=== PATIENT | male | born 1975 | race Caucasian/White ===

== ENCOUNTER 2024-06-03 08:29 | Emergency (ER) | payer OTHER, SELFPAY ==
--- NOTE | ~2024-06-03 | XR_ITS ---
XR chest 2V Ordering provider: Park Peng APRN History: 48 years Male with . cough, tachy, smoker . Comparison: None. FINDINGS: MEDIASTINUM: The cardiac silhouette is slightly enlarged. Slightly prominent gato. LUNGS: Small opacity seen in the right midzone which may be a nodule or granuloma measuring 1.2 cm. C T evaluation is advised. No infiltrates, effusions or pneumothorax. Slightly prominent bronchovascula r markings in the lower lobes more on the right side OTHER: No free air under the diaphragm. Degenerative changes of the spine. IMPRESSION: Slight cardiomegaly with congestive gato. Small nodule in the right midzone. CT evaluation advised. Reviewed, dictated and finalized at location A.
--- NOTE | 2024-06-03 08:45 | ECG_ITS ---
Test Date: 2024-06-03 09:02:25 Measurements Intervals [place] Rate: 131 P: 0 ND: 0 QRS: -8 QRSD: 100 T: 97 QT: 299 QTc: 442 Interpretive Statements ATRIAL FLUTTER/TACHYCARDIA WITH RAPID VENTRICULAR RESPONSE CONSIDER INFERIOR INFARCT, AGE INDETERMINATE BORDERLINE ST-T WAVE ABNORMALITY- LAT/HIGH LAT LEADS BASELINE ARTIFACT- I, II, III, AVR, AVL, AVF, V1-V3 ABNORMAL ECG No previous ECG available for comparison Electronically Signed On 06-03-2024 09:11:01 CDT by Surendra Beckman D.O.
--- NOTE | 2024-06-03 08:45 | ED.URI ---
HPI - URI/Sore Throat General Chief Complaint: Upper Respiratory Infection Stated Complaint: COUGH Source: patient Mode of arrival: ambulatory Limitations: no limitations History of Present Illness HPI Narrative: 48-year-old male with hx HTN presented for complaint of cough for 10 days, and symptoms are worsening over the past few days. Endorses shortness of breath, fatigue and heart racing. Reports pain to the sternum with coughing. Patient smokes 1 ppd. Related Data Home Medications ?Medication ?Instructions ?Recorded ?Confirmed ?Last Taken ?Type diltiazem HCl 180 mg 180 mg PO DAILY 05/24/24 06/03/24 Unknown History capsule,extended release 24 hr, controlled (DILT-XR) omeprazole 20 mg capsule,delayed 20 mg PO DAILY 05/24/24 05/24/24 Unknown History release rosuvastatin 20 mg tablet 20 mg PO DAILY 05/24/24 06/03/24 Unknown History Allergies Allergy/AdvReac Type Severity Reaction Status Date / Time No Known Allergies Allergy Verified 06/03/24 10:19 Review of Systems Review of Systems: per HPI All systems reviewed & are unremarkable except as noted in HPI and below PMFSH Past Medical History Medical History (Updated 06/03/24 @ 09:26 by Park Peng, MONICA) Hypertension Social History Social History Smoking packs per day: 1 Smoking cigarettes per day: 20.0 Years smoked: 25 Smoking pack-years: 25.00 Smoking status: Current every day smoker Tobacco type: cigarettes Alcohol intake: current Drinks per week: 10 Substance use: current Substance use type: marijuana Other substance usage details: marijuana weekly Living arrangements: with family Spiritual care concerns: No Comments At time of signature, I have reviewed and agree with nursing past medical, surgical, social and family history unless otherwise noted. Please see nursing chart for further information. There is no relevant family history pertinent to the presenting complaint Exam Narrative: GENERAL: ill-appearing, in no acute distress. ENT: Mucous membranes pink and moist. CHEST: No respiratory distress, speaks short sentences. Tachypnea. Wheezing and diminished to all [place]. HEART: Regular and tachycardic. No murmur appreciated. ABDOMEN: Soft, large, nontender, normal active bowel sounds. EXTREMITIES: Normal range of motion. No edema. SKIN: Warm, dry, no rash. Capillary refill normal. NEURO: Alert and oriented x3. Gait steady. PSYCH: Flat affect. Course Course Emergency Course: Patient is aware of diagnosis, understands and agrees to treatment plan. Anticipatory guidance given. Patient agrees to follow-up as directed and is aware of reasons to seek care at the emergency department. Portions of this record may have been created with voice recognition software Level of Care: Express Care Visit Vital Signs Vital signs: Vital Signs Temperature 98.2 F 06/03/24 08:46 Pulse Rate 131 H 06/03/24 08:46 Respiratory Rate 24 H 06/03/24 08:46 Blood Pressure 145/104 H 06/03/24 08:46 Pulse Oximetry 98 06/03/24 08:46 Temperature 98.2 F 06/03/24 08:46 Pulse Rate 131 H 06/03/24 08:46 Respiratory Rate 24 H 06/03/24 08:46 Blood Pressure 145/104 H 06/03/24 08:46 Pulse Oximetry 98 06/03/24 08:46 MDM - URI/Sore Throat MDM Narrative Medical decision making narrative: patient presents for shortness of breath, heart racing, fatigue, and cough. EKG shows atrial flutter rate 131. CXR shows possible nodule rght midzone and bronchovascular markings in lower lobes; reviewed with pt. Advised ER transfer via EMS. Pt refuses ambulance, requests transfer via private vehicle. Pt is aware of the risk of worsening condition, disability and . Differential Diagnosis Differential diagnosis: Likely other (Angioedema, perforation, asthma, pneumonia, PE, tension pneumothorax, cardiac tamponade CA, pericarditis, pleural effusion, CHF, bronchitis, cardiac arrhythmia) Imaging Data Radiologist's impression: Patient: Barrett Guzman : 1975 MR#: [id number] Age: 48 Acct:[id number] Loc: [facility] ADM Date: 06/03/24Attending Dr: Ordering Physician: Park Peng APRN Date of Service: 06/03/24 Procedure(s): XR chest 2V Accession Number(s): [id number] cc: Kizzy, Eagle Nelson; Park Peng APRN~ XR chest 2V Ordering provider: Park Peng APRN History: 48 years Male with . cough, tachy, smoker . Comparison: None. FINDINGS: MEDIASTINUM: The cardiac silhouette is slightly enlarged. Slightly prominent gato. LUNGS: Small opacity seen in the right midzone which may be a nodule or granuloma measuring 1.[address] evaluation is advised. No infiltrates, effusions or pneumothorax. Slightly prominent bronchovascular markings in the lower lobes more on the right side OTHER: No free air under the diaphragm. Degenerative changes of the spine. IMPRESSION: Slight cardiomegaly with congestive gato. Small nodule in the right midzone. CT evaluation advised ECG Data EKG #1: Attestation: I personally reviewed and interpreted this ECG as follows: (Atrial flutter with rapid ventricular response, rate 131, QRS 100, QT/ QTC 299/376 CONSIDER INFERIOR INFARCT, AGE INDETERMINATE BORDERLINE ST-T WAVE ABNORMALITY- LAT/HIGH LAT LEADS BASELINE ARTIFACT- I, II, III, AVR, AVL, AVF, V1-V3 ABNORMAL ECG) ECG completion date: 06/03/24 ECG completion time: 09:02 Prior ECG tracings: not available for review EKG Interpretation: tachycardia and atrial flutter Discharge Plan Discharge Clinical Impression: Atrial flutter Patient Disposition: Acute Care Hospital Condition: Stable Patient Language: Indonesian Prescriptions: No Action diltiazem HCl [DILT-XR] 180 mg capsule,ext.rel 24h degradable 180 mg PO DAILY rosuvastatin 20 mg tablet 20 mg PO DAILY omeprazole 20 mg capsule,delayed release(DR/EC) 20 mg PO DAILY Follow-up/Referrals: Kizzy,Eagle Nelson MD [Primary Care Provider] -
[2024-06-03 08:46] VITALS: BP 145/104; PULSE 131; RESP 24; TEMP 36.8; O2SAT 98
--- NOTE | 2024-06-03 10:36 | PC.NURSE ---
0920 Patient to be transferred to [facility] ED for further evaluation and treatment-patient in agreement but refuses ambulance transport. He will call his .
== END 2024-06-03 09:53 | disposition short-term general hospital (02) ==
PROVIDERS: Emergency Provider Nurse Practitioner Family; PCP Internal Medicine
DX: I48.92 Unspecified atrial flutter (principal); F17.210 Nicotine dependence, cigarettes, uncomplicated; F12.90 Cannabis use, unspecified, uncomplicated; I10 Essential (primary) hypertension
CPT/HCPCS: 71046; 93005; 93010; 99213; G0463

== ENCOUNTER 2024-06-03 10:06 | Inpatient (IN) | payer OTHER, SELFPAY ==
[2024-06-03] VITALS (13 sets, daily range): BP systolic 119–157; BP diastolic 78–113; PULSE 123–132; RESP 18–35; TEMP 36.8–36.9; O2SAT 94–99; BMI 42.1
--- NOTE | ~2024-06-03 | XR_ITS ---
EXAMINATION: XR chest 1V portable DATE: 06/06/2024 08:10 INDICATION: Pneumonia TECHNIQUE: frontal view of the chest was obtained. COMPARISON: Chest radiograph and CT dated 06/03/2024 FINDINGS: Unchanged elevation the left hemidiaphragm. Again seen is a subtle nodule projecting over the right m idlung zone which demonstrates calcification on prior CT consistent with old granulomatous disease. N o new airspace opacities, pulmonary edema, pleural effusion or pneumothorax. Cardiomegaly. IMPRESSION: 1. Unchanged elevation of the left hemidiaphragm. No acute cardiopulmonary disease. 2. Cardiomegaly. Reviewed, dictated and finalized at location A. IMPRESSION: 1. Unchanged elevation of the left hemidiaphragm. No acute cardiopulmonary dise ase. 2. Cardiomegaly.
--- NOTE | ~2024-06-03 | US_ITS ---
Limited ABDOMINAL ULTRASOUND (Doppler ultrasound interrogation techniques used as needed for this exa m.) Ordering provider: Tyrell Cooper MD History: . Elevated liver enzymes . Comparison: None. FINDINGS: PANCREAS: Visualized portion is of normal echotexture and size. PORTAL VEIN: Hepatopedal flow demonstrated. LIVER: Normal size and increased echotexture. No focal hepatic lesions or perihepatic fluid collectio ns are identified. BILIARY DUCTS: No intra or extrahepatic biliary dilation. Common bile duct measures 2.4 mm in diamete r which is normal for patient's age. GALLBLADDER: Thickened wall measuring 4.6 mm. No stones, sludge or pericholecystic fluid. Negative s onographic Harper's sign. IVC: Patent. FREE FLUID: visualized within the upper abdomen. IMPRESSION: Fat infiltration of the liver. Thickened wall of the gallbladder which may indicate cholecystitis. Cl inical correlation advised. Minimal free fluid in the upper abdomen. Otherwise, normal limited abdomi nal ultrasound. Reviewed, dictated and finalized at location A. IMPRESSION: Fat infiltration of the liver. Thickened wall of the gallbladder which may abimbola aida cholecystitis. Clinical correlation advised. Minimal free fluid in the upp er abdomen. Otherwise, normal limited abdominal ultrasound.
--- NOTE | ~2024-06-03 | CT_ITS ---
CTA chest PE abdomen pel Ordering provider: Carolann Ferrara APRN History: . elevated liver enzymes, shortness of breath, cough . Comparison: None. Technique: CT angiogram chest was performed following timed intravenous injection of contrast. Thin s lice axial images and reformatted coronal images were obtained. Three dimensional reformatted images of the chest were also obtained using a [employer] workstation. Also, CT of the abdomen and pelvis was pe rformed with IV contrast. . Automated exposure control and iterative reconstruction technique were e mployed. The dose-length product was 2538.79 mGy-cm. 100 mL Omnipaque 350 was given IV. FINDINGS: CHEST: --PULMONARY ARTERIES: No pulmonary embolus. --VISUALIZED THORACIC INLET: Normal. --MEDIASTINUM: Aorta/coronary arteries: Mild atheromatous disease. Heart/other: The heart is not enlarged. Heart/other: The heart is moderately enlarged. Lymph nodes: No mediastinal or hilar adenopathy. Prevascular lymph nodes seen with the largest measur es 1.4 cm. Right paratracheal lymph nodes are also seen with the largest measures 1.7 cm. --LUNGS: No pulmonary masses. Multiple patchy opacities seen in the right upper and lower lobes suggestive of pneumonia. Groundglass appearance is seen in the lower lobes. Nodule with calcification seen in the r ight lower lobe suggestive of granuloma. Bilateral interstitial thickening which may indicate pneumon itis. Pulmonary edema is not excluded. No infiltrates. No pneumothorax. Right pleural effusion. --MUSCULOSKELETAL: Bones: Age appropriate degenerative changes of the spine. Superficial soft tissues: The superficial soft tissues are normal. ABDOMEN/PELVIS: --MUSCULOSKELETAL: Superficial soft tissues: Bilateral fat containing inguinal hernias. Fat-containing umbilical hernia. Otherwise, The superficial soft tissues are normal. Bones: Age appropriate degenerative changes of the spine. --UPPER ABDOMINAL ORGANS: Liver: Fat infiltration. Hepatomegaly. Gallbladder: Fat stranding seen around the neck of the gallbladder may indicate cholecystitis versus pneumonitis. Clinical correlation advised. Spleen: Normal. Stomach/duodenum: Normal. Pancreas: Normal. Adrenals: Normal. Kidneys: Tiny 2 mm stone in the left kidney lower ureter with no significant left hydronephrotic dill ges. Tiny cyst in the right kidney lower pole --PELVIC ORGANS: The bladder is underfilled with slightly thickened wall. No bladder stones. --BOWEL AND MESENTERY: Colon: No evidence of diverticulitis.. No evidence of appendicitis. Small Bowel: Normal. No obstruction. Peritoneum/mesentery: No free air or free fluid. No mesenteric lymphadenopathy. --RETROPERITONEUM: Mild atheromatous disease of the abdominal aorta. No retroperitoneal lymphadenop athy. Small para-aortic lymph nodes. IMPRESSION: CHEST: 1. No pulmonary embolism or dissection. 2. Multiple patchy opacities and groundglass appearance suggestive of pneumonia. Underlying pulmonar y edema is not excluded although this is less likely. Clinical correlation advised. 3. Mediastinal lymphadenopathy. 4. Right pleural effusion. ABDOMEN/PELVIS: 1. No evidence of appendicitis, diverticulitis or intestinal obstruction. 2. Fat stranding around the neck of the gallbladder. Differential include cholecystitis versus ascen ding cholangitis versus duodenitis: although no thickening in the wall of the gallbladder or the duod enum is seen. Clinical correlation advised. 3. Fat infiltration of the liver. Hepatomegaly. 4. Fat-containing bilateral inguinal and umbilical hernias. Reviewed, dictated and finalized at location A. IMPRESSION: CHEST: 1. No pulmonary embolism or dissection. 2. Multiple patchy opacities and groundglass appearance suggestive of pneumoni a. Underlying pulmonary edema is not excluded although this is less likely. Cli nical correlation advised. 3. Mediastinal lymphadenopathy. 4. Right pleural effusion. ABDOMEN/PELVIS: 1. No evidence of appendicitis, diverticulitis or intestinal obstruction. 2. Fat stranding around the neck of the gallbladder. Differential include chol ecystitis versus ascending cholangitis versus duodenitis: although no thickenin g in the wall of the gallbladder or the duodenum is seen. Clinical correlation advised. 3. Fat infiltration of the liver. Hepatomegaly. 4. Fat-containing bilateral inguinal and umbilical hernias.
--- NOTE | ~2024-06-03 | US_ITS ---
EXAM: ABDOMEN ULTRASOUND HISTORY: elevated LFTs COMPARISON: Reference is made to a CTA of the chest abdomen and pelvis performed less than 24 hours e stacy demonstrating infiltration of the fat surrounding the base of the gallbladder/1st-2nd portion of the duodenum for which clinical correlation was needed to exclude acute cholecystitis. FINDINGS: LIVER: The liver is increased in echogenicity and size measuring 25 cm in longitudinal dimension. The portal vein is patent, demonstrating hepatopedal flow. The contour of the liver surface is smooth. GALLBLADDER: The gallbladder wall is thickened, likely secondary to underdistention. No stones are identified. BILE DUCTS: Common bile duct measures 4.7mm. PANCREAS: Limited evaluation of the pancreas secondary to overlying bowel gas IMPRESSION: Fatty infiltration of an enlarged liver. Gallbladder wall thickening, likely secondary to underdistention. Reviewed, dictated and finalized at location A.
--- NOTE | ~2024-06-03 | US_ITS ---
EXAMINATION: US retroperitoneal duplex ltd DATE: 06/06/2024 14:31 INDICATION: Elevated liver enzymes TECHNIQUE: Multiple grayscale, color Doppler, and axial Doppler images of the hepatic artery, hepatic veins and portal veins were obtained. COMPARISON: None. FINDINGS: There is increased hepatic parenchymal echogenicity and coarsened echotexture consistent with diffuse hepatic steatosis. No liver lesion identified. The visualized liver. No intrahepatic biliary duct d ilation suspected. Portal venous flow was seen in the hepatopetal, normal direction but with mild inc reased pulsatility in the main and left and right portal veins. Normal arterial waveform with brisk systolic upstroke and peak systolic velocity of 51 cm/s at the hepatic artery. There is increased pul satility of the otherwise normal bidirectional flow in the left, middle and right hepatic veins with increased amplitude of the S wave and more prominently of the retrograde A-wave which is consistent w ith congestive heart failure without evident tricuspid regurgitation. There is a small amount of chantal hepatic ascites. IMPRESSION: 1. Normal directional flow but with increased pulsatility to the hepatic venous waveforms and to les ser degree the portal venous waveforms consistent with congestive heart failure. 2. Diffuse hepatic steatosis with small amount of perihepatic ascites. Reviewed, dictated and finalized at location B. IMPRESSION: 1. Normal directional flow but with increased pulsatility to the hepatic venou s waveforms and to lesser degree the portal venous waveforms consistent with co ngestive heart failure. 2. Diffuse hepatic steatosis with small amount of perihepatic ascites.
--- NOTE | ~2024-06-03 | US_ITS ---
US renal BI Ordering provider: Sai Gonzalez MD History: . elevated creatinine . Comparison: None. Technique: Ultrasound bilateral kidneys. Findings: RIGHT KIDNEY: Measures 12.5x 6x 5.6 cm in length which is normal in size. No renal cysts. No renal ma ss or visualized echogenic stones. Otherwise, normal echotexture and contour. No hydronephrosis. Norm al renal cortical thickness. LEFT KIDNEY: Measures 13.6x 7.8x 7.2 cm in length which is normal in size. No renal cysts. No renal m ass or visualized echogenic stones. Otherwise, normal echotexture and contour. No hydronephrosis. Nor mal renal cortical thickness. BLADDER: Partially visualized. IMPRESSION: No definite abnormality. Reviewed, dictated and finalized at location A. IMPRESSION: No definite abnormality.
--- NOTE | 2024-06-03 10:11 | ECG_ITS ---
Test Date: 2024-06-03 10:16:42 Measurements Intervals [place] Rate: 131 P: 0 MD: 0 QRS: -1 QRSD: 98 T: 99 QT: 298 QTc: 441 Interpretive Statements ATRIAL FLUTTER/TACHYCARDIA WITH RAPID VENTRICULAR RESPONSE POSSIBLE RIGHT VENTRICULAR CONDUCTION DELAY CONSIDER INFERIOR INFARCT, AGE INDETERMINATE NONSPECIFIC ST & T-WAVE ABNORMALITY- HIGH LATERAL LEADS ABNORMAL ECG Compared to ECG 06/03/2024 09:02:25 NO SIGNIFICANT CHANGE Electronically Signed On 06-03-2024 10:21:54 CDT by Surendra Beckman D.O.
[2024-06-03 10:24] LABS: Basophils Absolute Auto 0.1 K/mm3 (0.0-0.1); Basophils Percent Auto 0.7 % (0.2-1.2); Eosinophils Absolute Auto 0.1 K/mm3 (0-0.3); Eosinophils Percent Auto 0.7 % (0-4.4); Hematocrit 44.4 % (42.0-52.0); Hemoglobin 14.1 g/dL (14.0-18.0); Immature Granulocyte Absolute 0.05 K/mm3 (0.00-0.031); Immature Granulocyte Percent A 0.5 % (0-0.5); Lymphocytes Absolute Auto 1.99 K/mm3 (0.9-3.2); Lymphocytes Percent Auto 19.8 % (18.3-44.2); Mean Corpuscular HGB Conc 31.8 g/dl (32-36); Mean Corpuscular Hemoglobin 31.1 pg (26-34); Monocytes Absolute Auto 0.9 K/mm3 (0.1-0.6); Monocytes Percent Auto 9.3 % (2.6-8.5); Platelet Count Result 284 k/mm3 (150-375); Red Blood Count 4.53 M/mm3 (4.6-6.20); Red Cell Distribution Width 12.6 % (11.5-14.5); White Blood Count 10.1 K/mm3 (4.5-10.0)
--- NOTE | 2024-06-03 10:33 | ED.SOB ---
HPI - SOB/Dyspnea General Chief Complaint: Shortness of Breath/Dyspnea <Carolann Ferrara APRN - Last Filed: 06/03/24 13:37> Stated Complaint: sent by <Carolann Ferrara APRN - Last Filed: 06/03/24 13:37> Time Seen by Provider: 06/03/24 10:12 <Carolann Ferrara APRN - Last Filed: 06/03/24 13:37> History of Present Illness HPI Narrative: Patient is a 48-year-old male who presents to the ER with a 1 1/2 week history of cough, wheezing, shortness of breath, mild sore throat, intermittent headache, and fatigue. Earlier today he presented to urgent care, who noted he was tachycardic, so they advised him to come to the ER. Patient reports he has been using [id number] cough suppressants at home without any relief. He endorses a history of high blood pressure, hyperlipidemia, GERD. Patient also reports he is a daily marijuana and cigarette smoker. He denies any chest pain, back pain, nausea/vomiting, or recent fevers. <Carolann Ferrara APRN - Last Filed: 06/03/24 13:37> Related Data Home Medications: Home Medications ?Medication ?Instructions ?Recorded ?Confirmed ?Last Taken ?Type diltiazem HCl 180 mg 180 mg PO DAILY 05/24/24 06/03/24 06/03/24 History capsule,extended release 24 hr, controlled (DILT-XR) omeprazole 20 mg capsule,delayed 20 mg PO DAILY 05/24/24 06/03/24 06/03/24 History release rosuvastatin 20 mg tablet 20 mg PO DAILY 05/24/24 06/03/24 06/03/24 History <Carolann Ferrara APRN - Last Filed: 06/03/24 13:37> Allergies/Adverse Reactions: Allergies Allergy/AdvReac Type Severity Reaction Status Date / Time No Known Allergies Allergy Verified 06/03/24 10:19 <Carolann Ferrara APRN - Last Filed: 06/03/24 13:37> Review of Systems Review of Systems: All systems reviewed & are unremarkable except as noted in HPI and below <Carolann Ferrara APRN - Last Filed: 06/03/24 13:37> PMFSH Past Medical History Medical History: Medical History (Updated 06/03/24 @ 16:34 by Maria E Leal PA-C) Gastroesophageal reflux disease Tobacco dependence Hyperlipidemia Hypertension <Carolann Ferrara, CHIEF LIBRARIAN CIRCULATION DEPARTMENT - Last Filed: 06/03/24 13:37> Surgical History Surgical History: Surgical History (Updated 06/03/24 @ 16:31 by Maria E Leal PA-C) History of tonsillectomy <Carolann Ferrara, CHIEF LIBRARIAN [employer]ATION DEPARTMENT - Last Filed: 06/03/24 13:37> Family History Family History: Family History Father Acute myocardial infarction Mother Diabetes mellitus <Carolann Ferrara, CHIEF LIBRARIAN [employer]ATION DEPARTMENT - Last Filed: 06/03/24 13:37> Social History Social History: Social History (Updated 06/03/24 @ 16:31 by Maria E Leal PA-C) Social History: Surrogate medical decision maker: Kimberlyn Natan, spouse. Code status: Full code. Smoking packs per day: 1 Smoking cigarettes per day: 20.0 Years smoked: 25 Smoking pack-years: 25.00 Smoking status: Current every day smoker Tobacco type: cigarettes Alcohol intake: current Drinks per week: 10 Substance use: current Substance use type: marijuana Other substance usage details: marijuana weekly Do You Feel Safe in your Home?: Yes Lack of Transportation: No Lack of Food: Never True Current Housing: I Do Not Have Housing Concerned About Future Housing: No Difficulty Paying Gas/Electric Bills: No Difficulty Paying for Meds: No Currently Unemployed: No Education: High School Diploma/GED Difficulty w/ Childcare or Family Care: No Living arrangements: with family Spiritual care concerns: No <Carolann Ferrara, CHIEF LIBRARIAN [employer]ATION DEPARTMENT - Last Filed: 06/03/24 13:37> Exam Narrative: GENERAL: Well appearing, well-nourished, non-toxic, in no acute distress. HEAD: Normocephalic, atraumatic. NECK: Supple. No adenopathy, no masses. RESPIRATORY: Airway patent, respirations nonlabored. Wheezing and rales to auscultation bilaterally (left greater than right). CARDIOVASCULAR: Tachycardia without murmurs, rubs, or gallops. Peripheral pulses 2+ and equal bilaterally. No pedal edema ABDOMINAL: Soft, nontender, nondistended, no hepatosplenomegaly. Normoactive BS. MUSCULOSKELETAL: Moves all extremities. Strength/ROM intact without gross deformities. SKIN: Warm, dry, normal color. No rashes. NEURO: A&O X3. Speech clear. Cranial nerves II-XII intact. No ataxic movements. PSYCHIATRIC: Flat affect. Normal interaction. <Carolann Ferrara APRN - Last Filed: 06/03/24 13:37> Course ENGINE DISPATCHER/PA Physician Supervision I agree with midlevel documentation; I performed the medical decision making component of this evaluation. I had independent [id number] time with the patient and performed my own independent evaluation and assessment. Patient remained persistently tachycardic with a heart rate of 131-132 without any variation an initial EKG that lip appears to be potential WPW versus atrial flutter with 2-1 conduction. Patient responded nicely to 5 mg IV push metoprolol with improved heart rate down into the 100s. Patient does have multifocal pneumonia as started on appropriate antibiotics. No significant leukocytosis or anemia. Initial troponin was negative but rodger slightly likely secondary to demand from the elevated heart rate persistently. Also improved down on 6 hour troponin after heart rate was better controlled. Hospitalist was spoken to as well as Cardiology. Patient was accepted to an IMU bed at this time. Patient remained stable and comfortable with admission plan. <Brandon Rubi MD - Last Filed: 06/03/24 20:55> Vital Signs Vital signs: Vital Signs Temperature 36.9 C 06/03/24 10:09 Pulse Rate 132 H 06/03/24 10:09 Respiratory Rate 24 H 06/03/24 10:09 Blood Pressure 157/113 H 06/03/24 10:09 Pulse Oximetry 99 06/03/24 10:09 Oxygen Delivery Room Air 06/03/24 10:09 Temperature 36.8 C 06/03/24 20:00 Pulse Rate 126 H 06/03/24 20:00 Respiratory Rate 32 H 06/03/24 20:00 Blood Pressure 145/94 H 06/03/24 20:00 Pulse Oximetry 94 06/03/24 20:00 Oxygen Delivery Room Air 06/03/24 10:12 <Carolann Ferrara, CHIEF LIBRARIAN CIRCULATION DEPARTMENT - Last Filed: 06/03/24 13:37> Vital Signs Temperature 36.9 C 06/03/24 10:09 Pulse Rate 132 H 06/03/24 10:09 Respiratory Rate 24 H 06/03/24 10:09 Blood Pressure 157/113 H 06/03/24 10:09 Pulse Oximetry 99 06/03/24 10:09 Oxygen Delivery Room Air 06/03/24 10:09 Temperature 36.8 C 06/03/24 20:00 Pulse Rate 126 H 06/03/24 20:00 Respiratory Rate 32 H 06/03/24 20:00 Blood Pressure 145/94 H 06/03/24 20:00 Pulse Oximetry 94 06/03/24 20:00 Oxygen Delivery Room Air 06/03/24 10:12 <Brandon Rubi MD - Last Filed: 06/03/24 20:55> MDM - SOB/Dyspnea MDM Narrative Medical decision making narrative: Patient is a 48-year-old male who presents to the ER with a 1 1/2 week history of cough, wheezing, shortness of breath, mild sore throat, intermittent headache, and fatigue. Earlier today he presented to urgent care, who noted he was tachycardic, so they advised him to come to the ER. Patient reports he has been using [id number] cough suppressants at home without any relief. He endorses a history of high blood pressure, hyperlipidemia, GERD. Patient also reports he is a daily marijuana and cigarette smoker. He denies any chest pain, back pain, nausea/vomiting, or recent fevers. Labs Ordered: CBC, CMP, troponin, magnesium, proBNP, UDS, UA, PTT, INR, lipase Imaging Ordered: Chest x-ray, CT PE scan, ECHO Medications Ordered: DuoNeb, Solu-Medrol 125mg IV, 1 L normal saline IV bolus, 1L LR IV bolus, Lasix, ceftriaxone IV, Ativan 1mg IV Results: Patient's CMP indicates a total bilirubin of 1.8, AST of 116, an ALT of 139. His troponin was within normal limits at 0.032. Diagnosis: atrial flutter, CHF, pneumonia Risks: HEART score: moderate risk HEART Score for Major Cardiac Events from [email or web address] on 06/03/2024 All calculations should be rechecked by clinician prior to use RESULT SUMMARY: 4 points Moderate Score (4-6 points) Risk of MACE of 12-16.6%. INPUTS: History ?> 1 = Moderately suspicious EKG ?> 1 = Non-specific repolarization disturbance Age ?> 1 = 45-64 Risk factors ?> 1 = 1-2 risk factors Initial troponin ?> 0 = <=Normal limit Consults: 1300- spoke with cardiology, Shreya Gibbs, who suggests pt be given Metoprolol to see if this helps decrease his heart rate. She will follow-up with pt once he is admitted to the hospital. 1300-Spoke with hospitalist, Maria E, who is in agreement to accept pt for admission. She advised pt be admitted to IMU. Patient Education/Shared MDM: Results of blood work and imaging shared with patient. He endorses improvement following duo neb administration. Patient's heart rate decreased mildly after metoprolol administration. He and his verbalized understanding of plan for admission. They are in agreement with plan. <Carolann Ferrara, CHIEF LIBRARIAN CIRCULATION DEPARTMENT - Last Filed: 06/03/24 13:37> Differential Diagnosis Differential diagnosis: Likely congestive heart failure, community acquired pneumonia, asthma with exacerbation and pulmonary embolism <Carolann Ferrara APRN - Last Filed: 06/03/24 13:37> Lab Data Attestation: I reviewed the patient's lab results. <Carolann Ferrara APRN - Last Filed: 06/03/24 13:37> Result diagrams: 06/03/24 10:18 06/03/24 10:18 <Carolann Ferrara, CHIEF LIBRARIAN CIRCULATION DEPARTMENT - Last Filed: 06/03/24 13:37> Labs: Lab Results 06/03/24 06/03/24 06/03/24 Range/Units 10:18 11:04 11:59 WBC 10.1 H (4.5-10.0) K/mm3 RBC 4.53 L (4.6-6.20) M/mm3 Hgb 14.1 (14.0-18.0) g/dL Hct 44.4 (42.0-52.0) % MCV 98.0 (80-100) fl MCH 31.1 (26-34) pg MCHC 31.8 L (32-36) g/dl RDW 12.6 (11.5-14.5) % Plt Count 284 (150-375) k/mm3 MPV 10.0 (7.4-10.4) fl Immature Gran % (Auto) 0.5 (0-0.5) % Neut % (Auto) 69.0 (45.5-73.1) % Lymph % (Auto) 19.8 (18.3-44.2) % Elk % (Auto) 9.3 H (2.6-8.5) % Eos % (Auto) 0.7 (0-4.4) % Baso % (Auto) 0.7 (0.2-1.2) % Lymph # (Auto) 1.99 (0.9-3.2) K/mm3 Elk # (Auto) 0.9 H (0.1-0.6) K/mm3 Eos # (Auto) 0.1 (0-0.3) K/mm3 Baso # (Auto) 0.1 (0.0-0.1) K/mm3 Abs Immat Gran (auto) 0.05 H (0.00-0.031) K/mm3 Absolute Neuts (auto) 7.0 H (1.3-6.7) K/mm3 Absolute Nucleated RBC 0.000 (0.0-0.012) K/mm3 Nucleated RBC % 0.0 (0.0-0.2) % PT 15.5 H (11.1-14.7) Seconds INR 1.2 APTT 30.9 (22.3-36.8) Seconds Sodium 140 (137-145) mmol/L Potassium 4.2 (3.4-5.0) mmol/L Chloride 107 (98-107) mmol/L Carbon Dioxide 23 (22-30) mmol/L Anion Gap 10 (4-12) mmol/L BUN 18 (9-20) mg/dL Creatinine 0.74 (0.7-1.3) mg/dL Estim Creat Clear Calc 157 ml/min Estimated GFR > 60 (59 - ) Glucose 122 H (65-110) mg/dL Lactic Acid 1.1 (0.7-2.0) mmol/L Calcium 9.1 (8.4-10.2) mg/dL Magnesium 2.3 (1.6-2.3) mg/dL Total Bilirubin 1.8 H (0.2-1.3) mg/dL AST 116 H (17-59) U/L ALT 139 H (6-50) U/L Alkaline Phosphatase 67 (38-126) U/L Troponin I 0.032 (0.000-0.034) ng/mL NT-Pro-B Natriuret Pep 2210 H (19.9-100) pg/mL Total Protein 7.0 (6.3-8.2) g/dL Albumin 4.2 (3.5-5.1) g/dL Lipase 81 (23-300) U/L Urine Color Dark yellow (Yellow) Urine Appearance Clear (Clear) Urine pH 5.5 (5.0-9.0) Ur Specific [place] > 1.045 H (1.001-1.035) Urine Protein 2+ H (Negative) mg/dL Urine Glucose (UA) Negative (Negative) mg/dL Urine Ketones Trace H (Negative) mg/dL Ur Blood (Man) Negative (Negative) Urine Nitrate Negative (Negative) Urine Bilirubin 2+ H (Negative) Urine Urobilinogen 1.0 (<2.0) mg/dL Leukocyte Esterase Rfl Negative (Negative) LUX/UL Urine RBC 0-2 (0-2) /hpf Urine WBC 0-5 (0-3) /hpf Ur Squamous Epith Cells None seen (Few) /hpf Urine Bacteria None seen /hpf Urine Casts 0-2 Hyaline Casts Present (None) /lpf Urine Mucus Present /lpf Urine Opiates Screen Negative (Negative) Urine Methadone Screen Negative (Negative) Ur Barbiturates Screen Negative (Negative) Ur Phencyclidine Scrn Negative (Negative) Ur Amphetamine Screen Negative (Negative) U Benzodiazepines Scrn Negative (Negative) Urine Cocaine Screen Negative (Negative) U Cannabinoids Screen Positive A (Negative) 06/03/24 Range/Units 13:05 WBC (4.5-10.0) K/mm3 RBC (4.6-6.20) M/mm3 Hgb (14.0-18.0) g/dL Hct (42.0-52.0) % MCV (80-100) fl MCH (26-34) pg MCHC (32-36) g/dl RDW (11.5-14.5) % Plt Count (150-375) k/mm3 MPV (7.4-10.4) fl Immature Gran % (Auto) (0-0.5) % Neut % (Auto) (45.5-73.1) % Lymph % (Auto) (18.3-44.2) % Elk % (Auto) (2.6-8.5) % Eos % (Auto) (0-4.4) % Baso % (Auto) (0.2-1.2) % Lymph # (Auto) (0.9-3.2) K/mm3 Elk # (Auto) (0.1-0.6) K/mm3 Eos # (Auto) (0-0.3) K/mm3 Baso # (Auto) (0.0-0.1) K/mm3 Abs Immat Gran (auto) (0.00-0.031) K/mm3 Absolute Neuts (auto) (1.3-6.7) K/mm3 Absolute Nucleated RBC (0.0-0.012) K/mm3 Nucleated RBC % (0.0-0.2) % PT (11.1-14.7) Seconds INR APTT (22.3-36.8) Seconds Sodium (137-145) mmol/L Potassium (3.4-5.0) mmol/L Chloride (98-107) mmol/L Carbon Dioxide (22-30) mmol/L Anion Gap (4-12) mmol/L BUN (9-20) mg/dL Creatinine (0.7-1.3) mg/dL Estim Creat Clear Calc ml/min Estimated GFR (59 - ) Glucose (65-110) mg/dL Lactic Acid (0.7-2.0) mmol/L Calcium (8.4-10.2) mg/dL Magnesium (1.6-2.3) mg/dL Total Bilirubin (0.2-1.3) mg/dL AST (17-59) U/L ALT (6-50) U/L Alkaline Phosphatase (38-126) U/L Troponin I 0.035 H* (0.000-0.034) ng/mL NT-Pro-B Natriuret Pep (19.9-100) pg/mL Total Protein (6.3-8.2) g/dL Albumin (3.5-5.1) g/dL Lipase (23-300) U/L Urine Color (Yellow) Urine Appearance (Clear) Urine pH (5.0-9.0) Ur Specific [place] (1.001-1.035) Urine Protein (Negative) mg/dL Urine Glucose (UA) (Negative) mg/dL Urine Ketones (Negative) mg/dL Ur Blood (Man) (Negative) Urine Nitrate (Negative) Urine Bilirubin (Negative) Urine Urobilinogen (<2.0) mg/dL Leukocyte Esterase Rfl (Negative) LUX/UL Urine RBC (0-2) /hpf Urine WBC (0-3) /hpf Ur Squamous Epith Cells (Few) /hpf Urine Bacteria /hpf Urine Casts Hyaline Casts (None) /lpf Urine Mucus /lpf Urine Opiates Screen (Negative) Urine Methadone Screen (Negative) Ur Barbiturates Screen (Negative) Ur Phencyclidine Scrn (Negative) Ur Amphetamine Screen (Negative) U Benzodiazepines Scrn (Negative) Urine Cocaine Screen (Negative) U Cannabinoids Screen (Negative) <Carolann Ferrara, CHIEF LIBRARIAN CIRCULATION DEPARTMENT - Last Filed: 06/03/24 13:37> Lab Results 06/03/24 06/03/24 06/03/24 Range/Units 10:18 11:04 11:59 WBC 10.1 H (4.5-10.0) K/mm3 RBC 4.53 L (4.6-6.20) M/mm3 Hgb 14.1 (14.0-18.0) g/dL Hct 44.4 (42.0-52.0) % MCV 98.0 (80-100) fl MCH 31.1 (26-34) pg MCHC 31.8 L (32-36) g/dl RDW 12.6 (11.5-14.5) % Plt Count 284 (150-375) k/mm3 MPV 10.0 (7.4-10.4) fl Immature Gran % (Auto) 0.5 (0-0.5) % Neut % (Auto) 69.0 (45.5-73.1) % Lymph % (Auto) 19.8 (18.3-44.2) % Elk % (Auto) 9.3 H (2.6-8.5) % Eos % (Auto) 0.7 (0-4.4) % Baso % (Auto) 0.7 (0.2-1.2) % Lymph # (Auto) 1.99 (0.9-3.2) K/mm3 Elk # (Auto) 0.9 H (0.1-0.6) K/mm3 Eos # (Auto) 0.1 (0-0.3) K/mm3 Baso # (Auto) 0.1 (0.0-0.1) K/mm3 Abs Immat Gran (auto) 0.05 H (0.00-0.031) K/mm3 Absolute Neuts (auto) 7.0 H (1.3-6.7) K/mm3 Absolute Nucleated RBC 0.000 (0.0-0.012) K/mm3 Nucleated RBC % 0.0 (0.0-0.2) % PT 15.5 H (11.1-14.7) Seconds INR 1.2 APTT 30.9 (22.3-36.8) Seconds Sodium 140 (137-145) mmol/L Potassium 4.2 (3.4-5.0) mmol/L Chloride 107 (98-107) mmol/L Carbon Dioxide 23 (22-30) mmol/L Anion Gap 10 (4-12) mmol/L BUN 18 (9-20) mg/dL Creatinine 0.74 (0.7-1.3) mg/dL Estim Creat Clear Calc 157 ml/min Estimated GFR > 60 (59 - ) Glucose 122 H (65-110) mg/dL Lactic Acid 1.1 (0.7-2.0) mmol/L Calcium 9.1 (8.4-10.2) mg/dL Magnesium 2.3 (1.6-2.3) mg/dL Total Bilirubin 1.8 H (0.2-1.3) mg/dL AST 116 H (17-59) U/L ALT 139 H (6-50) U/L Alkaline Phosphatase 67 (38-126) U/L Troponin I 0.032 (0.000-0.034) ng/mL NT-Pro-B Natriuret Pep 2210 H (19.9-100) pg/mL Total Protein 7.0 (6.3-8.2) g/dL Albumin 4.2 (3.5-5.1) g/dL Lipase 81 (23-300) U/L Urine Color Dark yellow (Yellow) Urine Appearance Clear (Clear) Urine pH 5.5 (5.0-9.0) Ur Specific [place] > 1.045 H (1.001-1.035) Urine Protein 2+ H (Negative) mg/dL Urine Glucose (UA) Negative (Negative) mg/dL Urine Ketones Trace H (Negative) mg/dL Ur Blood (Man) Negative (Negative) Urine Nitrate Negative (Negative) Urine Bilirubin 2+ H (Negative) Urine Urobilinogen 1.0 (<2.0) mg/dL Leukocyte Esterase Rfl Negative (Negative) LUX/UL Urine RBC 0-2 (0-2) /hpf Urine WBC 0-5 (0-3) /hpf Ur Squamous Epith Cells None seen (Few) /hpf Urine Bacteria None seen /hpf Urine Casts 0-2 Hyaline Casts Present (None) /lpf Urine Mucus Present /lpf Urine Opiates Screen Negative (Negative) Urine Methadone Screen Negative (Negative) Ur Barbiturates Screen Negative (Negative) Ur Phencyclidine Scrn Negative (Negative) Ur Amphetamine Screen Negative (Negative) U Benzodiazepines Scrn Negative (Negative) Urine Cocaine Screen Negative (Negative) U Cannabinoids Screen Positive A (Negative) 06/03/24 Range/Units 13:05 WBC (4.5-10.0) K/mm3 RBC (4.6-6.20) M/mm3 Hgb (14.0-18.0) g/dL Hct (42.0-52.0) % MCV (80-100) fl MCH (26-34) pg MCHC (32-36) g/dl RDW (11.5-14.5) % Plt Count (150-375) k/mm3 MPV (7.4-10.4) fl Immature Gran % (Auto) (0-0.5) % Neut % (Auto) (45.5-73.1) % Lymph % (Auto) (18.3-44.2) % Elk % (Auto) (2.6-8.5) % Eos % (Auto) (0-4.4) % Baso % (Auto) (0.2-1.2) % Lymph # (Auto) (0.9-3.2) K/mm3 [place]k # (Auto) (0.1-0.6) K/mm3 Eos # (Auto) (0-0.3) K/mm3 Baso # (Auto) (0.0-0.1) K/mm3 Abs Immat Gran (auto) (0.00-0.031) K/mm3 Absolute Neuts (auto) (1.3-6.7) K/mm3 Absolute Nucleated RBC (0.0-0.012) K/mm3 Nucleated RBC % (0.0-0.2) % PT (11.1-14.7) Seconds INR APTT (22.3-36.8) Seconds Sodium (137-145) mmol/L Potassium (3.4-5.0) mmol/L Chloride (98-107) mmol/L Carbon Dioxide (22-30) mmol/L Anion Gap (4-12) mmol/L BUN (9-20) mg/dL Creatinine (0.7-1.3) mg/dL Estim Creat Clear Calc ml/min Estimated GFR (59 - ) Glucose (65-110) mg/dL Lactic Acid (0.7-2.0) mmol/L Calcium (8.4-10.2) mg/dL Magnesium (1.6-2.3) mg/dL Total Bilirubin (0.2-1.3) mg/dL AST (17-59) U/L ALT (6-50) U/L Alkaline Phosphatase (38-126) U/L Troponin I 0.035 H* (0.000-0.034) ng/mL NT-Pro-B Natriuret Pep (19.9-100) pg/mL Total Protein (6.3-8.2) g/dL Albumin (3.5-5.1) g/dL Lipase (23-300) U/L Urine Color (Yellow) Urine Appearance (Clear) Urine pH (5.0-9.0) Ur Specific [place] (1.001-1.035) Urine Protein (Negative) mg/dL Urine Glucose (UA) (Negative) mg/dL Urine Ketones (Negative) mg/dL Ur Blood (Man) (Negative) Urine Nitrate (Negative) Urine Bilirubin (Negative) Urine Urobilinogen (<2.0) mg/dL Leukocyte Esterase Rfl (Negative) LUX/UL Urine RBC (0-2) /hpf Urine WBC (0-3) /hpf Ur Squamous Epith Cells (Few) /hpf Urine Bacteria /hpf Urine Casts Hyaline Casts (None) /lpf Urine Mucus /lpf Urine Opiates Screen (Negative) Urine Methadone Screen (Negative) Ur Barbiturates Screen (Negative) Ur Phencyclidine Scrn (Negative) Ur Amphetamine Screen (Negative) U Benzodiazepines Scrn (Negative) Urine Cocaine Screen (Negative) U Cannabinoids Screen (Negative) <Brandon Rubi MD - Last Filed: 06/03/24 20:55> Imaging Data Attestation: I personally reviewed and interpreted this imaging study as follows: <Carolann Ferrara APRN - Last Filed: 06/03/24 13:37> Radiologist's impression: Impressions Chest/Abdomen/Pelvis CTA 06/03/24 10:56 IMPRESSION: CHEST: 1. No pulmonary embolism or dissection. 2. Multiple patchy opacities and groundglass appearance suggestive of pneumonia. Underlying pulmonary edema is not excluded although this is less likely. Clinical correlation advised. 3. Mediastinal lymphadenopathy. 4. Right pleural effusion. ABDOMEN/PELVIS: 1. No evidence of appendicitis, diverticulitis or intestinal obstruction. 2. Fat stranding around the neck of the gallbladder. Differential include cholecystitis versus ascending cholangitis versus duodenitis: although no thickening in the wall of the gallbladder or the duodenum is seen. Clinical correlation advised. 3. Fat infiltration of the liver. Hepatomegaly. 4. Fat-containing bilateral inguinal and umbilical hernias. <Carolann Ferrara APRN - Last Filed: 06/03/24 13:37> Critical Care Time Critical Care Time Critical Care Time: Yes <Brandon Rubi MD - Last Filed: 06/03/24 20:55> Total Critical Care Time: 75 <Brandon Rubi MD - Last Filed: 06/03/24 20:55> Discharge Plan Discharge Clinical Impression: Congestive heart failure, Community acquired pneumonia, Atrial flutter <Carolann Ferrara APRN - Last Filed: 06/03/24 13:37> Patient Disposition: Still a Patient <Carolann Ferrara APRN - Last Filed: 06/03/24 13:37> Condition: Serious <Carolann Ferrara APRN - Last Filed: 06/03/24 13:37>
[2024-06-03 10:40] LABS: Alanine Aminotransferase 139 U/L (6-50); Albumin Level 4.2 g/dL (3.5-5.1); Alkaline Phosphatase 67 U/L (38-126); Anion Gap 10 mmol/L (4-12); Aspartate Amino Transferase 116 U/L (17-59); Bilirubin,Total 1.8 mg/dL (0.2-1.3); Blood Urea Nitrogen 18 mg/dL (9-20); Calcium 9.1 mg/dL (8.4-10.2); Carbon Dioxide 23 mmol/L (22-30); Chloride 107 mmol/L (98-107); Estimated CRCL calculation 157 ml/min; Estimated Glomerular Filt Rate > 60; Glucose 122 mg/dL (65-110); INR 1.2; Lipase 81 U/L (23-300); Potassium 4.2 mmol/L (3.4-5.0); Prothrombin Time 15.5 Seconds (11.1-14.7); Sodium 140 mmol/L (137-145)
[2024-06-03 10:41] LABS: Partial Thromboplastin Time 30.9 Seconds (22.3-36.8)
[2024-06-03 10:51] LABS: Troponin I 0.032 ng/mL (0.000-0.034)
[2024-06-03] MEDS: IPRATROPIUM 0.5 MG/ALBUTEROL SULFATE 2.5 MG AMPUL.NEB 3 ML INHALATION ×3 (10:55→11:01)
[2024-06-03] MEDS: SODIUM CHLORIDE 0.9% IV 1,000 ML 999 ML IV CONT (11:05)
[2024-06-03] MEDS: methylPREDNISolone SOD SUCC 125 MG VIAL IV PUSH (11:05)
--- OUTSIDE RECORDS SUMMARY | 2024-06-03 11:14 | XMS_ITS | Data Portability ---
Author Organization [place] [facility] [place], Main Office Address [address] [place] [address] Care Team Providers Care End Matcher Name Role Phone RIZWANA ROSA Primary Care Provider [phone] RIZWANA ROSA Referring Provider [phone] Assessment Encounter Date Assessment Date Assessment LastModified by Organization Details LastModified Time 05/14/2022 05/14/2022 Patient presents multiple problems. His main problems are left knee pain is tender over the left knee over the anterior aspect. Has pain over the positive patellar compression test negative Thomas's. Clearly has patellofemoral irritability I recommended injection proceeded with 20 mg Kenalog 4 cc 1% lidocaine for prescription drug management will try prednisone taper for pain and inflammation. We will also do a course of therapy. Secondary complaint is that of ankle pain right he broke it 20 years ago and has fractures of his well-healed he does have some early degenerative change because the fracture but most of his pain is in the Achilles tendon has bulbous swelling over the Achilles tendon this reproduces his pain. Recommended the course of therapy and stretching he will take the prednisone pills he states it has been 2 years and not better I told him is not much I also have to offer him at this point discussed. harmony Not available 05/14/2022 16:09:44 06/13/2022 06/13/2022 Patient returns had a nice response to conservative treatment. He is to the point he thinks he can live with and I think that is great. I gave him a shot in the knee and that seemed to help a lot he has also taken some prednisone pills. If it flares up a little bit he takes some Advil or Aleve and I told him that is fine. He gets worse or changes I probably start out again with another injection. He has some degenerative change but not enough to consider knee replacement surgery now or for the procedure about future. This would be difficult because the иван would have to be taken out. I will see him back on an as-needed basis discussed. We talked about his weight he has a BMI of 37 losing of 30-40 lbs be very beneficial to his joints. harmony Not available 06/13/2022 14:01:03 Plan of Treatment Reminders Order Date Submit Date Provider Last Modified By Organization Details Last Modified Time Details Appointments None recorded. Lab None recorded. Referral None recorded. Procedures injection/a spiration joint/bursa (PROC) - in office procedure, administere d by provider 2022 023 [email or web address] In-Office Order, Internal Use Only DO Not Attach Compendium DO Not Attach Compendium, Do Not Delete/merge, [id number] 15:26:08 Surgeries None recorded. Imaging XR, ankle 2022 023 [email or web address] 158 [facility] [place], [address], [place], [address], 16:10:48 XR, knee, 3 view 2022 023 [email or web address] 158 [facility] [place], [address], [place], [address], 16:10:21 Medication Orders Kenalog 10 mg/mL suspension for injection 2022 023 sagar Carrera [facility], [address] [place] [address], [address], 15:50:42 ropivacaine (PF) 5 mg/mL (0.5 %) injection solution 2022 023 sagar Carrera [facility], [address] [place] [address], [address], 3 15:50:42 prednisone 10 mg tablets in a dose pack 2022 023 sagar Carrera [facility], [address] [place] [address], [address], 3 15:50:42 Patient TargetsNo targets recorded. Patient InstructionsNo instructions recorded. Reason for Referral None Reported. Results Created Date Observation Date Name Description Value Unit Range Abnormal Flag Note LastModifiedBy Organization Detail LastModifiedTime 05/15/19 23 XR, knee, 3 view No observ ation record ed. harmony [facility] [place] [address], [place], [address], 05/14/2022 16:10:20 05/15/19 23 XR, ankle No observ ation record ed. [email or web address] [facility] [place] [address], [place], [address], 05/14/2022 16:10:47 Result Notes None recorded. Problems Name Problem SNOMED Code Status Onset Date Resolution Date Notes Provider Name and Address Organization Details Recorded Time Pain of left knee joint 3752449995306 07 Active 2022 MILADY Tsai, [place] [employer] [facility] [employer] [facility] 3 14:59:31 Pain of right ankle joint 1100319569524 9106 Active 2022 NESSA Renteria, [employer] [facility] [employer] [facility] 3 15:24:36 Right Achilles tendinitis 2469066381400 02 Active 2022 Parker Keating MD [address], [place], [address], [employer] [facility] 3 16:05:56 Chondromala trent of left patella 4462416846354 06 Active 2022 Parker Keating MD [address], [place], [address], [employer] [facility] 3 16:06:14 Problem Notes None recorded. Procedures Surgical History Date Name Laterality Status Provider Name and Address Organization Details Recorded Time 3 Ortho - Cortisone Injection completed Parker Keating MD [address], [place], [address], [employer] [facility] 05/14/2022 16:05:24 Shoulder completed Francesca Marsh MILADY [place] [facility] 05/14/2022 14:58:44 Ankle completed Francesca Marsh SUS[facility]ena [place] [facility] 05/14/2022 14:58:54 Imaging Results Imaging Date Name Status LastModified by Organiz ation Details LastModified Time 05/14/2022 XR, knee, 3 view completed [email or web address] [facility] [place] [address] [facility] [address], [place], [address], 05/14/2022 16:10:20 05/14/2022 XR, ankle completed [email or web address] [facility] [place] [address], [place], [address], 05/14/2022 16:10:47 Procedure Notes None recorded. Medical Equipment None Reported. Allergies No known drug allergies Medications Name Sig Start Date Stop Date Status Note LastModified by Organization Details LastModified Time prednisone 10 mg tablet active Not Available Not Available Not Available sildenafil 100 mg tablet TAKE 1 TABLET BY MOUTH ONCE DAILY NEEDED FOR ERECTILE DYSFUNCTION active Not Available Not Available Not Available prednisone 10 mg tablets in a dose pack Take 1 tab by mouth, 3 times a day for 3 daysTake 1 tab by mouth 2 times a day for 2 daysTake 1 tab by mouth once a day for 1 day 2022 active Not Available Not Available Not [employer] campbell Kenalog 10 mg/mL suspension for injection Take 20 mg by injection route. 2022 active [place]: 0003- 0494- 20 Not Available Not Available Not Available DILT-XR 180 mg capsule, extended release TAKE 1 CAPSULE BY MOUTH EVERY DAY active Not Available Not Available No t Available ropivacaine (PF) 5 mg/mL (0.5 %) injection solution Take 20 mg by injection route. 2022 active Not Available Not Available Not Obi campbell Vitals Date Recorded Body height Body mass index (BMI) Body weight Provider Name and Address Organization Details Last Updated DateTime 05/14/2022 182.88 cm 37.3 kg/m2 743145.9 MILADY Gold [facility] [employer] [facility] 05/14/2022 14:56:53 Date Recorded Body height Body mass index (BMI) Body weight Provider Name and Address Organization Details Last Updated DateTime 06/13/2022 182.88 cm 36.6 kg/m2 827028.94 MILADY Gannon [facility] [employer] [facility] 06/13/2022 13:53:25 Social History Question Answer Notes LastModified by Organizat ion Details LastModified Time Tobacco Smoking Status Current Every Day Smoker MILADY Tsai [facility] [employer] [facility] 05/14/2022 14:58:23 What Is Your Level Of Alcohol Consumption? Moderate [email or web address] Information not available 05/14/2022 Sex: Unknown Functional Status None recorded. Mental Status None recorded. Family History Relationship Description Onset Age of this Age Resolved Age Notes LastModified by Organization Details LastModified Time Father Heart disease [email or web address] Not available 2022 14:57:33 Father Hypertensive disorder [email or web address] Not available 2022 14:57:46 Medical History Condition Response HYPERTENSION Y Past Encounters Encounter ID Performer Location Encounter Start Date Encounter Closed Date Diagnosis/Indication Diagnosis SNOMED-CT Code Diagnosis ICD10 Code Diagnosis Note [id number] Parker Keating MD [facility] [place] [address] [place] [address] 05/14/2022 14:42:13 05/14/2022 15:39:29 Pain of left knee joint 4596316412 74535 M25.562 Pain of ri ght ankle joint 8357401844 9166108 M25.571 Right Achi lles tendinitis 7817519874 92109 M76.61 Chondromal acia of left patella 4967378865 18184 M22.42 [id number] Parker Keating MD [facility] [place] [address] [place] [address] 06/13/2022 13:50:59 06/13/2022 14:25:57 Pain of left knee joint 8209668703 44264 M25.562 Pain of ri ght ankle joint 9255877780 9346563 M25.571 Right Achi lles tendinitis 9659675807 78429 M76.61 Chondromal acia of left patella 1840163347 13807 M22.42 Health Concerns Section Related Observation LastModified by Organization Detai ls LastModified Time None Recorded Concern Status LastModified by Organization Details LastModified Time None Recorded Advance Directives Directive None Recorded Payers Encounter Date Sequence Insurance Name Policy Number Policy Da Silva Covered Member ID Da Silva Member ID Guarantor Name 05/14/2022 1 [facility] [id number] Kimberlyn Gama [id number] Barrett Bevel 06/13/2022 1 [facility] [id number] Kimberlyn Gama [id number] Barrett Bevel Notes Date Note Type Note Provider Name and Address Organization Details Recorded Time 05/14/2022 text/html Patient presents with multiple complaints. His main complaint today is left knee pain. He had the knee right leg tibial иван of 20 years ago denies got knee pain after injuring his ankle. Of note is that he had his ankle fixed about 20 years ago on the right side and that is what is hurting a fair bit in his right foot ankle particularly about the Achilles. Parker Keating MD [address], [place] [address], [place], [address], [employer] 05/14/2022 16:11:18 06/13/2022 text/html Patient returns for left knee and right ankle pain. He has had a nice response to conservative treatment he thinks the shot really helped as well as the prednisone pills. He is to the point where he thinks he can live with it for the present time. Parker Keating MD [address], [place] [address], [place], [address], [employer] 06/13/2022 14:01:17
--- OUTSIDE RECORDS SUMMARY | 2024-06-03 11:14 | XMS_ITS | Clinical Summary ---
Author Organization [facility] [address] Address [address] [place] [address] Phone Care Team Providers Care Hat Block Maker Name Role Phone Eagle Durand MD Primary Care Provider [phone] Allergies No known active allergies Medications dilTIAZem XR (DILT-XR) 180 mg 24 hr capsuleIndications :Hypertension, essential TAKE 1 CAPSULE BY MOUTH DAILY 90 capsule 1 01/19/20 24 Active rosuvastatin (CRESTOR) 20 mg tabletIndications: Mixed hyperlipidemia TAKE 1 TABLET BY MOUTH DAILY 90 tablet 1 03/22/19 25 Active sildenafiL (VIAGRA) 100 mg tablet TAKE 1 TABLET BY MOUTH ONCE DAILY NEEDED FOR ERECTILE DYSFUNCTION 12 tablet 04/24/19 25 Active Active Problems Problem Noted Date Diagnosed Date Morbid obesity with BMI of 40.0-44.9, adult 11/10 Assessment & Plan (11/27/2023 4:59 PM CDT): Patient not interested in GLP 1 type products weight reduction. He advised me he knew how to reduce weight he just needs to become serious about it and follow through on losing weight. Knows exactly what he takes and how to do it. Need for hepatitis C screening test 11/27/2023 Mixed hyperlipidemia 05/09/2023 Assessment & Plan (11/27/2023 4:58 PM CDT): Lipid results in therapeutic range with medications Crestor 20 mg daily Component Latest Ref Rng 05/06/2023 07/23/2023 Cholesterol 100 - 199 mg/dL 221 (H) 146 HDL Cholesterol >39 mg/dL 39 (L) 41 Triglycerides 0 - 149 mg/dL 106 124 VLDL Cholesterol Manolo 5 - 40 mg/dL 19 22 LDL Cholesterol Calc 0 - 99 mg/dL 163 (H) 83 Legend: (H) High (L) Low Assessment & Plan (05/09/2023 5:58 PM CDT): Patient's started on Crestor 20 mg daily will repeat lab in 2 months. Component Latest Ref Rng 04/16/2022 05/06/2023 Cholesterol 100 - 199 mg/dL 205 (H) 221 (H) HDL Cholesterol >39 mg/dL 41 39 (L) Triglycerides 0 - 149 mg/dL 219 (H) 106 VLDL Cholesterol Manolo 5 - 40 mg/dL 39 19 LDL Cholesterol Calc 0 - 99 mg/dL 125 (H) 163 (H) Legend: (H) High (L) Low Pain in left ankle and joints of left foot 04/20 Assessment & Plan (04/20/2022 3:06 PM SENIOR CLIMATE ADVISOR): Patient injured left ankle and foot pain while running several months ago continues have some pain and discomfort he is limited on how far he can run and sometimes has to limp. Advised patient definitely needs to follow-up with podiatry. Encounter for preventive health examination 03/14 Assessment & Plan (11/27/2023 4:54 PM CDT): History and physical completed patient's health risk assessment health maintenance reviewed and addressed. Patient has morbid obesity his laboratory studies for diabetes and lipid profile renal functions have been excellent.. Patient will follow and get a colonoscopy screening colon cancer. Advised me that colonoscopy as we done at [facility].. Staff was advised well.. Chronic health problems morbid obesity and hypertension. Assessment & Plan (10/28/2022 4:56 PM CDT): Patient 47 he is advised his options for colon cancer screening/a Cologuard versus colonoscopy. Will give some consideration depending on insurance coverage Assessment & Plan (04/20/2022 3:05 PM SENIOR CLIMATE ADVISOR): History and physical completed patient's health risk assessment health maintenance reviewed in addressed. Patient gained considerable weight during the COVID epidemic. Has some foot pain is interfering with his running which is part of keeping his weight down. Assessment & Plan (05/29/2020 5:07 PM CDT): History and physical completed health risk assessment health maintenance reviewed in addressed. Patient has had 1/2 of his COVID vaccines 2nd half will be done in the next 2 weeks.. Patient's laboratory studies reviewed from a year ago and not repeated on today's visit. Assessment & Plan (04/05/2019 12:51 PM SENIOR CLIMATE ADVISOR): History and physical complete health risk assessment addressed. 30 lb weight loss on purpose patient resume running. He had a added running in years past he discontinued this because of knee pain. This past year resume running is no knee pain he has lost 30 lb laboratory studies will include a CMP CBC FLP Assessment & Plan (04/03/2018 6:21 PM SENIOR CLIMATE ADVISOR): 42-year-old gentleman is new patient to me. He made me aware the fact he has lost weight. His blood pressures been slightly elevated he is on medications at this time. Patient laboratory studies will include basic metabolic profile on lipid profile. He advised me that his insurance company will not pay for testosterone levels. Patient has a history of erectile dysfunction. Hypertension, essential 04/03/2018 Assessment & Plan (11/27/2023 4:56 PM CDT): Pressure significantly elevated today he advised me checks his blood pressure at home frequently blood pressure in the 140 sometimes diastolic 90. Feels well he is on diltiazem 120 mg daily. Patient is given a blood pressure log she had advised I would like for him to do 20 blood pressure readings randomly with the next 30 days male results back to me. Assessment & Plan (05/09/2023 5:55 PM CDT): Patient reports his blood pressure is much better out of the office he consistently runs between 120-130 systolic 86-90 diastolic. Changes in blood pressure medicines at this time he is given information on dash diet least a website to go to regarding this. Patient's advised his a S CVD 10 year risk score he is 11.5 which is a moderate score also advised he can go on the Internet look up a cardiovascular risk calculation score plug in his cholesterol numbers in results were himself Assessment & Plan (10/28/2022 4:51 PM CDT): Blood pressure is well controlled patient is so advised no change in therapy at this time. Patient is tolerating medications no change in therapy Assessment & Plan (04/20/2022 3:05 PM SENIOR CLIMATE ADVISOR): Hypertension will continue present medication check BMP fasting lipid profile Assessment & Plan (10/12/2021 4:50 PM CDT): Blood pressure is 140/80 no change in therapy at this time. Encourage ifestyle change weight loss continue present therapy. Assessment & Plan (03/31/2021 1:35 PM SENIOR CLIMATE ADVISOR): Hypertension remains well controlled patient is tolerating medications. Is no symptoms referable to his hypertension.. Assessment & Plan (12/08/2020 5:12 PM CDT): Patient is on diltiazem 180 mg per day he is tolerating medications. Symptoms referable to his hypertension continue present therapy. Assessment & Plan (07/21/2020 4:54 PM CDT): Blood pressure is well controlled with hydrochlorothiazide/HCTZ 20/12.51 tablet daily. 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 His a warning from the material he is red regarding her lisinopril this medicines she should be discussed with this doctor under these conditions.. Was unable to find anything related to pigmentary dispersion lisinopril and I problems.. Advised patient because his a warning and I was 1 to changes medicine to diltiazem stop lisinopril.. Up when over the diltiazem side effects given pronounced side effects including eyes. Start with 180 mg per day see him back in 3 months. Assessment & Plan (04/03/2018 6:24 PM SENIOR CLIMATE ADVISOR): . History of hypertension dating back to 2015 at that time his weight was 275 lb. Patient made lifestyle changes by losing 35 lb. That time he ingested a lot of sugar in his diet he has discontinued that he has become active with exercising 150 min per week of exercise. exercise 30 did minutes per day 5 days a week.. Blood pressure in his office is 140/98.. She was diagnosed with hypertension he is weighing 275 lb in a blood pressure 155/105.. Patient advised me his blood pressure at home was 130/90 monitors it frequently with results in the 130 systolic.. Plans at this time patient do a blood pressure log she minimum 20 readings in the next 30 days in mail this back in to me I will see him in 3 months. I will review his blood pressure log sheet when he returns Erectile dysfunction due to arterial insufficien cy 04/03/2018 Assessment & Plan (12/08/2020 5:12 PM CDT): Viagra is effective. It is also affordable using good Rx referring to generic Viagra Assessment & Plan (05/29/2020 5:07 PM CDT): Medication refilled. Assessment & Plan (04/03/2018 6:25 PM SENIOR CLIMATE ADVISOR): Patient's erectile dysfunction he advised me that testosterone levels are not covered by his insurance. This time I discussed with him the medications Viagra, Cialis. Advised mother generic medication of Viagra which is more affordable Revatio /sildenafil and dosage in how to take it. Prescription called in [facility] pharmacy. Resolved Problems Problem Noted Date Diagnosed Date Resolved Date Body mass index 40.0-44.9, adult ([facility]) 05/09/2023 11/27/2023 Assessment & Plan (05/09/2023 6:00 PM CDT): Weight is up 22 lb in 2 years patient is given information regarding dash diet is has hyperlipidemia borderline blood pressures also given information from a website from the [employer] call my plate. Did not discuss GLP 1 therapy for his weight. Discussed lifestyle changes in the past. Class 2 severe obesity due t o excess calories with serious comorbidity in adult 12/08/20202023 Assessment & Plan (05/09/2023 5:54 PM CDT): Weight is up 22 lb in 2 years patient is given information regarding dash diet is has hyperlipidemia borderline blood pressures also given information from a website from the [employer] call my plate. Did not discuss GLP 1 therapy for his weight. Discussed lifestyle changes in the past. Assessment & Plan (10/28/2022 4:52 PM CDT): No significant change in weight. Does some work out for exercise purposes 60 to 90 minutes a week sounds like a usual amount of time he spends. Patient advised me make a target a minimum 150 minutes a week of exercise for purposes of improving cardiovascular outcome Assessment & Plan (10/12/2021 4:47 PM CDT): Patient's that his highest weight ever 271 lb BMI of 36.75 10 years ago he was 219 appy was also a [address] years ago as well. Patient's begin the walks several days a week for purpose of losing weight. Patient's ASCVD score 10 year risk 7.2 past this information on to him discussed with him the influence of cholesterol hypertension and other factors he can look up how to calculate this information in the future foreign self. Assessment & Plan (03/31/2021 1:35 PM SENIOR CLIMATE ADVISOR): Patient weight continues to go up we discussed his previous visit. Is aware of this. Strongly encourage patient make dietary change he can for follow-up with weight watchers another organization for weight reduction.. Review with him long-term effects of obesity Assessment & Plan (12/08/2020 5:14 PM CDT): Patient has had about a 30 lb weight gain. Stop exercise and secondary to leg injury days recovering from now. It is his intention resume exercising. His body mass index is 35.13 height 6 ft tall 259 lb Immunizations Immunization Administration Dates Next Due Influenza, Unspecified 11/27/2023(Deferr ed: Patient Refused),11/10/2022(Deferred: Patient Refused) Social History Tobacco Use Types Packs/Day Years Used Date Smoking Tobacco: Every Day Smokeless Tobacco: Never Tobacco Cessation:Ready to Q uit: Not Asked; Counseling Given: Not Answered PHQ-2 Answer Date Recorded PHQ-2 Total Score (If total score is 3 or more points, staff should administer the PHQ-9) 0 11/27/2023 Personal Safety Answer Date Recorded Getting School Help Needed Not on file 03/16 Sex and Gender Information Value Date Recorded Sex Assigned at Not on file Legal Sex Male 9:46 AM SENIOR CLIMATE ADVISOR Gender Identity Not on file Sexual Orientation Not on file Obstetrics History Last Filed Vital Signs Vital Sign Reading Time Taken Comments Blood Pressure 160/98 11/27/2023 3:23 PM CDT Pulse 87 11/27/2023 3:23 PM CDT Temperature 37 C (98.6 F) 11/27/2023 3:23 PM CDT Respiratory Rate 16 11/27/2023 3:23 PM CDT Oxygen Saturation 98% 11/27/2023 3:23 PM CDT Inhaled Oxygen Concentration - - Weight 135.8 kg (299 lb 6.4 oz) 11/27/2023 3:23 PM CDT Height 182.9 cm (6' 0.01 ) 11/27/2023 3:23 PM CD T Body Mass Index 40.6 11/27/2023 3:23 PM CDT Plan of Treatment Health Maintenance Due Date Last Done Comments Colon Cancer Screening-Colonoscopy 1977 Hepatitis C Screening 1977 DTaP/Tdap/Td Vaccine (1 - Tdap) 1988 Hepatitis B Screening 10/09/1995 Pneumococcal vaccine <65 (1 of 2 - PCV) 1996 Covid-19 Vaccine ( season) 2023 03/02/2021, 06/01/2020, 05/11/2020 Influenza Vaccine (Season Ended) 2024 Depression Screening 11/26/2024 11/27/2023, 04/12/2022, 10/12/2021, Additional history exists Regular Well Visit/Exam 18-64 11/26/2024 11/27/2023, 04/12/2022, 05/29/2020, Additional history exists HPV Vaccines Aged Out No longer eligi ble based on patient's age to complete this topic Insurance [facility] Care Teams Hat Block Maker Relationship Specialty Start Date End Date Eagle Durand MD PCP - General Internal Medicine 03/18/18
--- OUTSIDE RECORDS SUMMARY | 2024-06-03 11:14 | XMS_ITS | Referral Summary ---
Author Organization [facility] [address] Address [address] [place] [address] Phone Care Team Providers Care Project Associate Name Role Phone Eagle Durand MD Primary Care Provider [phone] Allergies No known active allergies Medications dilTIAZem [...] 04/20 Assessment & Plan (04/20/2022 3:06 PM SUBSTATION SUPERINTENDENT): Patient injured left ankle and foot pain [...] me that colonoscopy as we done at [facility].. Staff was advised well.. Chronic health problems morbid obesity and hypertension. Assessment & Plan (10/28/2022 4:56 PM CDT): Patient 47 he is advised his options for colon cancer screening/a Cologuard versus colonoscopy. Will give some consideration depending on insurance coverage Assessment & Plan (04/20/2022 3:05 PM SUBSTATION SUPERINTENDENT): History and physical completed patient's health risk [...] visit. Assessment & Plan (04/05/2019 12:51 PM SUBSTATION SUPERINTENDENT): History and physical complete health risk assessment addressed. 30 lb weight loss on purpose patient resume running. He had a added running in years past he discontinued this because of knee pain. This past year resume running is no knee pain he has lost 30 lb laboratory studies will include a CMP CBC FLP Assessment & Plan (04/03/2018 6:21 PM SUBSTATION SUPERINTENDENT): 42-year-old gentleman is new patient to me. [...] therapy Assessment & Plan (04/20/2022 3:05 PM SUBSTATION SUPERINTENDENT): Hypertension will continue present medication check BMP fasting lipid profile Assessment & Plan (10/12/2021 4:50 PM CDT): Blood pressure is 140/80 no change in therapy at this time. Encourage ifestyle change weight loss continue present therapy. Assessment & Plan (03/31/2021 1:35 PM SUBSTATION SUPERINTENDENT): Hypertension remains well controlled patient is tolerating [...] months. Assessment & Plan (04/03/2018 6:24 PM SUBSTATION SUPERINTENDENT): . History of hypertension dating back to [...] refilled. Assessment & Plan (04/03/2018 6:25 PM SUBSTATION SUPERINTENDENT): Patient's erectile dysfunction he advised me that testosterone levels are not covered by his insurance. This time I discussed with him the medications Viagra, Cialis. Advised mother generic medication of Viagra which is more affordable Revatio /sildenafil and dosage in how to take it. Prescription called in [facility] pharmacy. Resolved Problems Problem Noted Date Diagnosed Date Resolved Date Body mass index 40.0-44.9, adult ([facility]) 05/09/2023 11/27/2023 Assessment & Plan (05/09/2023 6:00 PM CDT): Weight is up 22 lb in 2 years patient is given information regarding dash diet is has hyperlipidemia borderline blood pressures also given information from a website from the [employer] call my plate. Did not discuss GLP [...] given information from a website from the [employer] call [employer]. Did not discuss GLP [...] he was 89 appy was also a 10264 years ago as well. Patient's begin the walks several days a week for purpose of losing weight. Patient's ASCVD score 10 year risk 7.2 past this information on to him discussed with him the influence of cholesterol hypertension and other factors he can look up how to calculate this information in the future foreign self. Assessment & Plan (03/31/2021 1:35 PM SUBSTATION SUPERINTENDENT): Patient weight continues to go up we [...] on file Legal Sex Male 9:46 AM SUBSTATION SUPERINTENDENT Gender Identity Not on file Sexual Orientation Not on file Last Filed Vital Signs Vital Sign Reading [...] 11/27/2023 3:23 PM CDT Plan of Treatment Not on file Insurance [facility] Address: [address] [phone] [facility] Address: [address] [address] Care Teams Project Associate Relationship Specialty Start Date End Date Eagle Durand MD PCP - General Internal Medicine 03/18/18
--- OUTSIDE RECORDS SUMMARY | 2024-06-03 11:14 | XMS_ITS | Clinical Summary ---
Author Organization [facility] Address [address] [place] [address] Care Team Providers Care Merchandise Coordinator Name Role Phone Unavailable Primary Care Provider Unavailabl e Source Comments [facility],non-owned Affiliates and Associated Physician Practices is amultiple site organization consisting of ambulatory clinics and hospital sitesin [place], [place], [place] and [place]. This disclosure is being madepursuant to the Care Everywhere program and may not contain all information available regarding this patient. 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 Gender Identity Not on file Sexual Orientation Not on file Plan of Treatment Health Maintenance Due Date Last Done Comments COLOGUARD (AGES 45-75) - COL ON CA SCREENING 1977 COLON MONITORING 1977 COLONOSCOPY - COLON CA SCREENING 1977 CT COLONOGRAPHY - COLON CA SCREENING 1977 Colorectal Cancer Screening 1977 FIT - COLON CA SCREENING 1977 FLEX SIG - COLON CA SCREENING 1977 LIPID TESTING 1977 HIV SCREENING 1992 HEPATITIS C SCREENING 10/04/1995 DTAP/TDAP/TD VACCINES (1 - Tdap) 1996 HEPATITIS B VACCINE (1 of 3 - 19+ 3-dose series) 1996 COVID-19 VACCINE ( - 2023-2 5 season) 2023 DEPRESSION SCREENING 02/11/2024 INFLUENZA VACCINE (Season Ended) 2024 ZOSTER VACCINE (1 of 2) 10/09/2027 HIB VACCINE Aged Out No longer eligi ble based on patient's age to complete this topic HPV VACCINE Aged Out No longer eligi ble based on patient's age to complete this topic MENINGOCOCCAL (Group B) VACC INE SHARED DECISION-MAKING Aged Out No longer eligibl e based on patient's age to complete this topic MENINGOCOCCAL GROUPS A/C/Y/W VACCINE Aged Out No longer eligible b ased on patient's age to complete this topic PNEUMOCOCCAL VACCINE Aged Out No long er eligible based on patient's age to complete this topic
[2024-06-03 11:20] LABS: Lactic Acid Reflex 1.1 mmol/L (0.7-2.0); Magnesium 2.3 mg/dL (1.6-2.3)
[2024-06-03 11:30] LABS: NT Pro B Type Natriuretic Pept 2210 pg/mL (19.9-100)
[2024-06-03] MEDS: FUROSEMIDE INJ 40 MG/4 ML VIAL IV PUSH (12:01)
--- NOTE | 2024-06-03 12:17 | PC.NURSE ---
Will start antibiotic after blood cultures obtained
[2024-06-03 12:34] LABS: Amphetamine Screen Urine Negative (Negative); Barbiturate Screen Urine Negative (Negative); Benzodiazepines Screen Urine Negative (Negative); Cannabinoid Screen Urine Positive (Negative); Cocaine Screen Urine Negative (Negative); Methadone Screen Urine Negative (Negative); Opiate Screen Urine Negative (Negative); Phencyclidine Screen Urine Negative (Negative)
[2024-06-03 12:36] LABS: Add Urine Microscopic? YES; Appearance Urine Clear (Clear); Bacteria Urine None Seen /hpf; Bilirubin Urine 2+ (Negative); Blood Urine Negative (Negative); Color Urine Dark Yellow (Yellow); Glucose Urine UA Negative (Negative); Hyaline Casts Urine Present /lpf; Ketones Urine Trace mg/dL (Negative); Leukocyte Esterase Ur Negative LEU/UL (Negative); Mucus Urine Present /lpf; Nitrate Urine Negative (Negative); Non Pathogenic Casts 0-2; Protein Urine 2+ mg/dL (Negative); RBC Urine 0-2 /hpf (0-2); Specific Grav Ur > 1.045 (1.001-1.035); Squamous Epithelial Cell Urine None Seen /hpf (Few); WBC Urine 0-5 /hpf (0-3); pH Urine 5.5 (5.0-9.0)
[2024-06-03] MEDS: LORazepam INJ (*CRX) 2 MG/ML VIAL 1 MG IV PUSH (13:13)
[2024-06-03] MEDS: LACTATED RINGERS 1,000 ML 999 ML IV CONT (13:13)
[2024-06-03] MEDS: METOPROLOL TARTRATE INJ 5 MG/5 ML VIAL IV PUSH (13:23)
--- NOTE | 2024-06-03 13:33 | ECG_ITS ---
Test Date: 2024-06-03 13:39:09 Measurements Intervals [place] Rate: 85 P: 0 AK: 0 QRS: -3 QRSD: 105 T: 0 QT: 391 QTc: 465 Interpretive Statements ATRIAL FLUTTER/TACHYCARDIA INCOMPLETE RIGHT BUNDLE BRANCH BLOCK CONSIDER ANTERIOR INFARCT, AGE INDETERMINATE CONSIDER INFERIOR INFARCT, AGE INDETERMINATE BORDERLINE ST-T WAVE ABNORMALITY- LAT/HIGH LAT LEADS BASELINE ARTIFACT- I, II, III, AVF, V4-V6 ABNORMAL ECG Compared to ECG 06/03/2024 10:16:42 HEART RATE HAS DECREASED Electronically Signed On 06-03-2024 13:43:38 CDT by Surendra Beckman D.O.
--- NOTE | 2024-06-03 13:35 | PC.NURSE ---
Antibiotic administration delayed due to difficulty obtaining blood cultures, pt was unsuccessfully poked at least six times for cultures by both deputy commonwealth's attorney and RNs. Meds administered per APR, repeat troponin sent, repeat EKG being completed at this time. Administered metoprolol with minimal heart rate improvement, provider aware. Pt updated on status/plan. Provided ice chips upon request. Call light in reach.
[2024-06-03] MEDS: AZITHROMYCIN 500 MG/NS 250 ML 500 MG/250 ML BAG 250 MG IVPB (13:45)
[2024-06-03 14:11] LABS: Troponin I 0.035 ng/mL (0.000-0.034)
--- NOTE | 2024-06-03 15:30 | P.HP_ITS ---
H&P: HPI History of Present Illness Date/Time: 06/03/24 17:00 Chief Complaint: Shortness of breath, rapid heart rate. Narrative: This is a 48-year-old male smoker with hypertension, hyperlipidemia, gastroesophageal reflux disease, and daily alcohol use who presented to the emergency department from urgent care for evaluation of rapid heart rate and shortness of breath. He gives a 10 day history of intermittent headache, mild sore throat, fatigue, wheezing, dry cough, and mild shortness of breath. At times he has discomfort in his chest with coughing or when taking a deep breath which he has difficulties describing. He has noticed some mild swelling in his feet but nothing significant. His appetite has not been great. Rchg-opy-ayxqcaq cough medications have helped a bit, at least allow him to get some sleep. He denies fever, syncope, near syncope, exertional chest pain, palpitations, orthopnea, vomiting, diarrhea, epigastric pain, and abdominal pain. He also denies tremors, anxiety, sweats, and states he has never had symptoms of alcohol withdrawal. Due to ongoing symptoms, he went to urgent care where he was found to be in atrial tachycardia and he was sent to the ED. In the ED: Vital signs on arrival include a temperature of 98.4?, blood pressure 157/113, pulse 132, respiratory rate 24, SpO2 99% on room air. Labs were significant for WBC count of 10.1, lactic acid 4.1, total bilirubin 1.8, AST 116, ALT 139, proBNP 2210, troponin 0.032. Urinalysis was positive for 2+ protein, trace ketones, 2+ bilirubin with a specific gravity of greater than 1.045. CTA of the chest, abdomen, and pelvis was negative for pulmonary embolism but did show findings suggestive of pneumonia and less likely pulmonary edema, mediastinal lymphadenopathy, and right pleural effusion as well as fatty infiltration of the liver with hepatomegaly and fat stranding around the neck of the gallbladder. He received a continuous nebulizer treatment, methylprednisolone 125 mg, furosemide 40 mg, normal saline 1 L bolus, lactated Ringer's 1 L bolus, lorazepam 1 mg, and metoprolol tartrate 5 mg IV. Review of Systems Review of Systems: 12 systems were reviewed and are negativ e except for as per HPI. [facility] Past Medical History Medical History (Updated 06/03/24 @ 21:45 by Maria E Leal PA-C) Daily consumption of alcohol Gastroesophageal reflux disease Tobacco dependence Hyperlipidemia Hypertension Surgical History Surgical History (Updated 06/03/24 @ 21:38 by Maria E Leal PA-C) History of open reduction and internal fixation (ORIF) procedure repair of right ankle fracture and left tibia-fibula fractures History of adenoidectomy Family History Family History Father Acute myocardial infarction Mother Diabetes mellitus Social History Social History (Updated 06/03/24 @ 21:41 by Maria E Leal PA-C) Social History: Surrogate medical decision maker: Kimberlyn Gama, spouse. Code status: Full code. Smoking packs per day: 1 Smoking cigarettes per day: 20.0 Years smoked: 25 Smoking pack-years: 25.00 Smoking status: Current every day smoker Tobacco type: cigarettes Alcohol intake: current Drinks per week: 35 Alcohol use details: 5 to 6 rum containing alcoholic beverages a day Substance use: current Substance use type: marijuana Other substance usage details: marijuana weekly Do You Feel Safe in your Home?: Yes Lack of Transportation: No Lack of Food: Never True Current Housing: I Do Not Have Housing Concerned About Future Housing: No Difficulty Paying Gas/Electric Bills: No Difficulty Paying for Meds: No Currently Unemployed: No Education: High School Diploma/GED Difficulty w/ Childcare or Family Care: No Spiritual care concerns: No Meds Home Medications and Allergies Home Medications ?Medication ?Instructions ?Recorded ?Confirmed ?Type diltiazem HCl 180 mg 180 mg PO DAILY 05/24/24 06/03/24 History capsule,extended release 24 hr, controlled (DILT-XR) omeprazole 20 mg capsule,delayed 20 mg PO DAILY 05/24/24 06/03/24 History release rosuvastatin 20 mg tablet 20 mg PO DAILY 05/24/24 06/03/24 History Allergies Allergy/AdvReac Type Severity Reaction Status Date / Time No Known Allergies Allergy Verified 06/03/24 10:19 Vital Signs Vital Signs - 24 hr 06/03/24 10:09 06/03/24 10:12 06/03/24 11:01 Temperature 98.4 F Pulse Rate 132 H 125 H Respiratory Rate 24 H 18 Blood Pressure 157/113 H Pulse Oximetry 99 96 Oxygen Delivery Room Air Room Air 06/03/24 12:09 06/03/24 13:23 06/03/24 14:58 Temperature 98.2 F Pulse Rate 132 H 131 H 126 H Respiratory Rate 35 H 24 H Blood Pressure 119/96 H 132/92 H Pulse Oximetry 98 96 Oxygen Delivery Exam Narrative: General: Mildly ill-appearing gentleman sitting up in bed in no acute distress. Weight: 140.9 kg. BMI: 42.1. HEENT: PERRL, EOMI. Sclera anicteric. Tacky mucous membranes. Neck: Supple. No JVD. Respiratory: Respirations are nonlabored and he is speaking in full sentences. Lung sounds are a bit coarse but are otherwise clear to auscultation. Cardiovascular: Tachycardic with normal S1-S2. Gastrointestinal: Abdomen is soft, nontender, and nondistended with positive bowel sounds. No guarding rebound tenderness. No obvious organomegaly. Skin: Warm and dry. No rash or lesions on limited exam. Extremities: No cyanosis or clubbing. Trace pedal edema. Negative Fatuma sign bilaterally. Neurological: Alert and oriented. Cranial nerves 2-12 are grossly intact. No tremors. No gross focal deficits to casual conversation. Psychiatric: Pleasant and cooperative with appropriate mood and affect. H&P: Results Labs Labs: Short CBC 06/03/24 Range/Units 10:18 WBC 10.1 H (4.5-10.0) K/mm3 Hgb 14.1 (14.0-18.0) g/dL Hct 44.4 (42.0-52.0) % Plt Count 284 (150-375) k/mm3 BMP 06/03/24 10:18 Sodium 140 Potassium 4.2 Chloride 107 Carbon Dioxide 23 BUN 18 Creatinine 0.74 Glucose 122 H Calcium 9.1 Cardiac Enzymes 06/03/24 06/03/24 Range/Units 10:18 13:05 Troponin I 0.032 0.035 H* (0.000-0.034) ng/mL Liver Function 06/03/24 Range/Units 10:18 Total Bilirubin 1.8 H (0.2-1.3) mg/dL AST 116 H (17-59) U/L ALT 139 H (6-50) U/L Alkaline Phosphatase 67 (38-126) U/L Albumin 4.2 (3.5-5.1) g/dL Urine 06/03/24 Range/Units 11:59 Urine Color Dark yellow (Yellow) Urine Appearance Clear (Clear) Urine pH 5.5 (5.0-9.0) Ur Specific [place] > 1.045 H (1.001-1.035) Urine Protein 2+ H (Negative) mg/dL Urine Glucose (UA) Negative (Negative) mg/dL Impressions Chest/Abdomen/Pelvis CTA 06/03/24 10:56 IMPRESSION: CHEST: 1. No pulmonary embolism or dissection. 2. Multiple patchy opacities and groundglass appearance suggestive of pneumonia. Underlying pulmonary edema is not excluded although this is less likely. Clinical correlation advised. 3. Mediastinal lymphadenopathy. 4. Right pleural effusion. ABDOMEN/PELVIS: 1. No evidence of appendicitis, diverticulitis or intestinal obstruction. 2. Fat stranding around the neck of the gallbladder. Differential include cholecystitis versus ascending cholangitis versus duodenitis: although no thickening in the wall of the gallbladder or the duodenum is seen. Clinical correlation advised. 3. Fat infiltration of the liver. Hepatomegaly. 4. Fat-containing bilateral inguinal and umbilical hernias. Assessment and Plan Assessment and plan (1) Community acquired pneumonia: Code(s): J18.9 - Pneumonia, unspecified organism Status: Acute (2) Atrial tachycardia: Code(s): I47.19 - Other supraventricular tachycardia Status: Acute (3) Transaminitis: Code(s): R74.01 - Elevation of levels of liver transaminase levels Status: Acute (4) Hypertension: Code(s): I10 - Essential (primary) hypertension Status: Acute (5) Tobacco dependence: Code(s): F17.200 - Nicotine dependence, unspecified, uncomplicated Status: Acute (6) Daily consumption of alcohol: Code(s): Z78.9 - Other specified health status Status: Acute (7) Suspected sleep apnea: Code(s): R29.818 - Other symptoms and signs involving the nervous system Status: Acute Plan The patient presented to to urgent care for evaluation of URI symptoms for the last 10 days and he was directed to the ED after he was found to be in atrial tachycardia as detailed in HPI. Labs, imaging, EKG, and all reports were personally reviewed. Imaging shows findings of pneumonia and he has been started on ceftriaxone and doxycycline. Nebulizers did not seem to help much and he does not have wheezing on exam thus there is no indication for steroids. He received a dose of furosemide as his proBNP was elevated at 2210 however he actually looks dry on examination and by history, also with ketones in the urine. It looks like he received 2 L of crystalloids at the same time as he was given furosemide thus will hold on introducing any more IV fluids or diuretics at this time and continue to monitor his volume status. Heart rate has been pretty consistently in the low 100s to 130s, at times it appears to be atrial flutter and at times atrial tachycardia. There was not any real improvement with metoprolol tartrate 5 mg IV. He is on diltiazem 180 mg daily at home and did take that this morning. He does not appear septic, TSH is within normal limits, and CTA of the chest was negative for pulmonary embolism. I suppose alcohol withdrawal would be a consideration however he lacks other symptoms. Echocardiogram has been ordered for a.m. and cardiology was consulted by the ED provider and their input is appreciated. Blood pressures have been reasonable an d will be monitored. I suspect the patient may have underlying sleep apnea as reports that he snores frequently and she has witnessed some apneic episodes. ApneaLink has been ordered for tonight. Smoking cessation is encouraged and was discussed. He declines the need for nicotine patch. We also discussed cutting back on alcohol use and that this may very well be the cause of his elevated liver enzymes. Radiologist remarked that there was some fat stranding around the neck of the gallbladder with a differential diagnosis to include cholecystitis versus ascending cholangitis versus duodenitis though no thickening of the wall of the gallbladder or duodenum was seen. His abdominal exam is completely benign though will check a right upper quadrant ultrasound and continue to monitor closely. His home medications will be reviewed and resumed as appropriate. Findings and treatment plan were discussed with the patient. Questions were solicited and answered to satisfaction. The patient's me dical management will be taken over by the hospitalist team in a.m. Quality VTE Prophylaxis VTE prophylaxis: pharmacologic ordered The patient has been admitted under observation status. Hospitalist MIPS Advance Care Plan I have confirmed that the patient's Advanced Care Plan is present, code status is documented, or surrogate decision maker is listed in patient medical record.: Yes Medication Reconciliation I have utilized all available resources to obtain, update and review the patients current medications (includes all prescriptions, OTC, herbals, cannabis, and nutritional supplements).: Yes
[2024-06-03 15:43] LABS: Troponin I 0.033 ng/mL (0.000-0.034)
[2024-06-03 19:43] LABS: Strep Group A RT-PCR NOT DETECTED (Negative)
[2024-06-03 19:56] LABS: Influenza A QL RT-PCR Negative (Negative); Influenza B QL RT-PCR Negative (Negative); SARS-CoV-2 RNA PCR Negative (Negative)
[2024-06-03 19:59] LABS: Hepatitis B Surface Antigen Negative (Negative)
[2024-06-03 20:05] LABS: HAV RESULT Negative (Negative); Hepatitis B Core IgM Result Negative (Negative)
[2024-06-03] MEDS: DOXYCYCLINE HYCLATE 100 MG TABLET PO (20:14)
[2024-06-03] MEDS: guaiFENesin 12 HR 600 MG TABCR 1200 MG PO (20:15)
[2024-06-03 20:17] LABS: Hepatitis C Virus Antibody Negative (Negative)
[2024-06-03 20:27] LABS: MRSA (PCR) NOT DETECTED (NOT DETECTE)
[2024-06-03] MEDS: CALCIUM CARBONATE (TUMS) 500 MG (200 MG ELEMENTAL) PO (21:38)
[2024-06-04] VITALS (25 sets, daily range): BP systolic 116–146; BP diastolic 79–115; PULSE 106–248; RESP 15–32; TEMP 36.5–36.9; O2SAT 92–100
--- NOTE | 2024-06-04 | ECHO_ITS ---
Patient Info Name: Barrett Guzman Age: 48 years : 1975 Gender: Male Ht: 72 in Wt: 309 lbs BSA: 2.73 m2 HR: 120 bpm BP: 126 / 87 mmHg Heart Rhythm: Atrial Fibrillation Technical Quality: Fair Exam Date: 06/04/2024 1:27 PM Exam Location: Echo Lab Patient Status: Inpatient Admit Date: 06/03/2024 Staff Ordering Physician: Carolann Ferrara APRN Receiving Associate: Ariella Perry RDCS Attending Provider: Kaiden Elam MD Exam Type: CA echo dop color flow w con Study Info Indications - New onset CHF Complete two-dimensional, color flow and Doppler transthoracic echocardiogram is performed with contrast to opacify the left ventricle and to improve the deliniation of the left ventricle endocardial borders. Contrast/Agitated Saline Contrast/Ag. Saline: Definity Amount: 6.00 ml Summary 1. Left ventricular chamber dimension is moderately enlarged. 2. Left ventricular systolic function is severely reduced, estimated at 20-25%. 3. There is mildly increased left ventricular wall thickness. 4. The left ventricular diastolic function is indeterminate. 5. Left atrial chamber dimension is moderately enlarged. 6. Right atrial chamber dimension is mildly enlarged. 7. There is moderate mitral valve regurgitation. 8. There is mild tricuspid valve regurgitation. 9. Mild pulmonary hypertension, estimated pulmonary arterial systolic pressure is 39 mmHg. 10. The aortic root size at the sinus of Valsalva is mildly dilated. 11. Dilated inferior vena cava with <50% collapse upon inspiration consistent with elevated right atrial pressure, 15 mmHg. Left Ventricle Left ventricular chamber dimension is moderately enlarged. Left ventricular systolic function is severely reduced, estimated at 20-25%. There is mildly increased left ventricular wall thickness. The left ventricular diastolic function is indeterminate. Right Ventricle Right ventricular chamber dimension is normal. Right ventricular systolic function is normal. Left Atria Left atrial chamber dimension is moderately enlarged. Right Atria Right atrial chamber dimension is mildly enlarged. Atrial Septum Intact interatrial septum visualized by color flow imaging. Aortic Valve The aortic valve is trileaflet. There is mild aortic valve sclerosis. There is no aortic valve stenosis. There is trace aortic valve regurgitation. Pulmonic Valve The pulmonic valve is normal. There is no pulmonic valve stenosis. There is trace pulmonic regurgitation. Mitral Valve The mitral valve has thickened leaflets. There is no mitral valve stenosis. There is moderate mitral valve regurgitation. Tricuspid Valve The tricuspid valve leaflets are normal. There is no significant tricuspid valve stenosis. There is mild tricuspid valve regurgitation. Mild pulmonary hypertension, estimated pulmonary arterial systolic pressure is 39 mmHg. Pericardium/Pleural The pericardium appears normal. There is no pericardial effusion. Inferior Vena Cava Dilated inferior vena cava with <50% collapse upon inspiration consistent with elevated right atrial pressure, 15 mmHg. Aorta The aortic root size at the sinus of Valsalva is mildly dilated. Left Ventricular Outflow Tract Name Value Normal LVOT Doppler LVOT Peak Gradient 2 mmHg LVOT Mean Gradient 1 mmHg LVOT VTI 7.24 cm LVOT VTI/AV VTI Ratio 0.72 Pulmonic Valve Name Value Normal RVOT Doppler RVOT Peak Gradient 0 mmHg PV Doppler PV Peak Gradient 1 mmHg Mitral Valve Name Value Normal MV Doppler MV Decel [place] 961.41 cm/s2 MV PHT 0 s MV Area (PHT) 8.16 cm2 4.00-5.00 MV Diastolic Function MV E Peak Velocity 89.43 cm/s MV A Peak Velocity 1.62 cm/s MV E/A 55.33 MV Decel Time 0 s MV Annular TDI MV E/e' (Septal) 15.65 <=8.00 MV E/e' (Lateral) 8.77 <=8.00 MV E/e' (Average) 12.21 Tricuspid Valve Name Value Normal TV Regurgitation Doppler TR Peak Velocity 242.47 cm/s TR Peak Gradient 21 mmHg Estimated PAP/RSVP RA Pressure 15 mmHg <=5 PA Systolic Pressure 39 mmHg <36 RV Systolic Pressure 39 mmHg <36 Aortic Valve Name Value Normal AV Doppler AV Peak Velocity 69.92 cm/s AV Peak Gradient 2 mmHg AV Mean Gradient 1 mmHg AV VTI 10.10 cm Ventricles Name Value Normal LV Dimensions 2D/MM IVS Diastolic Thickness (2D) 0.97 cm 0.60-1.00 LVID Diastole (2D) 5.74 cm 4.20-5.80 LVIW Diastolic Thickness (2D) 0.89 cm 0.60-1.00 LVID Systole (2D) 4.59 cm 2.50-4.00 LV Mass (2D Cubed) 207.86 g 88.00-224.00 LV Mass Index (2D Cubed) 0.01 g/cm2 0.00-0.01 Relative Wall Thickness (2D) 0.31 LV Fractional Shortening/Ejection Fraction 2D/MM LV Fractional Shortening (2D) 20 % 25-43 LV EF (2D Teicholz) 40 % 52-72 LV Diastolic Volume (4C MOD) 250.01 ml LV EF (4C MOD) 27 % LV Diastolic Volume (2C MOD) 282.55 ml LV EF (2C MOD) 38 % LV Diastolic Volume (BP MOD) 274.17 ml 62.00-150.00 LV Diastolic Volume Index (BP MOD) 0.10 l/m2 0.03-0.07 LV Systolic Volume (BP MOD) 179.71 ml 21.00-61.00 LV Systolic Volume Index (BP MOD) 0.07 l/m2 0.01-0.03 LV EF (BP MOD) 34 % 52-72 LV Diastolic Length (4C) 9.58 cm LV Systolic Length (4C) 9.63 cm LV Stroke Volume (4C MOD) 67.27 ml Atria Name Value Normal LA Dimensions LA Volume (4C A-L) 156.36 ml LA Volume (BP A-L) 157.32 ml RA Dimensions RA Area (4C) 26.02 cm2 <=18.00 Report Signatures
[2024-06-04 05:14] LABS: Hematocrit 40.9 % (42.0-52.0); Hemoglobin 13.1 g/dL (14.0-18.0); Mean Corpuscular Hemoglobin 31.3 pg (26-34); Mean Corpuscular Volume 97.6 fl (80-100); Mean Platelet Volume 10.4 fl (7.4-10.4); Platelet Count Result 300 k/mm3 (150-375); Red Blood Count 4.19 M/mm3 (4.6-6.20); Red Cell Distribution Width 12.7 % (11.5-14.5); White Blood Count 12.4 K/mm3 (4.5-10.0)
[2024-06-04 05:26] LABS: Alanine Aminotransferase 105 U/L (6-50); Albumin Level 3.8 g/dL (3.5-5.1); Alkaline Phosphatase 57 U/L (38-126); Anion Gap 10 mmol/L (4-12); Aspartate Amino Transferase 45 U/L (17-59); Bilirubin,Total 1.1 mg/dL (0.2-1.3); Blood Urea Nitrogen 20 mg/dL (9-20); Calcium 8.8 mg/dL (8.4-10.2); Carbon Dioxide 20 mmol/L (22-30); Chloride 107 mmol/L (98-107); Estimated CRCL calculation 168 ml/min; Estimated Glomerular Filt Rate > 60; Glucose 138 mg/dL (65-110); Magnesium 2.5 mg/dL (1.6-2.3); Potassium 4.6 mmol/L (3.4-5.0); Sodium 137 mmol/L (137-145)
[2024-06-04] MEDS: dilTIAZem HCL CD 180 MG CAP.24HR PO (08:51)
[2024-06-04] MEDS: PANTOPRAZOLE 40 MG TABLET PO (08:51)
[2024-06-04] MEDS: ENOXAPARIN 40 MG/0.4 ML SYRINGE SUB-Q (08:51)
[2024-06-04] MEDS: DOXYCYCLINE HYCLATE 100 MG TABLET PO ×2 (08:51→21:14)
[2024-06-04] MEDS: guaiFENesin 12 HR 600 MG TABCR 1200 MG PO ×2 (08:51→21:15)
--- NOTE | 2024-06-04 09:58 | ECG_ITS ---
Test Date: 2024-06-04 10:52:58 Measurements Intervals [place] Rate: 124 P: 0 [place]: 0 QRS: -10 QRSD: 105 T: 82 QT: 326 QTc: 469 Interpretive Statements ATRIAL FLUTTER/TACHYCARDIA WITH RAPID VENTRICULAR RESPONSE INCOMPLETE RIGHT BUNDLE BRANCH BLOCK CONSIDER INFERIOR INFARCT, AGE INDETERMINATE BORDERLINE T WAVE ABNORMALITY- HIGH LATERAL LEADS BASELINE ARTIFACT- V4 ABNORMAL ECG Compared to ECG 06/03/2024 13:39:09 HEART RATE HAS INCREASED Electronically Signed On 06-04-2024 12:02:55 CDT by Surendra Beckman D.O.
--- NOTE | 2024-06-04 10:00 | P.CONCA_ITS ---
Assessment and Plan Assessment and plan (1) Atrial flutter with rapid ventricular response: Code(s): I48.92 - Unspecified atrial flutter Status: Acute Plan 1. Atrial flutter with RVR. This is a new diagnosis of atrial flutter for the patient. 2. Pneumonia 3. Hypertension 4. Hyperlipidemia 5. GERD 6. Tobacco dependence 7. Alcohol use (has 10 drinks a week) 8. Morbid obesity with BMI of 41 PLAN: -Discussed diagnosis of atrial flutter with the patient and management options. Given persistent RVR, recommend HERI-guided DCCV. Discussed procedure with the patient, who is agreeable. As patient ate breakfast this morning, will plan on HERI-guided DCCV this afternoon. Patient to remain NPO for the procedure. -Transthoracic echocardiogram pending to evaluate for LVEF, valvular disease. If his LVEF is reduced, then will need to stop his Diltiazem. -Currently, his [id number] is 1 for hypertension. Given plans for DCCV, will start Eliquis 5mg BID. He will need to remain on uninterrupted anticoagulation for 1 month after cardioversion. If his [id number] score increases to 2, then he would need to be on long-term anticoagulation. -Recommend outpatient sleep study to evaluate for SIOBHAN. -Recommend abstinence from alcohol given association of alcohol and AFIB/AFL. -Treatment of pneumonia as per Hospitalist. -Continue home Rosuvastatin for hyperlipidemia. History of Present Illness History of Present Illness Consult date/time: 06/04/24 10:00 Requesting physician: Carolann Ferrara APRN Reason For Visit: New Onset Congestive Heart Failure/Pneumonia/Atria Narrative: We are consulted for atrial flutter. Barrett is a 48 year old male with hypertension, hyperlipidemia, GERD, tobacco dependence, alcohol use (has 10 drinks a week) who reports having a cough over the past two weeks. Had some shortness of breath with it. Had some chest pain with the coughing, but otherwise no chest pain when not coughing. He went to Urgent Care, where EKG showed atrial flutter with RVR, therefore, he was sent to [place]. Repeat EKGs here show atrial flutter with RVR. Workup here shows: Negative troponins NT pro BNP elevated at 2210 Normal TSH level Viral respiratory panel is negative CXR with slight cardiomegaly with congestive gtao CTA C/A/P shows possible pneumonia, mediastinal lymphadenopathy, right pleural effusion. Abdominal US shows fatty infiltration of an enlarged liver, gallbladder wall thickening. Review of Systems 2 Review of Systems: All systems reviewed & are unremarkable except as noted in HPI and below (HPI) [facility] Past Medical History Medical History Daily consumption of alcohol Gastroesophageal reflux disease Tobacco dependence Hyperlipidemia Hypertension Surgical History Surgical History History of open reduction and internal fixation (ORIF) procedure repair of right ankle fracture and left tibia-fibula fractures History of adenoidectomy Family History Family History Father Acute myocardial infarction Mother Diabetes mellitus Social History Social History Social History: Surrogate medical decision maker: Kimberlyn Gama, spouse. Code status: Full code. Smoking packs per day: 1 Smoking cigarettes per day: 20.0 Years smoked: 25 Smoking pack-years: 25.00 Smoking status: Current every day smoker Tobacco type: cigarettes Alcohol intake: current Drinks per week: 35 Alcohol use details: 5 to 6 rum containing alcoholic beverages a day Substance use: current Substance use type: marijuana Other substance usage details: marijuana weekly Do You Feel Safe in your Home?: Yes Lack of Transportation: No Lack of Food: Never True Current Housing: I Do Not Have Housing Concerned About Future Housing: No Difficulty Paying Gas/Electric Bills: No Difficulty Paying for Meds: No Currently Unemployed: No Education: High School Diploma/GED Difficulty w/ Childcare or Family Care: No Spiritual care concerns: No Meds Home Medications and Allergies Home Medications ?Medication ?Instructions ?Recorded ?Confirmed ?Type diltiazem HCl 180 mg 180 mg PO DAILY 05/24/24 06/03/24 History capsule,extended release 24 hr, controlled (DILT-XR) omeprazole 20 mg capsule,delayed 20 mg PO DAILY 05/24/24 06/03/24 History release rosuvastatin 20 mg tablet 20 mg PO DAILY 05/24/24 06/03/24 History Allergies Allergy/AdvReac Type Severity Reaction Status Date / Time No Known Allergies Allergy Verified 06/03/24 10:19 Vital Signs Vital Signs - 24 hr 06/03/24 10:09 06/03/24 10:12 06/03/24 11:01 Temperature 36.9 C Pulse Rate 132 H 125 H Respiratory Rate 24 H 18 Blood Pressure 157/113 H Pulse Oximetry 99 96 Oxygen Delivery Room Air Room Air 06/03/24 12:09 06/03/24 13:23 06/03/24 14:58 Temperature 36.8 C Pulse Rate 132 H 131 H 126 H Respiratory Rate 35 H 24 H Blood Pressure 119/96 H 132/92 H Pulse Oximetry 98 96 Oxygen Delivery 06/03/24 15:56 06/03/24 16:00 06/03/24 16:35 Temperature 36.8 C Pulse Rate 127 H 124 H Respiratory Rate 32 H Blood Pressure 124/95 H 121/78 Pulse Oximetry 97 Oxygen Delivery 06/03/24 18:00 06/03/24 18:30 06/03/24 18:30 Temperature Pulse Rate 125 H Respiratory Rate Blood Pressure 140/92 H 127/87 Pulse Oximetry Oxygen Delivery 06/03/24 20:00 06/03/24 20:00 06/03/24 20:00 Temperature 36.8 C Pulse Rate 126 H 126 H Respiratory Rate 32 H Blood Pressure 145/94 H Pulse Oximetry 94 Oxygen Delivery Room Air 06/03/24 22:00 06/04/24 00:00 06/04/24 00:00 Temperature 36.6 C Pulse Rate 123 H 120 H Respiratory Rate 32 H Blood Pressure Pulse Oximetry 95 Oxygen Delivery Room Air 06/04/24 00:00 06/04/24 02:00 06/04/24 03:55 Temperature Pulse Rate 124 H 122 H Respiratory Rate Blood Pressure Pulse Oximetry Oxygen Delivery Room Air 06/04/24 04:00 06/04/24 04:00 06/04/24 05:00 Temperature 36.6 C 36.9 C Pulse Rate 106 H 122 H 124 H Respiratory Rate 32 H 22 H Blood Pressure 126/87 139/109 H Pulse Oximetry 96 98 Oxygen Delivery 06/04/24 06:00 06/04/24 08:00 Temperature Pulse Rate 121 H Respiratory Rate Blood Pressure Pulse Oximetry Oxygen Delivery Room Air Exam 2 Const: General: comfortable and no acute distress HENMT: Mouth: Yes moist mucous membranes Eyes: General: appearance normal, both eyes and all related structures S clera: sclerae normal Resp: Effort & Inspection: normal respiratory effort Cardio: Rate: tachycardic Rhythm: regular rhythm Heart sounds: no murmurs Other: Tele with atrial flutter with RVR Skin: General skin exam: normal color Neuro: Speech: normal speech Psych: Mental Status: mental status grossly normal Affect: normal affect Results Labs and Meds 06/04/24 05:03 06/04/24 05:03 Lab results: Cardiac Enzymes 06/03/24 06/03/24 06/03/24 Range/Units 10:18 13:05 15:13 AST 116 H (17-59) U/L Troponin I 0.032 0.035 H* 0.033 (0.000-0.034) ng/mL 06/04/24 Range/Units 05:03 AST 45 (17-59) U/L Troponin I (0.000-0.034) ng/mL Coagulation 06/03/24 Range/Units 10:18 PT 15.5 H (11.1-14.7) Seconds APTT 30.9 (22.3-36.8) Seconds CBC 06/03/24 06/04/24 Range/Units 10:18 05:03 WBC 10.1 H 12.4 H (4.5-10.0) K/mm3 RBC 4.53 L 4.19 L (4.6-6.20) M/mm3 Hgb 14.1 13.1 L (14.0-18.0) g/dL Hct 44.4 40.9 L (42.0-52.0) % Plt Count 284 300 (150-375) k/mm3 Lymph # (Auto) 1.99 (0.9-3.2) K/mm3 [place] # (Auto) 0.9 H (0.1-0.6) K/mm3 Eos # (Auto) 0.1 (0-0.3) K/mm3 Baso # (Auto) 0.1 (0.0-0.1) K/mm3 Comprehensive Metabolic Panel 06/03/24 06/04/24 Range/Units 10:18 05:03 Sodium 140 137 (137-145) mmol/L Potassium 4.2 4.6 (3.4-5.0) mmol/L Chloride 107 107 (98-107) mmol/L Carbon Dioxide 23 20 L (22-30) mmol/L BUN 18 20 (9-20) mg/dL Creatinine 0.74 0.69 L (0.7-1.3) mg/dL Glucose 122 H 138 H (65-110) mg/dL Calcium 9.1 8.8 (8.4-10.2) mg/dL AST 116 H 45 (17-59) U/L ALT 139 H 105 H (6-50) U/L Alkaline Phosphatase 67 57 (38-126) U/L Total Protein 7.0 7.0 (6.3-8.2) g/dL Albumin 4.2 3.8 (3.5-5.1) g/dL Intake and Output 06/03/24 06/04/24 06/04/24 23:59 07:59 15:59 Intake Total 240 250 240 Output Total 600 Balance 240 -350 240 Intake: Oral 240 250 240 Output: Urine 600 Other: # Unmeasured Voids 1 Patient Weight 06/04/24 23:59 Weight 139.4 kg
--- NOTE | 2024-06-04 11:16 | PC.NURSE ---
On 06/04/24, the student, [Sangeeta Greene], provided care and completed [facility] documentation on this patient. I have reviewed the student's documentation and agree with the findings.
[2024-06-04] MEDS: APIXABAN 5 MG TABLET PO ×2 (12:05→21:15)
[2024-06-04] MEDS: CALCIUM CARBONATE (TUMS) 500 MG (200 MG ELEMENTAL) PO (12:49)
--- NOTE | 2024-06-04 13:39 | P.PNIM_ITS ---
Progress Note: A&P Assessment and Plan (1) Community acquired pneumonia: Code(s): J18.9 - Pneumonia, unspecified organism Status: Acute Assessment and Plan: Continue with antibiotics, culture pending (2) Atrial tachycardia: Code(s): I47.19 - Other supraventricular tachycardia Status: Deleted Assessment and Plan: Heart rate is slightly better now. Continue to monitor closely. (3) Transaminitis: Code(s): R74.01 - Elevation of levels of liver transaminase levels Status: Acute Assessment and Plan: Stable (4) Hypertension: Code(s): I10 - Essential (primary) hypertension Status: Acute Assessment and Plan: Stable on current medications, will continue current treatment. (5) Tobacco dependence: Code(s): F17.200 - Nicotine dependence, unspecified, uncomplicated Status: Acute Assessment and Plan: Counseling given. (6) Daily consumption of alcohol: Code(s): Z78.9 - Other specified health status Status: Acute Assessment and Plan: Counseling given. (7) Suspected sleep apnea: Code(s): R29.818 - Other symptoms and signs involving the nervous system Status: Acute Assessment and Plan: Workup with an outpatient Plan The patient presented to to urgent care for evaluation of URI symptoms for the last 10 days and he was directed to the ED after he was found to be in atrial tachycardia as detailed in HPI. Labs, imaging, EKG, and all reports were personally reviewed. Imaging shows findings of pneumonia and he has been started on ceftriaxone and doxycycline. Nebulizers did not seem to help much and he does not have wheezing on exam thus there is no indication for steroids. He received a dose of furosemide as his proBNP was elevated at 2210 however he actually looks dry on examination and by history, also with ketones in the urine. It looks like he received 2 L of crystalloids at the same time as he was given furosemide thus will hold on introducing any more IV fluids or diuretics at this time and continue to monitor his volume status. Heart rate has been pretty consistently in the low 100s to 130s, at times it appears to be atrial flutter and at times atrial tachycardia. There was not any real improvement with metoprolol tartrate 5 mg IV. He is on diltiazem 180 mg daily at home and did take that this morning. He does not appear septic, TSH is within normal limits, and CTA of the chest was negative for pulmonary embolism. I suppose alcohol withdrawal would be a consideration however he lacks other symptoms. Echocardiogram has been ordered for a.m. and cardiology was consulted by the ED provider and their input is appreciated. Blood pressures have been reasonable and will be monitored. I suspect the patient may have underlying sleep apnea as reports that he snores frequently and she has witnessed some apneic episodes. ApneaLink has been ordered for tonight. Smoking cessation is encouraged and was discussed. He declines the need for nicotine patch. We also discussed cutting back on alcohol use and that this may very well be the cause of his elevated liver enzymes. Radiologist remarked that there was some fat stranding around the neck of the gallbladder with a differential diagnosis to include cholecystitis versus ascending cholangitis versus duodenitis though no thickening of the wall of the gallbladder or duodenum was seen. His abdominal exam is completely benign though will check a right upper quadrant ultrasound and continue to monitor closely. His home medications will be reviewed and resumed as appropriate. Findings and treatment plan were discussed with the patient. Questions were solicited and answered to satisfaction. Subjective Date/time seen: 06/04/24 13:39 Interval history: Patient was seen during the morning rounds today Mild sob, no chest pain No abdominal pain, no nausea or vomiting. Review of Systems Review of Systems: 12 systems were reviewed and are negativ e except for as per HPI. Exam Narrative: General: Mildly ill-appearing gentleman sitting up in bed in no acute distress. Weight: 140.9 kg. BMI: 42.1. HEENT: PERRL, EOMI. Sclera anicteric. Tacky mucous membranes. Neck: Supple. No JVD. Respiratory: Respirations are nonlabored and he is speaking in full sentences. Lung sounds are a bit coarse but are otherwise clear to auscultation. Cardiovascular: Tachycardic with normal S1-S2. Gastrointestinal: Abdomen is soft, nontender, and nondistended with positive bowel sounds. No guarding rebound tenderness. No obvious organomegaly. Skin: Warm and dry. No rash or lesions on limited exam. Extremities: No cyanosis or clubbing. Trace pedal edema. Negative Fatuma sign bilaterally. Neurological: Alert and oriented. Cranial nerves 2-12 are grossly intact. No tremors. No gross focal deficits to casual conversation. Psychiatric: Pleasant and cooperative with appropriate mood and affect. Objective Data Vital Signs Vital Signs: Vital Signs - 24 hr 06/03/24 14:58 06/03/24 15:56 06/03/24 16:00 Temperature 36.8 C 36.8 C Pulse Rate 126 H 127 H 124 H Respiratory Rate 24 H 32 H Blood Pressure 132/92 H 124/95 H Pulse Oximetry 96 97 Oxygen Delivery 06/03/24 16:35 06/03/24 18:00 06/03/24 18:30 Temperature Pulse Rate 125 H Respiratory Rate Blood Pressure 121/78 140/92 H Pulse Oximetry Oxygen Delivery 06/03/24 18:30 06/03/24 20:00 06/03/24 20:00 Temperature 36.8 C Pulse Rate 126 H Respiratory Rate 32 H Blood Pressure 127/87 145/94 H Pulse Oximetry 94 Oxygen Delivery Room Air 06/03/24 20:00 06/03/24 22:00 06/04/24 00:00 Temperature 36.6 C Pulse Rate 126 H 123 H 120 H Respiratory Rate 32 H Blood Pressure Pulse Oximetry 95 Oxygen Delivery 06/04/24 00:00 06/04/24 00:00 06/04/24 02:00 Temperature Pulse Rate 124 H 122 H Respiratory Rate Blood Pressure Pulse Oximetry Oxygen Delivery Room Air 06/04/24 03:55 06/04/24 04:00 06/04/24 04:00 Temperature 36.6 C Pulse Rate 106 H 122 H Respiratory Rate 32 H Blood Pressure 126/87 Pulse Oximetry 96 Oxygen Delivery Room Air 06/04/24 05:00 06/04/24 06:00 06/04/24 08:00 Temperature 36.9 C Pulse Rate 124 H 121 H Respiratory Rate 22 H Blood Pressure 139/109 H Pulse Oximetry 98 Oxygen Delivery Room Air 06/04/24 08:00 06/04/24 08:30 06/04/24 10:00 Temperature Pulse Rate 125 H 125 H Respiratory Rate Blood Pressure Pulse Oximetry Oxygen Delivery Room Air 06/04/24 12:00 06/04/24 12:00 Temperature 36.6 C Pulse Rate 122 H Respiratory Rate 28 H Blood Pressure 146/99 H Pulse Oximetry 96 Oxygen Delivery Room Air Intake/Output Intake/Output: Intake & Output 06/01/24 06/02/24 06/03/24 06/04/24 23:59 23:59 23:59 23:59 Intake Total 1290 490 Output Total 600 Balance 1290 -110 Meds/Results Medications: Active Medications Generic Name Dose Route Start Last Admin Trade Name Freq PRN Reason Stop Dose Admin Acetaminophen 650 mg 06/03/24 16:35 Acetaminophen 325 Mg Tablet PO Q6H PRN Mild Pain (1-3) or Fever Apixaban 5 mg 06/04/24 10:00 06/04/24 12:05 Apixaban 5 Mg Tablet PO 5 mg Q12HR [facility] Administration Calcium Carbonate 200 mg 06/03/24 21:22 06/04/24 12:49 Calcium Carbonate (Tums) 500 Mg (200 Mg Elemental) PO 200 mg Q6H PRN Administration Indigestion Diltiazem HCl 180 mg 06/04/24 09:00 06/04/24 08:51 Diltiazem Hcl Cd 180 Mg Cap.24hr PO 180 mg DAILY [facility] Administration Doxycycline Hyclate 100 mg 06/03/24 21:00 06/04/24 08:51 Doxycycline Hyclate 100 Mg Tablet PO 100 mg Q12HR [facility] Administration Guaifenesin 1,200 mg 06/03/24 21:00 06/04/24 08:51 Guaifenesin 12 Hr 600 Mg Tabcr PO 1,200 mg Q12HR [facility] Administration Ceftriaxone Sodium 1 gm in 50 mls @ 100 mls/hr 06/04/24 12:00 06/04/24 12:05 Rocephin 1 Gm/Ns 50 Ml IVPB 100 mls/hr Q24H [facility] Administration Pantoprazole Sodium 40 mg 06/04/24 09:00 06/04/24 08:51 Pantoprazole 40 Mg Tablet PO 40 mg QAM [facility] Administration Perflutren Lipid Microsphere 0 ml 06/03/24 12:39 Perflutren Lipid Microspheres 1.5 Ml Vial Diluted To 10 Ml Total Volume IV PUSH 06/06/24 12:39 ONCE PRN adequate visualization Protocol Radiology Results: ITS Impressions Chest/Abdomen/Pelvis CTA 06/03/24 10:56 IMPRESSION: CHEST: 1. No pulmonary embolism or dissection. 2. Multiple patchy opacities and groundglass appearance suggestive of pneumonia. Underlying pulmonary edema is not excluded although this is less likely. Clinical correlation advised. 3. Mediastinal lymphadenopathy. 4. Right pleural effusion. ABDOMEN/PELVIS: 1. No evidence of appendicitis, diverticulitis or intestinal obstruction. 2. Fat stranding around the neck of the gallbladder. Differential include cholecystitis versus ascending cholangitis versus duodenitis: although no thickening in the wall of the gallbladder or the duodenum is seen. Clinical correlation advised. 3. Fat infiltration of the liver. Hepatomegaly. 4. Fat-containing bilateral inguinal and umbilical hernias. Abdomen Ultrasound 06/04/24 08:55 IMPRESSION: Fatty infiltration of an enlarged liver. Gallbladder wall thickening, likely secondary to underdistention. Labs Labs: Laboratory Results - last 24 hr 06/03/24 06/03/24 06/03/24 13:05 15:13 18:58 WBC RBC Hgb Hct MCV MCH MCHC RDW Plt Count MPV Sodium Potassium Chloride Carbon Dioxide Anion Gap BUN Creatinine Estim Creat Clear Calc Estimated GFR Glucose Calcium Magnesium Total Bilirubin AST ALT Alkaline Phosphatase Troponin I 0.035 H* 0.033 Total Protein Albumin TSH (Reflex) 2.300 Nasal MRSA (PCR) Not detected Hepatitis A IgM Ab Negative Hep Bs Antigen Negative Hep B Core IgM Ab Negative Hepatitis C Ab Screen Negative Influenza A (RT-PCR) Negative Influenza B (RT-PCR) Negative SARS-CoV-2 RNA (RT-PCR) Negative Group A Strep (PCR) Not detected 06/04/24 05:03 WBC 12.4 H RBC 4.19 L Hgb 13.1 L Hct 40.9 L MCV 97.6 MCH 31.3 MCHC 32.0 RDW 12.7 Plt Count 300 MPV 10.4 Sodium 137 Potassium 4.6 Chloride 107 Carbon Dioxide 20 L Anion Gap 10 BUN 20 Creatinine 0.69 L Estim Creat Clear Calc 168 Estimated GFR > 60 Glucose 138 H Calcium 8.8 Magnesium 2.5 H Total Bilirubin 1.1 AST 45 ALT 105 H Alkaline Phosphatase 57 Troponin I Total Protein 7.0 Albumin 3.8 TSH (Reflex) Nasal MRSA (PCR) Hepatitis A IgM Ab Hep Bs Antigen Hep B Core IgM Ab Hepatitis C Ab Screen Influenza A (RT-PCR) Influenza B (RT-PCR) SARS-CoV-2 RNA (RT-PCR) Group A Strep (PCR) Quality VTE Prophylaxis VTE prophylaxis: pharmacologic ordered
--- NOTE | 2024-06-04 14:00 | WPDMODSED ---
Moderate Sedation Note-Pt Data Patient Data Diagnosis: Atrial flutter with RVR Present Complaint: Atrial flutter with RVR Procedure to be performed/Plan: Transesophageal echocardiogram; synchronized electrical cardioversion Allergies Allergy/AdvReac Type Severity Reaction Status Date / Time No Known Allergies Allergy Verified 06/03/24 10:19 Home Medications ?Medication ?Instructions ?Recorded ?Confirmed ?Type diltiazem HCl 180 mg 180 mg PO DAILY 05/24/24 06/03/24 History capsule,extended release 24 hr, controlled (DILT-XR) omeprazole 20 mg capsule,delayed 20 mg PO DAILY 05/24/24 06/03/24 History release rosuvastatin 20 mg tablet 20 mg PO DAILY 05/24/24 06/03/24 History Current Medications: Active Medications Acetaminophen (Acetaminophen 325 Mg Tablet) 650 mg PO Q6H PRN PRN Reason: Mild Pain (1-3) or Fever Apixaban (Apixaban 5 Mg Tablet) 5 mg PO Q12HR [facility] Last Admin: 06/04/24 12:05 Dose: 5 mg Calcium Carbonate (Calcium Carbonate (Tums) 500 Mg (200 Mg Elemental)) 200 mg PO Q6H PRN PRN Reason: Indigestion Last Admin: 06/04/24 12:49 Dose: 200 mg Diltiazem HCl (Diltiazem Hcl Cd 180 Mg Cap.24hr) 180 mg PO DAILY [facility] Last Admin: 06/04/24 08:51 Dose: 180 mg Doxycycline Hyclate (Doxycycline Hyclate 100 Mg Tablet) 100 mg PO Q12HR [facility] Last Admin: 06/04/24 08:51 Dose: 100 mg Guaifenesin (Guaifenesin 12 Hr 600 Mg Tabcr) 1,200 mg PO Q12HR [facility] Last Admin: 06/04/24 08:51 Dose: 1,200 mg Ceftriaxone Sodium (Rocephin 1 Gm/Ns 50 Ml) 1 gm in 50 mls @ 100 mls/hr IVPB Q24H [facility] Last Admin: 06/04/24 12:05 Dose: 100 mls/hr Metoprolol Tartrate (Metoprolol Tartrate 50 Mg Tab) 50 mg PO Q6HR [facility] Pantoprazole Sodium (Pantoprazole 40 Mg Tablet) 40 mg PO QAM [facility] Last Admin: 06/04/24 08:51 Dose: 40 mg Perflutren Lipid Microsphere (Perflutren Lipid Microspheres 1.5 Ml Vial Diluted To 10 Ml Total Volume) 0 ml IV PUSH ONCE PRN; Protocol PRN Reason: adequate visualization Stop: 06/06/24 12:39 Rosuvastatin Calcium (Rosuvastatin 20 Mg Tablet) 20 mg PO DAILY [facility] Sedation/Anesthesia: No previous sedation/anesthesia problems (including family history). [facility] Past Medical History Medical History Daily consumption of alcohol Gastroesophageal reflux disease Tobacco dependence Hyperlipidemia Hypertension Surgical History Surgical History History of open reduction and internal fixation (ORIF) procedure repair of right ankle fracture and left tibia-fibula fractures History of adenoidectomy Family History Family History Father Acute myocardial infarction Mother Diabetes mellitus Social History Social History Social History: Surrogate medical decision maker: Kimberlyn Gama, spouse. Code status: Full code. Smoking packs per day: 1 Smoking cigarettes per day: 20.0 Years smoked: 25 Smoking pack-years: 25.00 Smoking status: Current every day smoker Tobacco type: cigarettes Alcohol intake: current Drinks per week: 35 Alcohol use details: 5 to 6 rum containing alcoholic beverages a day Substance use: current Substance use type: marijuana Other substance usage details: marijuana weekly Do You Feel Safe in your Home?: Yes Lack of Transportation: No Lack of Food: Never True Current Housing: I Do Not Have Housing Concerned About Future Housing: No Difficulty Paying Gas/Electric Bills: No Difficulty Paying for Meds: No Currently Unemployed: No Education: High School Diploma/GED Difficulty w/ Childcare or Family Care: No Spiritual care concerns: No Mod Sed Physical Exam Physical Exam Pre Procedural Exam: Normal: Lungs, Neuro Exam, Extremities and Skin and Variation: Appearance (Morbidly obese), Heart Rate (Atrial flutter with RVR) and Heart Rhythm (Atrial flutter with RVR) Hours since solid foods: 6 Hours since liquid intake: 6 Mallampati Classification: class III Internal Medicine - PN: Obj Da Vital Signs Vital Signs: Vital Signs - 24 hr 06/03/24 14:58 06/03/24 15:56 06/03/24 16:00 Temperature 36.8 C 36.8 C Pulse Rate 126 H 127 H 124 H Respiratory Rate 24 H 32 H Blood Pressure 132/92 H 124/95 H Pulse Oximetry 96 97 Oxygen Delivery Oxygen Flow Rate 06/03/24 16:35 06/03/24 18:00 06/03/24 18:30 Temperature Pulse Rate 125 H Respiratory Rate Blood Pressure 121/78 140/92 H Pulse Oximetry Oxygen Delivery Oxygen Flow Rate 06/03/24 18:30 06/03/24 20:00 06/03/24 20:00 Temperature 36.8 C Pulse Rate 126 H Respiratory Rate 32 H Blood Pressure 127/87 145/94 H Pulse Oximetry 94 Oxygen Delivery Room Air Oxygen Flow Rate 06/03/24 20:00 06/03/24 22:00 06/04/24 00:00 Temperature 36.6 C Pulse Rate 126 H 123 H 120 H Respiratory Rate 32 H Blood Pressure Pulse Oximetry 95 Oxygen Delivery Oxygen Flow Rate 06/04/24 00:00 06/04/24 00:00 06/04/24 02:00 Temperature Pulse Rate 124 H 122 H Respiratory Rate Blood Pressure Pulse Oximetry Oxygen Delivery Room Air Oxygen Flow Rate 06/04/24 03:55 06/04/24 04:00 06/04/24 04:00 Temperature 36.6 C Pulse Rate 106 H 122 H Respiratory Rate 32 H Blood Pressure 126/87 Pulse Oximetry 96 Oxygen Delivery Room Air Oxygen Flow Rate 06/04/24 05:00 06/04/24 06:00 06/04/24 08:00 Temperature 36.9 C Pulse Rate 124 H 121 H Respiratory Rate 22 H Blood Pressure 139/109 H Pulse Oximetry 98 Oxygen Delivery Room Air Oxygen Flow Rate 06/04/24 08:00 06/04/24 08:30 06/04/24 10:00 Temperature Pulse Rate 125 H 125 H Respiratory Rate Blood Pressure Pulse Oximetry Oxygen Delivery Room Air Oxygen Flow Rate 06/04/24 12:00 06/04/24 12:00 06/04/24 12:00 Temperature 36.6 C Pulse Rate 122 H 122 H Respiratory Rate 28 H Blood Pressure 146/99 H Pulse Oximetry 96 Oxygen Delivery Room Air Oxygen Flow Rate 06/04/24 14:00 06/04/24 14:10 06/04/24 14:15 Temperature Pulse Rate 126 H 126 H 169 H Respiratory Rate 30 H 29 H 29 H Blood Pressure 140/109 H 141/102 H 128/115 H Pulse Oximetry 98 99 100 Oxygen Delivery Room Air Nasal Cannula Nasal Cannula Oxygen Flow Rate 2 2 06/04/24 14:20 Temperature Pulse Rate 248 H Respiratory Rate 30 H Blood Pressure Pulse Oximetry Oxygen Delivery Oxygen Flow Rate Intake/Output Intake/Output: Intake & Output 06/01/24 06/02/24 06/03/24 06/04/24 23:59 23:59 23:59 23:59 Intake Total 1290 490 Output Total 600 Balance 1290 -110 Meds/Results Medications: Active Medications Generic Name Dose Route Start Last Admin Trade Name Freq PRN Reason Stop Dose Admin Acetaminophen 650 mg 06/03/24 16:35 Acetaminophen 325 Mg Tablet PO Q6H PRN Mild Pain (1-3) or Fever Apixaban 5 mg 06/04/24 10:00 06/04/24 12:05 Apixaban 5 Mg Tablet PO 5 mg Q12HR [facility] Administration Calcium Carbonate 200 mg 06/03/24 21:22 06/04/24 12:49 Calcium Carbonate (Tums) 500 Mg (200 Mg Elemental) PO 200 mg Q6H PRN Administration Indigestion Diltiazem HCl 180 mg 06/04/24 09:00 06/04/24 08:51 Diltiazem Hcl Cd 180 Mg Cap.24hr PO 180 mg DAILY [facility] Administration Doxycycline Hyclate 100 mg 06/03/24 21:00 06/04/24 08:51 Doxycycline Hyclate 100 Mg Tablet PO 100 mg Q12HR [facility] Administration Guaifenesin 1,200 mg 06/03/24 21:00 06/04/24 08:51 Guaifenesin 12 Hr 600 Mg Tabcr PO 1,200 mg Q12HR [facility] Administration Ceftriaxone Sodium 1 gm in 50 mls @ 100 mls/hr 06/04/24 12:00 06/04/24 12:05 Rocephin 1 Gm/Ns 50 Ml IVPB 100 mls/hr Q24H [facility] Administration Metoprolol Tartrate 50 mg 06/04/24 14:30 Metoprolol Tartrate 50 Mg Tab PO Q6HR [facility] Pantoprazole Sodium 40 mg 06/04/24 09:00 06/04/24 08:51 Pantoprazole 40 Mg Tablet PO 40 mg QAM [facility] Administration Perflutren Lipid Microsphere 0 ml 06/03/24 12:39 Perflutren Lipid Microspheres 1.5 Ml Vial Diluted To 10 Ml Total Volume IV PUSH 06/06/24 12:39 ONCE PRN adequate visualization Protocol Rosuvastatin Calcium 20 mg 06/04/24 13:40 Rosuvastatin 20 Mg Tablet PO DAILY [facility] Radiology Results: ITS Impressions Chest/Abdomen/Pelvis CTA 06/03/24 10:56 IMPRESSION: CHEST: 1. No pulmonary embolism or dissection. 2. Multiple patchy opacities and groundglass appearance suggestive of pneumonia. Underlying pulmonary edema is not excluded although this is less likely. Clinical correlation advised. 3. Mediastinal lymphadenopathy. 4. Right pleural effusion. ABDOMEN/PELVIS: 1. No evidence of appendicitis, diverticulitis or intestinal obstruction. 2. Fat stranding around the neck of the gallbladder. Differential include cholecystitis versus ascending cholangitis versus duodenitis: although no thickening in the wall of the gallbladder or the duodenum is seen. Clinical correlation advised. 3. Fat infiltration of the liver. Hepatomegaly. 4. Fat-containing bilateral inguinal and umbilical hernias. Abdomen Ultrasound 06/04/24 08:55 IMPRESSION: Fatty infiltration of an enlarged liver. Gallbladder wall thickening, likely secondary to underdistention. Labs 06/04/24 05:03 06/04/24 05:03 Labs: Laboratory Results - last 24 hr 06/03/24 06/03/24 06/04/24 15:13 18:58 05:03 WBC 12.4 H RBC 4.19 L Hgb 13.1 L Hct 40.9 L MCV 97.6 MCH 31.3 MCHC 32.0 RDW 12.7 Plt Count 300 MPV 10.4 Sodium 137 Potassium 4.6 Chloride 107 Carbon Dioxide 20 L Anion Gap 10 BUN 20 Creatinine 0.69 L Estim Creat Clear Calc 168 Estimated GFR > 60 Glucose 138 H Calcium 8.8 Magnesium 2.5 H Total Bilirubin 1.1 AST 45 ALT 105 H Alkaline Phosphatase 57 Troponin I 0.033 Total Protein 7.0 Albumin 3.8 TSH (Reflex) 2.300 Nasal MRSA (PCR) Not detected Hepatitis A IgM Ab Negative Hep Bs Antigen Negative Hep B Core IgM Ab Negative Hepatitis C Ab Screen Negative Influenza A (RT-PCR) Negative Influenza B (RT-PCR) Negative SARS-CoV-2 RNA (RT-PCR) Negative Group A Strep (PCR) Not detected ASA Classification/Sedation ASA Classification/Sedation ASA Class: III Emergent: No Risks: Risks, benefits and alternatives explained and patient/family accepted plan for sedation. Patient re-evaluated immediately prior to sedation.
--- NOTE | 2024-06-04 14:28 | P.PCNTEE_ITS ---
HERI TransEsophageal Echocardiogram Date of procedure: 06/04/24 Procedure Type: Date Of Procedure: 06/04/2024 Brief History Of Present Illness: Patient is a 48 year old male who is referred for HERI-guided DCCV for atrial flutter with RVR. Indication: Atrial flutter with RVR Procedure In Detail: After verbal and written informed consent was obtained, the patient risks, benefits, and alternatives explained in detail. The patient agreed to proceed with the plan of care as outlined above.?See pre-sedation note for further details. The patient was then placed in the appropriate 30 to 45 degree angle supine position..?Patient was monitored throughout the study with telemetry, oxygen saturation, end-tidal CO2 monitoring, blood pressure, heart rate, and respirations.?The posterior hypopharynx was then locally anesthetized using repeated administration of Hurricaine spray as well as gargled viscous lidocaine. After local anesthetic of the posterior hypopharynx was achieved and the oral bite block placed, moderate sedation was administered.?After confirmation of adequate moderate sedation, the transesophageal echocardiogram probe was advanced through the oral bite block into the posterior hypopharynx and into the esophagus easily and without complication.?Multiple, multiplanar echocardiographic images were obtained in multiple standard re-projections.?At the conclusion of the study, the transesophageal echocardiogram probe was removed easily and without complication. The patient tolerated the procedure well without difficulty.? Moderate Sedation / Anesthesia Administration: Procedure / sedation start time: 14:05 Procedure / sedation end time: 14:24 Total procedure time: 19 minutes Total of IV Versed 6mg and Fentanyl 100mg was administered by RN. FINDINGS: LEFT ATRIAL APPENDAGE: Thrombus noted in the left atrial appendage. CONCLUSION: Thrombus noted in the left atrial appendage, therefore, cardiove rsion note done. Complications: None
[2024-06-04] MEDS: MIDAZOLAM HCL (*CRX) 2 MG/2 ML VIAL IV PUSH (14:46)
[2024-06-04] MEDS: MIDAZOLAM HCL (*CRX) 2 MG/2 ML VIAL 1 MG IV PUSH ×4 (14:46→14:47)
[2024-06-04] MEDS: fentaNYL CITRATE INJ (*CRX) 100 MCG/2 ML VIAL 50 MCG IV PUSH ×2 (14:47→14:48)
[2024-06-04] MEDS: METOPROLOL TARTRATE INJ 5 MG/5 ML VIAL IV PUSH (14:48)
[2024-06-04] MEDS: LIDOCAINE 2% VISC SOLN 15 ML UDC (14:49)
[2024-06-04] MEDS: SODIUM CHLORIDE 0.9% IV 500 ML 30 ML (14:49)
--- NOTE | 2024-06-04 15:19 | PC.NURSE ---
this rn taking over recovery. pt remains sleepy and arousable [facility]. pt sats remain inconsistent ranging from low 70s-100% on ra. o2 does not seem to help with making sats more stable. pulse ox waveform inconsistent appears to be a reading issue. all equipment adjustments tried including switching out pulse ox, unplugging, and trying multiple different positions and fingers. no intervention noted to help keep sats up and waveform consistent. pt not showing any signs of decreased o2. skin color normal. resp elevated but unchanged from prior to procedure. pt denies any sob or difficulty breathing. pt appears stale despite inconsisent pulse ox. pt continues to be monitored in laboratory equipment installer unit until pt more stable to go back to floor. will monitor
[2024-06-04] MEDS: PERFLUTREN LIPID MICROSPHERES 1.5 ML VIAL DILUTED TO 10 ML TOTAL VOLUME IV PUSH (15:35)
--- NOTE | 2024-06-04 15:46 | IVDEFINITY ---
Prior to administration of IV Definity the patient was educated on the risks and benefits of the imaging enhancing agent including potential adverse side effects. The patient verbalized understanding. Allergies were verified. No exclusion criteria were identified and at least one of the following inclusion criteria were met: 1) physician request, 2) patient technically difficult to image (per the [place] [employer] guidelines of two or more segments not discernable within the apical view), or 3) questionable left ventricular function. ?
--- NOTE | 2024-06-04 15:50 | SUR.PHASEII ---
pt sats continue to remain inconsistent. pt more alert and less sedated at this time. all other vitals stable. pt on ra and sating 70-100. pt not sustaining in below 94%. dr weaver in to see pt. comfortable with pts stats and status. [facility]. carlos ni informed of inconsistent sats. pt placed on continuous pulse ox. continued to drop but not sustain on monitor downstairs. carlos ni aware and reported would continue to monitor pt. this rn offered anymore help. carlos denied any needs. pt stable.
[2024-06-04] MEDS: METOPROLOL TARTRATE 50 MG TAB PO ×2 (16:16→23:21)
[2024-06-04] MEDS: ROSUVASTATIN 20 MG TABLET PO (16:16)
[2024-06-04] MEDS: ONDANSETRON INJ 4 MG/2 ML VIAL IV PUSH (18:55)
--- NOTE | 2024-06-04 22:35 | ECG_ITS ---
Test Date: 2024-06-04 22:51:05 Measurements Intervals [place] Rate: 114 P: 0 [place]: 0 QRS: 195 QRSD: 112 T: 105 QT: 344 QTc: 475 Interpretive Statements ATRIAL FLUTTER/TACHYCARDIA WITH RAPID VENTRICULAR RESPONSE LIMB LEAD REVERSAL INTRAVENTRICULAR CONDUCTION DELAY POOR R WAVE PROGRESSION BASELINE ARTIFACT- I, III ABNORMAL ECG Compared to ECG 06/04/2024 10:52:58 NO SIGNIFICANT CHANGE Electronically Signed On 06-05-2024 07:11:15 CDT by Surendra Beckman D.O.
--- NOTE | 2024-06-04 22:52 | ECG_ITS ---
Test Date: 2024-06-04 22:52:52 Measurements Intervals [place] Rate: 114 P: 0 [place]: 0 QRS: 193 QRSD: 109 T: 110 QT: 352 QTc: 485 Interpretive Statements ATRIAL FLUTTER/TACHYCARDIA WITH RAPID VENTRICULAR RESPONSE LIMB LEAD REVERSAL POOR R WAVE PROGRESSION CONSIDER INFERIOR INFARCT, AGE INDETERMINATE BORDERLINE T WAVE ABNORMALITY- ANTERIOR LEADS ABNORMAL ECG Compared to ECG 06/04/2024 22:51:05 NO SIGNIFICANT CHANGE Electronically Signed On 06-06-2024 07:50:05 CDT by Surendra Beckman D.O.
[2024-06-05] VITALS (17 sets, daily range): BP systolic 104–147; BP diastolic 55–83; PULSE 95–115; RESP 16–32; TEMP 36.4–36.6; O2SAT 93–100
[2024-06-05] MEDS: METOPROLOL TARTRATE 50 MG TAB PO ×4 (06:48→23:39)
--- NOTE | 2024-06-05 08:43 | P.PNIM_ITS ---
Progress Note: A&P Assessment and Plan (1) Community acquired pneumonia: Code(s): J18.9 - Pneumonia, unspecified organism Status: Acute Assessment and Plan: Continue with antibiotics, culture pending Repeat x ray chest in am Clinically looks much better (2) Atrial tachycardia: Code(s): I47.19 - Other supraventricular tachycardia Status: Deleted Assessment and Plan: Heart rate is slightly better now. Continue to monitor closely. (3) Transaminitis: Code(s): R74.01 - Elevation of levels of liver transaminase levels Status: Acute Assessment and Plan: Stable (4) Hypertension: Code(s): I10 - Essential (primary) hypertension Status: Acute Assessment and Plan: Stable on current medications, will continue current treatment. (5) Tobacco dependence: Code(s): F17.200 - Nicotine dependence, unspecified, uncomplicated Status: Acute Assessment and Plan: Counseling given. (6) Daily consumption of alcohol: Code(s): Z78.9 - Other specified health status Status: Acute Assessment and Plan: Counseling given. (7) Suspected sleep apnea: Code(s): R29.818 - Other symptoms and signs involving the nervous system Status: Acute Assessment and Plan: Workup with an outpatient Plan The patient presented to to urgent care for evaluation of URI symptoms for the last 10 days and he was directed to the ED after he was found to be in atrial tachycardia as detailed in HPI. Labs, imaging, EKG, and all reports were personally reviewed. Imaging shows findings of pneumonia and he has been started on ceftriaxone and doxycycline. Nebulizers did not seem to help much and he does not have wheezing on exam thus there is no indication for steroids. He received a dose of furosemide as his proBNP was elevated at 2210 however he actually looks dry on examination and by history, also with ketones in the urine. It looks like he received 2 L of crystalloids at the same time as he was given furosemide thus will hold on introducing any more IV fluids or diuretics at this time and continue to monitor his volume status. Heart rate has been pretty consistently in the low 100s to 130s, at times it appears to be atrial flutter and at times atrial tachycardia. There was not any real improvement with metoprolol tartrate 5 mg IV. He is on diltiazem 180 mg daily at home and did take that this morning. He does not appear septic, TSH is within normal limits, and CTA of the chest was negative for pulmonary embolism. I suppose alcohol withdrawal would be a consideration however he lacks other symptoms. Echocardiogram has been ordered for a.m. and cardiology was consulted by the ED provider and their input is appreciated. Blood pressures have been reasonable and will be monitored. I suspect the patient may have underlying sleep apnea as reports that he snores frequently and she has witnessed some apneic episodes. ApneaLink has been ordered for tonight. Smoking cessation is encouraged and was discussed. He declines the need for nicotine patch. We also discussed cutting back on alcohol use and that this may very well be the cause of his elevated liver enzymes. Radiologist remarked that there was some fat stranding around the neck of the gallbladder with a differential diagnosis to include cholecystitis versus ascending cholangitis versus duodenitis though no thickening of the wall of the gallbladder or duodenum was seen. His abdominal exam is completely benign though will check a right upper quadrant ultrasound and continue to monitor closely. His home medications will be reviewed and resumed as appropriate. Findings and treatment plan were discussed with the patient. Questions were solicited and answered to satisfaction. Subjective Date/time seen: 06/05/24 08:43 Interval history: Patient was seen during the morning rounds today No new overnight complaints Shortness of breath is slightly better No chest pain No abdominal pain, no nausea or vomiting. Review of Systems Review of Systems: 12 systems were reviewed and are negativ e except for as per HPI. Exam Narrative: General: Mildly ill-appearing gentleman sitting up in bed in no acute distress. Weight: 140.9 kg. BMI: 42.1. HEENT: PERRL, EOMI. Sclera anicteric. Tacky mucous membranes. Neck: Supple. No JVD. Respiratory: Air entry is better, few rales at bases Cardiovascular: Tachycardic with normal S1-S2. Gastrointestinal: Abdomen is soft, nontender, and nondistended with positive bowel sounds. No guarding rebound tenderness. No obvious organomegaly. Skin: Warm and dry. No rash or lesions on limited exam. Extremities: No cyanosis or clubbing. Trace pedal edema. Negative Fatuma sign bilaterally. Neurological: Alert and oriented. Cranial nerves 2-12 are grossly intact. No tremors. No gross focal deficits to casual conversation. Psychiatric: Pleasant and cooperative with appropriate mood and affect. Objective Data Vital Signs Vital Signs: Vital Signs - 24 hr 06/04/24 10:00 06/04/24 12:00 06/04/24 12:00 Temperature 36.6 C Pulse Rate 125 H 122 H Respiratory Rate 28 H Blood Pressure 146/99 H Pulse Oximetry 96 Oxygen Delivery Room Air Oxygen Flow Rate 06/04/24 12:00 06/04/24 14:00 06/04/24 14:00 Temperature Pulse Rate 122 H 126 H 111 H Respiratory Rate 30 H Blood Pressure 140/109 H Pulse Oximetry 98 Oxygen Delivery Room Air Oxygen Flow Rate 06/04/24 14:10 06/04/24 14:15 06/04/24 14:20 Temperature Pulse Rate 126 H 169 H 248 H Respiratory Rate 29 H 29 H 30 H Blood Pressure 141/102 H 128/115 H Pulse Oximetry 99 100 Oxygen Delivery Nasal Cannula Nasal Cannula Oxygen Flow Rate 2 2 06/04/24 14:30 06/04/24 14:45 06/04/24 14:48 Temperature Pulse Rate 119 H 117 H 238 H Respiratory Rate 25 H 26 H Blood Pressure 117/93 H 123/99 H Pulse Oximetry 92 100 Oxygen Delivery Nasal Cannula Nasal Cannula Oxygen Flow Rate 3 3 06/04/24 15:00 06/04/24 15:15 06/04/24 15:30 Temperature Pulse Rate 117 H 116 H 117 H Respiratory Rate 15 30 H 28 H Blood Pressure 129/93 H 123/94 H 123/89 Pulse Oximetry 97 93 94 Oxygen Delivery Room Air Room Air Room Air Oxygen Flow Rate 06/04/24 15:45 06/04/24 16:00 06/04/24 16:00 Temperature Pulse Rate 117 H 116 H Respiratory Rate 28 H Blood Pressure 117/93 H Pulse Oximetry 95 95 Oxygen Delivery Room Air Nasal Cannula Oxygen Flow Rate 2 06/04/24 16:00 06/04/24 18:00 06/04/24 20:00 Temperature 36.6 C Pulse Rate 113 H 114 H 113 H Respiratory Rate 16 16 Blood Pressure 116/95 H 123/79 Pulse Oximetry 97 95 Oxygen Delivery Oxygen Flow Rate 06/04/24 20:00 06/04/24 21:10 06/04/24 22:00 Temperature Pulse Rate 112 H 114 H Respiratory Rate Blood Pressure Pulse Oximetry Oxygen Delivery Room Air Oxygen Flow Rate 06/04/24 23:21 06/04/24 23:45 06/04/24 23:55 Temperature 36.5 C Pulse Rate 164 H 115 H Respiratory Rate 16 Blood Pressure 118/82 Pulse Oximetry 95 Oxygen Delivery Room Air Oxygen Flow Rate 06/05/24 00:00 06/05/24 02:00 06/05/24 04:00 Temperature 36.6 C Pulse Rate 115 H 109 H 104 H Respiratory Rate 16 Blood Pressure 125/55 L Pulse Oximetry 100 Oxygen Delivery Oxygen Flow Rate 06/05/24 04:00 06/05/24 04:00 06/05/24 06:00 Temperature Pulse Rate 105 H 109 H Respiratory Rate Blood Pressure Pulse Oximetry Oxygen Delivery Room Air Oxygen Flow Rate 06/05/24 06:48 06/05/24 08:13 Temperature 36.5 C Pulse Rate 109 H 109 H Respiratory Rate 24 H Blood Pressure 147/82 H Pulse Oximetry 100 Oxygen Delivery Oxygen Flow Rate Intake/Output Intake/Output: Intake & Output 06/02/24 06/03/24 06/04/24 06/05/24 23:59 23:59 23:59 23:59 Intake Total 1290 980 900 Output Total 1150 200 Balance 1290 -170 700 Meds/Results Medications: Active Medications Generic Name Dose Route Start Last Admin Trade Name Freq PRN Reason Stop Dose Admin Acetaminophen 650 mg 06/03/24 16:35 Acetaminophen 325 Mg Tablet PO Q6H PRN Mild Pain (1-3) or Fever Apixaban 5 mg 06/04/24 10:00 06/04/24 21:15 Apixaban 5 Mg Tablet PO 5 mg Q12HR BARTOLO Administration Calcium Carbonate 200 mg 06/03/24 21:22 06/04/24 12:49 Calcium Carbonate (Tums) 500 Mg (200 Mg Elemental) PO 200 mg Q6H PRN Administration Indigestion Diltiazem HCl 180 mg 06/04/24 09:00 06/04/24 08:51 Diltiazem Hcl Cd 180 Mg Cap.24hr PO 180 mg DAILY BARTOLO Administration Doxycycline Hyclate 100 mg 06/03/24 21:00 06/04/24 21:14 Doxycycline Hyclate 100 Mg Tablet PO 100 mg Q12HR BARTOLO Administration Guaifenesin 1,200 mg 06/03/24 21:00 06/04/24 21:15 Guaifenesin 12 Hr 600 Mg Tabcr PO 1,200 mg Q12HR BARTOLO Administration Ceftriaxone Sodium 1 gm in 50 mls @ 100 mls/hr 06/04/24 12:00 06/04/24 12:05 Rocephin 1 Gm/Ns 50 Ml IVPB 100 mls/hr Q24H BARTOLO Administration Metoprolol Tartrate 50 mg 06/04/24 14:30 06/05/24 06:48 Metoprolol Tartrate 50 Mg Tab PO 50 mg Q6HR BARTOLO Administration Metoprolol Tartrate 5 mg 06/05/24 00:51 Metoprolol Tartrate Inj 5 Mg/5 Ml Vial IV PUSH ONCE PRN Heart Rate- High Ondansetron HCl 4 mg 06/04/24 18:40 06/04/24 18:55 Ondansetron Inj 4 Mg/2 Ml Vial IV PUSH 4 mg Q6H PRN Administration Nausea And Vomiting Pantoprazole Sodium 40 mg 06/04/24 09:00 06/04/24 08:51 Pantoprazole 40 Mg Tablet PO 40 mg QAM BARTOLO Administration Rosuvastatin Calcium 20 mg 06/04/24 13:40 06/04/24 16:16 Rosuvastatin 20 Mg Tablet PO 20 mg DAILY BARTOLO Administration Radiology Results: ITS Impressions Chest/Abdomen/Pelvis CTA 06/03/24 10:56 IMPRESSION: CHEST: 1. No pulmonary embolism or dissection. 2. Multiple patchy opacities and groundglass appearance suggestive of pneumonia. Underlying pulmonary edema is not excluded although this is less likely. Clinical correlation advised. 3. Mediastinal lymphadenopathy. 4. Right pleural effusion. ABDOMEN/PELVIS: 1. No evidence of appendicitis, diverticulitis or intestinal obstruction. 2. Fat stranding around the neck of the gallbladder. Differential include cholecystitis versus ascending cholangitis versus duodenitis: although no thickening in the wall of the gallbladder or the duodenum is seen. Clinical correlation advised. 3. Fat infiltration of the liver. Hepatomegaly. 4. Fat-containing bilateral inguinal and umbilical hernias. Abdomen Ultrasound 06/04/24 08:55 IMPRESSION: Fatty infiltration of an enlarged liver. Gallbladder wall thickening, likely secondary to underdistention. Quality VTE Prophylaxis VTE prophylaxis: pharmacologic ordered
[2024-06-05] MEDS: APIXABAN 5 MG TABLET PO ×2 (09:11→20:54)
[2024-06-05] MEDS: dilTIAZem HCL CD 180 MG CAP.24HR PO (09:11)
[2024-06-05] MEDS: guaiFENesin 12 HR 600 MG TABCR 1200 MG PO ×2 (09:11→20:54)
[2024-06-05] MEDS: PANTOPRAZOLE 40 MG TABLET PO (09:11)
[2024-06-05] MEDS: DOXYCYCLINE HYCLATE 100 MG TABLET PO ×2 (09:11→20:54)
[2024-06-05] MEDS: ROSUVASTATIN 20 MG TABLET PO (09:11)
--- NOTE | 2024-06-05 09:11 | PM.PNCARD ---
Progress Note: A&P Assessment and Plan (1) Atrial flutter with rapid ventricular response: Code(s): I48.92 - Unspecified atrial flutter Status: Acute Assessment and Plan: Continue Eliquis for anticoagulation. He does have left atrial appendage thrombus and will need at minimum 4 weeks of anticoagulation before consideration of cardioversion. Heart rate reasonably controlled with diltiazem and metoprolol. (2) Hypertension: Code(s): I10 - Essential (primary) hypertension Status: Acute Assessment and Plan: Continue diltiazem and metoprolol. May add an Arb or Entresto depending on results of echo (3) Congestive heart failure: Code(s): I50.9 - Heart failure, unspecified Status: Acute Assessment and Plan: Echo pending. Will adjust regimen depending on results of echo (4) Hyperlipidemia: Code(s): E78.5 - Hyperlipidemia, unspecified Status: Acute Assessment and Plan: On rosuvastatin (5) Daily consumption of alcohol: Code(s): Z78.9 - Other specified health status Status: Acute Assessment and Plan: Alcohol cessation recommend (6) Suspected sleep apnea: Code(s): R29.818 - Other symptoms and signs involving the nervous system Status: Acute Assessment and Plan: Check an ApneaLink for tonight Subjective Date/time seen: 06/05/24 09:11 Interval history: 48-year-old with atrial flutter Date of service 06/05/2024: Generally heart rate around 110. Periodically will go faster. Seems a little short of breath today with no chest pain. Review of Systems Review of Systems: All systems reviewed & are unremarkable except as noted in HPI and below Constitutional: Constitutional: Denies body ache(s) Eyes: Eyes: Denies blurry vision ENT: Denies Normal hearing present Cardiovascular: Cardiovascular: Denies diaphoresis Respiratory: Respiratory: Denies chest congestion Gastrointestinal: Gastrointestinal: Denies abdominal pain Genitourinary: Genitourinary: Denies hematuria Musculoskeletal: Musculoskeletal: Denies back pain Integumentary/Breasts: Skin/Breast: Denies dry skin Neurologic: Denies Abnormal speech present Psychiatric: Psychiatric: Denies confusion Endocrine: Endocrine: Denies excessive sweating Hematologic/Lymphatic: Hematologic/Lymphatic: Denies easy bruising Allergic/Immunologic: Allergic/Immunologic: Denies GI upset with certain foods Exam Const: General: comfortable and no acute distress HENMT: Mouth: Yes moist mucous membranes Eyes: General: appearance normal, both eyes and all related structures Sclera: sclerae normal Resp: Effort & Inspection: normal respiratory effort Cardio: Rate: tachycardic Rhythm: regular rhythm Heart sounds: no murmurs Other: Tele with atrial flutter with RVR Skin: General skin exam: normal color Neuro: Speech: normal speech Psych: Mental Status: mental status grossly normal Affect: normal affect Objective Data Vital Signs Vital Signs: Vital Signs - 24 hr 06/04/24 10:00 06/04/24 12:00 06/04/24 12:00 Temperature 36.6 C Pulse Rate 125 H 122 H Respiratory Rate 28 H Blood Pressure 146/99 H Pulse Oximetry 96 Oxygen Delivery Room Air Oxygen Flow Rate 06/04/24 12:00 06/04/24 14:00 06/04/24 14:00 Temperature Pulse Rate 122 H 126 H 111 H Respiratory Rate 30 H Blood Pressure 140/109 H Pulse Oximetry 98 Oxygen Delivery Room Air Oxygen Flow Rate 06/04/24 14:10 06/04/24 14:15 06/04/24 14:20 Temperature Pulse Rate 126 H 169 H 248 H Respiratory Rate 29 H 29 H 30 H Blood Pressure 141/102 H 128/115 H Pulse Oximetry 99 100 Oxygen Delivery Nasal Cannula Nasal Cannula Oxygen Flow Rate 2 2 06/04/24 14:30 06/04/24 14:45 06/04/24 14:48 Temperature Pulse Rate 119 H 117 H 238 H Respiratory Rate 25 H 26 H Blood Pressure 117/93 H 123/99 H Pulse Oximetry 92 100 Oxygen Delivery Nasal Cannula Nasal Cannula Oxygen Flow Rate 3 3 06/04/24 15:00 06/04/24 15:15 06/04/24 15:30 Temperature Pulse Rate 117 H 116 H 117 H Respiratory Rate 15 30 H 28 H Blood Pressure 129/93 H 123/94 H 123/89 Pulse Oximetry 97 93 94 Oxygen Delivery Room Air Room Air Room Air Oxygen Flow Rate 06/04/24 15:45 06/04/24 16:00 06/04/24 16:00 Temperature Pulse Rate 117 H 116 H Respiratory Rate 28 H Blood Pressure 117/93 H Pulse Oximetry 95 95 Oxygen Delivery Room Air Nasal Cannula Oxygen Flow Rate 2 06/04/24 16:00 06/04/24 18:00 06/04/24 20:00 Temperature 36.6 C Pulse Rate 113 H 114 H 113 H Respiratory Rate 16 16 Blood Pressure 116/95 H 123/79 Pulse Oximetry 97 95 Oxygen Delivery Oxygen Flow Rate 06/04/24 20:00 06/04/24 21:10 06/04/24 22:00 Temperature Pulse Rate 112 H 114 H Respiratory Rate Blood Pressure Pulse Oximetry Oxygen Delivery Room Air Oxygen Flow Rate 06/04/24 23:21 06/04/24 23:45 06/04/24 23:55 Temperature 36.5 C Pulse Rate 164 H 115 H Respiratory Rate 16 Blood Pressure 118/82 Pulse Oximetry 95 Oxygen Delivery Room Air Oxygen Flow Rate 06/05/24 00:00 06/05/24 02:00 06/05/24 04:00 Temperature 36.6 C Pulse Rate 115 H 109 H 104 H Respiratory Rate 16 Blood Pressure 125/55 L Pulse Oximetry 100 Oxygen Delivery Oxygen Flow Rate 06/05/24 04:00 06/05/24 04:00 06/05/24 06:00 Temperature Pulse Rate 105 H 109 H Respiratory Rate Blood Pressure Pulse Oximetry Oxygen Delivery Room Air Oxygen Flow Rate 06/05/24 06:48 06/05/24 08:13 Temperature 36.5 C Pulse Rate 109 H 109 H Respiratory Rate 24 H Blood Pressure 147/82 H Pulse Oximetry 100 Oxygen Delivery Oxygen Flow Rate Intake/Output Intake/Output: Intake & Output 06/02/24 06/03/24 06/04/24 06/05/24 23:59 23:59 23:59 23:59 Intake Total 1290 980 900 Output Total 1150 200 Balance 1290 -170 700 Meds/Results Medications: Active Medications Generic Name Dose Route Start Last Admin Trade Name Freq PRN Reason Stop Dose Admin Acetaminophen 650 mg 06/03/24 16:35 Acetaminophen 325 Mg Tablet PO Q6H PRN Mild Pain (1-3) or Fever Apixaban 5 mg 06/04/24 10:00 06/04/24 21:15 Apixaban 5 Mg Tablet PO 5 mg Q12HR BARTOLO Administration Calcium Carbonate 200 mg 06/03/24 21:22 06/04/24 12:49 Calcium Carbonate (Tums) 500 Mg (200 Mg Elemental) PO 200 mg Q6H PRN Administration Indigestion Diltiazem HCl 180 mg 06/04/24 09:00 06/04/24 08:51 Diltiazem Hcl Cd 180 Mg Cap.24hr PO 180 mg DAILY BARTOLO Administration Doxycycline Hyclate 100 mg 06/03/24 21:00 06/04/24 21:14 Doxycycline Hyclate 100 Mg Tablet PO 100 mg Q12HR BARTOLO Administration Guaifenesin 1,200 mg 06/03/24 21:00 06/04/24 21:15 Guaifenesin 12 Hr 600 Mg Tabcr PO 1,200 mg Q12HR BARTOLO Administration Ceftriaxone Sodium 1 gm in 50 mls @ 100 mls/hr 06/04/24 12:00 06/04/24 12:05 Rocephin 1 Gm/Ns 50 Ml IVPB 100 mls/hr Q24H BARTOLO Administration Metoprolol Tartrate 50 mg 06/04/24 14:30 06/05/24 06:48 Metoprolol Tartrate 50 Mg Tab PO 50 mg Q6HR BARTOLO Administration Metoprolol Tartrate 5 mg 06/05/24 00:51 Metoprolol Tartrate Inj 5 Mg/5 Ml Vial IV PUSH ONCE PRN Heart Rate- High Ondansetron HCl 4 mg 06/04/24 18:40 06/04/24 18:55 Ondansetron Inj 4 Mg/2 Ml Vial IV PUSH 4 mg Q6H PRN Administration Nausea And Vomiting Pantoprazole Sodium 40 mg 06/04/24 09:00 06/04/24 08:51 Pantoprazole 40 Mg Tablet PO 40 mg QAM BARTOLO Administration Rosuvastatin Calcium 20 mg 06/04/24 13:40 06/04/24 16:16 Rosuvastatin 20 Mg Tablet PO 20 mg DAILY BARTOLO Administration Radiology Results: ITS Impressions Chest/Abdomen/Pelvis CTA 06/03/24 10:56 IMPRESSION: CHEST: 1. No pulmonary embolism or dissection. 2. Multiple patchy opacities and groundglass appearance suggestive of pneumonia. Underlying pulmonary edema is not excluded although this is less likely. Clinical correlation advised. 3. Mediastinal lymphadenopathy. 4. Right pleural effusion. ABDOMEN/PELVIS: 1. No evidence of appendicitis, diverticulitis or intestinal obstruction. 2. Fat stranding around the neck of the gallbladder. Differential include cholecystitis versus ascending cholangitis versus duodenitis: although no thickening in the wall of the gallbladder or the duodenum is seen. Clinical correlation advised. 3. Fat infiltration of the liver. Hepatomegaly. 4. Fat-containing bilateral inguinal and umbilical hernias. Abdomen Ultrasound 06/04/24 08:55 IMPRESSION: Fatty infiltration of an enlarged liver. Gallbladder wall thickening, likely secondary to underdistention. HERI showed thrombus in left atrial appendage
[2024-06-05] MEDS: ONDANSETRON INJ 4 MG/2 ML VIAL IV PUSH (12:15)
[2024-06-05] MEDS: CALCIUM CARBONATE (TUMS) 500 MG (200 MG ELEMENTAL) PO (12:22)
[2024-06-05] MEDS: POTASSIUM CHLORIDE 20 MEQ ER TABLET PO (18:21)
[2024-06-05] MEDS: FUROSEMIDE INJ 40 MG/4 ML VIAL IV PUSH (18:21)
[2024-06-05] MEDS: SACUBITRIL/VALSARTAN 24-26 MG TABLET 1 TAB PO (20:54)
--- NOTE | 2024-06-05 23:44 | PCRCNOTE ---
Patient refused apnea link testing. RN present and aware.
--- NOTE | 2024-06-05 23:47 | PC.NURSE ---
Patient declined completing Apnea Link that was ordered for [facility]. Patient stated it is obvious I have sleep apnea. He did have an Apnea Link completed on 06/03/24.
[2024-06-06] VITALS (20 sets, daily range): BP systolic 101–153; BP diastolic 64–95; PULSE 84–115; RESP 14–30; TEMP 36.5–37.1; O2SAT 92–98
[2024-06-06 04:23] LABS: Basophils Absolute Auto 0.1 K/mm3 (0.0-0.1); Basophils Percent Auto 0.5 % (0.2-1.2); Eosinophils Percent Auto 0.1 % (0-4.4); Hematocrit 43.2 % (42.0-52.0); Hemoglobin 13.9 g/dL (14.0-18.0); Immature Granulocyte Absolute 0.19 K/mm3 (0.00-0.031); Immature Granulocyte Percent A 1.4 % (0-0.5); Lymphocytes Absolute Auto 3.28 K/mm3 (0.9-3.2); Lymphocytes Percent Auto 24.3 % (18.3-44.2); Mean Corpuscular HGB Conc 32.2 g/dl (32-36); Mean Corpuscular Hemoglobin 31.2 pg (26-34); Mean Corpuscular Volume 97.1 fl (80-100); Mean Platelet Volume 10.6 fl (7.4-10.4); Monocytes Absolute Auto 0.9 K/mm3 (0.1-0.6); Monocytes Percent Auto 6.5 % (2.6-8.5); Neutrophils Absolute Auto 9.1 K/mm3 (1.3-6.7); Neutrophils Percent Auto 67.2 % (45.5-73.1); Nucleated Red Blood Cells Perc 0.1 % (0.0-0.2); Platelet Count Result 257 k/mm3 (150-375); Red Blood Count 4.45 M/mm3 (4.6-6.20); Red Cell Distribution Width 12.3 % (11.5-14.5); White Blood Count 13.5 K/mm3 (4.5-10.0)
[2024-06-06 04:42] LABS: Albumin Level 3.1 g/dL (3.5-5.1); Alkaline Phosphatase 71 U/L (38-126); Anion Gap 7 mmol/L (4-12); Bilirubin,Total 1.7 mg/dL (0.2-1.3); Blood Urea Nitrogen 55 mg/dL (9-20); Calcium 8.8 mg/dL (8.4-10.2); Carbon Dioxide 22 mmol/L (22-30); Chloride 101 mmol/L (98-107); Estimated CRCL calculation 84 ml/min; Estimated Glomerular Filt Rate 53; Glucose 103 mg/dL (65-110); Potassium 4.4 mmol/L (3.4-5.0); Sodium 130 mmol/L (137-145)
[2024-06-06 05:22] LABS: Alanine Aminotransferase 3377 U/L (6-50); Aspartate Amino Transferase 4971 U/L (17-59)
[2024-06-06] MEDS: METOPROLOL TARTRATE 50 MG TAB PO ×2 (06:46→12:00)
[2024-06-06] MEDS: DOXYCYCLINE HYCLATE 100 MG TABLET PO ×2 (08:14→20:00)
[2024-06-06] MEDS: SACUBITRIL/VALSARTAN 24-26 MG TABLET 1 TAB PO (08:14)
[2024-06-06] MEDS: APIXABAN 5 MG TABLET PO ×2 (08:14→20:00)
[2024-06-06] MEDS: guaiFENesin 12 HR 600 MG TABCR 1200 MG PO ×2 (08:14→20:00)
[2024-06-06] MEDS: PANTOPRAZOLE 40 MG TABLET PO (08:14)
--- NOTE | 2024-06-06 09:34 | PM.IMPN ---
Progress Note: A&P Assessment and Plan (1) Community acquired pneumonia: Code(s): J18.9 - Pneumonia, unspecified organism Status: Acute Assessment and Plan: Continue with antibiotics, culture pending Repeat x ray chest showed much improvement. Clinically looks much better (2) Atrial tachycardia: Code(s): I47.19 - Other supraventricular tachycardia Status: Deleted Assessment and Plan: Heart rate is slightly better now. Continue to monitor closely. (3) Transaminitis: Code(s): R74.01 - Elevation of levels of liver transaminase levels Status: Acute Assessment and Plan: Patient liver function are quite abnormal Will do ultrasound liver, consult GI (4) Hypertension: Code(s): I10 - Essential (primary) hypertension Status: Acute Assessment and Plan: Stable on current medications, will continue current treatment. (5) Tobacco dependence: Code(s): F17.200 - Nicotine dependence, unspecified, uncomplicated Status: Acute Assessment and Plan: Counseling given. (6) Daily consumption of alcohol: Code(s): Z78.9 - Other specified health status Status: Acute Assessment and Plan: Counseling given. (7) Suspected sleep apnea: Code(s): R29.818 - Other symptoms and signs involving the nervous system Status: Acute Assessment and Plan: Workup with an outpatient Plan The patient presented to to urgent care for evaluation of URI symptoms for the last 10 days and he was directed to the ED after he was found to be in atrial tachycardia as detailed in HPI. Labs, imaging, EKG, and all reports were personally reviewed. Imaging shows findings of pneumonia and he has been started on ceftriaxone and doxycycline. Nebulizers did not seem to help much and he does not have wheezing on exam thus there is no indication for steroids. He received a dose of furosemide as his proBNP was elevated at 2210 however he actually looks dry on examination and by history, also with ketones in the urine. It looks like he received 2 L of crystalloids at the same time as he was given furosemide thus will hold on introducing any more IV fluids or diuretics at this time and continue to monitor his volume status. Heart rate has been pretty consistently in the low 100s to 130s, at times it appears to be atrial flutter and at times atrial tachycardia. There was not any real improvement with metoprolol tartrate 5 mg IV. He is on diltiazem 180 mg daily at home and did take that this morning. He does not appear septic, TSH is within normal limits, and CTA of the chest was negative for pulmonary embolism. I suppose alcohol withdrawal would be a consideration however he lacks other symptoms. Echocardiogram has been ordered for a.m. and cardiology was consulted by the ED provider and their input is appreciated. Blood pressures have been reasonable and will be monitored. I suspect the patient may have underlying sleep apnea as reports that he snores frequently and she has witnessed some apneic episodes. ApneaLink has been ordered for tonight. Smoking cessation is encouraged and was discussed. He declines the need for nicotine patch. We also discussed cutting back on alcohol use and that this may very well be the cause of his elevated liver enzymes. Radiologist remarked that there was some fat stranding around the neck of the gallbladder with a differential diagnosis to include cholecystitis versus ascending cholangitis versus duodenitis though no thickening of the wall of the gallbladder or duodenum was seen. His abdominal exam is completely benign though will check a right upper quadrant ultrasound and continue to monitor closely. His home medications will be reviewed and resumed as appropriate. Findings and treatment plan were discussed with the patient. Questions were solicited and answered to satisfaction. Subjective Date/time seen: 06/06/24 09:34 Interval history: Patient was seen during morning rounds today. Mild shortness of breath. No chest pain. No abdominal pain, nausea, no vomiting. Mood stable. Review of Systems Review of Systems: 12 systems were reviewed and are negative except for as per HPI. Exam Narrative: General: Mildly ill-appearing gentleman sitting up in bed in no acute distress. Weight: 140.9 kg. BMI: 42.1. HEENT: PERRL, EOMI. Sclera anicteric. Tacky mucous membranes. Neck: Supple. No JVD. Respiratory: Air entry is better, few rales at bases Cardiovascular: Tachycardic with normal S1-S2. Gastrointestinal: Abdomen is soft, nontender, and nondistended with positive bowel sounds. No guarding rebound tenderness. No obvious organomegaly. Skin: Warm and dry. No rash or lesions on limited exam. Extremities: No cyanosis or clubbing. Trace pedal edema. Negative Fatuma sign bilaterally. Neurological: Alert and oriented. Cranial nerves 2-12 are grossly intact. No tremors. No gross focal deficits to casual conversation. Psychiatric: Pleasant and cooperative with appropriate mood and affect. Objective Data Vital Signs Vital Signs: Vital Signs - 24 hr 06/05/24 10:00 06/05/24 12:00 06/05/24 12:00 Temperature 36.4 C L Pulse Rate 96 98 Respiratory Rate 24 H Blood Pressure 104/77 Pulse Oximetry 93 Oxygen Delivery Room Air 06/05/24 12:00 06/05/24 14:00 06/05/24 16:00 Temperature Pulse Rate 107 H 97 95 Respiratory Rate Blood Pressure Pulse Oximetry Oxygen Delivery 06/05/24 16:00 06/05/24 16:00 06/05/24 18:00 Temperature 36.5 C Pulse Rate 103 H 102 H Respiratory Rate 32 H Blood Pressure 116/83 Pulse Oximetry 100 Oxygen Delivery Room Air 06/05/24 20:00 06/05/24 20:00 06/05/24 20:50 Temperature 36.5 C Pulse Rate 105 H 105 H Respiratory Rate 20 Blood Pressure 113/69 Pulse Oximetry 98 Oxygen Delivery Room Air 06/05/24 22:00 06/05/24 23:39 06/05/24 23:40 Temperature 36.6 C Pulse Rate 106 H 106 H 107 H Respiratory Rate 22 H Blood Pressure 108/82 Pulse Oximetry 97 Oxygen Delivery 06/05/24 23:45 06/06/24 00:00 06/06/24 02:00 Temperature Pulse Rate 98 99 Respiratory Rate Blood Pressure Pulse Oximetry Oxygen Delivery Room Air 06/06/24 04:00 06/06/24 04:00 06/06/24 04:20 Temperature 36.5 C Pulse Rate 93 88 Respiratory Rate 18 Blood Pressure 105/76 Pulse Oximetry 92 Oxygen Delivery Room Air 06/06/24 06:00 06/06/24 06:46 06/06/24 07:56 Temperature 36.9 C Pulse Rate 92 109 H 90 Respiratory Rate 14 Blood Pressure 105/76 Pulse Oximetry 96 Oxygen Delivery Intake/Output Intake/Output: Intake & Output 06/03/24 06/04/24 06/05/24 06/06/24 23:59 23:59 23:59 23:59 Intake Total 1290 1030 1630 500 Output Total 1150 202 Balance 1290 -120 1428 500 Meds/Results Medications: Active Medications Generic Name Dose Route Start Last Admin Trade Name Freq PRN Reason Stop Dose Admin Apixaban 5 mg 06/04/24 10:00 06/06/24 08:14 Apixaban 5 Mg Tablet PO 5 mg Q12HR BARTOLO Administration Calcium Carbonate 200 mg 06/03/24 21:22 06/05/24 12:22 Calcium Carbonate (Tums) 500 Mg (200 Mg Elemental) PO 200 mg Q6H PRN Administration Indigestion Doxycycline Hyclate 100 mg 06/03/24 21:00 06/06/24 08:14 Doxycycline Hyclate 100 Mg Tablet PO 100 mg Q12HR BARTOLO Administration Guaifenesin 1,200 mg 06/03/24 21:00 06/06/24 08:14 Guaifenesin 12 Hr 600 Mg Tabcr PO 1,200 mg Q12HR BARTOLO Administration Ceftriaxone Sodium 1 gm in 50 mls @ 100 mls/hr 06/04/24 12:00 06/05/24 12:15 Rocephin 1 Gm/Ns 50 Ml IVPB 100 mls/hr Q24H BARTOLO Administration Metoprolol Tartrate 50 mg 06/04/24 14:30 06/06/24 06:46 Metoprolol Tartrate 50 Mg Tab PO 50 mg Q6HR BARTOLO Administration Metoprolol Tartrate 5 mg 06/05/24 00:51 Metoprolol Tartrate Inj 5 Mg/5 Ml Vial IV PUSH ONCE PRN Heart Rate- High Ondansetron HCl 4 mg 06/04/24 18:40 06/05/24 12:15 Ondansetron Inj 4 Mg/2 Ml Vial IV PUSH 4 mg Q6H PRN Administration Nausea And Vomiting Pantoprazole Sodium 40 mg 06/04/24 09:00 06/06/24 08:14 Pantoprazole 40 Mg Tablet PO 40 mg QAM BARTOLO Administration Rosuvastatin Calcium 20 mg 06/04/24 13:40 06/05/24 09:11 Rosuvastatin 20 Mg Tablet PO 20 mg DAILY BARTOLO Administration Sacubitril/Valsartan 1 tab 06/05/24 21:00 06/06/24 08:14 Sacubitril/Valsartan 24-26 Mg Tablet PO 1 tab Q12HR BARTOLO Administration Radiology Results: ITS Impressions Chest/Abdomen/Pelvis CTA 06/03/24 10:56 IMPRESSION: CHEST: 1. No pulmonary embolism or dissection. 2. Multiple patchy opacities and groundglass appearance suggestive of pneumonia. Underlying pulmonary edema is not excluded although this is less likely. Clinical correlation advised. 3. Mediastinal lymphadenopathy. 4. Right pleural effusion. ABDOMEN/PELVIS: 1. No evidence of appendicitis, diverticulitis or intestinal obstruction. 2. Fat stranding around the neck of the gallbladder. Differential include cholecystitis versus ascending cholangitis versus duodenitis: although no thickening in the wall of the gallbladder or the duodenum is seen. Clinical correlation advised. 3. Fat infiltration of the liver. Hepatomegaly. 4. Fat-containing bilateral inguinal and umbilical hernias. Abdomen Ultrasound 06/04/24 08:55 IMPRESSION: Fatty infiltration of an enlarged liver. Gallbladder wall thickening, likely secondary to underdistention. Chest X-Ray 06/06/24 08:11 IMPRESSION: 1. Unchanged elevation of the left hemidiaphragm. No acute cardiopulmonary disease. 2. Cardiomegaly. Labs Labs: Laboratory Results - last 24 hr 06/06/24 04:17 WBC 13.5 H RBC 4.45 L Hgb 13.9 L Hct 43.2 MCV 97.1 MCH 31.2 MCHC 32.2 RDW 12.3 Plt Count 257 MPV 10.6 H Immature Gran % (Auto) 1.4 H Neut % (Auto) 67.2 Lymph % (Auto) 24.3 [place] % (Auto) 6.5 Eos % (Auto) 0.1 Baso % (Auto) 0.5 Lymph # (Auto) 3.28 H [place] # (Auto) 0.9 H Eos # (Auto) 0.0 Baso # (Auto) 0.1 Abs Immat Gran (auto) 0.19 H Absolute Neuts (auto) 9.1 H Absolute Nucleated RBC 0.020 H Nucleated RBC % 0.1 Sodium 130 L Potassium 4.4 Chloride 101 Carbon Dioxide 22 Anion Gap 7 BUN 55 H D Creatinine 1.44 H Estim Creat Clear Calc 84 Estimated GFR 53 L Glucose 103 Calcium 8.8 Total Bilirubin 1.7 H AST 4971 H ALT 3377 H Alkaline Phosphatase 71 Total Protein 6.0 L Albumin 3.1 L Quality VTE Prophylaxis VTE prophylaxis: pharmacologic ordered
--- NOTE | 2024-06-06 09:59 | P.PNCA_ITS ---
Progress Note: A&P Assessment and Plan (1) Atrial flutter with rapid ventricular response: Code(s): I48.92 - Unspecified atrial flutter Status: Acute Assessment and Plan: Continue Eliquis for anticoagulation. He does have left atrial appendage thrombus and will need at minimum 4 weeks of anticoagulation before consideration of cardioversion. Heart rate reasonably controlled with diltiazem and metoprolol. (2) Hypertension: Code(s): I10 - Essential (primary) hypertension Status: Acute Assessment and Plan: Continue diltiazem and metoprolol. May add an Arb or Entresto depending on results of echo (3) Congestive heart failure: Code(s): I50.9 - Heart failure, unspecified Status: Acute Assessment and Plan: Echo pending. Will adjust regimen depending on results of echo (4) Hyperlipidemia: Code(s): E78.5 - Hyperlipidemia, unspecified Status: Acute Assessment and Plan: On rosuvastatin (5) Daily consumption of alcohol: Code(s): Z78.9 - Other specified health status Status: Acute Assessment and Plan: Alcohol cessation recommend (6) Suspected sleep apnea: Code(s): R29.818 - Other symptoms and signs involving the nervous system Status: Acute Assessment and Plan: Check an ApneaLink for tonight Plan 1. Acute on chronic systolic HF NYHA IV, Stage C 2. Suspect Cardiogenic Shock 3. Atrial Flutter 4. HTN 5. Shock Liver/SAMREEN -suspect he is currently in a low output state, may have been precipitated with increased dose of beta-blockers to control his atrial flutter and with underlying atrial flutter as well leading to cardiogenic shock. His liver enzymes and kidney function is suggestive of low output state -stat lactate -discontinue beta-noah, Entresto, calcium channel noah -will start him on low-dose dobutamine to decrease afterload -continue anticoagulation -expect him to diureses well after decreasing afterload, may give 1 dose of Lasix if needed -discussed with Tyrell Cooper, attending hospitalist and appraised him of the situation -discussed with Dr. Starr the ICU attending who graciously agreed to transfer him to the ICU Subjective Date/time seen: 06/06/24 09:59 Interval history: 48-year-old with atrial flutter Date of service 06/05/2024: Generally heart rate around 110. Periodically will go faster. Seems a little short of breath today with no chest pain. Date of service 06/05/2024: No chest pain, BP soft, slightly tachycardic Liver enzymes markedly elevated Creatinine 0.69, 1.44 --> 1.28 Review of Systems Review of Systems: All systems reviewed & are unremarkable except as noted in HPI and below Constitutional: Constitutional: Denies body ache(s) and Denies excessive sweating Eyes: Eyes: Denies blurry vision ENT: Denies Normal hearing present Cardiovascular: Cardiovascular: Denies diaphoresis Respiratory: Respiratory: Denies chest congestion Gastrointestinal: Gastrointestinal: Denies abdominal pain Genitourinary: Genitourinary: Denies hematuria Musculoskeletal: Musculoskeletal: Denies back pain Integumentary/Breasts: Skin/Breast: Denies dry skin Neurologic: Denies Normal hearing present, Denies Abnormal speech present and Denies confusion Psychiatric: Psychiatric: Denies confusion Endocrine: Endocrine: Denies excessive sweating Hematologic/Lymphatic: Hematologic/Lymphatic: Denies easy bruising Allergic/Immunologic: Allergic/Immunologic: Denies GI upset with certain foods Exam Const: General: comfortable and no acute distress; No confusion Orientation/consciousness: No confusion HENMT: Mouth: Yes moist mucous membranes Eyes: General: appearance normal, both eyes and all related structures Sclera: sclerae normal Resp: Effort & Inspection: normal respiratory effort Cardio: Rate: tachycardic Rhythm: regular rhythm Heart sounds: no murmurs Other: Tele with atrial flutter with RVR Skin: General skin exam: normal color Neuro: General: No confusion Cranial nerves: No Normal hearing present Speech: normal speech and No Abnormal speech present Psych: Mental Status: mental status grossly normal Affect: normal affect Objective Data Vital Signs Vital Signs: Vital Signs - 24 hr 06/05/24 10:00 06/05/24 12:00 06/05/24 12:00 Temperature 36.4 C L Pulse Rate 96 98 Respiratory Rate 24 H Blood Pressure 104/77 Pulse Oximetry 93 Oxygen Delivery Room Air 06/05/24 12:00 06/05/24 14:00 06/05/24 16:00 Temperature Pulse Rate 107 H 97 95 Respiratory Rate Blood Pressure Pulse Oximetry Oxygen Delivery 06/05/24 16:00 06/05/24 16:00 06/05/24 18:00 Temperature 36.5 C Pulse Rate 103 H 102 H Respiratory Rate 32 H Blood Pressure 116/83 Pulse Oximetry 100 Oxygen Delivery Room Air 06/05/24 20:00 06/05/24 20:00 06/05/24 20:50 Temperature 36.5 C Pulse Rate 105 H 105 H Respiratory Rate 20 Blood Pressure 113/69 Pulse Oximetry 98 Oxygen Delivery Room Air 06/05/24 22:00 06/05/24 23:39 06/05/24 23:40 Temperature 36.6 C Pulse Rate 106 H 106 H 107 H Respiratory Rate 22 H Blood Pressure 108/82 Pulse Oximetry 97 Oxygen Delivery 06/05/24 23:45 06/06/24 00:00 06/06/24 02:00 Temperature Pulse Rate 98 99 Respiratory Rate Blood Pressure Pulse Oximetry Oxygen Delivery Room Air 06/06/24 04:00 06/06/24 04:00 06/06/24 04:20 Temperature 36.5 C Pulse Rate 93 88 Respiratory Rate 18 Blood Pressure 105/76 Pulse Oximetry 92 Oxygen Delivery Room Air 06/06/24 06:00 06/06/24 06:46 06/06/24 07:56 Temperature 36.9 C Pulse Rate 92 109 H 90 Respiratory Rate 14 Blood Pressure 105/76 Pulse Oximetry 96 Oxygen Delivery Intake/Output Intake/Output: Intake & Output 06/03/24 06/04/24 06/05/24 06/06/24 23:59 23:59 23:59 23:59 Intake Total 1290 1030 1630 860 Output Total 1150 202 Balance 1290 -120 1428 860 Meds/Results Medications: Active Medications Generic Name Dose Route Start Last Admin Trade Name Freq PRN Reason Stop Dose Admin Apixaban 5 mg 06/04/24 10:00 06/06/24 08:14 Apixaban 5 Mg Tablet PO 5 mg Q12HR BARTOLO Administration Calcium Carbonate 200 mg 06/03/24 21:22 06/05/24 12:22 Calcium Carbonate (Tums) 500 Mg (200 Mg Elemental) PO 200 mg Q6H PRN Administration Indigestion Doxycycline Hyclate 100 mg 06/03/24 21:00 06/06/24 08:14 Doxycycline Hyclate 100 Mg Tablet PO 100 mg Q12HR BARTOLO Administration Guaifenesin 1,200 mg 06/03/24 21:00 06/06/24 08:14 Guaifenesin 12 Hr 600 Mg Tabcr PO 1,200 mg Q12HR BARTOLO Administration Ceftriaxone Sodium 1 gm in 50 mls @ 100 mls/hr 06/04/24 12:00 06/05/24 12:15 Rocephin 1 Gm/Ns 50 Ml IVPB 100 mls/hr Q24H BARTOLO Administration Metoprolol Succinate 50 mg 06/06/24 17:00 Metoprolol Succinate Ext Rel 50 Mg Tabcr PO BID BARTOLO Metoprolol Tartrate 50 mg 06/04/24 14:30 06/06/24 06:46 Metoprolol Tartrate 50 Mg Tab PO 50 mg Q6HR BARTOLO Administration Ondansetron HCl 4 mg 06/04/24 18:40 06/05/24 12:15 Ondansetron Inj 4 Mg/2 Ml Vial IV PUSH 4 mg Q6H PRN Administration Nausea And Vomiting Pantoprazole Sodium 40 mg 06/04/24 09:00 06/06/24 08:14 Pantoprazole 40 Mg Tablet PO 40 mg QAM BARTOLO Administration Rosuvastatin Calcium 20 mg 06/04/24 13:40 06/05/24 09:11 Rosuvastatin 20 Mg Tablet PO 20 mg DAILY BARTOLO Administration Sacubitril/Valsartan 1 tab 06/05/24 21:00 06/06/24 08:14 Sacubitril/Valsartan 24-26 Mg Tablet PO 1 tab Q12HR BARTOLO Administration Radiology Results: ITS Impressions Chest/Abdomen/Pelvis CTA 06/03/24 10:56 IMPRESSION: CHEST: 1. No pulmonary embolism or dissection. 2. Multiple patchy opacities and groundglass appearance suggestive of pneumonia. Underlying pulmonary edema is not excluded although this is less likely. Clinical correlation advised. 3. Mediastinal lymphadenopathy. 4. Right pleural effusion. ABDOMEN/PELVIS: 1. No evidence of appendicitis, diverticulitis or intestinal obstruction. 2. Fat stranding around the neck of the gallbladder. Differential include cholecystitis versus ascending cholangitis versus duodenitis: although no thickening in the wall of the gallbladder or the duodenum is seen. Clinical correlation advised. 3. Fat infiltration of the liver. Hepatomegaly. 4. Fat-containing bilateral inguinal and umbilical hernias. Abdomen Ultrasound 06/04/24 08:55 IMPRESSION: Fatty infiltration of an enlarged liver. Gallbladder wall thickening, likely secondary to underdistention. Chest X-Ray 06/06/24 08:11 IMPRESSION: 1. Unchanged elevation of the left hemidiaphragm. No acute cardiopulmonary disease. 2. Cardiomegaly. Labs Labs: Laboratory Results - last 24 hr 06/06/24 04:17 WBC 13.5 H RBC 4.45 L Hgb 13.9 L Hct 43.2 MCV 97.1 MCH 31.2 MCHC 32.2 RDW 12.3 Plt Count 257 MPV 10.6 H Immature Gran % (Auto) 1.4 H Neut % (Auto) 67.2 Lymph % (Auto) 24.3 [place] % (Auto) 6.5 Eos % (Auto) 0.1 Baso % (Auto) 0.5 Lymph # (Auto) 3.28 H [place] # (Auto) 0.9 H Eos # (Auto) 0.0 Baso # (Auto) 0.1 Abs Immat Gran (auto) 0.19 H Absolute Neuts (auto) 9.1 H Absolute Nucleated RBC 0.020 H Nucleated RBC % 0.1 Sodium 130 L Potassium 4.4 Chloride 101 Carbon Dioxide 22 Anion Gap 7 BUN 55 H D Creatinine 1.44 H Estim Creat Clear Calc 84 Estimated GFR 53 L Glucose 103 Calcium 8.8 Total Bilirubin 1.7 H AST 4971 H ALT 3377 H Alkaline Phosphatase 71 Total Protein 6.0 L Albumin 3.1 L
--- NOTE | 2024-06-06 10:38 | PM.CNNEP ---
Assessment and Plan Assessment and plan (1) Acute kidney injury: Code(s): N17.9 - Acute kidney failure, unspecified Status: Acute Assessment and Plan: the patient has acute kidney injury. Because the labs from today are so different from the labs 2 days ago I wonder if there is some lab issue. So I will repeat the CMP to be sure of the accuracy. Assuming creatinine is really high, there are several things which might contribute to the rise in creatinine. The patient received a CT angio in the emergency room, a very necessary test, which sometimes, even in those with normal renal function can lead to an elevated creatinine for a temporary amount of time. Usually this gets better on its own. The patient also has a poor LV function and so decreased cardiac function can lead to a higher creatinine as well. Patient has abnormal liver enzymes. I am assuming this is coming from the liver because he already has a fatty liver, however could also be coming from the muscle from such issues as rhabdomyolysis which can also affect the kidney so we will check a CK because he has multifocal infiltrate, assuming it is not from fluid, he could have pneumonia but also could have some sort of inflammatory disease affecting the kidneys, the liver, and the lungs. Will check serology. The patient has 2+ proteinuria. This may be because he had very concentrated urine on admission. Will repeat this and also get a urine protein to creatinine ratio. We will also get a renal ultrasound to make sure he does not have an obstruction. In the meantime will continue treating his heart improved EF and in turn improve renal blood flow and kidney function. Will follow the creatinine along in case this is all from contrast and watch for resolution. His chest x-ray looks okay and he does not have any swelling so I do not think he needs any more Lasix. He is not getting any now. (2) Transaminitis: Code(s): R74.01 - Elevation of levels of liver transaminase levels Status: Acute Assessment and Plan: Etiology unclear. Hepatitis studies are negative. Repeat liver enzymes are ordered. CK is or (3) Congestive heart failure: Code(s): I50.9 - Heart failure, unspecified Status: Acute Assessment and Plan: a newly found diagnosis. Etiology is on the case. (4) Community acquired pneumonia: Code(s): J18.9 - Pneumonia, unspecified organism Status: Acute Assessment and Plan: The patient is on antibiotics. Blood cultures are pending (5) Hypertension: Code(s): I10 - Essential (primary) hypertension Status: Acute Assessment and Plan: blood pressure is under good control (6) Hyperlipidemia: Code(s): E78.5 - Hyperlipidemia, unspecified Status: Acute Assessment and Plan: the patient is on rosuvastatin (7) Tobacco dependence: Code(s): F17.200 - Nicotine dependence, unspecified, uncomplicated Status: Acute Assessment and Plan: the patient says he is going to quit (8) Daily consumption of alcohol: Code(s): Z78.9 - Other specified health status Status: Acute Assessment and Plan: the patient says he is going to quit History of Present Illness Reason for Consult Consult date: 06/06/24 Chief Complaint Chief complaint: New Onset Congestive Heart Failure/Pneumonia/Atria History of Present Illness Narrative: Barrett is a very pleasant 48-year-old gentleman who has multiple medical problems including GERD, tobacco use disorder smoking a pack of cigarettes per day but says he is going to quit today, hyperlipidemia, hypertension, high body mass index. Patient says about 2 weeks ago he started becoming short of breath with a cough. it was bad for a couple of days then got better than got a little worse again and during the last week it is been persistent and then the day of admission it got worse so he came to the ER. He did nose a little bit of swelling but says that he has had swelling in the past especially in his left ankle which had some trauma in the past. He did not seek medical attention before this so did not get any antibiotics or any exam. He was evaluated in the emergency room. Rhythm showed WPW verses a flutter and was given some metoprolol. Chest X showed sewed possible multifocal pneumonia. Troponin was elevated but improved on the next test. most of his electrolytes were okay. Bilirubin was 1.8 and AST and ALT were mildly elevated. BNP was 22 10. TSH was normal. Urine was very concentrated with protein in bilirubin. Toxicology was positive for marijuana only hepatitis was negative influence for a and B were negative COVID was negative group a strep was negative. CT scan with contrast showed no pulmonary embolus moderate enlargement of the heart pneumonia fatty liver, mediastinal lymphadenopathy, right pleural effusion, fat stranding around the neck of the gallbladder, bilateral inguinal hernias and umbilical hernia. Subsequent evaluation showed an echocardiogram with an EF of only 20-25%, mild pulmonary hypertension, and mild tricuspid valve regurgitation. His creatinine was normal On admission and yesterday, but today suddenly the creatinine rodger to 1.44. In addition his liver enzymes suddenly rodger. His AST was only 45 2 days ago and is now 4971. Currently the patient is on Eliquis Entresto rosuvastatin metoprolol and had 1 dose of furosemide. Also he is on calcium, guaifenesin, ondansetron, pantoprazole, as well as ceftriaxone and doxycycline. On admission he was on diltiazem omeprazole and rosuvastatin. Social history: He smokes a pack of cigarettes per day but says he is done with that. He told me he drinks socially but apparently according to the history and physical he drinks 5 hard liquor drinks per day. Review of Systems Constitutional: Constitutional: Reports no additional constitutional complaints Eyes: Eyes: Reports no additional eye complaints ENT: Reports system reviewed and no additional complaints, except as documented Cardiovascular: Cardiovascular: Reports no additional cardiovascular complaints Respiratory: Respiratory: Reports no additional respiratory complaints Gastrointestinal: Gastrointestinal: Reports no additional gastrointestinal complaints Genitourinary: Genitourinary: Reports no additional male genitourinary complaints Musculoskeletal: Musculoskeletal: Reports no additional musculoskeletal complaints Integumentary/Breasts: Skin/Breast: Reports system reviewed and no additional complaints, except as docu Neurologic: Reports system reviewed and no additional complaints, except as documented Psychiatric: Psychiatric: Reports no additional psychiatric complaints Endocrine: Endocrine: Reports no additional endocrine complaints [facility] Past Medical History Medical History Daily consumption of alcohol Gastroesophageal reflux disease Tobacco dependence Hyperlipidemia Hypertension Surgical History Surgical History History of open reduction and internal fixation (ORIF) procedure repair of right ankle fracture and left tibia-fibula fractures History of adenoidectomy Family History Family History Father Acute myocardial infarction Mother Diabetes mellitus Social History Social History Social History: Surrogate medical decision maker: Kimberlyn Natan, spouse. Code status: Full code. Smoking packs per day: 1 Smoking cigarettes per day: 20.0 Years smoked: 25 Smoking pack-years: 25.00 Smoking status: Current every day smoker Tobacco type: cigarettes Alcohol intake: current Drinks per week: 35 Alcohol use details: 5 to 6 rum containing alcoholic beverages a day Substance use: current Substance use type: marijuana Other substance usage details: marijuana weekly Do You Feel Safe in your Home?: Yes Lack of Transportation: No Lack of Food: Never True Current Housing: I Do Not Have Housing Concerned About Future Housing: No Difficulty Paying Gas/Electric Bills: No Difficulty Paying for Meds: No Currently Unemployed: No Education: High School Diploma/GED Difficulty w/ Childcare or Family Care: No Spiritual care concerns: No Meds Home Medications and Allergies Home Medications ?Medication ?Instructions ?Recorded ?Confirmed ?Type diltiazem HCl 180 mg 180 mg PO DAILY 05/24/24 06/03/24 History capsule,extended release 24 hr, controlled (DILT-XR) omeprazole 20 mg capsule,delayed 20 mg PO DAILY 05/24/24 06/03/24 History release rosuvastatin 20 mg tablet 20 mg PO DAILY 05/24/24 06/03/24 History Allergies Allergy/AdvReac Type Severity Reaction Status Date / Time No Known Allergies Allergy Verified 06/03/24 10:19 Vital Signs Vital Signs - 24 hr 06/05/24 12:00 06/05/24 12:00 06/05/24 12:00 Temperature 97.5 F L Pulse Rate 98 107 H Respiratory Rate 24 H Blood Pressure 104/77 Pulse Oximetry 93 Oxygen Delivery Room Air 06/05/24 14:00 06/05/24 16:00 06/05/24 16:00 Temperature Pulse Rate 97 95 Respiratory Rate Blood Pressure Pulse Oximetry Oxygen Delivery Room Air 06/05/24 16:00 06/05/24 18:00 06/05/24 20:00 Temperature 97.7 F 97.7 F Pulse Rate 103 H 102 H 105 H Respiratory Rate 32 H 20 Blood Pressure 116/83 113/69 Pulse Oximetry 100 98 Oxygen Delivery 06/05/24 20:00 06/05/24 20:50 06/05/24 22:00 Temperature Pulse Rate 105 H 106 H Respiratory Rate Blood Pressure Pulse Oximetry Oxygen Delivery Room Air 06/05/24 23:39 06/05/24 23:40 06/05/24 23:45 Temperature 97.8 F Pulse Rate 106 H 107 H Respiratory Rate 22 H Blood Pressure 108/82 Pulse Oximetry 97 Oxygen Delivery Room Air 06/06/24 00:00 06/06/24 02:00 06/06/24 04:00 Temperature Pulse Rate 98 99 93 Respiratory Rate Blood Pressure Pulse Oximetry Oxygen Delivery 06/06/24 04:00 06/06/24 04:20 06/06/24 06:00 Temperature 97.7 F Pulse Rate 88 92 Respiratory Rate 18 Blood Pressure 105/76 Pulse Oximetry 92 Oxygen Delivery Room Air 06/06/24 06:46 06/06/24 07:56 06/06/24 08:00 Temperature 98.5 F Pulse Rate 109 H 90 Respiratory Rate 14 Blood Pressure 105/76 Pulse Oximetry 96 Oxygen Delivery Room Air 06/06/24 08:00 06/06/24 10:00 Temperature Pulse Rate 108 H 93 Respiratory Rate Blood Pressure Pulse Oximetry Oxygen Delivery Exam Narrative: Exam Narrative: Well developed well-nourished male in no acute distress Skin is warm and dry without rash Head normocephalic atraumatic Eyes normal sclerae and conjunctivae Mouth normal lips teeth and gums Neck no nodes no thyromegaly no carotid bruits Axillae no nodes Back no CVA tenderness Lungs symmetric and clear to auscultation with mildly reduced bs at bases and normal to percussion Heart regular rate and rhythm without rub or gallop Abdomen bowel sounds positive soft nontender, no HSM, masses, or bruits. Extremities no cyanosis, clubbing, or edema Pulses 2+ equal in radial arteries Psychological not anxious or depressed Neuro alert and oriented x3 motor 5/5 cranial nerves 2-12 intact reflexes 2+ and equal in the biceps and patellar tendons cerebellar normal rapid alternating movements Results Lab Results 06/06/24 04:17 06/06/24 04:17 Lab results: Most recent lab results Calcium 8.8 mg/dL (8.4-10.2) 06/06/24 04:17 Magnesium 2.5 mg/dL (1.6-2.3) H 06/04/24 05:03
[2024-06-06 11:27] LABS: Albumin Level 3.2 g/dL (3.5-5.1); Alkaline Phosphatase 74 U/L (38-126); Anion Gap 3 mmol/L (4-12); Bilirubin,Total 1.5 mg/dL (0.2-1.3); Blood Urea Nitrogen 47 mg/dL (9-20); Calcium 8.7 mg/dL (8.4-10.2); Carbon Dioxide 27 mmol/L (22-30); Chloride 100 mmol/L (98-107); Creatine Kinase 276 U/L (55-170); Estimated CRCL calculation 94 ml/min; Estimated Glomerular Filt Rate > 60; Glucose 131 mg/dL (65-110); Potassium 4.3 mmol/L (3.4-5.0); Sodium 130 mmol/L (137-145)
[2024-06-06 11:34] LABS: Complement C3 66 mg/dL (88-165)
[2024-06-06 11:41] LABS: Erythrocyte Sedimentation Rate 12 mm/hr (0-20)
--- NOTE | 2024-06-06 11:47 | P.CONGI_ITS ---
Assessment and Plan Assessment and plan (1) Daily consumption of alcohol: Code(s): Z78.9 - Other specified health status Status: Acute (2) Elevated liver transaminase level: Code(s): R74.01 - Elevation of levels of liver transaminase levels Status: Acute Assessment and Plan: The patient's significant and rapid increase in liver transaminases is indicative of ischemic hepatopathy, resulting from inadequate liver perfusion. This can occur in the absence of overt shock or hypotensive episodes, and in this case, is likely related to chronic and worsening impairment of liver perfusion secondary to his current, poorly controlled cardiac arrhythmia. It is also important to consider the patient's history of morbid obesity and heavy alcohol consumption, which predisposes him to MetALD (Metabolic dysfunction- associated steatotic liver disease combined with Alcohol-associated liver disease). Prior to the initiation of Eliquis, besides the acute elevation in transaminases, his low albumin and elevated INR suggest pre-existing liver dysfunction, potentially indicating a more significant degree of underlying liver damage (? cirrhosis) that will require further evaluation once the acute insult resolves. Non-invasive assessment, such as a FibroScan, could be performed on an outpatient basis after his liver enzymes normalize. The primary management for ischemic hepatopathy is supportive, focusing on correcting the underlying cause of hypoperfusion. We agree with the discontinuation of rosuvastatin, and consideration should be given to switching doxycycline to a less hepatotoxic antibiotic, if clinically appropriate for his pneumonia. GI Consult Note Consult date/time: 06/06/24 11:47 Reason for consult: Elevated transaminases HPI: Mr. Barrett Guzman, a 48-year-old male, was admitted on June 03, 2024, with a primary complaint of dyspnea, cough, and wheezing. His significant past medical history includes hypertension, active tobacco and marijuana use, and a history of heavy alcohol consumption (reported as approximately 3 drinks daily during the week, with increased and more frequent consumption of hard liquor, particularly rum, on weekends. He was diagnosed with community-acquired pneumonia and treated with Rocephin and doxycycline. A cardiology consultation, including transesophageal echocardiography, revealed a left atrial thrombus + rapid atrial flutter, contraindicating immediate cardioversion. He was subsequently started on Eliquis. This consultation is requested due to a marked elevation in his liver transaminases: AST increased from 45 on June 04 to 4971 on June 06, ALT increased from 105 to 3377 , and total bilirubin 1.1 to 1.7 . Additional liver function tests show an albumin of 3.1 , an INR of 1.2, and a prothrombin time of 15.5 . A right upper quadrant ultrasound showed hepatomegaly with steatosis of the liver , no evidence of focal hepatic lesions or intra/extrahepatic biliary obstruction, and a gallbladder with wall thickening. Review of Systems 2 Review of Systems: All systems reviewed & are unremarkable except as noted in HPI and below PMFSH Past Medical History Medical History Daily consumption of alcohol Gastroesophageal reflux disease Tobacco dependence Hyperlipidemia Hypertension Surgical History Surgical History History of open reduction and internal fixation (ORIF) procedure repair of right ankle fracture and left tibia-fibula fractures History of adenoidectomy Family History Family History Father Acute myocardial infarction Mother Diabetes mellitus Social History Social History Social History: Surrogate medical decision maker: Kimberlyn Gama, spouse. Code status: Full code. Smoking packs per day: 1 Smoking cigarettes per day: 20.0 Years smoked: 25 Smoking pack-years: 25.00 Smoking status: Current every day smoker Tobacco type: cigarettes Alcohol intake: current Drinks per week: 35 Alcohol use details: 5 to 6 rum containing alcoholic beverages a day Substance use: current Substance use type: marijuana Other substance usage details: marijuana weekly Do You Feel Safe in your Home?: Yes Lack of Transportation: No Lack of Food: Never True Current Housing: I Do Not Have Housing Concerned About Future Housing: No Difficulty Paying Gas/Electric Bills: No Difficulty Paying for Meds: No Currently Unemployed: No Education: High School Diploma/GED Difficulty w/ Childcare or Family Care: No Spiritual care concerns: No Meds Home Medications and Allergies Home Medications ?Medication ?Instructions ?Recorded ?Confirmed ?Type diltiazem HCl 180 mg 180 mg PO DAILY 05/24/24 06/03/24 History capsule,extended release 24 hr, controlled (DILT-XR) omeprazole 20 mg capsule,delayed 20 mg PO DAILY 05/24/24 06/03/24 History release rosuvastatin 20 mg tablet 20 mg PO DAILY 05/24/24 06/03/24 History Allergies Allergy/AdvReac Type Severity Reaction Status Date / Time No Known Allergies Allergy Verified 06/03/24 10:19 Vital Signs Vital Signs - 24 hr 06/05/24 12:00 06/05/24 12:00 06/05/24 12:00 Temperature 97.5 F L Pulse Rate 98 107 H Respiratory Rate 24 H Blood Pressure 104/77 Pulse Oximetry 93 Oxygen Delivery Room Air 06/05/24 14:00 06/05/24 16:00 06/05/24 16:00 Temperature Pulse Rate 97 95 Respiratory Rate Blood Pressure Pulse Oximetry Oxygen Delivery Room Air 06/05/24 16:00 06/05/24 18:00 06/05/24 20:00 Temperature 97.7 F 97.7 F Pulse Rate 103 H 102 H 105 H Respiratory Rate 32 H 20 Blood Pressure 116/83 113/69 Pulse Oximetry 100 98 Oxygen Delivery 06/05/24 20:00 06/05/24 20:50 06/05/24 22:00 Temperature Pulse Rate 105 H 106 H Respiratory Rate Blood Pressure Pulse Oximetry Oxygen Delivery Room Air 06/05/24 23:39 06/05/24 23:40 06/05/24 23:45 Temperature 97.8 F Pulse Rate 106 H 107 H Respiratory Rate 22 H Blood Pressure 108/82 Pulse Oximetry 97 Oxygen Delivery Room Air 06/06/24 00:00 06/06/24 02:00 06/06/24 04:00 Temperature Pulse Rate 98 99 93 Respiratory Rate Blood Pressure Pulse Oximetry Oxygen Delivery 06/06/24 04:00 06/06/24 04:20 06/06/24 06:00 Temperature 97.7 F Pulse Rate 88 92 Respiratory Rate 18 Blood Pressure 105/76 Pulse Oximetry 92 Oxygen Delivery Room Air 06/06/24 06:46 06/06/24 07:56 06/06/24 08:00 Temperature 98.5 F Pulse Rate 109 H 90 Respiratory Rate 14 Blood Pressure 105/76 Pulse Oximetry 96 Oxygen Delivery Room Air 06/06/24 08:00 06/06/24 10:00 Temperature Pulse Rate 108 H 93 Respiratory Rate Blood Pressure Pulse Oximetry Oxygen Delivery Exam 2 Narrative: Exam Narrative: Well developed well-nourished male in no acute distress Skin is warm and dry without rash Head normocephalic atraumatic Eyes normal sclerae and conjunctivae Mouth normal lips teeth and gums Neck no nodes no thyromegaly no carotid bruits Axillae no nodes Back no CVA tenderness Lungs symmetric and clear to auscultation with mildly reduced bs at bases and normal to percussion Heart regular rate and rhythm without rub or gallop Abdomen bowel sounds positive soft nontender, no HSM, masses, or bruits. Extremities no cyanosis, clubbing, or edema Pulses 2+ equal in radial arteries Psychological not anxious or depressed Neuro alert and oriented x3 motor 5/5 cranial nerves 2-12 intact reflexes 2+ and equal in the biceps and patellar tendons cerebellar normal rapid alternating movements Results Labs 06/06/24 04:17 06/06/24 11:05 Labs: Short CBC 06/06/24 Range/Units 04:17 WBC 13.5 H (4.5-10.0) K/mm3 Hgb 13.9 L (14.0-18.0) g/dL Hct 43.2 (42.0-52.0) % Plt Count 257 (150-375) k/mm3 BMP 06/06/24 06/06/24 04:17 11:05 Sodium 130 L 130 L Potassium 4.4 4.3 Chloride 101 100 Carbon Dioxide 22 27 BUN 55 H D 47 H Creatinine 1.44 H 1.28 Glucose 103 131 H Calcium 8.8 8.7 Cardiac Enzymes 06/06/24 Range/Units 11:05 Total Creatine Kinase 276 H (55-170) U/L Liver Function 06/06/24 06/06/24 Range/Units 04:17 11:05 Total Bilirubin 1.7 H 1.5 H (0.2-1.3) mg/dL AST 4971 H (17-59) U/L ALT 3377 H (6-50) U/L Alkaline Phosphatase 71 74 (38-126) U/L Albumin 3.1 L 3.2 L (3.5-5.1) g/dL
[2024-06-06 11:50] LABS: Alanine Aminotransferase 2970 U/L (6-50); Aspartate Amino Transferase 3190 U/L (17-59)
[2024-06-06 15:27] LABS: Lactic Acid Reflex 1.2 mmol/L (0.7-2.0)
--- NOTE | 2024-06-06 15:38 | PC.NURSE ---
Patient arrived to ICU room 7 at 1538. All belongings brought with patient to receiving unit. Patient oriented to room, hospital policies and procedure. call light within reach. RN to resume patient care at this time.
[2024-06-06] MEDS: DOBUTamine 250 MG/D5W 250 ML 250 MG/250 ML BAG 21.29 MG IV CONT (15:50)
[2024-06-06 17:38] LABS: Pneumococcal Antigen Urine NOT DETECTED
[2024-06-06 18:21] LABS: Add Urine Microscopic? NO; Appearance Urine Clear (Clear); Bilirubin Urine Negative (Negative); Blood Urine Negative (Negative); Color Urine Yellow (Yellow); Glucose Urine UA Negative (Negative); Ketones Urine Negative (Negative); Leukocyte Esterase Ur Negative LEU/UL (Negative); Nitrate Urine Negative (Negative); Protein Urine Negative (Negative); Specific Grav Ur 1.014 (1.001-1.035); pH Urine 5.5 (5.0-9.0)
[2024-06-06 18:27] LABS: Urea Random Urine 961 MG/DL
[2024-06-06 18:34] LABS: Sodium Urine Random 10 meq/L
[2024-06-06 19:07] LABS: Creatinine Urine 53.9 mg/dL; Total Protein Urine Random 9 mg/dL; Ur Ttl Prot Creatinine Ratio 0.17 mg/mg (0-0.20)
[2024-06-07] VITALS (20 sets, daily range): BP systolic 118–143; BP diastolic 83–108; PULSE 71–120; RESP 16–27; TEMP 36.5–37.1; O2SAT 91–99
[2024-06-07 02:07] LABS: Eosinophil Urine None Seen % (None Seen); Urine Eos QC 2nd Tech Confirmed
[2024-06-07] MEDS: DOBUTamine 250 MG/D5W 250 ML 250 MG/250 ML BAG 21.29 MG IV CONT (03:41)
[2024-06-07 04:17] LABS: Basophils Absolute Auto 0.1 K/mm3 (0.0-0.1); Basophils Percent Auto 0.6 % (0.2-1.2); Eosinophils Absolute Auto 0.1 K/mm3 (0-0.3); Eosinophils Percent Auto 0.7 % (0-4.4); Hematocrit 42.5 % (42.0-52.0); Hemoglobin 13.9 g/dL (14.0-18.0); Immature Granulocyte Absolute 0.17 K/mm3 (0.00-0.031); Lymphocytes Absolute Auto 1.86 K/mm3 (0.9-3.2); Lymphocytes Percent Auto 22.2 % (18.3-44.2); Mean Corpuscular HGB Conc 32.7 g/dl (32-36); Mean Corpuscular Hemoglobin 31.2 pg (26-34); Mean Corpuscular Volume 95.3 fl (80-100); Mean Platelet Volume 10.4 fl (7.4-10.4); Monocytes Absolute Auto 0.5 K/mm3 (0.1-0.6); Monocytes Percent Auto 6.1 % (2.6-8.5); Neutrophils Absolute Auto 5.7 K/mm3 (1.3-6.7); Neutrophils Percent Auto 68.4 % (45.5-73.1); Platelet Count Result 234 k/mm3 (150-375); Red Blood Count 4.46 M/mm3 (4.6-6.20); Red Cell Distribution Width 12.3 % (11.5-14.5); White Blood Count 8.4 K/mm3 (4.5-10.0)
[2024-06-07 04:41] LABS: INR 2.1; Prothrombin Time 24.4 Seconds (11.1-14.7)
[2024-06-07 04:50] LABS: Albumin Level 3.1 g/dL (3.5-5.1); Alkaline Phosphatase 83 U/L (38-126); Anion Gap 6 mmol/L (4-12); Bilirubin,Total 1.4 mg/dL (0.2-1.3); Blood Urea Nitrogen 27 mg/dL (9-20); Calcium 8.5 mg/dL (8.4-10.2); Carbon Dioxide 26 mmol/L (22-30); Chloride 104 mmol/L (98-107); Estimated CRCL calculation 154 ml/min; Estimated Glomerular Filt Rate > 60; Glucose 88 mg/dL (65-110); Magnesium 2.3 mg/dL (1.6-2.3); Phosphorus 2.6 mg/dL (2.5-4.5); Potassium 3.9 mmol/L (3.4-5.0); Sodium 136 mmol/L (137-145)
[2024-06-07 05:17] LABS: Alanine Aminotransferase 2167 U/L (6-50); Aspartate Amino Transferase 1454 U/L (17-59)
--- NOTE | 2024-06-07 07:09 | P.PNGI_ITS ---
Progress Note: A&P Assessment and Plan (1) Elevated liver transaminase level: Code(s): R74.01 - Elevation of levels of liver transaminase levels Status: Acute Assessment and Plan: Markedly elevated transaminases on presentation are indicative of ischemic hepatopathy, a condition that, as noted yesterday, does not need hypotension or shock to be diagnosed. In this patient, a persistent uncontrolled arrhythmia is the likely cause of impaired hepatic perfusion. His history of morbid obesity and significant alcohol use suggests the possibility of underlying chronic liver disease rendering him even more susceptible . Last night's laboratory monitoring reveals improving transaminase levels, which are expected to continue to trend downward with cardiology's optimization of cardiac function and, therefore hepatic perfusion. As previously commented, once his cardiac condition is stable, outpatient follow-up with our service is planned to further evaluate for pre-existing chronic liver disease. Subjective Date/time seen: 06/07/24 07:09 Interval history: the patient was transferred to the ICU yesterday evening, however he did not have any evident hypotensive episodes. He continues to have tachycardia, currently above 112 per minute. He is currently receiving a dobutamine drip. Exam Narrative: Unchanged from yesterday. Objective Data Vital Signs Vital Signs: Vital Signs - 24 hr 06/06/24 07:56 06/06/24 08:00 06/06/24 08:00 Temperature 98.5 F Pulse Rate 90 108 H Pulse Rate [Bilateral Radial Palpation] Respiratory Rate 14 Blood Pressure 105/76 Pulse Oximetry 96 Oxygen Delivery Room Air Oxygen Flow Rate 06/06/24 10:00 06/06/24 11:56 06/06/24 12:00 Temperature 97.9 F Pulse Rate 93 84 84 Pulse Rate [Bilateral Radial Palpation] Respiratory Rate 16 Blood Pressure 101/72 Pulse Oximetry 98 Oxygen Delivery Oxygen Flow Rate 06/06/24 12:00 06/06/24 15:37 06/06/24 15:40 Temperature 98 F Pulse Rate 97 96 Pulse Rate [Bilateral Radial Palpation] Respiratory Rate 30 H Blood Pressure 124/95 H Pulse Oximetry 97 Oxygen Delivery Room Air Oxygen Flow Rate 06/06/24 15:50 06/06/24 16:00 06/06/24 16:00 Temperature Pulse Rate 98 94 Pulse Rate [Bilateral Radial Palpation] Respiratory Rate 30 H Blood Pressure 124/95 H 118/95 H Pulse Oximetry 96 95 Oxygen Delivery Room Air Oxygen Flow Rate 06/06/24 16:00 06/06/24 16:00 06/06/24 16:50 Temperature Pulse Rate 98 100 Pulse Rate [Bilateral Radial Palpation] 102 H Respiratory Rate Blood Pressure 153/87 H Pulse Oximetry Oxygen Delivery Oxygen Flow Rate 06/06/24 18:00 06/06/24 18:00 06/06/24 18:00 Temperature Pulse Rate 90 99 99 Pulse Rate [Bilateral Radial Palpation] Respiratory Rate 21 H Blood Pressure 132/88 132/88 Pulse Oximetry 96 Oxygen Delivery Oxygen Flow Rate 06/06/24 19:56 06/06/24 20:00 06/06/24 20:00 Temperature 98.8 F Pulse Rate 108 H Pulse Rate [Bilateral Radial Palpation] 108 H Respiratory Rate 27 H Blood Pressure 111/79 Pulse Oximetry 95 94 Oxygen Delivery Room Air Oxygen Flow Rate 06/06/24 20:00 06/06/24 20:00 06/06/24 20:00 Temperature 98 F Pulse Rate 108 H 106 H 115 H Pulse Rate [Bilateral Radial Palpation] Respiratory Rate 28 H Blood Pressure 111/79 111/79 Pulse Oximetry 93 Oxygen Delivery Oxygen Flow Rate 06/06/24 22:00 06/06/24 22:00 06/06/24 22:00 Temperature 98.3 F Pulse Rate 96 93 93 Pulse Rate [Bilateral Radial Palpation] Respiratory Rate 18 Blood Pressure 102/64 134/66 Pulse Oximetry 96 Oxygen Delivery Oxygen Flow Rate 06/06/24 23:36 06/06/24 23:36 06/07/24 00:00 Temperature 98.4 F Pulse Rate 111 H Pulse Rate [Bilateral Radial Palpation] 97 Respiratory Rate 27 H Blood Pressure 118/97 H Pulse Oximetry 96 93 Oxygen Delivery Nasal Cannula Oxygen Flow Rate 2 06/07/24 00:00 06/07/24 00:00 06/07/24 02:00 Temperature Pulse Rate 102 H 116 H 98 Pulse Rate [Bilateral Radial Palpation] Respiratory Rate 16 Blood Pressure 118/97 H 134/88 Pulse Oximetry 96 Oxygen Delivery Oxygen Flow Rate 06/07/24 02:00 06/07/24 02:00 06/07/24 03:41 Temperature Pulse Rate 94 94 118 H Pulse Rate [Bilateral Radial Palpation] Respiratory Rate Blood Pressure 134/88 126/100 H Pulse Oximetry Oxygen Delivery Oxygen Flow Rate 06/07/24 03:41 06/07/24 04:00 06/07/24 04:00 Temperature Pulse Rate 118 H 108 H Pulse Rate [Bilateral Radial Palpation] 108 H Respiratory Rate Blood Pressure 126/100 H Pulse Oximetry Oxygen Delivery Oxygen Flow Rate 06/07/24 04:00 06/07/24 04:00 06/07/24 04:00 Temperature 98.6 F Pulse Rate 115 H 115 H Pulse Rate [Bilateral Radial Palpation] Respiratory Rate 23 H Blood Pressure 143/102 H 143/102 H Pulse Oximetry 96 96 Oxygen Delivery Nasal Cannula Oxygen Flow Rate 2 06/07/24 06:00 06/07/24 06:00 06/07/24 06:00 Temperature Pulse Rate 114 H 117 H 117 H Pulse Rate [Bilateral Radial Palpation] Respiratory Rate 21 H Blood Pressure 138/94 H 138/94 H Pulse Oximetry 93 Oxygen Delivery Oxygen Flow Rate Intake/Output Intake/Output: Intake & Output 06/04/24 06/05/24 06/06/24 06/07/24 23:59 23:59 23:59 23:59 Intake Total 1030 1680 1231.3 568.0 Output Total 0432 696 1613 1650 Balance -120 1478 -768.7 -1082.0 Meds/Results Medications: Active Medications Generic Name Dose Route Start Last Admin Trade Name Freq PRN Reason Stop Dose Admin Apixaban 5 mg 06/04/24 10:00 06/06/24 20:00 Apixaban 5 Mg Tablet PO 5 mg Q12HR BARTOLO Administration Calcium Carbonate 200 mg 06/03/24 21:22 06/05/24 12:22 Calcium Carbonate (Tums) 500 Mg (200 Mg Elemental) PO 200 mg Q6H PRN Administration Indigestion Doxycycline Hyclate 100 mg 06/03/24 21:00 06/06/24 20:00 Doxycycline Hyclate 100 Mg Tablet PO 100 mg Q12HR BARTOLO Administration Guaifenesin 1,200 mg 06/03/24 21:00 06/06/24 20:00 Guaifenesin 12 Hr 600 Mg Tabcr PO 1,200 mg Q12HR BARTOLO Administration Ceftriaxone Sodium 1 gm in 50 mls @ 100 mls/hr 06/04/24 12:00 06/06/24 12:00 Rocephin 1 Gm/Ns 50 Ml IVPB 100 mls/hr Q24H B[facility]OLO Administration Dobutamine HCl/Dextrose 250 mg in 250 mls @ 21.285 mls/hr 06/06/24 14:55 06/07/24 06:00 Dobutamine 250 Mg/D5w 250 Ml IV CONT 2.5 mcg/kg/min .[id number] BARTOLO 21.29 mls/hr Infusion 2.5 MCG/KG/MIN Ondansetron HCl 4 mg 06/04/24 18:40 06/05/24 12:15 Ondansetron Inj 4 Mg/2 Ml Vial IV PUSH 4 mg Q6H PRN Administration Nausea And Vomiting Pantoprazole Sodium 40 mg 06/04/24 09:00 06/06/24 08:14 Pantoprazole 40 Mg Tablet PO 40 mg QAM BARTOLO Administration Rosuvastatin Calcium 20 mg 06/04/24 13:40 06/05/24 09:11 Rosuvastatin 20 Mg Tablet PO 20 mg DAILY BARTOLO Administration Radiology Results: ITS Impressions Chest/Abdomen/Pelvis CTA 06/03/24 10:56 IMPRESSION: CHEST: 1. No pulmonary embolism or dissection. 2. Multiple patchy opacities and groundglass appearance suggestive of pneumonia. Underlying pulmonary edema is not excluded although this is less likely. Clinical correlation advised. 3. Mediastinal lymphadenopathy. 4. Right pleural effusion. ABDOMEN/PELVIS: 1. No evidence of appendicitis, diverticulitis or intestinal obstruction. 2. Fat stranding around the neck of the gallbladder. Differential include cholecystitis versus ascending cholangitis versus duodenitis: although no thickening in the wall of the gallbladder or the duodenum is seen. Clinical correlation advised. 3. Fat infiltration of the liver. Hepatomegaly. 4. Fat-containing bilateral inguinal and umbilical hernias. Chest X-Ray 06/06/24 08:11 IMPRESSION: 1. Unchanged elevation of the left hemidiaphragm. No acute cardiopulmonary disease. 2. Cardiomegaly. Renal Ultrasound 06/06/24 14:19 IMPRESSION: No definite abnormality. Abdomen Ultrasound 06/06/24 14:22 IMPRESSION: Fat infiltration of the liver. Thickened wall of the gallbladder which may indicate cholecystitis. Clinical correlation advised. Minimal free fluid in the upper abdomen. Otherwise, normal limited abdominal ultrasound. Labs Labs: Laboratory Results - last 24 hr 06/04/24 06/06/24 06/06/24 06:19 11:05 11:09 WBC RBC Hgb Hct MCV MCH MCHC RDW Plt Count MPV Immature Gran % (Auto) Neut % (Auto) Lymph % (Auto) [place] % (Auto) Eos % (Auto) Baso % (Auto) Lymph # (Auto) [place] # (Auto) Eos # (Auto) Baso # (Auto) Abs Immat Gran (auto) Absolute Neuts (auto) Absolute Nucleated RBC Nucleated RBC % ESR 12 PT INR Sodium 130 L Potassium 4.3 Chloride 100 Carbon Dioxide 27 Anion Gap 3 L BUN 47 H Creatinine 1.28 Estim Creat Clear Calc 94 Estimated GFR > 60 Glucose 131 H Lactic Acid Calcium 8.7 Phosphorus Magnesium Total Bilirubin 1.5 H AST 3190 H ALT 2970 H Alkaline Phosphatase 74 Total Creatine Kinase 276 H Total Protein 6.0 L Albumin 3.2 L Urine Color Urine Appearance Urine pH Ur Specific [place] Urine Protein Urine Glucose (UA) Urine Ketones Ur Blood (Man) Urine Nitrate Urine Bilirubin Urine Urobilinogen Ur Leukocyte Esterase Urine Eosinophils U Random Total Protein Ur Random Sodium Ur Random Urea Urine Creatinine Protein/Creat Ratio 2 Complement C3 Complement C4 Urine Pneumococcal Ag Not detected 06/06/24 06/06/24 06/06/24 11:10 15:04 18:04 WBC RBC Hgb Hct MCV MCH MCHC RDW Plt Count MPV Immature Gran % (Auto) Neut % (Auto) Lymph % (Auto) [place] % (Auto) Eos % (Auto) Baso % (Auto) Lymph # (Auto) [place] # (Auto) Eos # (Auto) Baso # (Auto) Abs Immat Gran (auto) Absolute Neuts (auto) Absolute Nucleated RBC Nucleated RBC % ESR PT INR Sodium Potassium Chloride Carbon Dioxide Anion Gap BUN Creatinine Estim Creat Clear Calc Estimated GFR Glucose Lactic Acid 1.2 Calcium Phosphorus Magnesium Total Bilirubin AST ALT Alkaline Phosphatase Total Creatine Kinase Total Protein Albumin Urine Color Yellow Urine Appearance Clear Urine pH 5.5 Ur Specific [place] 1.014 Urine Protein Negative Urine Glucose (UA) Negative Urine Ketones Negative Ur Blood (Man) Negative Urine Nitrate Negative Urine Bilirubin Negative Urine Urobilinogen 1.0 Ur Leukocyte Esterase Negative Urine Eosinophils U Random Total Protein 9 Ur Random Sodium 10 Ur Random Urea 961 Urine Creatinine 53.9 Protein/Creat Ratio 2 0.17 Complement C3 66 L Complement C4 15.5 Urine Pneumococcal Ag 06/07/24 06/07/24 00:15 03:51 WBC 8.4 RBC 4.46 L Hgb 13.9 L Hct 42.5 MCV 95.3 MCH 31.2 MCHC 32.7 RDW 12.3 Plt Count 234 MPV 10.4 Immature Gran % (Auto) 2.0 H Neut % (Auto) 68.4 Lymph % (Auto) 22.2 [place] % (Auto) 6.1 Eos % (Auto) 0.7 Baso % (Auto) 0.6 Lymph # (Auto) 1.86 [place] # (Auto) 0.5 Eos # (Auto) 0.1 Baso # (Auto) 0.1 Abs Immat Gran (auto) 0.17 H Absolute Neuts (auto) 5.7 Absolute Nucleated RBC 0.000 Nucleated RBC % 0.0 ESR PT 24.4 H D INR 2.1 Sodium 136 L Potassium 3.9 Chloride 104 Carbon Dioxide 26 Anion Gap 6 BUN 27 H D Creatinine 0.76 Estim Creat Clear Calc 154 Estimated GFR > 60 Glucose 88 Lactic Acid Calcium 8.5 Phosphorus 2.6 Magnesium 2.3 Total Bilirubin 1.4 H AST 1454 H ALT 2167 H Alkaline Phosphatase 83 Total Creatine Kinase Total Protein 6.0 L Albumin 3.1 L Urine Color Urine Appearance Urine pH Ur Specific [place] Urine Protein Urine Glucose (UA) Urine Ketones Ur Blood (Man) Urine Nitrate Urine Bilirubin Urine Urobilinogen Ur Leukocyte Esterase Urine Eosinophils None seen U Random Total Protein Ur Random Sodium Ur Random Urea Urine Creatinine Protein/Creat Ratio 2 Complement C3 Complement C4 Urine Pneumococcal Ag
--- NOTE | 2024-06-07 07:29 | PM.PNCARD ---
Progress Note: A&P Assessment and Plan (1) Atrial flutter with rapid ventricular response: Code(s): I48.92 - Unspecified atrial flutter Status: Acute Assessment and Plan: Continue Eliquis for anticoagulation. He does have left atrial appendage thrombus and will need at minimum 4 weeks of anticoagulation before consideration of cardioversion. Heart rate reasonably controlled with diltiazem and metoprolol. (2) Hypertension: Code(s): I10 - Essential (primary) hypertension Status: Acute Assessment and Plan: Continue diltiazem and metoprolol. May add an Arb or Entresto depending on results of echo (3) Congestive heart failure: Code(s): I50.9 - Heart failure, unspecified Status: Acute Assessment and Plan: Echo pending. Will adjust regimen depending on results of echo (4) Hyperlipidemia: Code(s): E78.5 - Hyperlipidemia, unspecified Status: Acute Assessment and Plan: On rosuvastatin (5) Daily consumption of alcohol: Code(s): Z78.9 - Other specified health status Status: Acute Assessment and Plan: Alcohol cessation recommend (6) Suspected sleep apnea: Code(s): R29.818 - Other symptoms and signs involving the nervous system Status: Acute Assessment and Plan: Check an ApneaLink for tonight Plan 1. Acute on chronic systolic HF NYHA IV, Stage C 2. Cardiogenic Shock; improving 3. Atrial Flutter 4. HTN 5. Shock Liver/SAMREEN; improving -improving hemodynamics, renal function and liver function -wean off and discontinue dobutamine -will start on losartan for afterload reduction. Will switch to Entresto later on -will start on low-dose metoprolol tartrate for now. -give 1 dose of IV digoxin, 0.5 mg -continue anticoagulation -can be transferred out of the ICU - Discussed with Dr. Starr the ICU attending. Subjective Date/time seen: 06/07/24 07:29 Interval history: 48-year-old with atrial flutter Date of service 06/05/2024: Generally heart rate around 110. Periodically will go faster. Seems a little short of breath today with no chest pain. Date of service 06/06/2024: No chest pain, BP soft, slightly tachycardic Liver enzymes markedly elevated Creatinine 0.69, 1.44 --> 1.28 06/07/2024: Transfer to the ICU yesterday No acute events overnight Liver function improving Renal function normalized Sternal atrial flutter, rates between 115-120 Review of Systems Review of Systems: All systems reviewed & are unremarkable except as noted in HPI and below Constitutional: Constitutional: Denies body ache(s) and Denies excessive sweating Eyes: Eyes: Denies blurry vision ENT: Denies Normal hearing present Cardiovascular: Cardiovascular: Denies diaphoresis Respiratory: Respiratory: Denies chest congestion Gastrointestinal: Gastrointestinal: Denies abdominal pain Genitourinary: Genitourinary: Denies hematuria Musculoskeletal: Musculoskeletal: Denies back pain Integumentary/Breasts: Skin/Breast: Denies dry skin Neurologic: Denies Normal hearing present, Denies Abnormal speech present and Denies confusion Psychiatric: Psychiatric: Denies confusion Endocrine: Endocrine: Denies excessive sweating Hematologic/Lymphatic: Hematologic/Lymphatic: Denies easy bruising Allergic/Immunologic: Allergic/Immunologic: Denies GI upset with certain foods Exam Const: General: comfortable and no acute distress; No confusion Orientation/consciousness: No confusion HENMT: Mouth: Yes moist mucous membranes Eyes: General: appearance normal, both eyes and all related structures Sclera: sclerae normal Resp: Effort & Inspection: normal respiratory effort Cardio: Rate: tachycardic Rhythm: regular rhythm Heart sounds: no murmurs Other: Tele with atrial flutter with RVR Skin: General skin exam: normal color Neuro: General: No confusion Cranial nerves: No Normal hearing present Speech: normal speech and No Abnormal speech present Psych: Mental Status: mental status grossly normal Affect: normal affect Objective Data Vital Signs Vital Signs: Vital Signs - 24 hr 06/06/24 07:56 06/06/24 08:00 06/06/24 08:00 Temperature 36.9 C Pulse Rate 90 108 H Pulse Rate [Bilateral Radial Palpation] Respiratory Rate 14 Blood Pressure 105/76 Pulse Oximetry 96 Oxygen Delivery Room Air Oxygen Flow Rate 06/06/24 10:00 06/06/24 11:56 06/06/24 12:00 Temperature 36.6 C Pulse Rate 93 84 84 Pulse Rate [Bilateral Radial Palpation] Respiratory Rate 16 Blood Pressure 101/72 Pulse Oximetry 98 Oxygen Delivery Oxygen Flow Rate 06/06/24 12:00 06/06/24 15:37 06/06/24 15:40 Temperature 36.6 C Pulse Rate 97 96 Pulse Rate [Bilateral Radial Palpation] Respiratory Rate 30 H Blood Pressure 124/95 H Pulse Oximetry 97 Oxygen Delivery Room Air Oxygen Flow Rate 06/06/24 15:50 06/06/24 16:00 06/06/24 16:00 Temperature Pulse Rate 98 94 Pulse Rate [Bilateral Radial Palpation] Respiratory Rate 30 H Blood Pressure 124/95 H 118/95 H Pulse Oximetry 96 95 Oxygen Delivery Room Air Oxygen Flow Rate 06/06/24 16:00 06/06/24 16:00 06/06/24 16:50 Temperature Pulse Rate 98 100 Pulse Rate [Bilateral Radial Palpation] 102 H Respiratory Rate Blood Pressure 153/87 H Pulse Oximetry Oxygen Delivery Oxygen Flow Rate 06/06/24 18:00 06/06/24 18:00 06/06/24 18:00 Temperature Pulse Rate 90 99 99 Pulse Rate [Bilateral Radial Palpation] Respiratory Rate 21 H Blood Pressure 132/88 132/88 Pulse Oximetry 96 Oxygen Delivery Oxygen Flow Rate 06/06/24 19:56 06/06/24 20:00 06/06/24 20:00 Temperature 37.1 C Pulse Rate 108 H Pulse Rate [Bilateral Radial Palpation] 108 H Respiratory Rate 27 H Blood Pressure 111/79 Pulse Oximetry 95 94 Oxygen Delivery Room Air Oxygen Flow Rate 06/06/24 20:00 06/06/24 20:00 06/06/24 20:00 Temperature 36.6 C Pulse Rate 108 H 106 H 115 H Pulse Rate [Bilateral Radial Palpation] Respiratory Rate 28 H Blood Pressure 111/79 111/79 Pulse Oximetry 93 Oxygen Delivery Oxygen Flow Rate 06/06/24 22:00 06/06/24 22:00 06/06/24 22:00 Temperature 36.8 C Pulse Rate 96 93 93 Pulse Rate [Bilateral Radial Palpation] Respiratory Rate 18 Blood Pressure 102/64 134/66 Pulse Oximetry 96 Oxygen Delivery Oxygen Flow Rate 06/06/24 23:36 06/06/24 23:36 06/07/24 00:00 Temperature 36.9 C Pulse Rate 111 H Pulse Rate [Bilateral Radial Palpation] 97 Respiratory Rate 27 H Blood Pressure 118/97 H Pulse Oximetry 96 93 Oxygen Delivery Nasal Cannula Oxygen Flow Rate 2 06/07/24 00:00 06/07/24 00:00 06/07/24 02:00 Temperature Pulse Rate 102 H 116 H 98 Pulse Rate [Bilateral Radial Palpation] Respiratory Rate 16 Blood Pressure 118/97 H 134/88 Pulse Oximetry 96 Oxygen Delivery Oxygen Flow Rate 06/07/24 02:00 06/07/24 02:00 06/07/24 03:41 Temperature Pulse Rate 94 94 118 H Pulse Rate [Bilateral Radial Palpation] Respiratory Rate Blood Pressure 134/88 126/100 H Pulse Oximetry Oxygen Delivery Oxygen Flow Rate 06/07/24 03:41 06/07/24 04:00 06/07/24 04:00 Temperature Pulse Rate 118 H 108 H Pulse Rate [Bilateral Radial Palpation] 108 H Respiratory Rate Blood Pressure 126/100 H Pulse Oximetry Oxygen Delivery Oxygen Flow Rate 06/07/24 04:00 06/07/24 04:00 06/07/24 04:00 Temperature 37.0 C Pulse Rate 115 H 115 H Pulse Rate [Bilateral Radial Palpation] Respiratory Rate 23 H Blood Pressure 143/102 H 143/102 H Pulse Oximetry 96 96 Oxygen Delivery Nasal Cannula Oxygen Flow Rate 2 06/07/24 06:00 06/07/24 06:00 06/07/24 06:00 Temperature Pulse Rate 114 H 117 H 117 H Pulse Rate [Bilateral Radial Palpation] Respiratory Rate 21 H Blood Pressure 138/94 H 138/94 H Pulse Oximetry 93 Oxygen Delivery Oxygen Flow Rate 06/07/24 07:25 Temperature Pulse Rate 119 H Pulse Rate [Bilateral Radial Palpation] Respiratory Rate Blood Pressure 138/94 H Pulse Oximetry Oxygen Delivery Oxygen Flow Rate Intake/Output Intake/Output: Intake & Output 06/04/24 06/05/24 06/06/24 06/07/24 23:59 23:59 23:59 23:59 Intake Total 1030 1680 1231.3 598.2 Output Total 5561 043 9387 1650 Balance -120 1478 -768.7 -1051.8 Meds/Results Medications: Active Medications Generic Name Dose Route Start Last Admin Trade Name Freq PRN Reason Stop Dose Admin Apixaban 5 mg 06/04/24 10:00 06/06/24 20:00 Apixaban 5 Mg Tablet PO 5 mg Q12HR BARTOLO Administration Calcium Carbonate 200 mg 06/03/24 21:22 06/05/24 12:22 Calcium Carbonate (Tums) 500 Mg (200 Mg Elemental) PO 200 mg Q6H PRN Administration Indigestion Doxycycline Hyclate 100 mg 06/03/24 21:00 06/06/24 20:00 Doxycycline Hyclate 100 Mg Tablet PO 100 mg Q12HR BARTOLO Administration Guaifenesin 1,200 mg 06/03/24 21:00 06/06/24 20:00 Guaifenesin 12 Hr 600 Mg Tabcr PO 1,200 mg Q12HR BARTOLO Administration Ceftriaxone Sodium 1 gm in 50 mls @ 100 mls/hr 06/04/24 12:00 06/06/24 12:00 Rocephin 1 Gm/Ns 50 Ml IVPB 100 mls/hr Q24H BARTOLO Administration Dobutamine HCl/Dextrose 250 mg in 250 mls @ 21.285 mls/hr 06/06/24 14:55 06/07/24 07:25 Dobutamine 250 Mg/D5w 250 Ml IV CONT 0 mcg/kg/min .[id number] BARTOLO 0 mls/hr Infusion 2.5 MCG/KG/MIN Losartan Potassium 25 mg 06/07/24 09:00 Losartan Potassium 25 Mg Tablet PO DAILY BARTOLO Ondansetron HCl 4 mg 06/04/24 18:40 06/05/24 12:15 Ondansetron Inj 4 Mg/2 Ml Vial IV PUSH 4 mg Q6H PRN Administration Nausea And Vomiting Pantoprazole Sodium 40 mg 06/04/24 09:00 06/06/24 08:14 Pantoprazole 40 Mg Tablet PO 40 mg QAM BARTOLO Administration Rosuvastatin Calcium 20 mg 06/04/24 13:40 06/05/24 09:11 Rosuvastatin 20 Mg Tablet PO 20 mg DAILY BARTOLO Administration Radiology Results: ITS Impressions Chest/Abdomen/Pelvis CTA 06/03/24 10:56 IMPRESSION: CHEST: 1. No pulmonary embolism or dissection. 2. Multiple patchy opacities and groundglass appearance suggestive of pneumonia. Underlying pulmonary edema is not excluded although this is less likely. Clinical correlation advised. 3. Mediastinal lymphadenopathy. 4. Right pleural effusion. ABDOMEN/PELVIS: 1. No evidence of appendicitis, diverticulitis or intestinal obstruction. 2. Fat stranding around the neck of the gallbladder. Differential include cholecystitis versus ascending cholangitis versus duodenitis: although no thickening in the wall of the gallbladder or the duodenum is seen. Clinical correlation advised. 3. Fat infiltration of the liver. Hepatomegaly. 4. Fat-containing bilateral inguinal and umbilical hernias. Chest X-Ray 06/06/24 08:11 IMPRESSION: 1. Unchanged elevation of the left hemidiaphragm. No acute cardiopulmonary disease. 2. Cardiomegaly. Renal Ultrasound 06/06/24 14:19 IMPRESSION: No definite abnormality. Abdomen Ultrasound 06/06/24 14:22 IMPRESSION: Fat infiltration of the liver. Thickened wall of the gallbladder which may indicate cholecystitis. Clinical correlation advised. Minimal free fluid in the upper abdomen. Otherwise, normal limited abdominal ultrasound. Labs Labs: Laboratory Results - last 24 hr 06/04/24 06/06/24 06/06/24 06:19 11:05 11:09 WBC RBC Hgb Hct MCV MCH MCHC RDW Plt Count MPV Immature Gran % (Auto) Neut % (Auto) Lymph % (Auto) [place] % (Auto) Eos % (Auto) Baso % (Auto) Lymph # (Auto) [place] # (Auto) Eos # (Auto) Baso # (Auto) Abs Immat Gran (auto) Absolute Neuts (auto) Absolute Nucleated RBC Nucleated RBC % ESR 12 PT INR Sodium 130 L Potassium 4.3 Chloride 100 Carbon Dioxide 27 Anion Gap 3 L BUN 47 H Creatinine 1.28 Estim Creat Clear Calc 94 Estimated GFR > 60 Glucose 131 H Lactic Acid Calcium 8.7 Phosphorus Magnesium Total Bilirubin 1.5 H AST 3190 H ALT 2970 H Alkaline Phosphatase 74 Total Creatine Kinase 276 H Total Protein 6.0 L Albumin 3.2 L Urine Color Urine Appearance Urine pH Ur Specific [place] Urine Protein Urine Glucose (UA) Urine Ketones Ur Blood (Man) Urine Nitrate Urine Bilirubin Urine Urobilinogen Ur Leukocyte Esterase Urine Eosinophils U Random Total Protein Ur Random Sodium Ur Random Urea Urine Creatinine Protein/Creat Ratio 2 Complement C3 Complement C4 Urine Pneumococcal Ag Not detected 06/06/24 06/06/24 06/06/24 11:10 15:04 18:04 WBC RBC Hgb Hct MCV MCH MCHC RDW Plt Count MPV Immature Gran % (Auto) Neut % (Auto) Lymph % (Auto) [place] % (Auto) Eos % (Auto) Baso % (Auto) Lymph # (Auto) [place] # (Auto) Eos # (Auto) Baso # (Auto) Abs Immat Gran (auto) Absolute Neuts (auto) Absolute Nucleated RBC Nucleated RBC % ESR PT INR Sodium Potassium Chloride Carbon Dioxide Anion Gap BUN Creatinine Estim Creat Clear Calc Estimated GFR Glucose Lactic Acid 1.2 Calcium Phosphorus Magnesium Total Bilirubin AST ALT Alkaline Phosphatase Total Creatine Kinase Total Protein Albumin Urine Color Yellow Urine Appearance Clear Urine pH 5.5 Ur Specific [place] 1.014 Urine Protein Negative Urine Glucose (UA) Negative Urine Ketones Negative Ur Blood (Man) Negative Urine Nitrate Negative Urine Bilirubin Negative Urine Urobilinogen 1.0 Ur Leukocyte Esterase Negative Urine Eosinophils U Random Total Protein 9 Ur Random Sodium 10 Ur Random Urea 961 Urine Creatinine 53.9 Protein/Creat Ratio 2 0.17 Complement C3 66 L Complement C4 15.5 Urine Pneumococcal Ag 06/07/24 06/07/24 00:15 03:51 WBC 8.4 RBC 4.46 L Hgb 13.9 L Hct 42.5 MCV 95.3 MCH 31.2 MCHC 32.7 RDW 12.3 Plt Count 234 MPV 10.4 Immature Gran % (Auto) 2.0 H Neut % (Auto) 68.4 Lymph % (Auto) 22.2 [place] % (Auto) 6.1 Eos % (Auto) 0.7 Baso % (Auto) 0.6 Lymph # (Auto) 1.86 [place] # (Auto) 0.5 Eos # (Auto) 0.1 Baso # (Auto) 0.1 Abs Immat Gran (auto) 0.17 H Absolute Neuts (auto) 5.7 Absolute Nucleated RBC 0.000 Nucleated RBC % 0.0 ESR PT 24.4 H D INR 2.1 Sodium 136 L Potassium 3.9 Chloride 104 Carbon Dioxide 26 Anion Gap 6 BUN 27 H D Creatinine 0.76 Estim Creat Clear Calc 154 Estimated GFR > 60 Glucose 88 Lactic Acid Calcium 8.5 Phosphorus 2.6 Magnesium 2.3 Total Bilirubin 1.4 H AST 1454 H ALT 2167 H Alkaline Phosphatase 83 Total Creatine Kinase Total Protein 6.0 L Albumin 3.1 L Urine Color Urine Appearance Urine pH Ur Specific [place] Urine Protein Urine Glucose (UA) Urine Ketones Ur Blood (Man) Urine Nitrate Urine Bilirubin Urine Urobilinogen Ur Leukocyte Esterase Urine Eosinophils None seen U Random Total Protein Ur Random Sodium Ur Random Urea Urine Creatinine Protein/Creat Ratio 2 Complement C3 Complement C4 Urine Pneumococcal Ag
--- NOTE | 2024-06-07 07:46 | ECG_ITS ---
Test Date: 2024-06-07 07:49:32 Measurements Intervals [place] Rate: 116 P: 0 SD: 0 QRS: -13 QRSD: 110 T: 71 QT: 363 QTc: 504 Interpretive Statements ATRIAL FLUTTER/TACHYCARDIA WITH RAPID VENTRICULAR RESPONSE WITH ABERRANT CONDUCTION OR VENTRICULAR PREMATURE COMPLEXES INCOMPLETE RIGHT BUNDLE BRANCH BLOCK DELAYED PRECORDIAL R/S TRANSITION CONSIDER INFERIOR INFARCT, AGE INDETERMINATE BORDERLINE T WAVE ABNORMALITY- HIGH LATERAL LEADS ABNORMAL ECG Compared to ECG 06/04/2024 22:52:52 NO SIGNIFICANT CHANGE Electronically Signed On 06-07-2024 08:28:18 CDT by Surendra Beckman D.O.
[2024-06-07] MEDS: guaiFENesin 12 HR 600 MG TABCR 1200 MG PO ×2 (08:08→20:18)
[2024-06-07] MEDS: LOSARTAN POTASSIUM 25 MG TABLET PO (08:08)
[2024-06-07] MEDS: DOXYCYCLINE HYCLATE 100 MG TABLET PO ×2 (08:08→20:18)
[2024-06-07] MEDS: METOPROLOL TARTRATE 12.5 MG TABLET PO ×3 (08:08→19:37)
[2024-06-07] MEDS: APIXABAN 5 MG TABLET PO ×2 (08:08→20:18)
[2024-06-07] MEDS: PANTOPRAZOLE 40 MG TABLET PO (08:08)
[2024-06-07] MEDS: DIGOXIN INJ 250 MCG/ML 2 ML AMP (*BKC) 500 MCG IV PUSH (08:09)
--- NOTE | 2024-06-07 08:24 | WPDCNINT ---
Assessment and Plan Assessment and plan (1) Atrial flutter with rapid ventricular response: Code(s): I48.92 - Unspecified atrial flutter Status: Acute Assessment and Plan: Presented with a flutter with RVR HERI shows thrombus in left atrial appendage hence patient was not cardioverted Continue apixaban Patient was started on high-dose beta-noah which led to hypotension and ischemic hepatopathy. Beta-noah was stopped Discussed with Cardiology. Resume beta-noah at a low rate Cardiology has ordered digoxin child monitor (2) Elevated liver transaminase level: Code(s): R74.01 - Elevation of levels of liver transaminase levels Status: Acute Assessment and Plan: Patient presented with elevated liver enzymes which sharply increased between 06/04 and 06/06 Patient has history of heavy alcohol intake, was also on statin and pictures likely consistent with ischemic hepatopathy likely from a flutter and poor cardiac output Hepatic ultrasound - Fat infiltration of the liver. Thickened wall of the gallbladder which may indicate cholecystitis. Clinical correlation advised. Minimal free fluid in the upper abdomen. Otherwise, normal limited abdominal ultrasound. Negative viral hepatitis panel LFTs and now improving Urine Legionella antigen is pending Patient was started on dobutamine low does as cardiogenic shock was suspected but his hemodynamics have improved, he is asymptomatic, LFTs are decreasing and his ventricular rate has increase hence who I have discontinued dobutamine after discussion with Cardiology. Monitor LFTs. (3) Congestive heart failure: Code(s): I50.9 - Heart failure, unspecified Status: Acute Assessment and Plan: Patient will be resumed on beta-noah. Continue Cozaar Cardiology plans to resume Entresto (4) Hypertension: Code(s): I10 - Essential (primary) hypertension Status: Acute Assessment and Plan: Resume beta-noah Cardiology has started Cozaar (5) Hyperlipidemia: Code(s): E78.5 - Hyperlipidemia, unspecified Status: Acute Assessment and Plan: Statin was on hold because of elevated LFTs (6) Acute kidney injury: Code(s): N17.9 - Acute kidney failure, unspecified Status: Acute Assessment and Plan: Likely secondary to poor cardiac output from a flutter Which has now improved Creatinine has normalized Monitor urine output electrolytes and creatinine (7) Community acquired pneumonia: Code(s): J18.9 - Pneumonia, unspecified organism Status: Acute Assessment and Plan: Patient was started on empiric treatment for community-acquired pneumonia although his presentation is likely more consistent with pulmonary edema and congestive heart failure He is now afebrile and WBC has normalized Blood and sputum cultures have been negative He is on a course of Rocephin and doxycycline (8) Suspected sleep apnea: Code(s): R29.818 - Other symptoms and signs involving the nervous system Status: Acute Assessment and Plan: Patient has symptoms of obstructive sleep apnea. I recommended and encouraged patient to get tested as an outpatient and be compliant with CPAP if prescribed. Her monitoring and supplemental oxygen at this time in the hospital (9) Tobacco dependence: Code(s): F17.200 - Nicotine dependence, unspecified, uncomplicated Status: Acute Assessment and Plan: Patient was encouraged and counseled to quit smoking (10) Daily consumption of alcohol: Code(s): Z78.9 - Other specified health status Status: Acute Assessment and Plan: Patient was encouraged and counseled to cut down on alcohol intake. Monitor for signs of withdrawal. Plan DVT prophylaxis -apixaban Nutrition -diet ordered Code Status - Full Code Case discussed with Cardiology Transfer out of ICU [facility] Consult Note Consult date: 06/07/24 Reason for consult: Elevated LFTs, atrial flutter HPI: Barrett Guzman is a 48 year old male with past medical history of hypertension, hyperlipidemia, gastroesophageal reflux disease, tobacco abuse and daily alcohol use who presented to the emergency department from urgent care for evaluation of rapid heart rate and shortness of breath on 06/03. Symptoms have been going on for 10 days prior to that. He also admitted to having orthopnea PND and cough at night. He sleeps in a reclining bed. His admitted the patient snores and sometimes stops breathing while sleeping. Dyspnea on exertion. No fever chills or rigors. Review of system also positive for dry cough and wheezing. All other systems were reviewed and were negative Workup in the ER showed WBC count of 10.1, lactic acid 4.1, total bilirubin 1.8, AST 116, ALT 139, proBNP 2210, troponin 0.032. Urinalysis was positive for 2+ protein, trace ketones, 2+ bilirubin with a specific gravity of greater than 1.045. CTA of the chest, abdomen, and pelvis was negative for pulmonary embolism but did show findings suggestive of pneumonia and less likely pulmonary edema, mediastinal lymphadenopathy, and right pleural effusion as well as fatty infiltration of the liver with hepatomegaly and fat stranding around the neck of the gallbladder. Patient was diagnosed with a flutter with RVR, CHF and community-acquired pneumonia. Cardiology consulted. Patient underwent HERI which showed left atrial appendage thrombus hence cardioversion was canceled. Patient was started on apixaban and beta-noah. Patient was also treated with Rocephin and doxycycline for community-acquired pneumonia. Cultures remain negative. Patient presented with elevated LFTs which had a sharp increase between 06/04 and 06/06 cardiogenic shock was suspected and patient was transferred to ICU for dobutamine infusion. His lactic acid came back normal and overnight as beta-noah was held his blood pressure improved. This morning his heart rate increased on dobutamine infusion has to be doing was discontinued. He is currently on a flutter with controlled ventricular rate. He denies any new complaints and otherwise feels better. He states he did not sleep well due to uncomfortable bed.. He also admits to shortness of breath only on exertion. He denies any other complaints and all other systems were reviewed and were negative. Review of Systems Review of Systems: All systems reviewed & are unremarkable except as noted in HPI and below (HPI) PMFSH Past Medical History Medical History Daily consumption of alcohol Gastroesophageal reflux disease Tobacco dependence Hyperlipidemia Hypertension Surgical History Surgical History History of open reduction and internal fixation (ORIF) procedure repair of right ankle fracture and left tibia-fibula fractures History of adenoidectomy Family History Family History Father Acute myocardial infarction Mother Diabetes mellitus Social History Social History Social History: Surrogate medical decision maker: Kimberlyn Gama, spouse. Code status: Full code. Smoking packs per day: 1 Smoking cigarettes per day: 20.0 Years smoked: 25 Smoking pack-years: 25.00 Smoking status: Current every day smoker Tobacco type: cigarettes Alcohol intake: current Drinks per week: 35 Alcohol use details: 5 to 6 rum containing alcoholic beverages a day Substance use: current Substance use type: marijuana Other substance usage details: marijuana weekly Do You Feel Safe in your Home?: Yes Lack of Transportation: No Lack of Food: Never True Current Housing: I Do Not Have Housing Concerned About Future Housing: No Difficulty Paying Gas/Electric Bills: No Difficulty Paying for Meds: No Currently Unemployed: No Education: High School Diploma/GED Difficulty w/ Childcare or Family Care: No Spiritual care concerns: No Meds Home Medications and Allergies Home Medications ?Medication ?Instructions ?Recorded ?Confirmed ?Type diltiazem HCl 180 mg 180 mg PO DAILY 05/24/24 06/03/24 History capsule,extended release 24 hr, controlled (DILT-XR) omeprazole 20 mg capsule,delayed 20 mg PO DAILY 05/24/24 06/03/24 History release rosuvastatin 20 mg tablet 20 mg PO DAILY 05/24/24 06/03/24 History Allergies Allergy/AdvReac Type Severity Reaction Status Date / Time No Known Allergies Allergy Verified 06/03/24 10:19 Vital Signs Vital Signs - 24 hr 06/06/24 10:00 06/06/24 11:56 06/06/24 12:00 Temperature 36.6 C Pulse Rate 93 84 84 Pulse Rate [Bilateral Radial Palpation] Respiratory Rate 16 Blood Pressure 101/72 Pulse Oximetry 98 Oxygen Delivery Oxygen Flow Rate 06/06/24 12:00 06/06/24 15:37 06/06/24 15:40 Temperature 36.6 C Pulse Rate 97 96 Pulse Rate [Bilateral Radial Palpation] Respiratory Rate 30 H Blood Pressure 124/95 H Pulse Oximetry 97 Oxygen Delivery Room Air Oxygen Flow Rate 06/06/24 15:50 06/06/24 16:00 06/06/24 16:00 Temperature Pulse Rate 98 94 Pulse Rate [Bilateral Radial Palpation] Respiratory Rate 30 H Blood Pressure 124/95 H 118/95 H Pulse Oximetry 96 95 Oxygen Delivery Room Air Oxygen Flow Rate 06/06/24 16:00 06/06/24 16:00 06/06/24 16:50 Temperature Pulse Rate 98 100 Pulse Rate [Bilateral Radial Palpation] 102 H Respiratory Rate Blood Pressure 153/87 H Pulse Oximetry Oxygen Delivery Oxygen Flow Rate 06/06/24 18:00 06/06/24 18:00 06/06/24 18:00 Temperature Pulse Rate 90 99 99 Pulse Rate [Bilateral Radial Palpation] Respiratory Rate 21 H Blood Pressure 132/88 132/88 Pulse Oximetry 96 Oxygen Delivery Oxygen Flow Rate 06/06/24 19:56 06/06/24 20:00 06/06/24 20:00 Temperature 37.1 C Pulse Rate 108 H Pulse Rate [Bilateral Radial Palpation] 108 H Respiratory Rate 27 H Blood Pressure 111/79 Pulse Oximetry 95 94 Oxygen Delivery Room Air Oxygen Flow Rate 06/06/24 20:00 06/06/24 20:00 06/06/24 20:00 Temperature 36.6 C Pulse Rate 108 H 106 H 115 H Pulse Rate [Bilateral Radial Palpation] Respiratory Rate 28 H Blood Pressure 111/79 111/79 Pulse Oximetry 93 Oxygen Delivery Oxygen Flow Rate 06/06/24 22:00 06/06/24 22:00 06/06/24 22:00 Temperature 36.8 C Pulse Rate 96 93 93 Pulse Rate [Bilateral Radial Palpation] Respiratory Rate 18 Blood Pressure 102/64 134/66 Pulse Oximetry 96 Oxygen Delivery Oxygen Flow Rate 06/06/24 23:36 06/06/24 23:36 06/07/24 00:00 Temperature 36.9 C Pulse Rate 111 H Pulse Rate [Bilateral Radial Palpation] 97 Respiratory Rate 27 H Blood Pressure 118/97 H Pulse Oximetry 96 93 Oxygen Delivery Nasal Cannula Oxygen Flow Rate 2 06/07/24 00:00 06/07/24 00:00 06/07/24 02:00 Temperature Pulse Rate 102 H 116 H 98 Pulse Rate [Bilateral Radial Palpation] Respiratory Rate 16 Blood Pressure 118/97 H 134/88 Pulse Oximetry 96 Oxygen Delivery Oxygen Flow Rate 06/07/24 02:00 06/07/24 02:00 06/07/24 03:41 Temperature Pulse Rate 94 94 118 H Pulse Rate [Bilateral Radial Palpation] Respiratory Rate Blood Pressure 134/88 126/100 H Pulse Oximetry Oxygen Delivery Oxygen Flow Rate 06/07/24 03:41 06/07/24 04:00 06/07/24 04:00 Temperature Pulse Rate 118 H 108 H Pulse Rate [Bilateral Radial Palpation] 108 H Respiratory Rate Blood Pressure 126/100 H Pulse Oximetry Oxygen Delivery Oxygen Flow Rate 06/07/24 04:00 06/07/24 04:00 06/07/24 04:00 Temperature 37.0 C Pulse Rate 115 H 115 H Pulse Rate [Bilateral Radial Palpation] Respiratory Rate 23 H Blood Pressure 143/102 H 143/102 H Pulse Oximetry 96 96 Oxygen Delivery Nasal Cannula Oxygen Flow Rate 2 06/07/24 06:00 06/07/24 06:00 06/07/24 06:00 Temperature Pulse Rate 114 H 117 H 117 H Pulse Rate [Bilateral Radial Palpation] Respiratory Rate 21 H Blood Pressure 138/94 H 138/94 H Pulse Oximetry 93 Oxygen Delivery Oxygen Flow Rate 06/07/24 07:25 06/07/24 07:43 06/07/24 08:00 Temperature 37.1 C Pulse Rate 119 H 117 H Pulse Rate [Bilateral Radial Palpation] 116 H Respiratory Rate 18 Blood Pressure 138/94 H 138/94 H 128/108 H Pulse Oximetry 97 Oxygen Delivery Oxygen Flow Rate 06/07/24 08:09 Temperature Pulse Rate 116 H Pulse Rate [Bilateral Radial Palpation] Respiratory Rate Blood Pressure Pulse Oximetry Oxygen Delivery Oxygen Flow Rate Exam Narrative: General: Pt is alert awake and in NAD Lungs/Chest: Trachea central Clear BS B/L, few crackles at bases Cardiac: RRR. Normal S1 S2. No murmurs Circulation: Pedal pulses are intact and symmetrical. Abdomen: Normal bowel sounds. Obese. Soft. NT. ND. Extremities: No clubbing, cyanosis or edema. Warm : Hernandez in place Neurologic: Follows commands. Moves all 4 extremities PERRL AO x3 Skin: No Rash Results Labs 06/07/24 03:51 06/07/24 03:51 Labs: Short CBC 06/07/24 Range/Units 03:51 WBC 8.4 (4.5-10.0) K/mm3 Hgb 13.9 L (14.0-18.0) g/dL Hct 42.5 (42.0-52.0) % Plt Count 234 (150-375) k/mm3 BMP 06/06/24 06/07/24 11:05 03:51 Sodium 130 L 136 L Potassium 4.3 3.9 Chloride 100 104 Carbon Dioxide 27 26 BUN 47 H 27 H D Creatinine 1.28 0.76 Glucose 131 H 88 Calcium 8.7 8.5 Cardiac Enzymes 06/06/24 Range/Units 11:05 Total Creatine Kinase 276 H (55-170) U/L Liver Function 06/06/24 06/07/24 Range/Units 11:05 03:51 Total Bilirubin 1.5 H 1.4 H (0.2-1.3) mg/dL AST 3190 H 1454 H (17-59) U/L ALT 2970 H 2167 H (6-50) U/L Alkaline Phosphatase 74 83 (38-126) U/L Albumin 3.2 L 3.1 L (3.5-5.1) g/dL Urine 06/06/24 Range/Units 18:04 Urine Color Yellow (Yellow) Urine Appearance Clear (Clear) Urine pH 5.5 (5.0-9.0) Ur Specific [place] 1.014 (1.001-1.035) Urine Protein Negative (Negative) mg/dL Urine Glucose (UA) Negative (Negative) mg/dL Hospitalist [facility] Advance Care Plan I have confirmed that the patient's Advanced Care Plan is present, code status is documented, or surrogate decision maker is listed in patient medical record.: Yes Medication Reconciliation I have utilized all available resources to obtain, update and review the patients current medications (includes all prescriptions, OTC, herbals, cannabis, and nutritional supplements).: Yes
--- NOTE | 2024-06-07 09:36 | P.PNNP_ITS ---
Progress Note: A&P Assessment and Plan (1) Acute kidney injury: Code(s): N17.9 - Acute kidney failure, unspecified Status: Acute Assessment and Plan: * resolved/resolving * as noted by AM labs on 06/06 * however, repeat labs done later on 06/06 demonstrated improvement already * evaluation to date noted: * renal ultrasound normal * urine electrolytes prerenal (likely more represetative of depressed EF) * urine eosinophils negative * no significant proteinuria * CPK mildly elevated (but not likely to affect kidney function) * serology pending * suspect insult due to diminished blood flow to kidneys from depressed EF leading to chronic prerenal azotemia possibly worsened by contrast exposure (from CTA of chest) * suspect transient use of dobutamine helped improve renal perfusion * follow trend of repeat labs and UOP (2) Congestive heart failure: Code(s): I50.9 - Heart failure, unspecified Status: Acute Assessment and Plan: * significant cardiomyopathy noted by Echo: * left ventricular systolic function is severely reduced, estimated at 20-25% * left ventricular diastolic function is indeterminate * moderate mitral valve regurgitation * mild tricuspid valve regurgitation * mild pulmonary hypertension, estimated pulmonary arterial systolic pressure is 39 mmHg. * Cardiology following * losartan and metoprolol initiated * on anticoagulation * continue supportive therapy (3) Atrial flutter with rapid ventricular response: Code(s): I48.92 - Unspecified atrial flutter Status: Acute Assessment and Plan: * complicated by left atrial appendage thrombus (as noted on HERI) * on anticoagulation * resumed on low dose metoprolol for rate control * follow telemetry/heart rate (4) Community acquired pneumonia: Code(s): J18.9 - Pneumonia, unspecified organism Status: Acute Assessment and Plan: * possible suggestion by admission imaging * empiric antibiotics * follow cultures (5) Elevated liver transaminase level: Code(s): R74.01 - Elevation of levels of liver transaminase levels Status: Acute Assessment and Plan: * improvement noted * significant rise noted from 06/04 - 06/06 * suspect shock liver from aflutter and cardiomyopathy/depressed EF * complicated by history of excessive alcohol intake and statin use * evaluation noted: * hepatitis panel negative * Abdominal ultrasound with fat infiltration of the liver * Gastroenterology following (6) Hypertension: Code(s): I10 - Essential (primary) hypertension Status: Chronic Assessment and Plan: * reasonable control * losartan and metoprolol started * follow trend of hemodynamics Will continue to follow. L Subjective Date/time seen: 06/07/24 09:36 Interval history: Follow-up for acute kidney injury/acute renal failure. Chart reviewed -- assuming care from Dr. Gonzalez; transferred to ICU yesterday afternoon for closer monitoring given concerns for cardiogenic shock and need for dobutamine gtt; better hemodyanmics noted and due to increased ventricular rate/tachycardia, dobutamine gtt discontinued; renal function/creatinine has normalized with interventions/therapy to date in association with good urine output in the last 24 hours. Exam 2 Narrative: General: WD/WN male in NAD Heart: tachycardic, normal S1 and S2; no rub Lungs: clear anteriorly with a few bibasilar crackles Abdomen: soft, nontender, nondistended, positive bowel sounds Extremities: no cyanosis or clubbing; no edema Skin: warm and dry Objective Data Vital Signs Vital Signs: Vital Signs Temp Pulse Pulse Resp BP Pulse Ox O2 Del Method 06/07/24 08:09 116 H 06/07/24 08:00 71 06/07/24 08:00 116 H 18 97 Room Air 06/07/24 08:00 98.7 F 117 H 18 128/108 H 97 06/07/24 07:43 116 H 138/94 H 06/07/24 07:25 119 H 138/94 H 06/07/24 06:00 117 H 138/94 H 06/07/24 06:00 117 H 21 H 138/94 H 93 06/07/24 06:00 114 H 06/07/24 04:00 115 H 143/102 H 06/07/24 04:00 98.6 F 115 H 23 H 143/102 H 96 06/07/24 04:00 96 Nasal Cannula 06/07/24 04:00 108 H 06/07/24 04:00 108 H 06/07/24 03:41 118 H 126/100 H 06/07/24 03:41 118 H 126/100 H 06/07/24 02:00 94 134/88 06/07/24 02:00 94 06/07/24 02:00 98 16 134/88 96 06/07/24 00:00 116 H 06/07/24 00:00 102 H 118/97 H 06/07/24 00:00 98.4 F 111 H 27 H 118/97 H 93 06/06/24 23:36 96 Nasal Cannula 06/06/24 23:36 97 06/06/24 22:00 93 134/66 06/06/24 22:00 93 06/06/24 22:00 98.3 F 96 18 102/64 96 06/06/24 20:00 98 F 115 H 28 H 111/79 93 06/06/24 20:00 106 H 06/06/24 20:00 108 H 111/79 06/06/24 20:00 108 H 06/06/24 20:00 98.8 F 108 H 27 H 111/79 94 06/06/24 19:56 95 Room Air 06/06/24 18:00 99 132/88 06/06/24 18:00 99 21 H 132/88 96 06/06/24 18:00 90 06/06/24 16:50 100 153/87 H 06/06/24 16:00 98 06/06/24 16:00 102 H 06/06/24 16:00 95 Room Air 06/06/24 16:00 94 30 H 118/95 H 96 06/06/24 15:50 98 124/95 H 06/06/24 15:40 98 F 96 30 H 124/95 H 97 06/06/24 15:37 97 Intake/Output Intake/Output: Intake & Output 06/04/24 06/05/24 06/06/24 06/07/24 23:59 23:59 23:59 23:59 Intake Total 1030 1680 1231.3 838.2 Output Total 7397 818 3733 1650 [facility]120 [id number] -[id number] -811.8 Meds/Results Medications: Active Medications Generic Name Dose Route Start Last Admin Trade Name Freq PRN Reason Stop Dose Admin Apixaban 5 mg 06/04/24 10:00 06/07/24 08:08 Apixaban 5 Mg Tablet PO 5 mg Q12HR BARTOLO Administration Calcium Carbonate 200 mg 06/03/24 21:22 06/05/24 12:22 Calcium Carbonate (Tums) 500 Mg (200 Mg Elemental) PO 200 mg Q6H PRN Administration Indigestion Doxycycline Hyclate 100 mg 06/03/24 21:00 06/07/24 08:08 Doxycycline Hyclate 100 Mg Tablet PO 06/07/24 21:01 100 mg Q12HR BARTOLO Administration Guaifenesin 1,200 mg 06/03/24 21:00 06/07/24 08:08 Guaifenesin 12 Hr 600 Mg Tabcr PO 1,200 mg Q12HR BARTOLO Administration Ceftriaxone Sodium 1 gm in 50 mls @ 100 mls/hr 06/04/24 12:00 06/06/24 12:00 Rocephin 1 Gm/Ns 50 Ml IVPB 06/07/24 12:29 100 mls/hr Q24H BARTOLO Administration Losartan Potassium 25 mg 06/07/24 09:00 06/07/24 08:08 Losartan Potassium 25 Mg Tablet PO 25 mg DAILY BARTOLO Administration Metoprolol Tartrate 12.5 mg 06/07/24 08:00 06/07/24 08:08 Metoprolol Tartrate 12.5 Mg Tablet PO 12.5 mg Q8H BARTOLO Administration Ondansetron HCl 4 mg 06/04/24 18:40 06/05/24 12:15 Ondansetron Inj 4 Mg/2 Ml Vial IV PUSH 4 mg Q6H PRN Administration Nausea And Vomiting Pantoprazole Sodium 40 mg 06/04/24 09:00 06/07/24 08:08 Pantoprazole 40 Mg Tablet PO 40 mg QAM BARTOLO Administration Rosuvastatin Calcium 20 mg 06/04/24 13:40 06/05/24 09:11 Rosuvastatin 20 Mg Tablet PO 20 mg DAILY BARTOLO Administration Radiology Results: ITS Impressions Chest/Abdomen/Pelvis CTA 06/03/24 10:56 IMPRESSION: CHEST: 1. No pulmonary embolism or dissection. 2. Multiple patchy opacities and groundglass appearance suggestive of pneumonia. Underlying pulmonary edema is not excluded although this is less likely. Clinical correlation advised. 3. Mediastinal lymphadenopathy. 4. Right pleural effusion. ABDOMEN/PELVIS: 1. No evidence of appendicitis, diverticulitis or intestinal obstruction. 2. Fat stranding around the neck of the gallbladder. Differential include cholecystitis versus ascending cholangitis versus duodenitis: although no thickening in the wall of the gallbladder or the duodenum is seen. Clinical correlation advised. 3. Fat infiltration of the liver. Hepatomegaly. 4. Fat-containing bilateral inguinal and umbilical hernias. Chest X-Ray 06/06/24 08:11 IMPRESSION: 1. Unchanged elevation of the left hemidiaphragm. No acute cardiopulmonary disease. 2. Cardiomegaly. Renal Ultrasound 06/06/24 14:19 IMPRESSION: No definite abnormality. Abdomen Ultrasound 06/06/24 14:22 IMPRESSION: Fat infiltration of the liver. Thickened wall of the gallbladder which may indicate cholecystitis. Clinical correlation advised. Minimal free fluid in the upper abdomen. Otherwise, normal limited abdominal ultrasound. Arterial/Peripheral Duplex 06/07/24 08:36 IMPRESSION: 1. Normal directional flow but with increased pulsatility to the hepatic venous waveforms and to lesser degree the portal venous waveforms consistent with congestive heart failure. 2. Diffuse hepatic steatosis with small amount of perihepatic ascites. Labs Labs: Laboratory Tests 06/07/24 03:51 06/07/24 03:51 PT 24.4 H INR 2.1 Calcium 8.5 Phosphorus 2.6 Magnesium 2.3 Total Bilirubin 1.4 H AST 1454 H ALT 2167 H Alkaline Phosphatase 83 Total Protein 6.0 L Albumin 3.1 L
[2024-06-07 09:41] LABS: Procalcitonin 0.7 ng/mL
--- NOTE | 2024-06-07 09:42 | PM.IMPN ---
Progress Note: A&P Assessment and Plan (1) Congestive heart failure: Code(s): I50.9 - Heart failure, unspecified Status: Acute (2) Atrial flutter with rapid ventricular response: Code(s): I48.92 - Unspecified atrial flutter Status: Acute (3) Elevated liver transaminase level: Code(s): R74.01 - Elevation of levels of liver transaminase levels Status: Acute (4) Acute kidney injury: Code(s): N17.9 - Acute kidney failure, unspecified Status: Acute (5) Community acquired pneumonia: Code(s): J18.9 - Pneumonia, unspecified organism Status: Acute Plan (1) Atrial flutter with rapid ventricular response: Code(s): I48.92 - Unspecified atrial flutter Status: Acute Assessment and Plan: Presented with a flutter with RVR HERI shows thrombus in left atrial appendage hence patient was not cardioverted Continue apixaban Resume beta-noah at a low rate c/w digoxin secured entrance monitor (2) Elevated liver transaminase level: Code(s): R74.01 - Elevation of levels of liver transaminase levels Status: Acute Assessment and Plan: Patient presented with elevated liver enzymes which sharply increased between 06/04 and 06/06 Patient has history of heavy alcohol intake, was also on statin and pictures likely consistent with ischemic hepatopathy likely from a flutter and poor cardiac output Negative viral hepatitis panel LFTs and now improving (3) Congestive heart failure: Code(s): I50.9 - Heart failure, unspecified Status: Acute Assessment and Plan: Patient will be resumed on beta-noah. Continue Cozaar Cardiology plans to resume Entresto (4) Hypertension: Code(s): I10 - Essential (primary) hypertension Status: Acute Assessment and Plan: Resume beta-noah Cardiology has started Cozaar (5) Hyperlipidemia: Code(s): E78.5 - Hyperlipidemia, unspecified Status: Acute Assessment and Plan: Statin was on hold because of elevated LFTs (6) Acute kidney injury: Code(s): N17.9 - Acute kidney failure, unspecified Status: Acute Assessment and Plan: secondary to poor cardiac output Monitor urine output electrolytes and creatinine Appreciate nephrology consultation Community acquired pneumonia: Code(s): J18.9 - Pneumonia, unspecified organism Status: Acute Assessment and Plan: Patient was started on empiric treatment for community-acquired pneumonia although his presentation is likely more consistent with pulmonary edema and congestive heart failure He is now afebrile and WBC has normalized Blood and sputum cultures have been negative He is on a course of Rocephin and doxycycline (8) Suspected sleep apnea: Code(s): R29.818 - Other symptoms and signs involving the nervous system Status: Acute Assessment and Plan: Patient has symptoms of obstructive sleep apnea. I recommended and encouraged patient to get tested as an outpatient and be compliant with CPAP if prescribed. Her monitoring and supplemental oxygen at this time in the hospital (9) Tobacco dependence: Code(s): F17.200 - Nicotine dependence, unspecified, uncomplicated Status: Acute Assessment and Plan: Patient was encouraged and counseled to quit smoking (10) Daily consumption of alcohol: Code(s): Z78.9 - Other specified health status Status: Acute Assessment and Plan: Patient was encouraged and counseled to cut down on alcohol intake. Monitor for signs of withdrawal. Plan DVT prophylaxis -apixaban Nutrition -diet ordered Code Status - Full Code Transferred to IMU Subjective Date/time seen: 06/07/24 09:42 Interval history: I saw exam patient presents of patient's mother. Patient feels comfortable, denies chest pain shortness breast abdomen pain nausea vomiting. Patient is afebrile, blood pressure stable, no O2 desaturation on room air, heart rate is better controlled, telemetry showed AFib Labs reviewed Exam Narrative: GENERAL: Ill-appearing, obesity, in no acute distress. Well-nourished. - EYES: EOMI. Anicteric. - HENT: Moist mucous membranes. - LUNGS: Coarse breath sound bilateral base - CARDIOVASCULAR: Irregular irregular rhythm. No murmur. No JVD. - ABDOMEN: Soft, non-tender and non-distended. No palpable masses. - EXTREMITIES: No edema. Peripheral pulses 2+. Non-tender. - NEUROLOGIC: No focal neurological deficits. CN II-XII grossly intact. - PSYCHIATRIC: Awake, Alert and oriented x 3. Appropriate mood and affect. - SKIN: No rashes or lesions. Warm. - LYMPH: No cervical lymphadenopathy. Objective Data Vital Signs Vital Signs: Vital Signs - 24 hr 06/06/24 10:00 06/06/24 11:56 06/06/24 12:00 Temperature 97.9 F Pulse Rate 93 84 84 Pulse Rate [Bilateral Radial Palpation] Respiratory Rate 16 Blood Pressure 101/72 Pulse Oximetry 98 Oxygen Delivery Oxygen Flow Rate 06/06/24 12:00 06/06/24 15:37 06/06/24 15:40 Temperature 98 F Pulse Rate 97 96 Pulse Rate [Bilateral Radial Palpation] Respiratory Rate 30 H Blood Pressure 124/95 H Pulse Oximetry 97 Oxygen Delivery Room Air Oxygen Flow Rate 06/06/24 15:50 06/06/24 16:00 06/06/24 16:00 Temperature Pulse Rate 98 94 Pulse Rate [Bilateral Radial Palpation] Respiratory Rate 30 H Blood Pressure 124/95 H 118/95 H Pulse Oximetry 96 95 Oxygen Delivery Room Air Oxygen Flow Rate 06/06/24 16:00 06/06/24 16:00 06/06/24 16:50 Temperature Pulse Rate 98 100 Pulse Rate [Bilateral Radial Palpation] 102 H Respiratory Rate Blood Pressure 153/87 H Pulse Oximetry Oxygen Delivery Oxygen Flow Rate 06/06/24 18:00 06/06/24 18:00 06/06/24 18:00 Temperature Pulse Rate 90 99 99 Pulse Rate [Bilateral Radial Palpation] Respiratory Rate 21 H Blood Pressure 132/88 132/88 Pulse Oximetry 96 Oxygen Delivery Oxygen Flow Rate 06/06/24 19:56 06/06/24 20:00 06/06/24 20:00 Temperature 98.8 F Pulse Rate 108 H Pulse Rate [Bilateral Radial Palpation] 108 H Respiratory Rate 27 H Blood Pressure 111/79 Pulse Oximetry 95 94 Oxygen Delivery Room Air Oxygen Flow Rate 06/06/24 20:00 06/06/24 20:00 06/06/24 20:00 Temperature 98 F Pulse Rate 108 H 106 H 115 H Pulse Rate [Bilateral Radial Palpation] Respiratory Rate 28 H Blood Pressure 111/79 111/79 Pulse Oximetry 93 Oxygen Delivery Oxygen Flow Rate 06/06/24 22:00 06/06/24 22:00 06/06/24 22:00 Temperature 98.3 F Pulse Rate 96 93 93 Pulse Rate [Bilateral Radial Palpation] Respiratory Rate 18 Blood Pressure 102/64 134/66 Pulse Oximetry 96 Oxygen Delivery Oxygen Flow Rate 06/06/24 23:36 06/06/24 23:36 06/07/24 00:00 Temperature 98.4 F Pulse Rate 111 H Pulse Rate [Bilateral Radial Palpation] 97 Respiratory Rate 27 H Blood Pressure 118/97 H Pulse Oximetry 96 93 Oxygen Delivery Nasal Cannula Oxygen Flow Rate 2 06/07/24 00:00 06/07/24 00:00 06/07/24 02:00 Temperature Pulse Rate 102 H 116 H 98 Pulse Rate [Bilateral Radial Palpation] Respiratory Rate 16 Blood Pressure 118/97 H 134/88 Pulse Oximetry 96 Oxygen Delivery Oxygen Flow Rate 06/07/24 02:00 06/07/24 02:00 06/07/24 03:41 Temperature Pulse Rate 94 94 118 H Pulse Rate [Bilateral Radial Palpation] Respiratory Rate Blood Pressure 134/88 126/100 H Pulse Oximetry Oxygen Delivery Oxygen Flow Rate 06/07/24 03:41 06/07/24 04:00 06/07/24 04:00 Temperature Pulse Rate 118 H 108 H Pulse Rate [Bilateral Radial Palpation] 108 H Respiratory Rate Blood Pressure 126/100 H Pulse Oximetry Oxygen Delivery Oxygen Flow Rate 06/07/24 04:00 06/07/24 04:00 06/07/24 04:00 Temperature 98.6 F Pulse Rate 115 H 115 H Pulse Rate [Bilateral Radial Palpation] Respiratory Rate 23 H Blood Pressure 143/102 H 143/102 H Pulse Oximetry 96 96 Oxygen Delivery Nasal Cannula Oxygen Flow Rate 2 06/07/24 06:00 06/07/24 06:00 06/07/24 06:00 Temperature Pulse Rate 114 H 117 H 117 H Pulse Rate [Bilateral Radial Palpation] Respiratory Rate 21 H Blood Pressure 138/94 H 138/94 H Pulse Oximetry 93 Oxygen Delivery Oxygen Flow Rate 06/07/24 07:25 06/07/24 07:43 06/07/24 08:00 Temperature 98.7 F Pulse Rate 119 H 117 H Pulse Rate [Bilateral Radial Palpation] 116 H Respiratory Rate 18 Blood Pressure 138/94 H 138/94 H 128/108 H Pulse Oximetry 97 Oxygen Delivery Oxygen Flow Rate 06/07/24 08:00 06/07/24 08:00 06/07/24 08:09 Temperature Pulse Rate 116 H 71 116 H Pulse Rate [Bilateral Radial Palpation] Respiratory Rate 18 Blood Pressure Pulse Oximetry 97 Oxygen Delivery Room Air Oxygen Flow Rate Intake/Output Intake/Output: Intake & Output 06/04/24 06/05/24 06/06/24 06/07/24 23:59 23:59 23:59 23:59 Intake Total 1030 1680 1231.3 838.2 Output Total 2211 519 5706 [address] [address] 1478 -768.7 -811.8 Meds/Results Medications: Active Medications Generic Name Dose Route Start Last Admin Trade Name Bobbyq PRN Reason Stop Dose Admin Apixaban 5 mg 06/04/24 10:00 06/07/24 08:08 Apixaban 5 Mg Tablet PO 5 mg Q12HR BARTOLO Administration Calcium Carbonate 200 mg 06/03/24 21:22 06/05/24 12:22 Calcium Carbonate (Tums) 500 Mg (200 Mg Elemental) PO 200 mg Q6H PRN Administration Indigestion Doxycycline Hyclate 100 mg 06/03/24 21:00 06/07/24 08:08 Doxycycline Hyclate 100 Mg Tablet PO 100 mg Q12HR BARTOLO Administration Guaifenesin 1,200 mg 06/03/24 21:00 06/07/24 08:08 Guaifenesin 12 Hr 600 Mg Tabcr PO 1,200 mg Q12HR BARTOLO Administration Ceftriaxone Sodium 1 gm in 50 mls @ 100 mls/hr 06/04/24 12:00 06/06/24 12:00 Rocephin 1 Gm/Ns 50 Ml IVPB 100 mls/hr Q24H BARTOLO Administration Losartan Potassium 25 mg 06/07/24 09:00 06/07/24 08:08 Losartan Potassium 25 Mg Tablet PO 25 mg DAILY BARTOLO Administration Metoprolol Tartrate 12.5 mg 06/07/24 08:00 06/07/24 08:08 Metoprolol Tartrate 12.5 Mg Tablet PO 12.5 mg Q8H BARTOLO Administration Ondansetron HCl 4 mg 06/04/24 18:40 06/05/24 12:15 Ondansetron Inj 4 Mg/2 Ml Vial IV PUSH 4 mg Q6H PRN Administration Nausea And Vomiting Pantoprazole Sodium 40 mg 06/04/24 09:00 06/07/24 08:08 Pantoprazole 40 Mg Tablet PO 40 mg QAM BARTOLO Administration Rosuvastatin Calcium 20 mg 06/04/24 13:40 06/05/24 09:11 Rosuvastatin 20 Mg Tablet PO 20 mg DAILY BARTOLO Administration Radiology Results: ITS Impressions Chest/Abdomen/Pelvis CTA 06/03/24 10:56 IMPRESSION: CHEST: 1. No pulmonary embolism or dissection. 2. Multiple patchy opacities and groundglass appearance suggestive of pneumonia. Underlying pulmonary edema is not excluded although this is less likely. Clinical correlation advised. 3. Mediastinal lymphadenopathy. 4. Right pleural effusion. ABDOMEN/PELVIS: 1. No evidence of appendicitis, diverticulitis or intestinal obstruction. 2. Fat stranding around the neck of the gallbladder. Differential include cholecystitis versus ascending cholangitis versus duodenitis: although no thickening in the wall of the gallbladder or the duodenum is seen. Clinical correlation advised. 3. Fat infiltration of the liver. Hepatomegaly. 4. Fat-containing bilateral inguinal and umbilical hernias. Chest X-Ray 06/06/24 08:11 IMPRESSION: 1. Unchanged elevation of the left hemidiaphragm. No acute cardiopulmonary disease. 2. Cardiomegaly. Renal Ultrasound 06/06/24 14:19 IMPRESSION: No definite abnormality. Abdomen Ultrasound 06/06/24 14:22 IMPRESSION: Fat infiltration of the liver. Thickened wall of the gallbladder which may indicate cholecystitis. Clinical correlation advised. Minimal free fluid in the upper abdomen. Otherwise, normal limited abdominal ultrasound. Arterial/Peripheral Duplex 06/07/24 08:36 IMPRESSION: 1. Normal directional flow but with increased pulsatility to the hepatic venous waveforms and to lesser degree the portal venous waveforms consistent with congestive heart failure. 2. Diffuse hepatic steatosis with small amount of perihepatic ascites. Labs Labs: Laboratory Results - last 24 hr 06/04/24 06/06/24 06/06/24 06:19 11:05 11:09 WBC RBC Hgb Hct MCV MCH MCHC RDW Plt Count MPV Immature Gran % (Auto) Neut % (Auto) Lymph % (Auto) [place] % (Auto) Eos % (Auto) Baso % (Auto) Lymph # (Auto) [place] # (Auto) Eos # (Auto) Baso # (Auto) Abs Immat Gran (auto) Absolute Neuts (auto) Absolute Nucleated RBC Nucleated RBC % ESR 12 PT INR Sodium 130 L Potassium 4.3 Chloride 100 Carbon Dioxide 27 Anion Gap 3 L BUN 47 H Creatinine 1.28 Estim Creat Clear Calc 94 Estimated GFR > 60 Glucose 131 H Lactic Acid Calcium 8.7 Phosphorus Magnesium Total Bilirubin 1.5 H AST 3190 H ALT 2970 H Alkaline Phosphatase 74 Total Creatine Kinase 276 H Total Protein 6.0 L Albumin 3.2 L Procalcitonin Urine Color Urine Appearance Urine pH Ur Specific [employer] Urine Protein Urine Glucose (UA) Urine Ketones Ur Blood (Man) Urine Nitrate Urine Bilirubin Urine Urobilinogen Ur Leukocyte Esterase Urine Eosinophils U Random Total Protein Ur Random Sodium Ur Random Urea Urine Creatinine Protein/Creat Ratio 2 Complement C3 Complement C4 Urine Pneumococcal Ag Not detected 06/06/24 06/06/24 06/06/24 11:10 15:04 18:04 WBC RBC Hgb Hct MCV MCH MCHC RDW Plt Count MPV Immature Gran % (Auto) Neut % (Auto) Lymph % (Auto) [place] % (Auto) Eos % (Auto) Baso % (Auto) Lymph # (Auto) [place] # (Auto) Eos # (Auto) Baso # (Auto) Abs Immat Gran (auto) Absolute Neuts (auto) Absolute Nucleated RBC Nucleated RBC % ESR PT INR Sodium Potassium Chloride Carbon Dioxide Anion Gap BUN Creatinine Estim Creat Clear Calc Estimated GFR Glucose Lactic Acid 1.2 Calcium Phosphorus Magnesium Total Bilirubin AST ALT Alkaline Phosphatase Total Creatine Kinase Total Protein Albumin Procalcitonin Urine Color Yellow Urine Appearance Clear Urine pH 5.5 Ur Specific [employer] 1.014 Urine Protein Negative Urine Glucose (UA) Negative Urine Ketones Negative Ur Blood (Man) Negative Urine Nitrate Negative Urine Bilirubin Negative Urine Urobilinogen 1.0 Ur Leukocyte Esterase Negative Urine Eosinophils U Random Total Protein 9 Ur Random Sodium 10 Ur Random Urea 961 Urine Creatinine 53.9 Protein/Creat Ratio 2 0.17 Complement C3 66 L Complement C4 15.5 Urine Pneumococcal Ag 06/07/24 06/07/24 06/07/24 00:15 03:51 08:38 WBC 8.4 RBC 4.46 L Hgb 13.9 L Hct 42.5 MCV 95.3 MCH 31.2 MCHC 32.7 RDW 12.3 Plt Count 234 MPV 10.4 Immature Gran % (Auto) 2.0 H Neut % (Auto) 68.4 Lymph % (Auto) 22.2 [place] % (Auto) 6.1 Eos % (Auto) 0.7 Baso % (Auto) 0.6 Lymph # (Auto) 1.86 [place] # (Auto) 0.5 Eos # (Auto) 0.1 Baso # (Auto) 0.1 Abs Immat Gran (auto) 0.17 H Absolute Neuts (auto) 5.7 Absolute Nucleated RBC 0.000 Nucleated RBC % 0.0 ESR PT 24.4 H D INR 2.1 Sodium 136 L Potassium 3.9 Chloride 104 Carbon Dioxide 26 Anion Gap 6 BUN 27 H D Creatinine 0.76 Estim Creat Clear Calc 154 Estimated GFR > 60 Glucose 88 Lactic Acid Calcium 8.5 Phosphorus 2.6 Magnesium 2.3 Total Bilirubin 1.4 H AST 1454 H ALT 2167 H Alkaline Phosphatase 83 Total Creatine Kinase Total Protein 6.0 L Albumin 3.1 L Procalcitonin 0.7 Urine Color Urine Appearance Urine pH Ur Specific [employer] Urine Protein Urine Glucose (UA) Urine Ketones Ur Blood (Man) Urine Nitrate Urine Bilirubin Urine Urobilinogen Ur Leukocyte Esterase Urine Eosinophils None seen U Random Total Protein Ur Random Sodium Ur Random Urea Urine Creatinine Protein/Creat Ratio 2 Complement C3 Complement C4 Urine Pneumococcal Ag
[2024-06-07 15:38] LABS: Kappa\\Lambda Light Chains 1.17 (0.26-1.65); Lambda Light Chain 23.8 mg/L (5.7-26.3)
[2024-06-07 17:57] LABS: Mycoplasma IgM Antibody Titer 63 U/mL
--- NOTE | 2024-06-07 18:12 | PM.EVENT ---
Event Note Event Note Event Note: Was called by bedside nursing that patient's heart rate jumped up into the 170s to 180s when trying to sit on side of bed. By the time I got over to the ICU he was back down to 119. Patient is here with a flutter in new onset CHF however he cannot be cardioverted due to thrombus in the left atrial appendage. He was started on metoprolol 12.5 mg t.i.d. and was given a dose of digoxin today. Considering patient's heart rate came back down but remains tachy we will go ahead and increase his metoprolol to 25 mg t.i.d.. We will give a 1 time dose of 12.5 mg now.
--- NOTE | 2024-06-07 18:36 | PC.NURSE ---
pt stood up and walked to bathroom with RN. upon finishing bm, pt HR went up to 220 and sustained for 2 minutes. This RN stayed with patient and encouraged coughing, bearing down, and blowing through straw and HR finally returned to the 110-120's range he was sustaining throughout the day.. director of special education notified in house provider Diana who promptly arrived. Updated Diana ZIGZAG APPLIQUER on situation and she went to adjust orders.
[2024-06-07] MEDS: METOPROLOL TARTRATE 25 MG TABLET PO (22:07)
[2024-06-08] VITALS (24 sets, daily range): BP systolic 107–146; BP diastolic 69–94; PULSE 97–123; RESP 20–23; TEMP 36.5–37; O2SAT 93–97
--- NOTE | 2024-06-08 00:20 | PC.NURSE ---
This patient, Barrett Guzman, was transferred to [ [id number]] on 06/08/24 at 0020. Personal belongings sent with patient. Report given to [Valerie BUI ]. Appropriate documentation sent with patient. , Kimberlyn notifed of transfer.
--- NOTE | 2024-06-08 00:56 | PC.NURSE ---
This patient, Barrett Guzman, was received from ICU-7 on 06/08/24 at 0025. Patient/family oriented to unit policies and routines
[2024-06-08 01:08] LABS: Legionella pneumophila Ag Ur NOT DETECTED
[2024-06-08 02:53] LABS: Protein, Total 5.3 g/dL (6.1-8.1)
[2024-06-08 02:53] LABS: Creatinine, Random Urine 41 mg/dL (20-320); Total Protein/Creatinine Ratio 220 mg/g creat (25-148)
[2024-06-08 04:34] LABS: Basophils Absolute Auto 0.1 K/mm3 (0.0-0.1); Basophils Percent Auto 0.9 % (0.2-1.2); Eosinophils Absolute Auto 0.3 K/mm3 (0-0.3); Eosinophils Percent Auto 3.5 % (0-4.4); Hematocrit 46.1 % (42.0-52.0); Hemoglobin 14.5 g/dL (14.0-18.0); Immature Granulocyte Absolute 0.17 K/mm3 (0.00-0.031); Immature Granulocyte Percent A 1.9 % (0-0.5); Lymphocytes Absolute Auto 2.14 K/mm3 (0.9-3.2); Lymphocytes Percent Auto 24.4 % (18.3-44.2); Mean Corpuscular HGB Conc 31.5 g/dl (32-36); Mean Corpuscular Hemoglobin 30.7 pg (26-34); Mean Corpuscular Volume 97.7 fl (80-100); Mean Platelet Volume 10.3 fl (7.4-10.4); Monocytes Absolute Auto 0.7 K/mm3 (0.1-0.6); Monocytes Percent Auto 8.4 % (2.6-8.5); Neutrophils Absolute Auto 5.3 K/mm3 (1.3-6.7); Neutrophils Percent Auto 60.9 % (45.5-73.1); Platelet Count Result 261 k/mm3 (150-375); Red Blood Count 4.72 M/mm3 (4.6-6.20); Red Cell Distribution Width 12.6 % (11.5-14.5); White Blood Count 8.8 K/mm3 (4.5-10.0)
[2024-06-08 05:07] LABS: Albumin Level 3.1 g/dL (3.5-5.1); Alkaline Phosphatase 88 U/L (38-126); Anion Gap 5 mmol/L (4-12); Aspartate Amino Transferase 603 U/L (17-59); Bilirubin,Total 1.4 mg/dL (0.2-1.3); Blood Urea Nitrogen 17 mg/dL (9-20); Calcium 8.2 mg/dL (8.4-10.2); Carbon Dioxide 28 mmol/L (22-30); Chloride 107 mmol/L (98-107); Estimated CRCL calculation 139 ml/min; Estimated Glomerular Filt Rate > 60; Glucose 91 mg/dL (65-110); Magnesium 2.2 mg/dL (1.6-2.3); Phosphorus 3.4 mg/dL (2.5-4.5); Sodium 140 mmol/L (137-145)
[2024-06-08 05:08] LABS: INR 1.6; Prothrombin Time 19.3 Seconds (11.1-14.7)
[2024-06-08 05:14] LABS: Alanine Aminotransferase 1602 U/L (6-50)
[2024-06-08] MEDS: METOPROLOL TARTRATE 25 MG TABLET PO (06:09)
[2024-06-08] MEDS: PANTOPRAZOLE 40 MG TABLET PO (08:32)
[2024-06-08] MEDS: guaiFENesin 12 HR 600 MG TABCR 1200 MG PO ×2 (08:32→20:31)
[2024-06-08] MEDS: APIXABAN 5 MG TABLET PO ×2 (08:32→20:31)
[2024-06-08] MEDS: LOSARTAN POTASSIUM 25 MG TABLET PO (08:32)
--- NOTE | 2024-06-08 08:37 | P.PNCA_ITS ---
Progress Note: A&P Assessment and Plan (1) Atrial flutter with rapid ventricular response: Code(s): I48.92 - Unspecified atrial flutter Status: Acute Assessment and Plan: Continue Eliquis for anticoagulation. He does have left atrial appendage thrombus and will need at minimum 4 weeks of anticoagulation before consideration of cardioversion. Heart rate reasonably controlled with diltiazem and metoprolol. (2) Hypertension: Code(s): I10 - Essential (primary) hypertension Status: Chronic Assessment and Plan: Continue diltiazem and metoprolol. May add an Arb or Entresto depending on results of echo (3) Congestive heart failure: Code(s): I50.9 - Heart failure, unspecified Status: Acute Assessment and Plan: Echo pending. Will adjust regimen depending on results of echo (4) Hyperlipidemia: Code(s): E78.5 - Hyperlipidemia, unspecified Status: Acute Assessment and Plan: On rosuvastatin (5) Daily consumption of alcohol: Code(s): Z78.9 - Other specified health status Status: Acute Assessment and Plan: Alcohol cessation recommend (6) Suspected sleep apnea: Code(s): R29.818 - Other symptoms and signs involving the nervous system Status: Acute Assessment and Plan: Check an ApneaLink for tonight Plan 1. Acute on chronic systolic HF NYHA IV, Stage C 2. Cardiogenic Shock; improving 3. Atrial Flutter 4. HTN 5. Shock Liver/SAMREEN; improving -off Dobutamine -continue losartan at current dose 25 mg p.o. daily -switched to Toprol-XL, 25 mg p.o. b.i.d. -will switch losartan to Entresto tomorrow -give 1 dose of IV digoxin, 0.5 mg -continue anticoagulation -possible discharge in 1-2 days Subjective Date/time seen: 06/08/24 08:37 Interval history: 48-year-old with atrial flutter Date of service 06/05/2024: Generally heart rate around 110. Periodically will go faster. Seems a little short of breath today with no chest pain. Date of service 06/06/2024: No chest pain, BP soft, slightly tachycardic Liver enzymes markedly elevated Creatinine 0.69, 1.44 --> 1.28 06/07/2024: Transfer to the ICU yesterday No acute events overnight Liver function improving Renal function normalized Sternal atrial flutter, rates between 115-120 06/08/2024): No acute events overnight Feeling better -3 L in last 48 hours Creatinine 0.83, back to normal Improving liver function HR still a little elevated Review of Systems Review of Systems: All systems reviewed & are unremarkable except as noted in HPI and below Constitutional: Constitutional: Denies body ache(s) and Denies excessive sweating Eyes: Eyes: Denies blurry vision ENT: Denies Normal hearing present Cardiovascular: Cardiovascular: Denies diaphoresis Respiratory: Respiratory: Denies chest congestion Gastrointestinal: Gastrointestinal: Denies abdominal pain Genitourinary: Genitourinary: Denies hematuria Musculoskeletal: Musculoskeletal: Denies back pain Integumentary/Breasts: Skin/Breast: Denies dry skin Neurologic: Denies Normal hearing present, Denies Abnormal speech present and Denies confusion Psychiatric: Psychiatric: Denies confusion Endocrine: Endocrine: Denies excessive sweating Hematologic/Lymphatic: Hematologic/Lymphatic: Denies easy bruising Allergic/Immunologic: Allergic/Immunologic: Denies GI upset with certain foods Exam Const: General: comfortable and no acute distress; No confusion Orientation/consciousness: No confusion HENMT: Mouth: Yes moist mucous membranes Eyes: General: appearance normal, both eyes and all related structures S clera: sclerae normal Resp: Effort & Inspection: normal respiratory effort Cardio: Rate: tachycardic Rhythm: regular rhythm Heart sounds: no murmurs Other: Tele with atrial flutter with RVR Skin: General skin exam: normal color Neuro: General: No confusion Cranial nerves: No Normal hearing present Speech: normal speech and No Abnormal speech present Psych: Mental Status: mental status grossly normal Affect: normal affect Objective Data Vital Signs Vital Signs: Vital Signs - 24 hr 06/07/24 10:06/07/24 10:06/07/24 12:00 Temperature Pulse Rate 116 H 116 H Pulse Rate [Bilateral Radial Palpation] 116 H Respiratory Rate 18 Blood Pressure 125/87 138/94 H Pulse Oximetry 95 Oxygen Delivery Oxygen Flow Rate Fraction of Inspired Oxygen 06/07/24 12:00 06/07/24 12:00 06/07/24 12:00 Temperature 36.7 C Pulse Rate 117 H 116 H 112 H Pulse Rate [Bilateral Radial Palpation] Respiratory Rate 18 21 H Blood Pressure 132/83 Pulse Oximetry 97 99 Oxygen Delivery Room Air Oxygen Flow Rate Fraction of Inspired Oxygen 06/07/24 14:00 06/07/24 15:36 06/07/24 16:00 Temperature Pulse Rate 114 H 114 H Pulse Rate [Bilateral Radial Palpation] 116 H Respiratory Rate Blood Pressure 138/94 H Pulse Oximetry Oxygen Delivery Oxygen Flow Rate Fraction of Inspired Oxygen 06/07/24 16:00 06/07/24 16:00 06/07/24 16:00 Temperature 37.1 C Pulse Rate 118 H 116 H 114 H Pulse Rate [Bilateral Radial Palpation] Respiratory Rate 18 24 H Blood Pressure 124/100 H Pulse Oximetry 97 91 Oxygen Delivery Room Air Oxygen Flow Rate Fraction of Inspired Oxygen 06/07/24 18:00 06/07/24 19:37 06/07/24 20:00 Temperature Pulse Rate 120 H 117 H Pulse Rate [Bilateral Radial Palpation] Respiratory Rate Blood Pressure Pulse Oximetry 96 Oxygen Delivery Room Air Oxygen Flow Rate Fraction of Inspired Oxygen 06/07/24 20:00 06/07/24 20:00 06/07/24 21:07 Temperature 36.5 C Pulse Rate 118 H 118 H 115 H Pulse Rate [Bilateral Radial Palpation] Respiratory Rate 27 H 20 Blood Pressure 142/102 H Pulse Oximetry 96 93 Oxygen Delivery Room Air Oxygen Flow Rate Fraction of Inspired Oxygen 21 06/07/24 22:00 06/07/24 22:07 06/08/24 00:00 Temperature Pulse Rate 116 H 117 H Pulse Rate [Bilateral Radial Palpation] Respiratory Rate Blood Pressure Pulse Oximetry 95 Oxygen Delivery Nasal Cannula Oxygen Flow Rate 2 Fraction of Inspired Oxygen 06/08/24 00:00 06/08/24 00:00 06/08/24 02:00 Temperature 36.7 C Pulse Rate 115 H 116 H 114 H Pulse Rate [Bilateral Radial Palpation] Respiratory Rate 23 H Blood Pressure 130/94 H Pulse Oximetry 95 Oxygen Delivery Oxygen Flow Rate Fraction of Inspired Oxygen 06/08/24 04:00 06/08/24 04:00 06/08/24 04:00 Temperature Pulse Rate 114 H Pulse Rate [Bilateral Radial Palpation] 99 Respiratory Rate Blood Pressure Pulse Oximetry 95 Oxygen Delivery Nasal Cannula Oxygen Flow Rate 2 Fraction of Inspired Oxygen 06/08/24 04:40 06/08/24 05:48 06/08/24 06:09 Temperature 36.5 C Pulse Rate 116 H 98 103 H Pulse Rate [Bilateral Radial Palpation] Respiratory Rate 22 H Blood Pressure 119/69 Pulse Oximetry 96 Oxygen Delivery Oxygen Flow Rate Fraction of Inspired Oxygen 06/08/24 08:11 Temperature 37.0 C Pulse Rate 116 H Pulse Rate [Bilateral Radial Palpation] Respiratory Rate 22 H Blood Pressure 107/72 Pulse Oximetry 95 Oxygen Delivery Oxygen Flow Rate Fraction of Inspired Oxygen Intake/Output Intake/Output: Intake & Output 06/05/24 06/06/24 06/07/24 06/08/24 23:59 23:59 23:59 23:59 Intake Total 1680 1281.3 1318.2 550 Output Total 202 2000 3700 1200 Balance 1478 -718.7 -2381.8 -650 Meds/Results Medications: Active Medications Generic Name Dose Route Start Last Admin Trade Name Freq PRN Reason Stop Dose Admin Apixaban 5 mg 06/04/24 10:00 06/08/24 08:32 Apixaban 5 Mg Tablet PO 5 mg Q12HR BARTOLO Administration Calcium Carbonate 200 mg 06/03/24 21:22 06/05/24 12:22 Calcium Carbonate (Tums) 500 Mg (200 Mg Elemental) PO 200 mg Q6H PRN Administration Indigestion Digoxin 500 mcg 06/08/24 08:35 Digoxin Inj 250 Mcg/Ml 2 Ml Amp (*Bkc) IV PUSH 06/08/24 08:36 ONCE ONE Guaifenesin 1,200 mg 06/03/24 21:00 06/08/24 08:32 Guaifenesin 12 Hr 600 Mg Tabcr PO 1,200 mg Q12HR BARTOLO Administration Losartan Potassium 25 mg 06/07/24 09:00 06/08/24 08:32 Losartan Potassium 25 Mg Tablet PO 25 mg DAILY BARTOLO Administration Metoprolol Succinate 12.5 mg 06/08/24 09:00 Metoprolol Succinate Ext Rel 12.5 Mg Tabcr PO BID BARTOLO Ondansetron HCl 4 mg 06/04/24 18:40 06/05/24 12:15 Ondansetron Inj 4 Mg/2 Ml Vial IV PUSH 4 mg Q6H PRN Administration Nausea And Vomiting Pantoprazole Sodium 40 mg 06/04/24 09:00 06/08/24 08:32 Pantoprazole 40 Mg Tablet PO 40 mg QAM BARTOLO Administration Rosuvastatin Calcium 20 mg 06/04/24 13:40 06/05/24 09:11 Rosuvastatin 20 Mg Tablet PO 20 mg DAILY BARTOLO Administration Radiology Results: ITS Impressions Chest/Abdomen/Pelvis CTA 06/03/24 10:56 IMPRESSION: CHEST: 1. No pulmonary embolism or dissection. 2. Multiple patchy opacities and groundglass appearance suggestive of pneumonia. Underlying pulmonary edema is not excluded although this is less likely. Clinical correlation advised. 3. Mediastinal lymphadenopathy. 4. Right pleural effusion. ABDOMEN/PELVIS: 1. No evidence of appendicitis, diverticulitis or intestinal obstruction. 2. Fat stranding around the neck of the gallbladder. Differential include cholecystitis versus ascending cholangitis versus duodenitis: although no thickening in the wall of the gallbladder or the duodenum is seen. Clinical correlation advised. 3. Fat infiltration of the liver. Hepatomegaly. 4. Fat-containing bilateral inguinal and umbilical hernias. Chest X-Ray 06/06/24 08:11 IMPRESSION: 1. Unchanged elevation of the left hemidiaphragm. No acute cardiopulmonary disease. 2. Cardiomegaly. Renal Ultrasound 06/06/24 14:19 IMPRESSION: No definite abnormality. Abdomen Ultrasound 06/06/24 14:22 IMPRESSION: Fat infiltration of the liver. Thickened wall of the gallbladder which may indicate cholecystitis. Clinical correlation advised. Minimal free fluid in the upper abdomen. Otherwise, normal limited abdominal ultrasound. Arterial/Peripheral Duplex 06/07/24 08:36 IMPRESSION: 1. Normal directional flow but with increased pulsatility to the hepatic venous waveforms and to lesser degree the portal venous waveforms consistent with congestive heart failure. 2. Diffuse hepatic steatosis with small amount of perihepatic ascites. Labs Labs: Laboratory Results - last 24 hr 06/03/24 06/04/24 06/06/24 15:13 06:19 11:10 WBC RBC Hgb Hct MCV MCH MCHC RDW Plt Count MPV Immature Gran % (Auto) Neut % (Auto) Lymph % (Auto) [place] % (Auto) Eos % (Auto) Baso % (Auto) Lymph # (Auto) [place] # (Auto) Eos # (Auto) Baso # (Auto) Abs Immat Gran (auto) Absolute Neuts (auto) Absolute Nucleated RBC Nucleated RBC % PT INR Sodium Potassium Chloride Carbon Dioxide Anion Gap BUN Creatinine Estim Creat Clear Calc Estimated GFR Glucose Calcium Phosphorus Magnesium Total Bilirubin AST ALT Alkaline Phosphatase Total Protein Albumin Procalcitonin Ur Random Creatinine U Random Total Protein Protein/Creatinin Ratio Anti-DNA Antibody [place]/Lambda Ratio 1.17 Free [place] Light Chains 27.9 H Free Lambda Light Chain 23.8 Ur L.pneumophila Ag Not detected Mycoplasma pneumon IgM 63 06/07/24 06/07/24 06/07/24 00:15 03:52 08:38 WBC RBC Hgb Hct MCV MCH MCHC RDW Plt Count MPV Immature Gran % (Auto) Neut % (Auto) Lymph % (Auto) [place] % (Auto) Eos % (Auto) Baso % (Auto) Lymph # (Auto) [place] # (Auto) Eos # (Auto) Baso # (Auto) Abs Immat Gran (auto) Absolute Neuts (auto) Absolute Nucleated RBC Nucleated RBC % PT INR Sodium Potassium Chloride Carbon Dioxide Anion Gap BUN Creatinine Estim Creat Clear Calc Estimated GFR Glucose Calcium Phosphorus Magnesium Total Bilirubin AST ALT Alkaline Phosphatase Total Protein 5.3 L Albumin Procalcitonin 0.7 Ur Random Creatinine 41 U Random Total Protein 9 Protein/Creatinin Ratio 220 H Anti-DNA Antibody <1 [place]/Lambda Ratio Free [place] Light Chains Free Lambda Light Chain Ur L.pneumophila Ag Mycoplasma pneumon IgM 06/08/24 04:14 WBC 8.8 RBC 4.72 Hgb 14.5 Hct 46.1 MCV 97.7 MCH 30.7 MCHC 31.5 L RDW 12.6 Plt Count 261 MPV 10.3 Immature Gran % (Auto) 1.9 H Neut % (Auto) 60.9 Lymph % (Auto) 24.4 [place] % (Auto) 8.4 Eos % (Auto) 3.5 Baso % (Auto) 0.9 Lymph # (Auto) 2.14 [place] # (Auto) 0.7 H Eos # (Auto) 0.3 Baso # (Auto) 0.1 Abs Immat Gran (auto) 0.17 H Absolute Neuts (auto) 5.3 Absolute Nucleated RBC 0.000 Nucleated RBC % 0.0 PT 19.3 H D INR 1.6 Sodium 140 Potassium 4.0 Chloride 107 Carbon Dioxide 28 Anion Gap 5 BUN 17 D Creatinine 0.83 Estim Creat Clear Calc 139 Estimated GFR > 60 Glucose 91 Calcium 8.2 L Phosphorus 3.4 Magnesium 2.2 Total Bilirubin 1.4 H AST 603 H ALT 1602 H Alkaline Phosphatase 88 Total Protein 6.0 L Albumin 3.1 L Procalcitonin Ur Random Creatinine U Random Total Protein Protein/Creatinin Ratio Anti-DNA Antibody [place]/Lambda Ratio Free [place] Light Chains Free Lambda Light Chain Ur L.pneumophila Ag Mycoplasma pneumon IgM
--- NOTE | 2024-06-08 09:13 | PM.IMPN ---
Progress Note: A&P Assessment and Plan (1) Congestive heart failure: Code(s): I50.9 - Heart failure, unspecified Status: Acute (2) Atrial flutter with rapid ventricular response: Code(s): I48.92 - Unspecified atrial flutter Status: Acute (3) Elevated liver transaminase level: Code(s): R74.01 - Elevation of levels of liver transaminase levels Status: Acute (4) Acute kidney injury: Code(s): N17.9 - Acute kidney failure, unspecified Status: Acute (5) Community acquired pneumonia: Code(s): J18.9 - Pneumonia, unspecified organism Status: Acute Plan (1) Atrial flutter with rapid ventricular response: Code(s): I48.92 - Unspecified atrial flutter Status: Acute Assessment and Plan: Presented with a flutter with RVR HERI shows thrombus in left atrial appendage hence patient was not cardioverted Continue apixaban Resume beta-noah at a low rate c/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 (2) Elevated liver transaminase level: Code(s): R74.01 - Elevation of levels of liver transaminase levels Status: Acute Assessment and Plan: Patient presented with elevated liver enzymes which sharply increased between 06/04 and 06/06 Patient has history of heavy alcohol intake, was also on statin and pictures likely consistent with ischemic hepatopathy likely from a flutter and poor cardiac output Negative viral hepatitis panel LFTs and now improving (3) Congestive heart failure: Code(s): I50.9 - Heart failure, unspecified Status: Acute Assessment and Plan: Left ventricular systolic function is severely reduced, estimated at 20-25%. Patient will be resumed on beta-noah. Continue Cozaar Cardiology plans to resume Entresto (4) Hypertension: Code(s): I10 - Essential (primary) hypertension Status: Acute Assessment and Plan: Resume beta-noah Cardiology has started Cozaar (5) Hyperlipidemia: Code(s): E78.5 - Hyperlipidemia, unspecified Status: Acute Assessment and Plan: Statin was on hold because of elevated LFTs (6) Acute kidney injury: Code(s): N17.9 - Acute kidney failure, unspecified Status: Acute Assessment and Plan: secondary to poor cardiac output Monitor urine output electrolytes and creatinine Appreciate nephrology consultation Community acquired pneumonia: Code(s): J18.9 - Pneumonia, unspecified organism Status: Acute Assessment and Plan: Patient was started on empiric treatment for community-acquired pneumonia although his presentation is likely more consistent with pulmonary edema and congestive heart failure He is now afebrile and WBC has normalized Blood and sputum cultures have been negative He is on a course of Rocephin and doxycycline procal 0.7 (8) Suspected sleep apnea: Code(s): R29.818 - Other symptoms and signs involving the nervous system Status: Acute Assessment and Plan: Patient has symptoms of obstructive sleep apnea. I recommended and encouraged patient to get tested as an outpatient and be compliant with CPAP if prescribed. Her monitoring and supplemental oxygen at this time in the hospital (9) Tobacco dependence: Code(s): F17.200 - Nicotine dependence, unspecified, uncomplicated Status: Acute Assessment and Plan: Patient was encouraged and counseled to quit smoking (10) Daily consumption of alcohol: Code(s): Z78.9 - Other specified health status Status: Acute Assessment and Plan: Patient was encouraged and counseled to cut down on alcohol intake. Monitor for signs of withdrawal. Plan DVT prophylaxis -apixaban Nutrition -diet ordered Code Status - Full Code Transferred to IMU Subjective Date/time seen: 06/08/24 09:13 Interval history: I saw exam patient today, patient feels comfortable, denies chest pain shortness breast, patient ambulates Bjorn soft bathroom, still had significant tachycardia patient was walking Exam Narrative: GENERAL: Ill-appearing, obesity, in no acute distress. Well-nourished. - EYES: EOMI. Anicteric. - HENT: Moist mucous membranes. - LUNGS: Coarse breath sound bilateral base - CARDIOVASCULAR: Irregular irregular rhythm. No murmur. No JVD. - ABDOMEN: Soft, non-tender and non-distended. No palpable masses. - EXTREMITIES: No edema. Peripheral pulses 2+. Non-tender. - NEUROLOGIC: No focal neurological deficits. CN II-XII grossly intact. - PSYCHIATRIC: Awake, Alert and oriented x 3. Appropriate mood and affect. - SKIN: No rashes or lesions. Warm. - LYMPH: No cervical lymphadenopathy. Objective Data Vital Signs Vital Signs: Vital Signs - 24 hr 06/07/24 10:00 06/07/24 10:06/07/24 12:00 Temperature Pulse Rate 116 H 116 H Pulse Rate [Bilateral Radial Palpation] 116 H Respiratory Rate 18 Blood Pressure 125/87 138/94 H Pulse Oximetry 95 Oxygen Delivery Oxygen Flow Rate Fraction of Inspired Oxygen 06/07/24 12:00 06/07/24 12:00 06/07/24 12:00 Temperature 98.1 F Pulse Rate 117 H 116 H 112 H Pulse Rate [Bilateral Radial Palpation] Respiratory Rate 18 21 H Blood Pressure 132/83 Pulse Oximetry 97 99 Oxygen Delivery Room Air Oxygen Flow Rate Fraction of Inspired Oxygen 06/07/24 14:00 06/07/24 15:36 06/07/24 16:00 Temperature Pulse Rate 114 H 114 H Pulse Rate [Bilateral Radial Palpation] 116 H Respiratory Rate Blood Pressure 138/94 H Pulse Oximetry Oxygen Delivery Oxygen Flow Rate Fraction of Inspired Oxygen 06/07/24 16:00 06/07/24 16:00 06/07/24 16:00 Temperature 98.8 F Pulse Rate 118 H 116 H 114 H Pulse Rate [Bilateral Radial Palpation] Respiratory Rate 18 24 H Blood Pressure 124/100 H Pulse Oximetry 97 91 Oxygen Delivery Room Air Oxygen Flow Rate Fraction of Inspired Oxygen 06/07/24 18:00 06/07/24 19:37 06/07/24 20:00 Temperature Pulse Rate 120 H 117 H Pulse Rate [Bilateral Radial Palpation] Respiratory Rate Blood Pressure Pulse Oximetry 96 Oxygen Delivery Room Air Oxygen Flow Rate Fraction of Inspired Oxygen 06/07/24 20:00 06/07/24 20:00 06/07/24 21:07 Temperature 97.7 F Pulse Rate 118 H 118 H 115 H Pulse Rate [Bilateral Radial Palpation] Respiratory Rate 27 H 20 Blood Pressure 142/102 H Pulse Oximetry 96 93 Oxygen Delivery Room Air Oxygen Flow Rate Fraction of Inspired Oxygen 21 06/07/24 22:00 06/07/24 22:07 06/08/24 00:00 Temperature Pulse Rate 116 H 117 H Pulse Rate [Bilateral Radial Palpation] Respiratory Rate Blood Pressure Pulse Oximetry 95 Oxygen Delivery Nasal Cannula Oxygen Flow Rate 2 Fraction of Inspired Oxygen 06/08/24 00:00 06/08/24 00:00 06/08/24 02:00 Temperature 98.0 F Pulse Rate 115 H 116 H 114 H Pulse Rate [Bilateral Radial Palpation] Respiratory Rate 23 H Blood Pressure 130/94 H Pulse Oximetry 95 Oxygen Delivery Oxygen Flow Rate Fraction of Inspired Oxygen 06/08/24 04:00 06/08/24 04:00 06/08/24 04:00 Temperature Pulse Rate 114 H Pulse Rate [Bilateral Radial Palpation] 99 Respiratory Rate Blood Pressure Pulse Oximetry 95 Oxygen Delivery Nasal Cannula Oxygen Flow Rate 2 Fraction of Inspired Oxygen 06/08/24 04:40 06/08/24 05:48 06/08/24 06:09 Temperature 97.7 F Pulse Rate 116 H 98 103 H Pulse Rate [Bilateral Radial Palpation] Respiratory Rate 22 H Blood Pressure 119/69 Pulse Oximetry 96 Oxygen Delivery Oxygen Flow Rate Fraction of Inspired Oxygen 06/08/24 08:11 Temperature 98.6 F Pulse Rate 116 H Pulse Rate [Bilateral Radial Palpation] Respiratory Rate 22 H Blood Pressure 107/72 Pulse Oximetry 95 Oxygen Delivery Oxygen Flow Rate Fraction of Inspired Oxygen Intake/Output Intake/Output: Intake & Output 06/05/24 06/06/24 06/07/24 06/08/24 23:59 23:59 23:59 23:59 Intake Total 1680 1281.3 1318.2 1150 Output Total 202 2000 3700 1200 Balance 1478 -718.7 -2381.8 -50 Meds/Results Medications: Active Medications Generic Name Dose Route Start Last Admin Trade Name Freq PRN Reason Stop Dose Admin Apixaban 5 mg 06/04/24 10:00 06/08/24 08:32 Apixaban 5 Mg Tablet PO 5 mg Q12HR BARTOLO Administration Calcium Carbonate 200 mg 06/03/24 21:22 06/05/24 12:22 Calcium Carbonate (Tums) 500 Mg (200 Mg Elemental) PO 200 mg Q6H PRN Administration Indigestion Empagliflozin 10 mg 06/08/24 09:00 Empagliflozin 10 Mg Tablet PO DAILY BARTOLO Guaifenesin 1,200 mg 06/03/24 21:00 06/08/24 08:32 Guaifenesin 12 Hr 600 Mg Tabcr PO 1,200 mg Q12HR BARTOLO Administration Losartan Potassium 25 mg 06/07/24 09:00 06/08/24 08:32 Losartan Potassium 25 Mg Tablet PO 25 mg DAILY BARTOLO Administration Metoprolol Succinate 12.5 mg 06/08/24 17:00 Metoprolol Succinate Ext Rel 12.5 Mg Tabcr PO BID BARTOLO Ondansetron HCl 4 mg 06/04/24 18:40 06/05/24 12:15 Ondansetron Inj 4 Mg/2 Ml Vial IV PUSH 4 mg Q6H PRN Administration Nausea And Vomiting Pantoprazole Sodium 40 mg 06/04/24 09:00 06/08/24 08:32 Pantoprazole 40 Mg Tablet PO 40 mg QAM BARTOLO Administration Rosuvastatin Calcium 20 mg 06/04/24 13:40 06/05/24 09:11 Rosuvastatin 20 Mg Tablet PO 20 mg DAILY BARTOLO Administration Radiology Results: ITS Impressions Chest/Abdomen/Pelvis CTA 06/03/24 10:56 IMPRESSION: CHEST: 1. No pulmonary embolism or dissection. 2. Multiple patchy opacities and groundglass appearance suggestive of pneumonia. Underlying pulmonary edema is not excluded although this is less likely. Clinical correlation advised. 3. Mediastinal lymphadenopathy. 4. Right pleural effusion. ABDOMEN/PELVIS: 1. No evidence of appendicitis, diverticulitis or intestinal obstruction. 2. Fat stranding around the neck of the gallbladder. Differential include cholecystitis versus ascending cholangitis versus duodenitis: although no thickening in the wall of the gallbladder or the duodenum is seen. Clinical correlation advised. 3. Fat infiltration of the liver. Hepatomegaly. 4. Fat-containing bilateral inguinal and umbilical hernias. Chest X-Ray 06/06/24 08:11 IMPRESSION: 1. Unchanged elevation of the left hemidiaphragm. No acute cardiopulmonary disease. 2. Cardiomegaly. Renal Ultrasound 06/06/24 14:19 IMPRESSION: No definite abnormality. Abdomen Ultrasound 06/06/24 14:22 IMPRESSION: Fat infiltration of the liver. Thickened wall of the gallbladder which may indicate cholecystitis. Clinical correlation advised. Minimal free fluid in the upper abdomen. Otherwise, normal limited abdominal ultrasound. Arterial/Peripheral Duplex 06/07/24 08:36 IMPRESSION: 1. Normal directional flow but with increased pulsatility to the hepatic venous waveforms and to lesser degree the portal venous waveforms consistent with congestive heart failure. 2. Diffuse hepatic steatosis with small amount of perihepatic ascites. Labs Labs: Laboratory Results - last 24 hr 06/03/24 06/04/24 06/06/24 15:13 06:19 11:10 WBC RBC Hgb Hct MCV MCH MCHC RDW Plt Count MPV Immature Gran % (Auto) Neut % (Auto) Lymph % (Auto) [place] % (Auto) Eos % (Auto) Baso % (Auto) Lymph # (Auto) [place] # (Auto) Eos # (Auto) Baso # (Auto) Abs Immat Gran (auto) Absolute Neuts (auto) Absolute Nucleated RBC Nucleated RBC % PT INR Sodium Potassium Chloride Carbon Dioxide Anion Gap BUN Creatinine Estim Creat Clear Calc Estimated GFR Glucose Calcium Phosphorus Magnesium Total Bilirubin AST ALT Alkaline Phosphatase Total Protein Albumin Procalcitonin Ur Random Creatinine U Random Total Protein Protein/Creatinin Ratio Anti-DNA Antibody [place]/Lambda Ratio 1.17 Free [place] Light Chains 27.9 H Free Lambda Light Chain 23.8 Ur L.pneumophila Ag Not detected Mycoplasma pneumon IgM 63 06/07/24 06/07/24 06/07/24 00:15 03:52 08:38 WBC RBC Hgb Hct MCV MCH MCHC RDW Plt Count MPV Immature Gran % (Auto) Neut % (Auto) Lymph % (Auto) [place] % (Auto) Eos % (Auto) Baso % (Auto) Lymph # (Auto) [place] # (Auto) Eos # (Auto) Baso # (Auto) Abs Immat Gran (auto) Absolute Neuts (auto) Absolute Nucleated RBC Nucleated RBC % PT INR Sodium Potassium Chloride Carbon Dioxide Anion Gap BUN Creatinine Estim Creat Clear Calc Estimated GFR Glucose Calcium Phosphorus Magnesium Total Bilirubin AST ALT Alkaline Phosphatase Total Protein 5.3 L Albumin Procalcitonin 0.7 Ur Random Creatinine 41 U Random Total Protein 9 Protein/Creatinin Ratio 220 H Anti-DNA Antibody <1 [place]/Lambda Ratio Free [place] Light Chains Free Lambda Light Chain Ur L.pneumophila Ag Mycoplasma pneumon IgM 06/08/24 04:14 WBC 8.8 RBC 4.72 Hgb 14.5 Hct 46.1 MCV 97.7 MCH 30.7 MCHC 31.5 L RDW 12.6 Plt Count 261 MPV 10.3 Immature Gran % (Auto) 1.9 H Neut % (Auto) 60.9 Lymph % (Auto) 24.4 [place] % (Auto) 8.4 Eos % (Auto) 3.5 Baso % (Auto) 0.9 Lymph # (Auto) 2.14 [place] # (Auto) 0.7 H Eos # (Auto) 0.3 Baso # (Auto) 0.1 Abs Immat Gran (auto) 0.17 H Absolute Neuts (auto) 5.3 Absolute Nucleated RBC 0.000 Nucleated RBC % 0.0 PT 19.3 H D INR 1.6 Sodium 140 Potassium 4.0 Chloride 107 Carbon Dioxide 28 Anion Gap 5 BUN 17 D Creatinine 0.83 Estim Creat Clear Calc 139 Estimated GFR > 60 Glucose 91 Calcium 8.2 L Phosphorus 3.4 Magnesium 2.2 Total Bilirubin 1.4 H AST 603 H ALT 1602 H Alkaline Phosphatase 88 Total Protein 6.0 L Albumin 3.1 L Procalcitonin Ur Random Creatinine U Random Total Protein Protein/Creatinin Ratio Anti-DNA Antibody [place]/Lambda Ratio Free [place] Light Chains Free Lambda Light Chain Ur L.pneumophila Ag Mycoplasma pneumon IgM
[2024-06-08] MEDS: DIGOXIN INJ 250 MCG/ML 2 ML AMP (*BKC) 500 MCG IV PUSH (09:14)
[2024-06-08] MEDS: EMPAGLIFLOZIN 10 MG TABLET PO (09:14)
--- NOTE | 2024-06-08 09:20 | P.PNNP_ITS ---
Progress Note: A&P Assessment and Plan (1) Acute kidney injury: Code(s): N17.9 - Acute kidney failure, unspecified Status: Acute Assessment and Plan: * resolved/resolving (if not back to baseline * as noted by AM labs on 06/06 * however, repeat labs done later on 06/06 demonstrated improvement already * evaluation to date noted: * renal ultrasound normal * urine electrolytes prerenal (likely more represetative of depressed EF) * urine eosinophils negative * no significant proteinuria * CPK mildly elevated (but not likely to affect kidney function) * serology pending * suspect insult due to diminished blood flow to kidneys from depressed EF leading to chronic prerenal azotemia possibly worsened by contrast exposure (from CTA of chest) * suspect transient use of dobutamine helped improve renal perfusion * follow trend of repeat labs and UOP (2) Congestive heart failure: Code(s): I50.9 - Heart failure, unspecified Status: Acute Assessment and Plan: * significant cardiomyopathy noted by Echo: * left ventricular systolic function is severely reduced, estimated at 20-25% * left ventricular diastolic function is indeterminate * moderate mitral valve regurgitation * mild tricuspid valve regurgitation * mild pulmonary hypertension, estimated pulmonary arterial systolic pressure is 39 mmHg. * Cardiology following * losartan and metoprolol started * on anticoagulation * continue supportive therapy (3) Atrial flutter with rapid ventricular response: Code(s): I48.92 - Unspecified atrial flutter Status: Acute Assessment and Plan: * complicated by left atrial appendage thrombus (as noted on HERI) * on anticoagulation * resumed on low dose metoprolol for rate control * follow telemetry/heart rate (4) Community acquired pneumonia: Code(s): J18.9 - Pneumonia, unspecified organism Status: Acute Assessment and Plan: * possible suggestion by admission imaging * empiric antibiotics * follow cultures (5) Elevated liver transaminase level: Code(s): R74.01 - Elevation of levels of liver transaminase levels Status: Acute Assessment and Plan: * improvement noted * significant rise noted from 06/04 - 06/06 * suspect shock liver from aflutter and cardiomyopathy/depressed EF * complicated by history of excessive alcohol intake and statin use * evaluation noted: * hepatitis panel negative * Abdominal ultrasound with fat infiltration of the liver * Gastroenterology following (6) Hypertension: Code(s): I10 - Essential (primary) hypertension Status: Chronic Assessment and Plan: * reasonable control * losartan and metoprolol started * follow trend of hemodynamics Not much else to add -- will continue to follow from a distance. L Subjective Date/time seen: 06/08/24 09:20 Interval history: Follow-up for acute kidney injury/acute renal failure. Transferred out of ICU yesterday afternoon; appears to be doing reasonably well at the time of my visit; renal function/creatinine remains stable (and back to baseline) for the last 24 - 48 hours; no apparent distress voiced when seen; no other problems overnight or earlier this morning. Exam 2 Narrative: General: WD/WN male in NAD Heart: tachycardic, normal S1 and S2; no rub Lungs: clear anteriorly with a few bibasilar crackles Abdomen: soft, nontender, nondistended, positive bowel sounds Extremities: no cyanosis or clubbing; no edema Skin: warm and intact Objective Data Vital Signs Vital Signs: Vital Signs Temp Pulse Pulse Resp BP Pulse Ox O2 Del Method 06/08/24 09:14 106 H 06/08/24 09:13 102 H 124/73 06/08/24 08:14 93 Room Air 06/08/24 08:11 98.6 F 116 H 22 H 107/72 95 06/08/24 08:00 100 06/08/24 08:00 100 06/08/24 06:09 103 H 06/08/24 05:48 98 06/08/24 04:40 97.7 F 116 H 22 H 119/69 96 06/08/24 04:00 114 H 06/08/24 04:00 95 Nasal Cannula 06/08/24 04:00 99 06/08/24 02:00 114 H 06/08/24 00:00 116 H 06/08/24 00:00 98.0 F 115 H 23 H 130/94 H 95 06/08/24 00:00 95 Nasal Cannula 06/07/24 22:07 117 H 06/07/24 22:00 116 H 06/07/24 21:07 115 H 20 93 Room Air 06/07/24 20:00 118 H 06/07/24 20:00 97.7 F 118 H 27 H 142/102 H 96 06/07/24 20:00 96 Room Air 06/07/24 19:37 117 H 06/07/24 18:00 120 H 06/07/24 16:00 98.8 F 114 H 24 H 124/100 H 91 06/07/24 16:00 116 H 18 97 Room Air 06/07/24 16:00 118 H 06/07/24 16:00 116 H 138/94 H 06/07/24 15:36 114 H 06/07/24 14:00 114 H 06/07/24 12:00 98.1 F 112 H 21 H 132/83 99 06/07/24 12:00 116 H 18 97 Room Air 06/07/24 12:00 117 H 06/07/24 12:00 116 H 138/94 H Intake/Output Intake/Output: Intake & Output 06/05/24 06/06/24 06/07/24 06/08/24 23:59 23:59 23:59 23:59 Intake Total 1680 1281.3 1318.2 1150 Output Total 202 2000 3700 1200 Balance 1478 -718.7 -2381.8 -50 Meds/Results Medications: Active Medications Generic Name Dose Route Start Last Admin Trade Name Freq PRN Reason Stop Dose Admin Apixaban 5 mg 06/04/24 10:00 06/08/24 08:32 Apixaban 5 Mg Tablet PO 5 mg Q12HR BARTOLO Administration Calcium Carbonate 200 mg 06/03/24 21:22 06/05/24 12:22 Calcium Carbonate (Tums) 500 Mg (200 Mg Elemental) PO 200 mg Q6H PRN Administration Indigestion Empagliflozin 10 mg 06/08/24 09:00 06/08/24 09:14 Empagliflozin 10 Mg Tablet PO 10 mg DAILY BARTOLO Administration Guaifenesin 1,200 mg 06/03/24 21:00 06/08/24 08:32 Guaifenesin 12 Hr 600 Mg Tabcr PO 1,200 mg Q12HR BARTOLO Administration Losartan Potassium 25 mg 06/07/24 09:00 06/08/24 08:32 Losartan Potassium 25 Mg Tablet PO 25 mg DAILY BARTOLO Administration Metoprolol Succinate 12.5 mg 06/08/24 17:00 Metoprolol Succinate Ext Rel 12.5 Mg Tabcr PO BID BARTOLO Ondansetron HCl 4 mg 06/04/24 18:40 06/05/24 12:15 Ondansetron Inj 4 Mg/2 Ml Vial IV PUSH 4 mg Q6H PRN Administration Nausea And Vomiting Pantoprazole Sodium 40 mg 06/04/24 09:00 06/08/24 08:32 Pantoprazole 40 Mg Tablet PO 40 mg QAM BARTOLO Administration Rosuvastatin Calcium 20 mg 06/04/24 13:40 06/05/24 09:11 Rosuvastatin 20 Mg Tablet PO 20 mg DAILY BARTOLO Administration Radiology Results: ITS Impressions Chest/Abdomen/Pelvis CTA 06/03/24 10:56 IMPRESSION: CHEST: 1. No pulmonary embolism or dissection. 2. Multiple patchy opacities and groundglass appearance suggestive of pneumonia. Underlying pulmonary edema is not excluded although this is less likely. Clinical correlation advised. 3. Mediastinal lymphadenopathy. 4. Right pleural effusion. ABDOMEN/PELVIS: 1. No evidence of appendicitis, diverticulitis or intestinal obstruction. 2. Fat stranding around the neck of the gallbladder. Differential include cholecystitis versus ascending cholangitis versus duodenitis: although no thickening in the wall of the gallbladder or the duodenum is seen. Clinical correlation advised. 3. Fat infiltration of the liver. Hepatomegaly. 4. Fat-containing bilateral inguinal and umbilical hernias. Chest X-Ray 06/06/24 08:11 IMPRESSION: 1. Unchanged elevation of the left hemidiaphragm. No acute cardiopulmonary disease. 2. Cardiomegaly. Renal Ultrasound 06/06/24 14:19 IMPRESSION: No definite abnormality. Abdomen Ultrasound 06/06/24 14:22 IMPRESSION: Fat infiltration of the liver. Thickened wall of the gallbladder which may indicate cholecystitis. Clinical correlation advised. Minimal free fluid in the upper abdomen. Otherwise, normal limited abdominal ultrasound. Arterial/Peripheral Duplex 06/07/24 08:36 IMPRESSION: 1. Normal directional flow but with increased pulsatility to the hepatic venous waveforms and to lesser degree the portal venous waveforms consistent with congestive heart failure. 2. Diffuse hepatic steatosis with small amount of perihepatic ascites. Labs Labs: Laboratory Tests 06/08/24 04:14 06/08/24 04:14 PT 19.3 H D INR 1.6 Calcium 8.2 L Phosphorus 3.4 Magnesium 2.2 Total Bilirubin 1.4 H AST 603 H ALT 1602 H Alkaline Phosphatase 88 Total Protein 6.0 L Albumin 3.1 L
[2024-06-08 14:04] LABS: Complement Total CH50 41 U/mL (31-60)
--- NOTE | 2024-06-08 14:47 | P.PNGI_ITS ---
Progress Note: A&P Assessment and Plan (1) Elevated liver transaminase level: Code(s): R74.01 - Elevation of levels of liver transaminase levels Status: Acute Assessment and Plan: probably combination of congestive hepatopathy from heart failure, a flutter with rvr, also he is a drinker (3-4 glass of hard drink daily), obesity, etc down trending he will need to follow-up in office (2) Daily consumption of alcohol: Code(s): Z78.9 - Other specified health status Status: Acute Assessment and Plan: advised to stop (3) Congestive heart failure: Code(s): I50.9 - Heart failure, unspecified Status: Acute (4) Atrial flutter with rapid ventricular response: Code(s): I48.92 - Unspecified atrial flutter Status: Acute Assessment and Plan: by cardiology (5) Acute kidney injury: Code(s): N17.9 - Acute kidney failure, unspecified Status: Acute (6) Left atrial thrombus: Code(s): I51.3 - Intracardiac thrombosis, not elsewhere classified Status: Acute Assessment and Plan: new finding, 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 Subjective Date/time seen: 06/08/24 14:47 Interval history: he is comfortable good appetite, no abdominal pain Exam Const: General: comfortable and no acute distress; No confusion Orientation/consciousness: No confusion HENMT: Mouth: Yes moist mucous membranes Eyes: General: appearance normal, both eyes and all related structures Sclera: sclerae normal Neck: Neck: supple Resp: Effort & Inspection: normal respiratory effort Cardio: Rate: tachycardic Rhythm: regular rhythm Heart sounds: no murmurs GI: GI Palp: Yes Soft to palpation and No Tenderness to palpation present (GI) Auscultation: normal bowel sounds Skin: General skin exam: normal color Neuro: General: No confusion Cranial nerves: No Normal hearing present Speech: normal speech and No Abnormal speech present Psych: Mental Status: mental status grossly normal Affect: normal affect Objective Data Vital Signs Vital Signs: Vital Signs - 24 hr 06/07/24 15:36 06/07/24 16:00 06/07/24 16:00 Temperature Pulse Rate 114 H 118 H Pulse Rate [Bilateral Radial Palpation] 116 H Respiratory Rate Blood Pressure 138/94 H Pulse Oximetry Oxygen Delivery Oxygen Flow Rate Fraction of Inspired Oxygen 06/07/24 16:00 06/07/24 16:00 06/07/24 18:00 Temperature 98.8 F Pulse Rate 116 H 114 H 120 H Pulse Rate [Bilateral Radial Palpation] Respiratory Rate 18 24 H Blood Pressure 124/100 H Pulse Oximetry 97 91 Oxygen Delivery Room Air Oxygen Flow Rate Fraction of Inspired Oxygen 06/07/24 19:37 06/07/24 20:00 06/07/24 20:00 Temperature 97.7 F Pulse Rate 117 H 118 H Pulse Rate [Bilateral Radial Palpation] Respiratory Rate 27 H Blood Pressure 142/102 H Pulse Oximetry 96 96 Oxygen Delivery Room Air Oxygen Flow Rate Fraction of Inspired Oxygen 06/07/24 20:00 06/07/24 21:07 06/07/24 22:00 Temperature Pulse Rate 118 H 115 H 116 H Pulse Rate [Bilateral Radial Palpation] Respiratory Rate 20 Blood Pressure Pulse Oximetry 93 Oxygen Delivery Room Air Oxygen Flow Rate Fraction of Inspired Oxygen 21 06/07/24 22:07 06/08/24 00:00 06/08/24 00:00 Temperature 98.0 F Pulse Rate 117 H 115 H Pulse Rate [Bilateral Radial Palpation] Respiratory Rate 23 H Blood Pressure 130/94 H Pulse Oximetry 95 95 Oxygen Delivery Nasal Cannula Oxygen Flow Rate 2 Fraction of Inspired Oxygen 06/08/24 00:00 06/08/24 02:00 06/08/24 04:00 Temperature Pulse Rate 116 H 114 H Pulse Rate [Bilateral Radial Palpation] 99 Respiratory Rate Blood Pressure Pulse Oximetry Oxygen Delivery Oxygen Flow Rate Fraction of Inspired Oxygen 06/08/24 04:00 06/08/24 04:00 06/08/24 04:40 Temperature 97.7 F Pulse Rate 114 H 116 H Pulse Rate [Bilateral Radial Palpation] Respiratory Rate 22 H Blood Pressure 119/69 Pulse Oximetry 95 96 Oxygen Delivery Nasal Cannula Oxygen Flow Rate 2 Fraction of Inspired Oxygen 06/08/24 05:48 06/08/24 06:09 06/08/24 08:00 Temperature Pulse Rate 98 103 H Pulse Rate [Bilateral Radial Palpation] 100 Respiratory Rate Blood Pressure Pulse Oximetry Oxygen Delivery Oxygen Flow Rate Fraction of Inspired Oxygen 06/08/24 08:00 06/08/24 08:11 06/08/24 08:14 Temperature 98.6 F Pulse Rate 100 116 H Pulse Rate [Bilateral Radial Palpation] Respiratory Rate 22 H Blood Pressure 107/72 Pulse Oximetry 95 93 Oxygen Delivery Room Air Oxygen Flow Rate Fraction of Inspired Oxygen 06/08/24 09:13 06/08/24 09:14 06/08/24 10:00 Temperature Pulse Rate 102 H 106 H 110 H Pulse Rate [Bilateral Radial Palpation] Respiratory Rate Blood Pressure 124/73 Pulse Oximetry Oxygen Delivery Oxygen Flow Rate Fraction of Inspired Oxygen 06/08/24 11:54 06/08/24 12:00 06/08/24 12:00 Temperature 98.0 F Pulse Rate 101 H 107 H Pulse Rate [Bilateral Radial Palpation] 107 H Respiratory Rate 22 H Blood Pressure 146/83 H Pulse Oximetry 96 Oxygen Delivery Oxygen Flow Rate Fraction of Inspired Oxygen 06/08/24 14:00 Temperature Pulse Rate 107 H Pulse Rate [Bilateral Radial Palpation] Respiratory Rate Blood Pressure Pulse Oximetry Oxygen Delivery Oxygen Flow Rate Fraction of Inspired Oxygen Intake/Output Intake/Output: Intake & Output 06/05/24 06/06/24 06/07/24 06/08/24 23:59 23:59 23:59 23:59 Intake Total 1680 1281.3 1318.2 1390 Output Total 202 2000 3700 1200 Balance 1478 -718.7 -2381.8 190 Meds/Results Medications: Active Medications Generic Name Dose Route Start Last Admin Trade Name Freq PRN Reason Stop Dose Admin Apixaban 5 mg 06/04/24 10:00 06/08/24 08:32 Apixaban 5 Mg Tablet PO 5 mg Q12HR BARTOLO Administration Calcium Carbonate 200 mg 06/03/24 21:22 06/05/24 12:22 Calcium Carbonate (Tums) 500 Mg (200 Mg Elemental) PO 200 mg Q6H PRN Administration Indigestion Empagliflozin 10 mg 06/08/24 09:00 06/08/24 09:14 Empagliflozin 10 Mg Tablet PO 10 mg DAILY BARTOLO Administration Guaifenesin 1,200 mg 06/03/24 21:00 06/08/24 08:32 Guaifenesin 12 Hr 600 Mg Tabcr PO 1,200 mg Q12HR BARTOLO Administration Losartan Potassium 25 mg 06/07/24 09:00 06/08/24 08:32 Losartan Potassium 25 Mg Tablet PO 25 mg DAILY BARTOLO Administration Metoprolol Succinate 12.5 mg 06/08/24 17:00 Metoprolol Succinate Ext Rel 12.5 Mg Tabcr PO BID [facility] Ondansetron HCl 4 mg 06/04/24 18:40 06/05/24 12:15 Ondansetron Inj 4 Mg/2 Ml Vial IV PUSH 4 mg Q6H PRN Administration Nausea And Vomiting Pantoprazole Sodium 40 mg 06/04/24 09:00 06/08/24 08:32 Pantoprazole 40 Mg Tablet PO 40 mg QAM BARTOLO Administration Rosuvastatin Calcium 20 mg 06/04/24 13:40 06/05/24 09:11 Rosuvastatin 20 Mg Tablet PO 20 mg DAILY BARTOLO Administration Radiology Results: ITS Impressions Chest/Abdomen/Pelvis CTA 06/03/24 10:56 IMPRESSION: CHEST: 1. No pulmonary embolism or dissection. 2. Multiple patchy opacities and groundglass appearance suggestive of pneumonia. Underlying pulmonary edema is not excluded although this is less likely. Clinical correlation advised. 3. Mediastinal lymphadenopathy. 4. Right pleural effusion. ABDOMEN/PELVIS: 1. No evidence of appendicitis, diverticulitis or intestinal obstruction. 2. Fat stranding around the neck of the gallbladder. Differential include cholecystitis versus ascending cholangitis versus duodenitis: although no thickening in the wall of the gallbladder or the duodenum is seen. Clinical correlation advised. 3. Fat infiltration of the liver. Hepatomegaly. 4. Fat-containing bilateral inguinal and umbilical hernias. Chest X-Ray 06/06/24 08:11 IMPRESSION: 1. Unchanged elevation of the left hemidiaphragm. No acute cardiopulmonary disease. 2. Cardiomegaly. Renal Ultrasound 06/06/24 14:19 IMPRESSION: No definite abnormality. Abdomen Ultrasound 06/06/24 14:22 IMPRESSION: Fat infiltration of the liver. Thickened wall of the gallbladder which may indicate cholecystitis. Clinical correlation advised. Minimal free fluid in the upper abdomen. Otherwise, normal limited abdominal ultrasound. Arterial/Peripheral Duplex 06/07/24 08:36 IMPRESSION: 1. Normal directional flow but with increased pulsatility to the hepatic venous waveforms and to lesser degree the portal venous waveforms consistent with congestive heart failure. 2. Diffuse hepatic steatosis with small amount of perihepatic ascites. Labs Labs: Laboratory Results - last 24 hr 06/03/24 06/04/24 06/06/24 15:13 06:19 11:10 WBC RBC Hgb Hct MCV MCH MCHC RDW Plt Count MPV Immature Gran % (Auto) Neut % (Auto) Lymph % (Auto) [place] % (Auto) Eos % (Auto) Baso % (Auto) Lymph # (Auto) [place] # (Auto) Eos # (Auto) Baso # (Auto) Abs Immat Gran (auto) Absolute Neuts (auto) Absolute Nucleated RBC Nucleated RBC % PT INR Sodium Potassium Chloride Carbon Dioxide Anion Gap BUN Creatinine Estim Creat Clear Calc Estimated GFR Glucose Calcium Phosphorus Magnesium Total Bilirubin AST ALT Alkaline Phosphatase Total Protein Albumin Ur Random Creatinine U Random Total Protein Protein/Creatinin Ratio Anti-DNA Antibody Tot Complement (CH50) 41 [place]/Lambda Ratio 1.17 Free [place]ago Light Chains 27.9 H Free Lambda Light Chain 23.8 Ur L.pneumophila Ag Not detected Mycoplasma pneumon IgM 63 06/07/24 06/07/24 06/08/24 00:15 03:52 04:14 WBC 8.8 RBC 4.72 Hgb 14.5 Hct 46.1 MCV 97.7 MCH 30.7 MCHC 31.5 L RDW 12.6 Plt Count 261 MPV 10.3 Immature Gran % (Auto) 1.9 H Neut % (Auto) 60.9 Lymph % (Auto) 24.4 [place] % (Auto) 8.4 Eos % (Auto) 3.5 Baso % (Auto) 0.9 Lymph # (Auto) 2.14 [place] # (Auto) 0.7 H Eos # (Auto) 0.3 Baso # (Auto) 0.1 Abs Immat Gran (auto) 0.17 H Absolute Neuts (auto) 5.3 Absolute Nucleated RBC 0.000 Nucleated RBC % 0.0 PT 19.3 H D INR 1.6 Sodium 140 Potassium 4.0 Chloride 107 Carbon Dioxide 28 Anion Gap 5 BUN 17 D Creatinine 0.83 Estim Creat Clear Calc 139 Estimated GFR > 60 Glucose 91 Calcium 8.2 L Phosphorus 3.4 Magnesium 2.2 Total Bilirubin 1.4 H AST 603 H ALT 1602 H Alkaline Phosphatase 88 Total Protein 5.3 L 6.0 L Albumin 3.1 L Ur Random Creatinine 41 U Random Total Protein 9 Protein/Creatinin Ratio 220 H Anti-DNA Antibody <1 Tot Complement (CH50) [place]/Lambda Ratio Free [place] Light Chains Free Lambda Light Chain Ur L.pneumophila Ag Mycoplasma pneumon IgM
[2024-06-08] MEDS: METOPROLOL SUCCINATE EXT REL 25 MG TABCR PO (17:08)
[2024-06-09] VITALS (20 sets, daily range): BP systolic 106–143; BP diastolic 75–97; PULSE 96–129; RESP 18–22; TEMP 36.5–36.9; O2SAT 95–98
[2024-06-09 02:34] LABS: Creat 24 Hr 3.06 g/24 h (0.50-2.15); Pro/Creat Ratio 196 mg/g creat (<100); Pro/Creat Ratio mg/mg 0.196 (<0.100); Protein,total, 24 Hr Ur 600 mg/24 h (<150)
[2024-06-09 04:34] LABS: Basophils Absolute Auto 0.1 K/mm3 (0.0-0.1); Eosinophils Absolute Auto 0.6 K/mm3 (0-0.3); Eosinophils Percent Auto 5.8 % (0-4.4); Immature Granulocyte Absolute 0.21 K/mm3 (0.00-0.031); Immature Granulocyte Percent A 2.2 % (0-0.5); Lymphocytes Absolute Auto 2.58 K/mm3 (0.9-3.2); Lymphocytes Percent Auto 26.8 % (18.3-44.2); Mean Corpuscular HGB Conc 31.9 g/dl (32-36); Mean Corpuscular Hemoglobin 31.1 pg (26-34); Mean Corpuscular Volume 97.3 fl (80-100); Mean Platelet Volume 10.3 fl (7.4-10.4); Monocytes Absolute Auto 0.9 K/mm3 (0.1-0.6); Monocytes Percent Auto 8.8 % (2.6-8.5); Neutrophils Absolute Auto 5.3 K/mm3 (1.3-6.7); Neutrophils Percent Auto 55.4 % (45.5-73.1); Platelet Count Result 288 k/mm3 (150-375); Red Blood Count 4.83 M/mm3 (4.6-6.20); Red Cell Distribution Width 12.8 % (11.5-14.5); White Blood Count 9.6 K/mm3 (4.5-10.0)
[2024-06-09 04:53] LABS: INR 1.4; Prothrombin Time 17.7 Seconds (11.1-14.7)
[2024-06-09 05:06] LABS: Albumin Level 3.1 g/dL (3.5-5.1); Alkaline Phosphatase 91 U/L (38-126); Anion Gap 6 mmol/L (4-12); Aspartate Amino Transferase 389 U/L (17-59); Bilirubin,Total 1.4 mg/dL (0.2-1.3); Blood Urea Nitrogen 16 mg/dL (9-20); Calcium 8.2 mg/dL (8.4-10.2); Carbon Dioxide 25 mmol/L (22-30); Chloride 109 mmol/L (98-107); Estimated CRCL calculation 134 ml/min; Estimated Glomerular Filt Rate > 60; Glucose 99 mg/dL (65-110); Magnesium 2.2 mg/dL (1.6-2.3); Phosphorus 3.9 mg/dL (2.5-4.5); Potassium 4.2 mmol/L (3.4-5.0); Sodium 140 mmol/L (137-145)
[2024-06-09 05:10] LABS: Alanine Aminotransferase 1287 U/L (6-50)
--- NOTE | 2024-06-09 07:14 | P.PNGI_ITS ---
Progress Note: A&P Assessment and Plan (1) Shock liver: Code(s): K72.00 - Acute and subacute hepatic failure without coma Status: Acute Assessment and Plan: The patient presents with previously discussed multifactorial elevation of transaminases. The primary contributing factor was diagnosed as poor hepatic perfusion secondary to uncontrolled arrhythmia, which is now effectively managed. Current laboratory values show a reassuring trend of decreasing transaminases. There is a high chance of underlying chronic liver disease associated with morbid obesity, and a history of possible alcohol abuse . A mu ltidisciplinary approach, including dietary counseling, is indicated. Our service will schedule outpatient follow-up to monitor liver function post- discharge. Plan - please schedule GI appt once discharged Subjective Date/time seen: 06/09/24 07:14 Interval history: The patient is currently asymptomatic from a GI standpoint. Heart rate already controlled. Exam Const: General: cooperative and healthy appearing Resp: Effort & Inspection: normal respiratory effort and able to speak in complete sentences Auscultation: clear to auscultation bilaterally Cardio: Rate: regular rate Rhythm: regular rhythm GI: Inspection: normal to inspection GI Palp: No No hepatosplenomegaly present Auscultation: normal bowel sounds Rectal Exam: deferred Skin: General skin exam: normal color Psych: Appearance: grossly normal Mental Status: mental status grossly normal Objective Data Vital Signs Vital Signs: Vital Signs - 24 hr 06/08/24 08:00 06/08/24 08:00 06/08/24 08:11 Temperature 98.6 F Pulse Rate 100 116 H Pulse Rate [Bilateral Radial Palpation] 100 Respiratory Rate 22 H Blood Pressure 107/72 Pulse Oximetry 95 Oxygen Delivery Fraction of Inspired Oxygen 06/08/24 08:14 06/08/24 09:13 06/08/24 09:14 Temperature Pulse Rate 102 H 106 H Pulse Rate [Bilateral Radial Palpation] Respiratory Rate Blood Pressure 124/73 Pulse Oximetry 93 Oxygen Delivery Room Air Fraction of Inspired Oxygen 06/08/24 10:00 06/08/24 11:54 06/08/24 12:00 Temperature 98.0 F Pulse Rate 110 H 101 H Pulse Rate [Bilateral Radial Palpation] 107 H Respiratory Rate 22 H Blood Pressure 146/83 H Pulse Oximetry 96 Oxygen Delivery Fraction of Inspired Oxygen 06/08/24 12:00 06/08/24 14:00 06/08/24 16:00 Temperature Pulse Rate 107 H 107 H Pulse Rate [Bilateral Radial Palpation] 110 H Respiratory Rate Blood Pressure Pulse Oximetry Oxygen Delivery Fraction of Inspired Oxygen 06/08/24 16:00 06/08/24 16:10 06/08/24 17:08 Temperature 98.3 F Pulse Rate 115 H 118 H 123 H Pulse Rate [Bilateral Radial Palpation] Respiratory Rate 20 Blood Pressure 145/82 H Pulse Oximetry 95 Oxygen Delivery Fraction of Inspired Oxygen 06/08/24 18:00 06/08/24 20:00 06/08/24 20:00 Temperature Pulse Rate 119 H 109 H Pulse Rate [Bilateral Radial Palpation] Respiratory Rate Blood Pressure Pulse Oximetry Oxygen Delivery Room Air Fraction of Inspired Oxygen 06/08/24 20:20 06/08/24 21:57 06/08/24 22:00 Temperature 98.2 F Pulse Rate 107 H 113 H 97 Pulse Rate [Bilateral Radial Palpation] Respiratory Rate 20 20 Blood Pressure 110/74 Pulse Oximetry 97 94 Oxygen Delivery Room Air Fraction of Inspired Oxygen 21 06/08/24 23:28 06/09/24 00:00 06/09/24 00:00 Temperature 98.2 F Pulse Rate 108 H Pulse Rate [Bilateral Radial Palpation] 96 Respiratory Rate 20 Blood Pressure 140/86 Pulse Oximetry 96 Oxygen Delivery Room Air Fraction of Inspired Oxygen 06/09/24 00:00 06/09/24 02:00 06/09/24 04:00 Temperature 98.4 F Pulse Rate 96 106 H 106 H Pulse Rate [Bilateral Radial Palpation] Respiratory Rate 20 Blood Pressure 120/75 Pulse Oximetry 96 Oxygen Delivery Fraction of Inspired Oxygen 06/09/24 04:00 06/09/24 04:00 06/09/24 04:00 Temperature Pulse Rate 106 H Pulse Rate [Bilateral Radial Palpation] 100 Respiratory Rate Blood Pressure Pulse Oximetry Oxygen Delivery Room Air Fraction of Inspired Oxygen 06/09/24 06:00 Temperature Pulse Rate 97 Pulse Rate [Bilateral Radial Palpation] Respiratory Rate Blood Pressure Pulse Oximetry Oxygen Delivery Fraction of Inspired Oxygen Intake/Output Intake/Output: Intake & Output 06/06/24 06/07/24 06/08/24 06/09/24 23:59 23:59 23:59 23:59 Intake Total 1281.3 1318.2 2130 550 Output Total 1999 3700 2600 Balance -718.7 -2381.8 -470 550 Meds/Results Medications: Active Medications Generic Name Dose Route Start Last Admin Trade Name Freq PRN Reason Stop Dose Admin Apixaban 5 mg 06/04/24 10:00 06/08/24 20:31 Apixaban 5 Mg Tablet PO 5 mg Q12HR BARTOLO Administration Calcium Carbonate 200 mg 06/03/24 21:22 06/05/24 12:22 Calcium Carbonate (Tums) 500 Mg (200 Mg Elemental) PO 200 mg Q6H PRN Administration Indigestion Empagliflozin 10 mg 06/08/24 09:00 06/08/24 09:14 Empagliflozin 10 Mg Tablet PO 10 mg DAILY BARTOLO Administration Guaifenesin 1,200 mg 06/03/24 21:00 06/08/24 20:31 Guaifenesin 12 Hr 600 Mg Tabcr PO 1,200 mg Q12HR BARTOLO Administration Losartan Potassium 25 mg 06/07/24 09:00 06/08/24 08:32 Losartan Potassium 25 Mg Tablet PO 25 mg DAILY B[facility]OLO Administration Metoprolol Succinate 25 mg 06/08/24 17:00 06/08/24 17:08 Metoprolol Succinate Ext Rel 25 Mg Tabcr PO 25 mg BID BARTOLO Administration Ondansetron HCl 4 mg 06/04/24 18:40 06/05/24 12:15 Ondansetron Inj 4 Mg/2 Ml Vial IV PUSH 4 mg Q6H PRN Administration Nausea And Vomiting Pantoprazole Sodium 40 mg 06/04/24 09:00 06/08/24 08:32 Pantoprazole 40 Mg Tablet PO 40 mg QAM BARTOLO Administration Rosuvastatin Calcium 20 mg 06/04/24 13:40 06/05/24 09:11 Rosuvastatin 20 Mg Tablet PO 20 mg DAILY BARTOLO Administration Radiology Results: ITS Impressions Chest/Abdomen/Pelvis CTA 06/03/24 10:56 IMPRESSION: CHEST: 1. No pulmonary embolism or dissection. 2. Multiple patchy opacities and groundglass appearance suggestive of pneumonia. Underlying pulmonary edema is not excluded although this is less likely. Clinical correlation advised. 3. Mediastinal lymphadenopathy. 4. Right pleural effusion. ABDOMEN/PELVIS: 1. No evidence of appendicitis, diverticulitis or intestinal obstruction. 2. Fat stranding around the neck of the gallbladder. Differential include cholecystitis versus ascending cholangitis versus duodenitis: although no thickening in the wall of the gallbladder or the duodenum is seen. Clinical correlation advised. 3. Fat infiltration of the liver. Hepatomegaly. 4. Fat-containing bilateral inguinal and umbilical hernias. Chest X-Ray 06/06/24 08:11 IMPRESSION: 1. Unchanged elevation of the left hemidiaphragm. No acute cardiopulmonary disease. 2. Cardiomegaly. Renal Ultrasound 06/06/24 14:19 IMPRESSION: No definite abnormality. Abdomen Ultrasound 06/06/24 14:22 IMPRESSION: Fat infiltration of the liver. Thickened wall of the gallbladder which may indicate cholecystitis. Clinical correlation advised. Minimal free fluid in the upper abdomen. Otherwise, normal limited abdominal ultrasound. Arterial/Peripheral Duplex 06/07/24 08:36 IMPRESSION: 1. Normal directional flow but with increased pulsatility to the hepatic venous waveforms and to lesser degree the portal venous waveforms consistent with congestive heart failure. 2. Diffuse hepatic steatosis with small amount of perihepatic ascites. Labs Labs: Laboratory Results - last 24 hr 06/06/24 06/07/24 06/07/24 11:10 00:15 18:51 WBC RBC Hgb Hct MCV MCH MCHC RDW Plt Count MPV Immature Gran % (Auto) Neut % (Auto) Lymph % (Auto) [place] % (Auto) Eos % (Auto) Baso % (Auto) Lymph # (Auto) [place] # (Auto) Eos # (Auto) Baso # (Auto) Abs Immat Gran (auto) Absolute Neuts (auto) Absolute Nucleated RBC Nucleated RBC % PT INR Sodium Potassium Chloride Carbon Dioxide Anion Gap BUN Creatinine Estim Creat Clear Calc Estimated GFR Glucose Calcium Phosphorus Magnesium Total Bilirubin AST ALT Alkaline Phosphatase Total Protein Albumin U Protein 24 Hr Presump 600 H Urine Albumin 100 U [id number] 0 U [id number]-[id number] 0 U Beta Globulin 0 U Gamma Globulin 0 Urine PEP Interpret See note Urine Immunofixation Tot Complement (CH50) 41 06/09/24 03:59 WBC 9.6 RBC 4.83 Hgb 15.0 Hct 47.0 MCV 97.3 MCH 31.1 MCHC 31.9 L RDW 12.8 Plt Count 288 MPV 10.3 Immature Gran % (Auto) 2.2 H Neut % (Auto) 55.4 Lymph % (Auto) 26.8 [place] % (Auto) 8.8 H Eos % (Auto) 5.8 H Baso % (Auto) 1.0 Lymph # (Auto) 2.58 [place] # (Auto) 0.9 H Eos # (Auto) 0.6 H Baso # (Auto) 0.1 Abs Immat Gran (auto) 0.21 H Absolute Neuts (auto) 5.3 Absolute Nucleated RBC 0.000 Nucleated RBC % 0.0 PT 17.7 H INR 1.4 Sodium 140 Potassium 4.2 Chloride 109 H Carbon Dioxide 25 Anion Gap 6 BUN 16 Creatinine 0.87 Estim Creat Clear Calc 134 Estimated GFR > 60 Glucose 99 Calcium 8.2 L Phosphorus 3.9 Magnesium 2.2 Total Bilirubin 1.4 H AST 389 H ALT 1287 H Alkaline Phosphatase 91 Total Protein 6.0 L Albumin 3.1 L U Protein 24 Hr Presump Urine Albumin U Qpzmx-[id number] U Symhl-5-Muzckkpd U Beta Globulin U Gamma Globulin Urine PEP Interpret Urine Immunofixation Tot Complement (CH50)
[2024-06-09] MEDS: EMPAGLIFLOZIN 10 MG TABLET PO (08:46)
[2024-06-09] MEDS: METOPROLOL SUCCINATE EXT REL 25 MG TABCR PO ×2 (08:46→16:53)
[2024-06-09] MEDS: PANTOPRAZOLE 40 MG TABLET PO (08:46)
[2024-06-09] MEDS: guaiFENesin 12 HR 600 MG TABCR 1200 MG PO ×2 (08:46→20:37)
[2024-06-09] MEDS: APIXABAN 5 MG TABLET PO ×2 (08:46→20:37)
[2024-06-09] MEDS: LOSARTAN POTASSIUM 25 MG TABLET PO (08:47)
--- NOTE | 2024-06-09 09:08 | P.PNCA_ITS ---
Progress Note: A&P Assessment and Plan (1) Atrial flutter with rapid ventricular response: Code(s): I48.92 - Unspecified atrial flutter Status: Acute Assessment and Plan: Continue Eliquis for anticoagulation. He does have left atrial appendage thrombus and will need at minimum 4 weeks of anticoagulation before consideration of cardioversion. Heart rate reasonably controlled with diltiazem and metoprolol. (2) Hypertension: Code(s): I10 - Essential (primary) hypertension Status: Chronic Assessment and Plan: Continue diltiazem and metoprolol. May add an Arb or Entresto depending on results of echo (3) Congestive heart failure: Code(s): I50.9 - Heart failure, unspecified Status: Acute Assessment and Plan: Echo pending. Will adjust regimen depending on results of echo (4) Hyperlipidemia: Code(s): E78.5 - Hyperlipidemia, unspecified Status: Acute Assessment and Plan: On rosuvastatin (5) Daily consumption of alcohol: Code(s): Z78.9 - Other specified health status Status: Acute Assessment and Plan: Alcohol cessation recommend (6) Suspected sleep apnea: Code(s): R29.818 - Other symptoms and signs involving the nervous system Status: Acute Assessment and Plan: Check an ApneaLink for tonight Plan 1. Acute on chronic systolic HF NYHA IV, Stage C 2. Cardiogenic Shock; improving 3. Atrial Flutter 4. HTN 5. Shock Liver/SAMREEN; improving -off Dobutamine - Continue losartan at current dose 25 mg p.o. daily, No ARNI becasue of high co-pay - Increase Toprol-XL, 25 mg p.o. b.i.d. -continue anticoagulation -possible discharge tomorrow Subjective Date/time seen: 06/09/24 09:08 Interval history: 48-year-old with atrial flutter Date of service 06/05/2024: Generally heart rate around 110. Periodically will go faster. Seems a little short of breath today with no chest pain. Date of service 06/06/2024: No chest pain, BP soft, slightly tachycardic Liver enzymes markedly elevated Creatinine 0.69, 1.44 --> 1.28 06/07/2024: Transfer to the ICU yesterday No acute events overnight Liver function improving Renal function normalized Sternal atrial flutter, rates between 115-120 06/08/2024): No acute events overnight Feeling better -3 L in last 48 hours Creatinine 0.83, back to normal Improving liver function HR still a little elevated (06/10/2023): Doing well no acute events overnight Heart rate still elevated Creatinine back to normal Improving renal function Review of Systems Review of Systems: All systems reviewed & are unremarkable except as noted in HPI and below Constitutional: Constitutional: Denies body ache(s) and Denies excessive sweating Eyes: Eyes: Denies blurry vision ENT: Denies Normal hearing present Cardiovascular: Cardiovascular: Denies diaphoresis Respiratory: Respiratory: Denies chest congestion Gastrointestinal: Gastrointestinal: Denies abdominal pain Genitourinary: Genitourinary: Denies hematuria Musculoskeletal: Musculoskeletal: Denies back pain Integumentary/Breasts: Skin/Breast: Denies dry skin Neurologic: Denies Normal hearing present, Denies Abnormal speech present and Denies confusion Psychiatric: Psychiatric: Denies confusion Endocrine: Endocrine: Denies excessive sweating Hematologic/Lymphatic: Hematologic/Lymphatic: Denies easy bruising Allergic/Immunologic: Allergic/Immunologic: Denies GI upset with certain foods Exam Const: General: comfortable and no acute distress; No confusion Orientat ion/consciousness: No confusion HENMT: Mouth: Yes moist mucous membranes Eyes: General: appearance normal, both eyes and all related structures Sclera: sclerae normal Resp: Effort & Inspection: normal respiratory effort Cardio: Rate: tachycardic Rhythm: regular rhythm Heart sounds: no murmu rs Other: Tele with atrial flutter with RVR Skin: General skin exam: normal color Neuro: General: No confusion Cranial nerves: No Normal hearing present Speech: normal speech and No Abnormal speech present Psych: Mental Status: mental status grossly normal Affect: normal affect Objective Data Vital Signs Vital Signs: Vital Signs - 24 hr 06/08/24 09:13 06/08/24 09:14 06/08/24 10:00 Temperature Pulse Rate 102 H 106 H 110 H Pulse Rate [Bilateral Radial Palpation] Respiratory Rate Blood Pressure 124/73 Pulse Oximetry Oxygen Delivery Fraction of Inspired Oxygen 06/08/24 11:54 06/08/24 12:00 06/08/24 12:00 Temperature 36.7 C Pulse Rate 101 H 107 H Pulse Rate [Bilateral Radial Palpation] 107 H Respiratory Rate 22 H Blood Pressure 146/83 H Pulse Oximetry 96 Oxygen Delivery Fraction of Inspired Oxygen 06/08/24 14:00 06/08/24 16:00 06/08/24 16:00 Temperature Pulse Rate 107 H 115 H Pulse Rate [Bilateral Radial Palpation] 110 H Respiratory Rate Blood Pressure Pulse Oximetry Oxygen Delivery Fraction of Inspired Oxygen 06/08/24 16:10 06/08/24 17:08 06/08/24 18:00 Temperature 36.8 C Pulse Rate 118 H 123 H 119 H Pulse Rate [Bilateral Radial Palpation] Respiratory Rate 20 Blood Pressure 145/82 H Pulse Oximetry 95 Oxygen Delivery Fraction of Inspired Oxygen 06/08/24 20:00 06/08/24 20:00 06/08/24 20:20 Temperature 36.8 C Pulse Rate 109 H 107 H Pulse Rate [Bilateral Radial Palpation] Respiratory Rate 20 Blood Pressure 110/74 Pulse Oximetry 97 Oxygen Delivery Room Air Fraction of Inspired Oxygen 06/08/24 21:57 06/08/24 22:00 06/08/24 23:28 Temperature 36.8 C Pulse Rate 113 H 97 108 H Pulse Rate [Bilateral Radial Palpation] Respiratory Rate 20 20 Blood Pressure 140/86 Pulse Oximetry 94 96 Oxygen Delivery Room Air Fraction of Inspired Oxygen 21 06/09/24 00:00 06/09/24 00:00 06/09/24 00:00 Temperature Pulse Rate 96 Pulse Rate [Bilateral Radial Palpation] 96 Respiratory Rate Blood Pressure Pulse Oximetry Oxygen Delivery Room Air Fraction of Inspired Oxygen 06/09/24 02:00 06/09/24 04:00 06/09/24 04:00 Temperature 36.9 C Pulse Rate 106 H 106 H Pulse Rate [Bilateral Radial Palpation] 100 Respiratory Rate 20 Blood Pressure 120/75 Pulse Oximetry 96 Oxygen Delivery Fraction of Inspired Oxygen 06/09/24 04:00 06/09/24 04:00 06/09/24 06:00 Temperature Pulse Rate 106 H 97 Pulse Rate [Bilateral Radial Palpation] Respiratory Rate Blood Pressure Pulse Oximetry Oxygen Delivery Room Air Fraction of Inspired Oxygen 06/09/24 07:52 06/09/24 08:46 Temperature 36.9 C Pulse Rate 110 H 123 H Pulse Rate [Bilateral Radial Palpation] Respiratory Rate 20 Blood Pressure 106/86 Pulse Oximetry 98 Oxygen Delivery Fraction of Inspired Oxygen Intake/Output Intake/Output: Intake & Output 06/06/24 06/07/24 06/08/24 06/09/24 23:59 23:59 23:59 23:59 Intake Total 1281.3 1318.2 2130 550 Output Total 1999 0812 8350 [facility] -718.7 -2381.8 -470 550 Meds/Results Medications: Active Medications Generic Name Dose Route Start Last Admin Trade Name Freq PRN Reason Stop Dose Admin Apixaban 5 mg 06/04/24 10:00 06/09/24 08:46 Apixaban 5 Mg Tablet PO 5 mg Q12HR BARTOLO Administration Calcium Carbonate 200 mg 06/03/24 21:22 06/05/24 12:22 Calcium Carbonate (Tums) 500 Mg (200 Mg Elemental) PO 200 mg Q6H PRN Administration Indigestion Digoxin 500 mcg 06/09/24 09:05 Digoxin Inj 250 Mcg/Ml 2 Ml Amp (*Bkc) IV PUSH 06/09/24 09:06 ONCE ONE Empagliflozin 10 mg 06/08/24 09:00 06/09/24 08:46 Empagliflozin 10 Mg Tablet PO 10 mg DAILY BARTOLO Administration Guaifenesin 1,200 mg 06/03/24 21:00 06/09/24 08:46 Guaifenesin 12 Hr 600 Mg Tabcr PO 1,200 mg Q12HR BARTOLO Administration Losartan Potassium 25 mg 06/07/24 09:00 06/09/24 08:47 Losartan Potassium 25 Mg Tablet PO 25 mg DAILY BARTOLO Administration Metoprolol Succinate 25 mg 06/08/24 17:00 06/09/24 08:46 Metoprolol Succinate Ext Rel 25 Mg Tabcr PO 25 mg BID BARTOLO Administration Ondansetron HCl 4 mg 06/04/24 18:40 06/05/24 12:15 Ondansetron Inj 4 Mg/2 Ml Vial IV PUSH 4 mg Q6H PRN Administration Nausea And Vomiting Pantoprazole Sodium 40 mg 06/04/24 09:00 06/09/24 08:46 Pantoprazole 40 Mg Tablet PO 40 mg QAM BARTOLO Administration Rosuvastatin Calcium 20 mg 06/04/24 13:40 06/05/24 09:11 Rosuvastatin 20 Mg Tablet PO 20 mg DAILY BARTOLO Administration Radiology Results: ITS Impressions Chest/Abdomen/Pelvis CTA 06/03/24 10:56 IMPRESSION: CHEST: 1. No pulmonary embolism or dissection. 2. Multiple patchy opacities and groundglass appearance suggestive of pneumonia. Underlying pulmonary edema is not excluded although this is less likely. Clinical correlation advised. 3. Mediastinal lymphadenopathy. 4. Right pleural effusion. ABDOMEN/PELVIS: 1. No evidence of appendicitis, diverticulitis or intestinal obstruction. 2. Fat stranding around the neck of the gallbladder. Differential include cholecystitis versus ascending cholangitis versus duodenitis: although no thickening in the wall of the gallbladder or the duodenum is seen. Clinical correlation advised. 3. Fat infiltration of the liver. Hepatomegaly. 4. Fat-containing bilateral inguinal and umbilical hernias. Chest X-Ray 06/06/24 08:11 IMPRESSION: 1. Unchanged elevation of the left hemidiaphragm. No acute cardiopulmonary disease. 2. Cardiomegaly. Renal Ultrasound 06/06/24 14:19 IMPRESSION: No definite abnormality. Abdomen Ultrasound 06/06/24 14:22 IMPRESSION: Fat infiltration of the liver. Thickened wall of the gallbladder which may indicate cholecystitis. Clinical correlation advised. Minimal free fluid in the upper abdomen. Otherwise, normal limited abdominal ultrasound. Arterial/Peripheral Duplex 06/07/24 08:36 IMPRESSION: 1. Normal directional flow but with increased pulsatility to the hepatic venous waveforms and to lesser degree the portal venous waveforms consistent with congestive heart failure. 2. Diffuse hepatic steatosis with small amount of perihepatic ascites. Labs Labs: Laboratory Results - last 24 hr 06/06/24 06/07/24 06/07/24 11:10 00:15 18:51 WBC RBC Hgb Hct MCV MCH MCHC RDW Plt Count MPV Immature Gran % (Auto) Neut % (Auto) Lymph % (Auto) [place] % (Auto) Eos % (Auto) Baso % (Auto) Lymph # (Auto) [place] # (Auto) Eos # (Auto) Baso # (Auto) Abs Immat Gran (auto) Absolute Neuts (auto) Absolute Nucleated RBC Nucleated RBC % PT INR Sodium Potassium Chloride Carbon Dioxide Anion Gap BUN Creatinine Estim Creat Clear Calc Estimated GFR Glucose Calcium Phosphorus Magnesium Total Bilirubin AST ALT Alkaline Phosphatase Total Protein Albumin U Protein 24 Hr Presump 600 H Urine Albumin 100 U Cbjuq-9-Hersrcro 0 U Sjbub-5-Hvlponrr 0 U Beta Globulin 0 U Gamma Globulin 0 Urine PEP Interpret See note Urine Immunofixation Tot Complement (CH50) 41 06/09/24 03:59 WBC 9.6 RBC 4.83 Hgb 15.0 Hct 47.0 MCV 97.3 MCH 31.1 MCHC 31.9 L RDW 12.8 Plt Count 288 MPV 10.3 Immature Gran % (Auto) 2.2 H Neut % (Auto) 55.4 Lymph % (Auto) 26.8 [place] % (Auto) 8.8 H Eos % (Auto) 5.8 H Baso % (Auto) 1.0 Lymph # (Auto) 2.58 [place] # (Auto) 0.9 H Eos # (Auto) 0.6 H Baso # (Auto) 0.1 Abs Immat Gran (auto) 0.21 H Absolute Neuts (auto) 5.3 Absolute Nucleated RBC 0.000 Nucleated RBC % 0.0 PT 17.7 H INR 1.4 Sodium 140 Potassium 4.2 Chloride 109 H Carbon Dioxide 25 Anion Gap 6 BUN 16 Creatinine 0.87 Estim Creat Clear Calc 134 Estimated GFR > 60 Glucose 99 Calcium 8.2 L Phosphorus 3.9 Magnesium 2.2 Total Bilirubin 1.4 H AST 389 H ALT 1287 H Alkaline Phosphatase 91 Total Protein 6.0 L Albumin 3.1 L U Protein 24 Hr Presump Urine Albumin U Yceyo-4-Reokbhtv U Qpdut-6-Frrjpoqq U Beta Globulin U Gamma Globulin Urine PEP Interpret Urine Immunofixation Tot Complement (CH50)
--- NOTE | 2024-06-09 09:38 | P.PNIM_ITS ---
Progress Note: A&P Assessment and Plan (1) Congestive heart failure: Code(s): I50.9 - Heart failure, unspecified Status: Acute (2) Atrial flutter with rapid ventricular response: Code(s): I48.92 - Unspecified atrial flutter Status: Acute (3) Elevated liver transaminase level: Code(s): R74.01 - Elevation of levels of liver transaminase levels Status: Acute (4) Acute kidney injury: Code(s): N17.9 - Acute kidney failure, unspecified Status: Acute (5) Community acquired pneumonia: Code(s): J18.9 - Pneumonia, unspecified organism Status: Acute Plan (1) Atrial flutter with rapid ventricular response: Code(s): I48.92 - Unspecified atrial flutter Status: Acute Assessment and Plan: Presented with a flutter with RVR HERI shows thrombus in left atrial appendage hence patient was not cardioverted Continue apixaban Resume beta-noah at a low rate c/w digoxin cafeteria monitor Rate is better controlled, but not in the target range, further management per hand box coverer (2) Elevated liver transaminase level: Code(s): R74.01 - Elevation of levels of liver transaminase levels Status: Acute Assessment and Plan: Patient presented with elevated liver enzymes which sharply increased between 06/04 and 06/06 Patient has history of heavy alcohol intake, was also on statin and pictures likely consistent with ischemic hepatopathy likely from a flutter and poor cardiac output Negative viral hepatitis panel LFTs and now improving (3) Congestive heart failure: Code(s): I50.9 - Heart failure, unspecified Status: Acute Assessment and Plan: Left ventricular systolic function is severely reduced, estimated at 20-25%. Patient will be resumed on beta-noah. Continue Cozaar Cardiology plans to resume Entresto (4) Hypertension: Code(s): I10 - Essential (primary) hypertension Status: Acute Assessment and Plan: Resume beta-noah Cardiology has started Cozaar (5) Hyperlipidemia: Code(s): E78.5 - Hyperlipidemia, unspecified Status: Acute Assessment and Plan: Statin was on hold because of elevated LFTs (6) Acute kidney injury: Code(s): N17.9 - Acute kidney failure, unspecified Status: Acute Assessment and Plan: secondary to poor cardiac output Monitor urine output electrolytes and creatinine Appreciate nephrology consultation Community acquired pneumonia: Code(s): J18.9 - Pneumonia, unspecified organism Status: Acute Assessment and Plan: Patient was started on empiric treatment for community-acquired pneumonia although his presentation is likely more consistent with pulmonary edema and congestive heart failure He is now afebrile and WBC has normalized Blood and sputum cultures have been negative He is on a course of Rocephin and doxycycline procal 0.7 (8) Suspected sleep apnea: Code(s): R29.818 - Other symptoms and signs involving the nervous system Status: Acute Assessment and Plan: Patient has symptoms of obstructive sleep apnea. I recommended and encouraged patient to get tested as an outpatient and be compliant with CPAP if prescribed. Her monitoring and supplemental oxygen at this time in the hospital (9) Tobacco dependence: Code(s): F17.200 - Nicotine dependence, unspecified, uncomplicated Status: Acute Assessment and Plan: Patient was encouraged and counseled to quit smoking (10) Daily consumption of alcohol: Code(s): Z78.9 - Other specified health status Status: Acute Assessment and Plan: Patient was encouraged and counseled to cut down on alcohol intake. Monitor for signs of withdrawal. Plan DVT prophylaxis -apixaban Nutrition -diet ordered Code Status - Full Code Transferred to IMU Subjective Date/time seen: 06/09/24 09:38 Interval history: I saw exam patient today, denies chest pain,shortness breath. Heart rate is better controlled but not controlled in the target range Exam Narrative: GENERAL: Ill-appearing, obesity, in no acute distress. Well-nourished. - EYES: EOMI. Anicteric. - HENT: Moist mucous membranes. - LUNGS: Coarse breath sound bilateral base - CARDIOVASCULAR: Irregular irregular r hythm. No murmur. No JVD. - ABDOMEN: Soft, non-tender and non-dist ended. No palpable masses. - EXTREMITIES: No edema. Peripheral puls es 2+. Non-tender. - NEUROLOGIC: No focal neurological defi cits. CN II-XII grossly intact. - PSYCHIATRIC: Awake, Alert and oriented x 3. Appropriate mood and affect. - SKIN: No rashes or lesions. Warm. - LYMPH: No cervical lymphadenopathy. Objective Data Vital Signs Vital Signs: Vital Signs - 24 hr 06/08/24 10:00 06/08/24 11:54 06/08/24 12:00 Temperature 98.0 F Pulse Rate 110 H 101 H Pulse Rate [Bilateral Radial Palpation] 107 H Respiratory Rate 22 H Blood Pressure 146/83 H Pulse Oximetry 96 Oxygen Delivery Fraction of Inspired Oxygen 06/08/24 12:00 06/08/24 14:00 06/08/24 16:00 Temperature Pulse Rate 107 H 107 H Pulse Rate [Bilateral Radial Palpation] 110 H Respiratory Rate Blood Pressure Pulse Oximetry Oxygen Delivery Fraction of Inspired Oxygen 06/08/24 16:00 06/08/24 16:10 06/08/24 17:08 Temperature 98.3 F Pulse Rate 115 H 118 H 123 H Pulse Rate [Bilateral Radial Palpation] Respiratory Rate 20 Blood Pressure 145/82 H Pulse Oximetry 95 Oxygen Delivery Fraction of Inspired Oxygen 06/08/24 18:00 06/08/24 20:00 06/08/24 20:00 Temperature Pulse Rate 119 H 109 H Pulse Rate [Bilateral Radial Palpation] Respiratory Rate Blood Pressure Pulse Oximetry Oxygen Delivery Room Air Fraction of Inspired Oxygen 06/08/24 20:20 06/08/24 21:57 06/08/24 22:00 Temperature 98.2 F Pulse Rate 107 H 113 H 97 Pulse Rate [Bilateral Radial Palpation] Respiratory Rate 20 20 Blood Pressure 110/74 Pulse Oximetry 97 94 Oxygen Delivery Room Air Fraction of Inspired Oxygen 21 06/08/24 23:28 06/09/24 00:00 06/09/24 00:00 Temperature 98.2 F Pulse Rate 108 H Pulse Rate [Bilateral Radial Palpation] 96 Respiratory Rate 20 Blood Pressure 140/86 Pulse Oximetry 96 Oxygen Delivery Room Air Fraction of Inspired Oxygen 06/09/24 00:00 06/09/24 02:00 06/09/24 04:00 Temperature 98.4 F Pulse Rate 96 106 H 106 H Pulse Rate [Bilateral Radial Palpation] Respiratory Rate 20 Blood Pressure 120/75 Pulse Oximetry 96 Oxygen Delivery Fraction of Inspired Oxygen 06/09/24 04:00 06/09/24 04:00 06/09/24 04:00 Temperature Pulse Rate 106 H Pulse Rate [Bilateral Radial Palpation] 100 Respiratory Rate Blood Pressure Pulse Oximetry Oxygen Delivery Room Air Fraction of Inspired Oxygen 06/09/24 06:00 06/09/24 07:52 06/09/24 08:46 Temperature 98.5 F Pulse Rate 97 110 H 123 H Pulse Rate [Bilateral Radial Palpation] Respiratory Rate 20 Blood Pressure 106/86 Pulse Oximetry 98 Oxygen Delivery Fraction of Inspired Oxygen Intake/Output Intake/Output: Intake & Output 06/06/24 06/07/24 06/08/24 06/09/24 23:59 23:59 23:59 23:59 Intake Total 1281.3 1318.2 2130 550 Output Total 1999 3700 2600 Balance -718.7 -2381.8 -470 550 Meds/Results Medications: Active Medications Generic Name Dose Route Start Last Admin Trade Name Freq PRN Reason Stop Dose Admin Apixaban 5 mg 06/04/24 10:00 06/09/24 08:46 Apixaban 5 Mg Tablet PO 5 mg Q12HR BARTOLO Administration Calcium Carbonate 200 mg 06/03/24 21:22 06/05/24 12:22 Calcium Carbonate (Tums) 500 Mg (200 Mg Elemental) PO 200 mg Q6H PRN Administration Indigestion Empagliflozin 10 mg 06/08/24 09:00 06/09/24 08:46 Empagliflozin 10 Mg Tablet PO 10 mg DAILY BARTOLO Administration Guaifenesin 1,200 mg 06/03/24 21:00 06/09/24 08:46 Guaifenesin 12 Hr 600 Mg Tabcr PO 1,200 mg Q12HR BARTOLO Administration Losartan Potassium 25 mg 06/07/24 09:00 06/09/24 08:47 Losartan Potassium 25 Mg Tablet PO 25 mg DAILY BARTOLO Administration Metoprolol Succinate 25 mg 06/08/24 17:00 06/09/24 08:46 Metoprolol Succinate Ext Rel 25 Mg Tabcr PO 25 mg BID BARTOLO Administration Ondansetron HCl 4 mg 06/04/24 18:40 06/05/24 12:15 Ondansetron Inj 4 Mg/2 Ml Vial IV PUSH 4 mg Q6H PRN Administration Nausea And Vomiting Pantoprazole Sodium 40 mg 06/04/24 09:00 06/09/24 08:46 Pantoprazole 40 Mg Tablet PO 40 mg QAM BARTOLO Administration Rosuvastatin Calcium 20 mg 06/04/24 13:40 06/05/24 09:11 Rosuvastatin 20 Mg Tablet PO 20 mg DAILY BARTOLO Administration Radiology Results: ITS Impressions Chest/Abdomen/Pelvis CTA 06/03/24 10:56 IMPRESSION: CHEST: 1. No pulmonary embolism or dissection. 2. Multiple patchy opacities and groundglass appearance suggestive of pneumonia. Underlying pulmonary edema is not excluded although this is less lik donta. Clinical correlation advised. 3. Mediastinal lymphadenopathy. 4. Right pleural effusion. ABDOMEN/PELVIS: 1. No evidence of appendicitis, diverticulitis or intestinal obstruction. 2. Fat stranding around the neck of the gallbladder. Differential include cholecystitis versus ascending cholangitis versus duodenitis: although no thickening in the wall of the gallbladder or the duodenum is seen. Clinical correlation advised. 3. Fat infiltration of the liver. Hepatomegaly. 4. Fat-containing bilateral inguinal and umbilical hernias. Chest X-Ray 06/06/24 08:11 IMPRESSION: 1. Unchanged elevation of the left hemidiaphragm. No acute cardiopulmonary disease. 2. Cardiomegaly. Renal Ultrasound 06/06/24 14:19 IMPRESSION: No definite abnormality. Abdomen Ultrasound 06/06/24 14:22 IMPRESSION: Fat infiltration of the liver. Thickened wall of the gallbladder which may indicate cholecystitis. Clinical correlation advised. Minimal free fluid in the upper abdomen. Otherwise, normal limited abdominal ultrasound. Arterial/Peripheral Duplex 06/07/24 08:36 IMPRESSION: 1. Normal directional flow but with increased pulsatility to the hepatic venous waveforms and to lesser degree the portal venous waveforms consistent with congestive heart failure. 2. Diffuse hepatic steatosis with small amount of perihepatic ascites. Labs Labs: Laboratory Results - last 24 hr 06/06/24 06/07/24 06/07/24 11:10 00:15 18:51 WBC RBC Hgb Hct MCV MCH MCHC RDW Plt Count MPV Immature Gran % (Auto) Neut % (Auto) Lymph % (Auto) [place] % (Auto) Eos % (Auto) Baso % (Auto) Lymph # (Auto) [place] # (Auto) Eos # (Auto) Baso # (Auto) Abs Immat Gran (auto) Absolute Neuts (auto) Absolute Nucleated RBC Nucleated RBC % PT INR Sodium Potassium Chloride Carbon Dioxide Anion Gap BUN Creatinine Estim Creat Clear Calc Estimated GFR Glucose Calcium Phosphorus Magnesium Total Bilirubin AST ALT Alkaline Phosphatase Total Protein Albumin U Protein 24 Hr Presump 600 H Urine Albumin 100 U Brwhf-4-Bsmxmilm 0 U Krbnx-3-Ehuzdurs 0 U Beta Globulin 0 U Gamma Globulin 0 Urine PEP Interpret See note Urine Immunofixation Tot Complement (CH50) 41 06/09/24 03:59 WBC 9.6 RBC 4.83 Hgb 15.0 Hct 47.0 MCV 97.3 MCH 31.1 MCHC 31.9 L RDW 12.8 Plt Count 288 MPV 10.3 Immature Gran % (Auto) 2.2 H Neut % (Auto) 55.4 Lymph % (Auto) 26.8 [place] % (Auto) 8.8 H Eos % (Auto) 5.8 H Baso % (Auto) 1.0 Lymph # (Auto) 2.58 [place] # (Auto) 0.9 H Eos # (Auto) 0.6 H Baso # (Auto) 0.1 Abs Immat Gran (auto) 0.21 H Absolute Neuts (auto) 5.3 Absolute Nucleated RBC 0.000 Nucleated RBC % 0.0 PT 17.7 H INR 1.4 Sodium 140 Potassium 4.2 Chloride 109 H Carbon Dioxide 25 Anion Gap 6 BUN 16 Creatinine 0.87 Estim Creat Clear Calc 134 Estimated GFR > 60 Glucose 99 Calcium 8.2 L Phosphorus 3.9 Magnesium 2.2 Total Bilirubin 1.4 H AST 389 H ALT 1287 H Alkaline Phosphatase 91 Total Protein 6.0 L Albumin 3.1 L U Protein 24 Hr Presump Urine Albumin U Yijwx-2-Afjybbgk U Lvxwu-4-Mmzrglko U Beta Globulin U Gamma Globulin Urine PEP Interpret Urine Immunofixation Tot Complement (CH50)
[2024-06-09 09:39] LABS: Albumin 2.9 g/dL (3.8-4.8); Alpha 1 Globulin 0.4 g/dL (0.2-0.3); Alpha 2 Globulin 0.8 g/dL (0.5-0.9); Beta 1 Globulin 0.4 g/dL (0.4-0.6); Gamma Globulin 0.6 g/dL (0.8-1.7)
[2024-06-09] MEDS: DIGOXIN INJ 250 MCG/ML 2 ML AMP (*BKC) 500 MCG IV PUSH (10:08)
[2024-06-09 13:44] LABS: Anti Glomerular Basement Memb <1.0 AI
[2024-06-09] MEDS: METOPROLOL SUCCINATE EXT REL 12.5 MG TABCR PO (18:35)
[2024-06-10] VITALS (19 sets, daily range): BP systolic 93–129; BP diastolic 67–96; PULSE 86–132; RESP 18–28; TEMP 36.4–37; O2SAT 95–97
[2024-06-10 03:28] LABS: ANCA Screen NEGATIVE (NEGATIVE)
[2024-06-10 04:38] LABS: Basophils Percent Auto 0.4 % (0.2-1.2); Eosinophils Absolute Auto 0.6 K/mm3 (0-0.3); Eosinophils Percent Auto 5.3 % (0-4.4); Hematocrit 48.9 % (42.0-52.0); Hemoglobin 15.4 g/dL (14.0-18.0); Immature Granulocyte Absolute 0.18 K/mm3 (0.00-0.031); Immature Granulocyte Percent A 1.7 % (0-0.5); Lymphocytes Percent Auto 29.9 % (18.3-44.2); Mean Corpuscular HGB Conc 31.5 g/dl (32-36); Mean Corpuscular Hemoglobin 31.3 pg (26-34); Mean Corpuscular Volume 99.4 fl (80-100); Monocytes Absolute Auto 0.8 K/mm3 (0.1-0.6); Monocytes Percent Auto 7.6 % (2.6-8.5); Neutrophils Absolute Auto 5.9 K/mm3 (1.3-6.7); Neutrophils Percent Auto 55.1 % (45.5-73.1); Platelet Count Result 296 k/mm3 (150-375); Red Blood Count 4.92 M/mm3 (4.6-6.20); Red Cell Distribution Width 12.7 % (11.5-14.5); White Blood Count 10.7 K/mm3 (4.5-10.0)
[2024-06-10 05:02] LABS: INR 1.3; Prothrombin Time 16.9 Seconds (11.1-14.7)
[2024-06-10 05:53] LABS: Albumin Level 3.3 g/dL (3.5-5.1); Alkaline Phosphatase 85 U/L (38-126); Anion Gap 10 mmol/L (4-12); Aspartate Amino Transferase 215 U/L (17-59); Bilirubin,Total 1.4 mg/dL (0.2-1.3); Blood Urea Nitrogen 14 mg/dL (9-20); Calcium 8.6 mg/dL (8.4-10.2); Carbon Dioxide 19 mmol/L (22-30); Chloride 109 mmol/L (98-107); Estimated CRCL calculation 141 ml/min; Estimated Glomerular Filt Rate > 60; Glucose 81 mg/dL (65-110); Magnesium 2.3 mg/dL (1.6-2.3); Phosphorus 4.6 mg/dL (2.5-4.5); Potassium 4.5 mmol/L (3.4-5.0); Sodium 138 mmol/L (137-145)
[2024-06-10 06:04] LABS: Alanine Aminotransferase 970 U/L (6-50)
--- NOTE | 2024-06-10 08:10 | PM.PNCARD ---
Progress Note: A&P Assessment and Plan (1) Atrial flutter with rapid ventricular response: Code(s): I48.92 - Unspecified atrial flutter Status: Acute Assessment and Plan: Continue Eliquis for anticoagulation. He does have left atrial appendage thrombus and will need at minimum 4 weeks of anticoagulation before consideration of cardioversion. Heart rate reasonably controlled with diltiazem and metoprolol. (2) Hypertension: Code(s): I10 - Essential (primary) hypertension Status: Chronic Assessment and Plan: Continue diltiazem and metoprolol. May add an Arb or Entresto depending on results of echo (3) Congestive heart failure: Code(s): I50.9 - Heart failure, unspecified Status: Acute Assessment and Plan: Echo pending. Will adjust regimen depending on results of echo (4) Hyperlipidemia: Code(s): E78.5 - Hyperlipidemia, unspecified Status: Acute Assessment and Plan: On rosuvastatin (5) Daily consumption of alcohol: Code(s): Z78.9 - Other specified health status Status: Acute Assessment and Plan: Alcohol cessation recommend (6) Suspected sleep apnea: Code(s): R29.818 - Other symptoms and signs involving the nervous system Status: Acute Assessment and Plan: Check an ApneaLink for tonight Plan 1. Acute on chronic systolic HF NYHA IV, Stage C 2. Cardiogenic Shock; improving 3. Atrial Flutter 4. HTN 5. Shock Liver/SAMREEN; improving -ischemic evaluation has not been done. Most likely the etiology of his cardiomyopathy is nonischemic. Discussed with him regarding ischemic evaluation. He wants to continue on GDMT and will consider ischemic evaluation if the LV systolic function does not improve in repeat echo - Continue losartan at current dose 25 mg p.o. daily, No ARNI becasue of high co-pay - Increase Toprol-XL, 25 mg p.o. b.i.d. -continue anticoagulation -will add oral digoxin 0.25 mcg because his heart rate is still not controlled and his blood pressure will not allow any escalation of beta-noah. Reduction may also help in inotropy. Can be discontinued in 2-4 weeks as an outpatient. Digoxin level to be done [address] boswell will discharge him with follow-up digoxin level to be done as an outpatient. Trough levels will need to be done -LifeVest on discharge Subjective Date/time seen: 06/10/24 08:10 Interval history: 48-year-old with atrial flutter Date of service 06/05/2024: Generally heart rate around 110. Periodically will go faster. Seems a little short of breath today with no chest pain. Date of service 06/06/2024: No chest pain, BP soft, slightly tachycardic Liver enzymes markedly elevated Creatinine 0.69, 1.44 --> 1.28 06/07/2024: Transfer to the ICU yesterday No acute events overnight Liver function improving Renal function normalized Sternal atrial flutter, rates between 115-120 06/08/2024): No acute events overnight Feeling better -3 L in last 48 hours Creatinine 0.83, back to normal Improving liver function HR still a little elevated (06/10/2023): Doing well no acute events overnight Heart rate still elevated Creatinine back to normal Improving renal function (06/10/2024) doing well, wants to go home Baseline heart rate control, heart rate increases on ambulation Creatinine back to normal, improving liver function Review of Systems Review of Systems: All systems reviewed & are unremarkable except as noted in HPI and below Constitutional: Constitutional: Denies body ache(s) and Denies excessive sweating Eyes: Eyes: Denies blurry vision ENT: Denies Normal hearing present Cardiovascular: Cardiovascular: Denies diaphoresis Respiratory: Respiratory: Denies chest congestion Gastrointestinal: Gastrointestinal: Denies abdominal pain Genitourinary: Genitourinary: Denies hematuria Musculoskeletal: Musculoskeletal: Denies back pain Integumentary/Breasts: Skin/Breast: Denies dry skin Neurologic: Denies Normal hearing present, Denies Abnormal speech present and Denies confusion Psychiatric: Psychiatric: Denies confusion Endocrine: Endocrine: Denies excessive sweating Hematologic/Lymphatic: Hematologic/Lymphatic: Denies easy bruising Allergic/Immunologic: Allergic/Immunologic: Denies GI upset with certain foods Exam Const: General: comfortable and no acute distress; No confusion Orientation/consciousness: No confusion HENMT: Mouth: Yes moist mucous membranes Eyes: General: appearance normal, both eyes and all related structures Sclera: sclerae normal Resp: Effort & Inspection: normal respiratory effort Cardio: Rate: tachycardic Rhythm: regular rhythm Heart sounds: no murmurs Other: Tele with atrial flutter with RVR Skin: General skin exam: normal color Neuro: General: No confusion Cranial nerves: No Normal hearing present Speech: normal speech and No Abnormal speech present Psych: Mental Status: mental status grossly normal Affect: normal affect Objective Data Vital Signs Vital Signs: Vital Signs - 24 hr 06/09/24 08:46 06/09/24 10:00 06/09/24 10:08 Temperature Pulse Rate 123 H 108 H 117 H Pulse Rate [Bilateral Radial Palpation] Respiratory Rate Blood Pressure Pulse Oximetry Oxygen Delivery Fraction of Inspired Oxygen 06/09/24 11:29 06/09/24 12:00 06/09/24 12:00 Temperature 36.5 C Pulse Rate 104 H 103 H Pulse Rate [Bilateral Radial Palpation] 114 H Respiratory Rate 22 H Blood Pressure 131/93 H Pulse Oximetry 98 Oxygen Delivery Fraction of Inspired Oxygen 06/09/24 14:00 06/09/24 15:36 06/09/24 16:00 Temperature 36.9 C Pulse Rate 101 H 107 H 100 Pulse Rate [Bilateral Radial Palpation] Respiratory Rate 20 Blood Pressure 143/92 H Pulse Oximetry 95 Oxygen Delivery Fraction of Inspired Oxygen 06/09/24 16:53 06/09/24 18:35 06/09/24 20:00 Temperature Pulse Rate 117 H 117 H 104 H Pulse Rate [Bilateral Radial Palpation] Respiratory Rate Blood Pressure Pulse Oximetry Oxygen Delivery Fraction of Inspired Oxygen 06/09/24 20:26 06/09/24 20:35 06/09/24 22:00 Temperature 36.8 C Pulse Rate 109 H 109 H 102 H Pulse Rate [Bilateral Radial Palpation] Respiratory Rate 18 18 Blood Pressure 128/97 H Pulse Oximetry 98 98 Oxygen Delivery Room Air Fraction of Inspired Oxygen 21 06/10/24 00:00 06/10/24 00:00 06/10/24 00:00 Temperature 36.4 C Pulse Rate 120 H 108 H Pulse Rate [Bilateral Radial Palpation] 114 H Respiratory Rate 18 18 Blood Pressure 114/89 Pulse Oximetry 95 95 Oxygen Delivery Room Air Fraction of Inspired Oxygen 06/10/24 00:00 06/10/24 02:00 06/10/24 03:48 Temperature Pulse Rate 112 H 102 H 108 H Pulse Rate [Bilateral Radial Palpation] Respiratory Rate 18 Blood Pressure Pulse Oximetry 95 Oxygen Delivery Room Air Fraction of Inspired Oxygen 06/10/24 03:58 06/10/24 04:00 06/10/24 06:00 Temperature 36.9 C Pulse Rate 126 H 126 H 86 Pulse Rate [Bilateral Radial Palpation] Respiratory Rate 18 Blood Pressure 106/76 Pulse Oximetry 95 Oxygen Delivery Fraction of Inspired Oxygen 06/10/24 08:00 Temperature 36.7 C Pulse Rate 94 Pulse Rate [Bilateral Radial Palpation] Respiratory Rate 28 H Blood Pressure 127/88 Pulse Oximetry 97 Oxygen Delivery Fraction of Inspired Oxygen Intake/Output Intake/Output: Intake & Output 06/07/24 06/08/24 06/09/24 06/10/24 23:59 23:59 23:59 23:59 Intake Total 1318.2 2130 1770 550 Output Total 3700 2600 1400 Balance -2381.8 -470 370 550 Meds/Results Medications: Active Medications Generic Name Dose Route Start Last Admin Trade Name Freq PRN Reason Stop Dose Admin Apixaban 5 mg 06/04/24 10:00 06/09/24 20:37 Apixaban 5 Mg Tablet PO 5 mg Q12HR BARTOLO Administration Calcium Carbonate 200 mg 06/03/24 21:22 06/05/24 12:22 Calcium Carbonate (Tums) 500 Mg (200 Mg Elemental) PO 200 mg Q6H PRN Administration Indigestion Empagliflozin 10 mg 06/08/24 09:00 06/09/24 08:46 Empagliflozin 10 Mg Tablet PO 10 mg DAILY BARTOLO Administration Guaifenesin 1,200 mg 06/03/24 21:00 06/09/24 20:37 Guaifenesin 12 Hr 600 Mg Tabcr PO 1,200 mg Q12HR BARTOLO Administration Losartan Potassium 25 mg 06/07/24 09:00 06/09/24 08:47 Losartan Potassium 25 Mg Tablet PO 25 mg DAILY BARTOLO Administration Metoprolol Succinate 50 mg 06/10/24 09:00 Metoprolol Succinate Ext Rel 50 Mg Tabcr PO BID BARTOLO Ondansetron HCl 4 mg 06/04/24 18:40 06/05/24 12:15 Ondansetron Inj 4 Mg/2 Ml Vial IV PUSH 4 mg Q6H PRN Administration Nausea And Vomiting Pantoprazole Sodium 40 mg 06/04/24 09:00 06/09/24 08:46 Pantoprazole 40 Mg Tablet PO 40 mg QAM BARTOLO Administration Rosuvastatin Calcium 20 mg 06/04/24 13:40 06/05/24 09:11 Rosuvastatin 20 Mg Tablet PO 20 mg DAILY BARTOLO Administration Radiology Results: ITS Impressions Chest/Abdomen/Pelvis CTA 06/03/24 10:56 IMPRESSION: CHEST: 1. No pulmonary embolism or dissection. 2. Multiple patchy opacities and groundglass appearance suggestive of pneumonia. Underlying pulmonary edema is not excluded although this is less likely. Clinical correlation advised. 3. Mediastinal lymphadenopathy. 4. Right pleural effusion. ABDOMEN/PELVIS: 1. No evidence of appendicitis, diverticulitis or intestinal obstruction. 2. Fat stranding around the neck of the gallbladder. Differential include cholecystitis versus ascending cholangitis versus duodenitis: although no thickening in the wall of the gallbladder or the duodenum is seen. Clinical correlation advised. 3. Fat infiltration of the liver. Hepatomegaly. 4. Fat-containing bilateral inguinal and umbilical hernias. Chest X-Ray 06/06/24 08:11 IMPRESSION: 1. Unchanged elevation of the left hemidiaphragm. No acute cardiopulmonary disease. 2. Cardiomegaly. Renal Ultrasound 06/06/24 14:19 IMPRESSION: No definite abnormality. Abdomen Ultrasound 06/06/24 14:22 IMPRESSION: Fat infiltration of the liver. Thickened wall of the gallbladder which may indicate cholecystitis. Clinical correlation advised. Minimal free fluid in the upper abdomen. Otherwise, normal limited abdominal ultrasound. Arterial/Peripheral Duplex 06/07/24 08:36 IMPRESSION: 1. Normal directional flow but with increased pulsatility to the hepatic venous waveforms and to lesser degree the portal venous waveforms consistent with congestive heart failure. 2. Diffuse hepatic steatosis with small amount of perihepatic ascites. Labs Labs: Laboratory Results - last 24 hr 06/06/24 06/07/24 06/10/24 11:10 03:52 04:00 WBC RBC Hgb Hct MCV MCH MCHC RDW Plt Count MPV Immature Gran % (Auto) Neut % (Auto) Lymph % (Auto) [place] % (Auto) Eos % (Auto) Baso % (Auto) Lymph # (Auto) [place] # (Auto) Eos # (Auto) Baso # (Auto) Abs Immat Gran (auto) Absolute Neuts (auto) Absolute Nucleated RBC Nucleated RBC % PT 16.9 H INR 1.3 Sodium Potassium Chloride Carbon Dioxide Anion Gap BUN Creatinine Estim Creat Clear Calc Estimated GFR Glucose Calcium Phosphorus Magnesium Total Bilirubin AST ALT Alkaline Phosphatase Total Protein Albumin 2.9 L Pynif-8-Ciupbfwkc 0.4 H Hhuye-9-Urfnbsdsx 0.8 Syrj-5-Ywxfspot 0.4 Nmlv-3-Cqpwkhdf 0.4 Gamma Globulins 0.6 L PEP Interpretation See note ANCA Screen Negative Glomerular Base Memb Ab <1.0 06/10/24 04:01 WBC 10.7 H RBC 4.92 Hgb 15.4 Hct 48.9 MCV 99.4 MCH 31.3 MCHC 31.5 L RDW 12.7 Plt Count 296 MPV 10.0 Immature Gran % (Auto) 1.7 H Neut % (Auto) 55.1 Lymph % (Auto) 29.9 [place] % (Auto) 7.6 Eos % (Auto) 5.3 H Baso % (Auto) 0.4 Lymph # (Auto) 3.20 [place] # (Auto) 0.8 H Eos # (Auto) 0.6 H Baso # (Auto) 0.0 Abs Immat Gran (auto) 0.18 H Absolute Neuts (auto) 5.9 Absolute Nucleated RBC 0.000 Nucleated RBC % 0.0 PT INR Sodium 138 Potassium 4.5 Chloride 109 H Carbon Dioxide 19 L Anion Gap 10 BUN 14 Creatinine 0.81 Estim Creat Clear Calc 141 Estimated GFR > 60 Glucose 81 Calcium 8.6 Phosphorus 4.6 H Magnesium 2.3 Total Bilirubin 1.4 H AST 215 H ALT 970 H Alkaline Phosphatase 85 Total Protein 6.0 L Albumin 3.3 L Otibw-8-Nzurjdast Ehpys-2-Igseqkjbi Kubm-0-Gulmveqq Oonl-0-Nlodoolz Gamma Globulins PEP Interpretation ANCA Screen Glomerular Base Memb Ab
[2024-06-10] MEDS: guaiFENesin 12 HR 600 MG TABCR 1200 MG PO ×2 (09:04→20:35)
[2024-06-10] MEDS: APIXABAN 5 MG TABLET PO ×2 (09:04→20:35)
[2024-06-10] MEDS: METOPROLOL SUCCINATE EXT REL 50 MG TABCR PO ×2 (09:04→17:35)
[2024-06-10] MEDS: LOSARTAN POTASSIUM 25 MG TABLET PO (09:04)
[2024-06-10] MEDS: EMPAGLIFLOZIN 10 MG TABLET PO (09:04)
[2024-06-10] MEDS: PANTOPRAZOLE 40 MG TABLET PO (09:05)
--- NOTE | 2024-06-10 09:33 | P.PNIM_ITS ---
Progress Note: A&P Assessment and Plan (1) Congestive heart failure: Code(s): I50.9 - Heart failure, unspecified Status: Acute (2) Atrial flutter with rapid ventricular response: Code(s): I48.92 - Unspecified atrial flutter Status: Acute (3) Elevated liver transaminase level: Code(s): R74.01 - Elevation of levels of liver transaminase levels Status: Acute (4) Acute kidney injury: Code(s): N17.9 - Acute kidney failure, unspecified Status: Acute (5) Community acquired pneumonia: Code(s): J18.9 - Pneumonia, unspecified organism Status: Acute Plan Atrial flutter with rapid ventricular response: Presented with a flutter with RVR HERI shows thrombus in left atrial appendage hence patient was not cardioverted Continue apixaban Metoprolol succinate 50 mg p.o. b.i.d. Started on digoxin 25 mcg S/P digoxin drip electronic device monitor Rate is better controlled, but not in the target range, further management per pesticide use medical coordinator Elevated liver transaminase level: Patient presented with elevated liver enzymes which sharply increased between 06/04 and 06/06 Patient has history of heavy alcohol intake, was also on statin and pictures likely consistent with ischemic hepatopathy likely from a flutter and poor cardiac output Negative viral hepatitis panel LFTs and now improving Congestive heart failure: Left ventricular systolic function is severely reduced, estimated at 20-25%. Patient will be resumed on beta-noah. Continue Cozaar Cardiology plans to resume Entresto Hypertension: Resume beta-noah Cardiology has started Cozaar Hyperlipidemia: Statin was on hold because of elevated LFTs Acute kidney injury: secondary to poor cardiac output Monitor urine output electrolytes and creatinine Appreciate nephrology consultation Community acquired pneumonia: Patient was started on empiric treatment for community-acquired pneumonia although his presentation is likely more consistent with pulmonary edema and congestive heart failure He is now afebrile and WBC has normalized Blood and sputum cultures have been negative Completed course of Rocephin and doxycycline procal 0.7 Suspected sleep apnea: Patient has symptoms of obstructive sleep apnea. I recommended and encouraged patient to get tested as an outpatient and be compliant with CPAP if prescribed. Monitoring and supplemental oxygen at this time in the hospital Tobacco dependence: Patient was encouraged and counseled to quit smoking Daily consumption of alcohol: Patient was encouraged and counseled to cut down on alcohol intake. Monitor for signs of withdrawal. Plan DVT prophylaxis -apixaban Nutrition -diet ordered Code Status - Full Code Transferred to IMU Subjective Date/time seen: 06/10/24 09:33 Interval history: Patient heart rate in 120s. LFT Continues to downtrend. Cardiology started the patient on digoxin 25 mg mcg and needs to follow-up in 3-4 days with the digoxin level. Possible discharge tomorrow Review of Systems Review of Systems: 12 systems were reviewed and are negativ e except for as per HPI. All systems reviewed & are unremarkable except as noted in HPI and below (HPI) Exam Narrative: GENERAL: Ill-appearing, obesity, in no acute distress. Well-nourished. - EYES: EOMI. Anicteric. - HENT: Moist mucous membranes. - LUNGS: Coarse breath sound bilateral base - CARDIOVASCULAR: Irregular irregular r hythm. No murmur. No JVD. - ABDOMEN: Soft, non-tender and non-dist ended. No palpable masses. - EXTREMITIES: No edema. Peripheral puls es 2+. Non-tender. - NEUROLOGIC: No focal neurological defi cits. CN II-XII grossly intact. - PSYCHIATRIC: Awake, Alert and oriented x 3. Appropriate mood and affect. - SKIN: No rashes or lesions. Warm. - LYMPH: No cervical lymphadenopathy. Objective Data Vital Signs Vital Signs: Vital Signs - 24 hr 06/09/24 10:00 06/09/24 10:08 06/09/24 11:29 Temperature 97.7 F Pulse Rate 108 H 117 H 104 H Pulse Rate [Bilateral Radial Palpation] Respiratory Rate 22 H Blood Pressure 131/93 H Pulse Oximetry 98 Oxygen Delivery Fraction of Inspired Oxygen 06/09/24 12:00 06/09/24 12:00 06/09/24 14:00 Temperature Pulse Rate 103 H 101 H Pulse Rate [Bilateral Radial Palpation] 114 H Respiratory Rate Blood Pressure Pulse Oximetry Oxygen Delivery Fraction of Inspired Oxygen 06/09/24 15:36 06/09/24 16:00 06/09/24 16:53 Temperature 98.4 F Pulse Rate 107 H 100 117 H Pulse Rate [Bilateral Radial Palpation] Respiratory Rate 20 Blood Pressure 143/92 H Pulse Oximetry 95 Oxygen Delivery Fraction of Inspired Oxygen 06/09/24 18:35 06/09/24 20:00 06/09/24 20:26 Temperature 98.3 F Pulse Rate 117 H 104 H 109 H Pulse Rate [Bilateral Radial Palpation] Respiratory Rate 18 Blood Pressure 128/97 H Pulse Oximetry 98 Oxygen Delivery Fraction of Inspired Oxygen 06/09/24 20:35 06/09/24 22:00 06/10/24 00:00 Temperature 97.6 F Pulse Rate 109 H 102 H 120 H Pulse Rate [Bilateral Radial Palpation] Respiratory Rate 18 18 Blood Pressure 114/89 Pulse Oximetry 98 95 Oxygen Delivery Room Air Fraction of Inspired Oxygen 06/10/24 00:00 06/10/24 00:00 06/10/24 00:00 Temperature Pulse Rate 108 H 112 H Pulse Rate [Bilateral Radial Palpation] 114 H Respiratory Rate 18 Blood Pressure Pulse Oximetry 95 Oxygen Delivery Room Air Fraction of Inspired Oxygen 06/10/24 02:00 06/10/24 03:48 06/10/24 03:58 Temperature 98.5 F Pulse Rate 102 H 108 H 126 H Pulse Rate [Bilateral Radial Palpation] Respiratory Rate 18 18 Blood Pressure 106/76 Pulse Oximetry 95 95 Oxygen Delivery Room Air Fraction of Inspired Oxygen 06/10/24 04:00 06/10/24 06:00 06/10/24 08:00 Temperature 98.0 F Pulse Rate 126 H 86 94 Pulse Rate [Bilateral Radial Palpation] Respiratory Rate 28 H Blood Pressure 127/88 Pulse Oximetry 97 Oxygen Delivery Fraction of Inspired Oxygen 06/10/24 09:04 Temperature Pulse Rate 114 H Pulse Rate [Bilateral Radial Palpation] Respiratory Rate Blood Pressure Pulse Oximetry Oxygen Delivery Fraction of Inspired Oxygen Intake/Output Intake/Output: Intake & Output 06/07/24 06/08/24 06/09/24 06/10/24 23:59 23:59 23:59 23:59 Intake Total 1318.2 2130 1770 550 Output Total 3700 2600 1400 Balance -2381.8 -470 370 550 Meds/Results Medications: Active Medications Generic Name Dose Route Start Last Admin Trade Name Freq PRN Reason Stop Dose Admin Apixaban 5 mg 06/04/24 10:00 06/10/24 09:04 Apixaban 5 Mg Tablet PO 5 mg Q12HR BARTOLO Administration Calcium Carbonate 200 mg 06/03/24 21:22 06/05/24 12:22 Calcium Carbonate (Tums) 500 Mg (200 Mg Elemental) PO 200 mg Q6H PRN Administration Indigestion Empagliflozin 10 mg 06/08/24 09:00 06/10/24 09:04 Empagliflozin 10 Mg Tablet PO 10 mg DAILY BARTOLO Administration Guaifenesin 1,200 mg 06/03/24 21:00 06/10/24 09:04 Guaifenesin 12 Hr 600 Mg Tabcr PO 1,200 mg Q12HR BARTOLO Administration Losartan Potassium 25 mg 06/07/24 09:00 06/10/24 09:04 Losartan Potassium 25 Mg Tablet PO 25 mg DAILY BARTOLO Administration Metoprolol Succinate 50 mg 06/10/24 09:00 06/10/24 09:04 Metoprolol Succinate Ext Rel 50 Mg Tabcr PO 50 mg BID BARTOLO Administration Ondansetron HCl 4 mg 06/04/24 18:40 06/05/24 12:15 Ondansetron Inj 4 Mg/2 Ml Vial IV PUSH 4 mg Q6H PRN Administration Nausea And Vomiting Pantoprazole Sodium 40 mg 06/04/24 09:00 06/10/24 09:05 Pantoprazole 40 Mg Tablet PO 40 mg QAM BARTOLO Administration Rosuvastatin Calcium 20 mg 06/04/24 13:40 06/05/24 09:11 Rosuvastatin 20 Mg Tablet PO 20 mg DAILY BARTOLO Administration Radiology Results: ITS Impressions Chest/Abdomen/Pelvis CTA 06/03/24 10:56 IMPRESSION: CHEST: 1. No pulmonary embolism or dissection. 2. Multiple patchy opacities and groundglass appearance suggestive of pneumonia. Underlying pulmonary edema is not excluded although this is less likely. Clinical correlation advised. 3. Mediastinal lymphadenopathy. 4. Right pleural effusion. ABDOMEN/PELVIS: 1. No evidence of appendicitis, diverticulitis or intestinal obstruction. 2. Fat stranding around the neck of the gallbladder. Differential include cholecystitis versus ascending cholangitis versus duodenitis: although no thickening in the wall of the gallbladder or the duodenum is seen. Clinical correlation advised. 3. Fat infiltration of the liver. Hepatomegaly. 4. Fat-containing bilateral inguinal and umbilical hernias. Chest X-Ray 06/06/24 08:11 IMPRESSION: 1. Unchanged elevation of the left hemidiaphragm. No acute cardiopulmonary disease. 2. Cardiomegaly. Renal Ultrasound 06/06/24 14:19 IMPRESSION: No definite abnormality. Abdomen Ultrasound 06/06/24 14:22 IMPRESSION: Fat infiltration of the liver. Thickened wall of the gallbladder which may indicate cholecystitis. Clinical correlation advised. Minimal free fluid in the upper abdomen. Otherwise, normal limited abdominal ultrasound. Arterial/Peripheral Duplex 06/07/24 08:36 IMPRESSION: 1. Normal directional flow but with increased pulsatility to the hepatic venous waveforms and to lesser degree the portal venous waveforms consistent with congestive heart failure. 2. Diffuse hepatic steatosis with small amount of perihepatic ascites. Labs Labs: Laboratory Results - last 24 hr 06/06/24 06/07/24 06/10/24 11:10 03:52 04:00 WBC RBC Hgb Hct MCV MCH MCHC RDW Plt Count MPV Immature Gran % (Auto) Neut % (Auto) Lymph % (Auto) [place] % (Auto) Eos % (Auto) Baso % (Auto) Lymph # (Auto) [place] # (Auto) Eos # (Auto) Baso # (Auto) Abs Immat Gran (auto) Absolute Neuts (auto) Absolute Nucleated RBC Nucleated RBC % PT 16.9 H INR 1.3 Sodium Potassium Chloride Carbon Dioxide Anion Gap BUN Creatinine Estim Creat Clear Calc Estimated GFR Glucose Calcium Phosphorus Magnesium Total Bilirubin AST ALT Alkaline Phosphatase Total Protein Albumin 2.9 L Tsrog-3-Nblqrxsoa 0.4 H Ketku-2-Ukdszdbpn 0.8 Wgkf-3-Snjwbjuy 0.4 Twlf-8-Gdlqekao 0.4 Gamma Globulins 0.6 L PEP Interpretation See note ANCA Screen Negative Glomerular Base Memb Ab <1.0 06/10/24 04:01 WBC 10.7 H RBC 4.92 Hgb 15.4 Hct 48.9 MCV 99.4 MCH 31.3 MCHC 31.5 L RDW 12.7 Plt Count 296 MPV 10.0 Immature Gran % (Auto) 1.7 H Neut % (Auto) 55.1 Lymph % (Auto) 29.9 [place] % (Auto) 7.6 Eos % (Auto) 5.3 H Baso % (Auto) 0.4 Lymph # (Auto) 3.20 [place] # (Auto) 0.8 H Eos # (Auto) 0.6 H Baso # (Auto) 0.0 Abs Immat Gran (auto) 0.18 H Absolute Neuts (auto) 5.9 Absolute Nucleated RBC 0.000 Nucleated RBC % 0.0 PT INR Sodium 138 Potassium 4.5 Chloride 109 H Carbon Dioxide 19 L Anion Gap 10 BUN 14 Creatinine 0.81 Estim Creat Clear Calc 141 Estimated GFR > 60 Glucose 81 Calcium 8.6 Phosphorus 4.6 H Magnesium 2.3 Total Bilirubin 1.4 H AST 215 H ALT 970 H Alkaline Phosphatase 85 Total Protein 6.0 L Albumin 3.3 L Wcosj-1-Utaqrrrjo Jdsqm-9-Oqlmssgub Cwfb-5-Pxoesobv Tmqz-3-Zjtndkfq Gamma Globulins PEP Interpretation ANCA Screen Glomerular Base Memb Ab Quality VTE Prophylaxis VTE prophylaxis: pharmacologic ordered Hospitalist MIPS Advance Care Plan I have confirmed that the patient's Advanced Care Plan is present, code status is documented, or surrogate decision maker is listed in patient medical record.: Yes Medication Reconciliation I have utilized all available resources to obtain, update and review the patients current medications (includes all prescriptions, OTC, herbals, cannabis, and nutritional supplements).: Yes
[2024-06-10] MEDS: DIGOXIN 250 MCG TABLET PO (10:29)
[2024-06-11] VITALS (22 sets, daily range): BP systolic 101–145; BP diastolic 68–94; PULSE 90–131; RESP 14–22; TEMP 36.6–36.7; O2SAT 96–98
[2024-06-11 04:41] LABS: Basophils Absolute Auto 0.1 K/mm3 (0.0-0.1); Basophils Percent Auto 0.9 % (0.2-1.2); Eosinophils Absolute Auto 0.5 K/mm3 (0-0.3); Eosinophils Percent Auto 4.9 % (0-4.4); Hematocrit 47.4 % (42.0-52.0); Hemoglobin 14.9 g/dL (14.0-18.0); Immature Granulocyte Absolute 0.14 K/mm3 (0.00-0.031); Immature Granulocyte Percent A 1.5 % (0-0.5); Lymphocytes Absolute Auto 2.98 K/mm3 (0.9-3.2); Lymphocytes Percent Auto 31.3 % (18.3-44.2); Mean Corpuscular HGB Conc 31.4 g/dl (32-36); Mean Corpuscular Hemoglobin 30.8 pg (26-34); Mean Corpuscular Volume 97.9 fl (80-100); Mean Platelet Volume 9.8 fl (7.4-10.4); Monocytes Absolute Auto 0.8 K/mm3 (0.1-0.6); Monocytes Percent Auto 8.4 % (2.6-8.5); Platelet Count Result 280 k/mm3 (150-375); Red Blood Count 4.84 M/mm3 (4.6-6.20); Red Cell Distribution Width 12.8 % (11.5-14.5); White Blood Count 9.5 K/mm3 (4.5-10.0)
[2024-06-11 05:02] LABS: INR 1.3; Prothrombin Time 16.3 Seconds (11.1-14.7)
[2024-06-11 05:33] LABS: Alanine Aminotransferase 697 U/L (6-50); Albumin Level 3.3 g/dL (3.5-5.1); Alkaline Phosphatase 91 U/L (38-126); Anion Gap 8 mmol/L (4-12); Aspartate Amino Transferase 103 U/L (17-59); Bilirubin,Total 1.3 mg/dL (0.2-1.3); Blood Urea Nitrogen 18 mg/dL (9-20); Calcium 8.6 mg/dL (8.4-10.2); Carbon Dioxide 21 mmol/L (22-30); Chloride 110 mmol/L (98-107); Estimated CRCL calculation 128 ml/min; Estimated Glomerular Filt Rate > 60; Glucose 97 mg/dL (65-110); Magnesium 2.4 mg/dL (1.6-2.3); Phosphorus 4.7 mg/dL (2.5-4.5); Potassium 4.5 mmol/L (3.4-5.0); Sodium 139 mmol/L (137-145)
[2024-06-11] MEDS: PANTOPRAZOLE 40 MG TABLET PO (07:53)
[2024-06-11] MEDS: EMPAGLIFLOZIN 10 MG TABLET PO (07:53)
[2024-06-11] MEDS: DIGOXIN 250 MCG TABLET PO (07:53)
[2024-06-11] MEDS: LOSARTAN POTASSIUM 25 MG TABLET PO (07:53)
[2024-06-11] MEDS: METOPROLOL SUCCINATE EXT REL 50 MG TABCR PO (07:54)
[2024-06-11] MEDS: APIXABAN 5 MG TABLET PO ×2 (07:56→20:42)
--- NOTE | 2024-06-11 10:20 | P.PNIM_ITS ---
Progress Note: A&P Assessment and Plan (1) Congestive heart failure: Code(s): I50.9 - Heart failure, unspecified Status: Acute (2) Atrial flutter with rapid ventricular response: Code(s): I48.92 - Unspecified atrial flutter Status: Acute (3) Elevated liver transaminase level: Code(s): R74.01 - Elevation of levels of liver transaminase levels Status: Acute (4) Acute kidney injury: Code(s): N17.9 - Acute kidney failure, unspecified Status: Acute (5) Community acquired pneumonia: Code(s): J18.9 - Pneumonia, unspecified organism Status: Acute Plan Atrial flutter with rapid ventricular response: Presented with a flutter with RVR HERI shows thrombus in left atrial appendage hence patient was not cardioverted Continue apixaban Metoprolol succinate 50 mg p.o. b.i.d. 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 Patient will be resumed on beta-noah. Continue Cozaar Cardiology plans to resume Entresto however prohibited due to high co-pay Hypertension: Resume beta-noah Cardiology has started Cozaar Hyperlipidemia: Statin was on hold because of elevated LFTs Acute kidney injury: secondary to poor cardiac output Monitor urine output electrolytes and creatinine Appreciate nephrology consultation Community acquired pneumonia: Patient was started on empiric treatment for community-acquired pneumonia although his presentation is likely more consistent with pulmonary edema and congestive heart failure He is now afebrile and WBC has normalized Blood and sputum cultures have been negative Completed course of Rocephin and doxycycline procal 0.7 Suspected sleep apnea: Patient has symptoms of obstructive sleep apnea. I recommended and encouraged patient to get tested as an outpatient and be compliant with CPAP if prescribed. Monitoring and supplemental oxygen at this time in the hospital Apnea link 06/04/2024 with AHI of 55 will discuss with respiratory to check if they can arrange for CPAP based on this apnea link study Tobacco dependence: Patient was encouraged and counseled to quit smoking Daily consumption of alcohol: Patient was encouraged and counseled to cut down on alcohol intake. Monitor for signs of withdrawal. Plan DVT prophylaxis -apixaban Nutrition -diet ordered Code Status - Full Code LifeVest at discharge try to arrange cpap for discharge as well Subjective Date/time seen: 06/11/24 10:20 Interval history: No overnight events. Intermittently tachycardic. denies any cough or sob, no fever, chilsl. no leg swelling. discussed CPAP. discussed rate control. on apixaban Review of Systems Review of Systems: All systems reviewed & are unremarkable except as noted in HPI and below (HPI) Exam Narrative: GENERAL: Ill-appearing, obesity, in no acute distress. Well-nourished. - EYES: EOMI. Anicteric. - HENT: Moist mucous membranes. - LUNGS: Coarse breath sound bilateral base - CARDIOVASCULAR: Irregular irregular r hythm. No murmur. No JVD. - ABDOMEN: Soft, non-tender and non-dist ended. No palpable masses. - EXTREMITIES: No edema. Peripheral puls es 2+. Non-tender. - NEUROLOGIC: No focal neurological defi cits. CN II-XII grossly intact. - PSYCHIATRIC: Awake, Alert and oriented x 3. Appropriate mood and affect. - SKIN: No rashes or lesions. Warm. - LYMPH: No cervical lymphadenopathy. Objective Data Vital Signs Vital Signs: Vital Signs - 24 hr 06/10/24 10:29 06/10/24 12:00 06/10/24 12:00 Temperature 98.0 F Pulse Rate 132 H 114 H Pulse Rate [Bilateral Radial Palpation] Respiratory Rate 24 H Blood Pressure 126/92 H Pulse Oximetry 96 Oxygen Delivery Room Air 06/10/24 12:00 06/10/24 14:00 06/10/24 16:00 Temperature 98.3 F Pulse Rate 116 H 120 H 121 H Pulse Rate [Bilateral Radial Palpation] Respiratory Rate 20 Blood Pressure 128/96 H Pulse Oximetry 96 Oxygen Delivery 06/10/24 16:00 06/10/24 16:00 06/10/24 18:00 Temperature Pulse Rate 119 H 113 H Pulse Rate [Bilateral Radial Palpation] Respiratory Rate Blood Pressure Pulse Oximetry Oxygen Delivery Room Air 06/10/24 19:30 06/10/24 20:00 06/10/24 20:00 Temperature 98.6 F Pulse Rate 111 H Pulse Rate [Bilateral Radial Palpation] 104 H Respiratory Rate 20 Blood Pressure 129/93 H Pulse Oximetry 97 Oxygen Delivery Room Air 06/10/24 20:00 06/10/24 22:00 06/10/24 23:57 Temperature Pulse Rate 99 104 H Pulse Rate [Bilateral Radial Palpation] Respiratory Rate Blood Pressure Pulse Oximetry Oxygen Delivery Room Air 06/10/24 23:58 06/10/24 23:59 06/11/24 00:00 Temperature 98.2 F Pulse Rate 101 H 120 H Pulse Rate [Bilateral Radial Palpation] 101 H Respiratory Rate 20 Blood Pressure 93/67 L Pulse Oximetry 95 Oxygen Delivery 06/11/24 02:00 06/11/24 04:00 06/11/24 04:00 Temperature Pulse Rate 90 Pulse Rate [Bilateral Radial Palpation] 94 Respiratory Rate Blood Pressure Pulse Oximetry Oxygen Delivery Room Air 06/11/24 04:00 06/11/24 04:10 06/11/24 06:00 Temperature 98.1 F Pulse Rate 94 103 H 116 H Pulse Rate [Bilateral Radial Palpation] Respiratory Rate 20 Blood Pressure 130/81 Pulse Oximetry 97 Oxygen Delivery 06/11/24 07:39 06/11/24 07:53 06/11/24 07:54 Temperature 97.9 F Pulse Rate 112 H 122 H 122 H Pulse Rate [Bilateral Radial Palpation] Respiratory Rate 22 H Blood Pressure 133/94 H Pulse Oximetry 97 Oxygen Delivery 06/11/24 08:00 06/11/24 08:00 06/11/24 10:00 Temperature Pulse Rate 103 H 105 H Pulse Rate [Bilateral Radial Palpation] Respiratory Rate Blood Pressure Pulse Oximetry Oxygen Delivery Room Air Intake/Output Intake/Output: Intake & Output 06/08/24 06/09/24 06/10/24 06/11/24 23:59 23:59 23:59 23:59 Intake Total 2130 1770 2100 1360 Output Total 2600 1400 750 Balance -196 545 2664 1360 Meds/Results Medications: Active Medications Generic Name Dose Route Start Last Admin Trade Name Freq PRN Reason Stop Dose Admin Apixaban 5 mg 06/04/24 10:00 06/11/24 07:56 Apixaban 5 Mg Tablet PO 5 mg Q12HR BARTOLO Administration Calcium Carbonate 200 mg 06/03/24 21:22 06/05/24 12:22 Calcium Carbonate (Tums) 500 Mg (200 Mg Elemental) PO 200 mg Q6H PRN Administration Indigestion Digoxin 250 mcg 06/10/24 10:10 06/11/24 07:53 Digoxin 250 Mcg Tablet PO 250 mcg QAM BARTOLO Administration Empagliflozin 10 mg 06/08/24 09:00 06/11/24 07:53 Empagliflozin 10 Mg Tablet PO 10 mg DAILY BARTOLO Administration Guaifenesin 1,200 mg 06/03/24 21:00 06/11/24 07:54 Guaifenesin 12 Hr 600 Mg Tabcr PO Not Given Q12HR [facility] Losartan Potassium 25 mg 06/07/24 09:00 06/11/24 07:53 Losartan Potassium 25 Mg Tablet PO 25 mg DAILY BARTOLO Administration Metoprolol Succinate 50 mg 06/10/24 09:00 06/11/24 07:54 Metoprolol Succinate Ext Rel 50 Mg Tabcr PO 50 mg BID BARTOLO Administration Ondansetron HCl 4 mg 06/04/24 18:40 06/05/24 12:15 Ondansetron Inj 4 Mg/2 Ml Vial IV PUSH 4 mg Q6H PRN Administration Nausea And Vomiting Pantoprazole Sodium 40 mg 06/04/24 09:00 06/11/24 07:53 Pantoprazole 40 Mg Tablet PO 40 mg QAM BARTOLO Administration Rosuvastatin Calcium 20 mg 06/04/24 13:40 06/05/24 09:11 Rosuvastatin 20 Mg Tablet PO 20 mg DAILY BARTOLO Administration Radiology Results: ITS Impressions Chest/Abdomen/Pelvis CTA 06/03/24 10:56 IMPRESSION: CHEST: 1. No pulmonary embolism or dissection. 2. Multiple patchy opacities and groundglass appearance suggestive of pneumonia. Underlying pulmonary edema is not excluded although this is less likely. Clinical correlation advised. 3. Mediastinal lymphadenopathy. 4. Right pleural effusion. ABDOMEN/PELVIS: 1. No evidence of appendicitis, diverticulitis or intestinal obstruction. 2. Fat stranding around the neck of the gallbladder. Differential include cholecystitis versus ascending cholangitis versus duodenitis: although no thickening in the wall of the gallbladder or the duodenum is seen. Clinical correlation advised. 3. Fat infiltration of the liver. Hepatomegaly. 4. Fat-containing bilateral inguinal and umbilical hernias. Chest X-Ray 06/06/24 08:11 IMPRESSION: 1. Unchanged elevation of the left hemidiaphragm. No acute cardiopulmonary disease. 2. Cardiomegaly. Renal Ultrasound 06/06/24 14:19 IMPRESSION: No definite abnormality. Abdomen Ultrasound 06/06/24 14:22 IMPRESSION: Fat infiltration of the liver. Thickened wall of the gallbladder which may indicate cholecystitis. Clinical correlation advised. Minimal free fluid in the upper abdomen. Otherwise, normal limited abdominal ultrasound. Arterial/Peripheral Duplex 06/07/24 08:36 IMPRESSION: 1. Normal directional flow but with increased pulsatility to the hepatic venous waveforms and to lesser degree the portal venous waveforms consistent with congestive heart failure. 2. Diffuse hepatic steatosis with small amount of perihepatic ascites. Labs Labs: Laboratory Results - last 24 hr 06/11/24 06/11/24 04:21 04:22 WBC 9.5 RBC 4.84 Hgb 14.9 Hct 47.4 MCV 97.9 MCH 30.8 MCHC 31.4 L RDW 12.8 Plt Count 280 MPV 9.8 Immature Gran % (Auto) 1.5 H Neut % (Auto) 53.0 Lymph % (Auto) 31.3 Granite % (Auto) 8.4 Eos % (Auto) 4.9 H Baso % (Auto) 0.9 Lymph # (Auto) 2.98 Granite # (Auto) 0.8 H Eos # (Auto) 0.5 H Baso # (Auto) 0.1 Abs Immat Gran (auto) 0.14 H Absolute Neuts (auto) 5.0 Absolute Nucleated RBC 0.000 Nucleated RBC % 0.0 PT 16.3 H INR 1.3 Sodium 139 Potassium 4.5 Chloride 110 H Carbon Dioxide 21 L Anion Gap 8 BUN 18 Creatinine 0.90 Estim Creat Clear Calc 128 Estimated GFR > 60 Glucose 97 Calcium 8.6 Phosphorus 4.7 H Magnesium 2.4 H Total Bilirubin 1.3 AST 103 H ALT 697 H Alkaline Phosphatase 91 Total Protein 6.0 L Albumin 3.3 L
[2024-06-11] MEDS: METOPROLOL SUCCINATE EXT REL 25 MG TABCR PO (11:06)
--- NOTE | 2024-06-11 11:11 | PCNWS ---
Weekly nutritional screen. Patient is tolerating current Heart Healthy diet with adequate intake, 100%. No weight loss reported. No nutritional needs at this time. Offered diet education re: heart healthy diet, pt and significant other declined need for diet education.
[2024-06-11] MEDS: DIGOXIN INJ 250 MCG/ML 2 ML AMP (*BKC) 500 MCG IV PUSH (12:12)
--- NOTE | 2024-06-11 14:00 | PC.NURSE ---
Pt being fitted for life vest. 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
--- NOTE | 2024-06-11 16:15 | P.PNCA_ITS ---
Progress Note: A&P Assessment and Plan (1) Atrial flutter with rapid ventricular response: Code(s): I48.92 - Unspecified atrial flutter Status: Acute Assessment and Plan: Continue Eliquis for anticoagulation. He does have left atrial appendage thrombus and will need at minimum 4 weeks of anticoagulation before consideration of cardioversion. Heart rate reasonably controlled with diltiazem and metoprolol. (2) Hypertension: Code(s): I10 - Essential (primary) hypertension Status: Chronic Assessment and Plan: Continue diltiazem and metoprolol. May add an Arb or Entresto depending on results of echo (3) Congestive heart failure: Code(s): I50.9 - Heart failure, unspecified Status: Acute Assessment and Plan: Echo pending. Will adjust regimen depending on results of echo (4) Hyperlipidemia: Code(s): E78.5 - Hyperlipidemia, unspecified Status: Acute Assessment and Plan: On rosuvastatin (5) Daily consumption of alcohol: Code(s): Z78.9 - Other specified health status Status: Acute Assessment and Plan: Alcohol cessation recommend (6) Suspected sleep apnea: Code(s): R29.818 - Other symptoms and signs involving the nervous system Status: Acute Assessment and Plan: Check an ApneaLink for tonight Plan 1. Acute on chronic systolic HF NYHA IV, Stage C 2. Cardiogenic Shock; improving 3. Atrial Flutter 4. HTN 5. Shock Liver/SAMREEN; improving -ischemic evaluation has not been done. Most likely the etiology of his cardiomyopathy is nonischemic. Discussed with him regarding ischemic evaluation. He wants to continue on GDMT and will consider ischemic evaluation if the LV systolic function does not improve in repeat echo - Continue losartan at current dose 25 mg p.o. daily, No ARNI becasue of high co-pay -Toprol-XL increased by the hospitalist team today. Keep a close eye on his hemodynamics as into cardiogenic shock with of prior increase in the dose of beta-noah -continue oral digoxin 0.5 mcg. Trough level to be done tomorrow a.m. -LifeVest on discharge Subjective Date/time seen: 06/11/24 16:15 Interval history: No acute events overnight Heart rate still not adequately controlled, increases on ambulation Creatinine back to normal, improving liver function Review of Systems Review of Systems: All systems reviewed & are unremarkable except as noted in HPI and below Constitutional: Constitutional: Denies body ache(s) and Denies excessive sweating Eyes: Eyes: Denies blurry vision ENT: Denies Normal hearing present Cardiovascular: Cardiovascular: Denies diaphoresis Respiratory: Respiratory: Denies chest congestion Gastrointestinal: Gastrointestinal: Denies abdominal pain Genitourinary: Genitourinary: Denies hematuria Musculoskeletal: Musculoskeletal: Denies back pain Integumentary/Breasts: Skin/Breast: Denies dry skin Neurologic: Denies Normal hearing present, Denies Abnormal speech present and Denies confusion Psychiatric: Psychiatric: Denies confusion Endocrine: Endocrine: Denies excessive sweating Hematologic/Lymphatic: Hematologic/Lymphatic: Denies easy bruising Allergic/Immunologic: Allergic/Immunologic: Denies GI upset with certain foods Exam Const: General: comfortable and no acute distress; No confusion Orien tation/consciousness: No confusion HENMT: Mouth: Yes moist mucous membranes Eyes: General: appearance normal, both eyes and all related structures Sclera: sclerae normal Resp: Effort & Inspection: normal respiratory effort Cardio: Rate: tachycardic Rhythm: regular rhythm Heart sounds: no mu rmurs Other: Tele with atrial flutter with RVR Skin: General skin exam: normal color Neuro: General: No confusion Cranial nerves: No Normal hearing present Speech: normal speech and No Abnormal speech present Psych: Mental Status: mental status grossly normal Affect: normal affect Objective Data Vital Signs Vital Signs: Vital Signs - 24 hr 06/10/24 18:00 06/10/24 19:30 06/10/24 20:00 Temperature 37.0 C Pulse Rate 113 H 111 H Pulse Rate [Bilateral Radial Palpation] 104 H Respiratory Rate 20 Blood Pressure 129/93 H Pulse Oximetry 97 Oxygen Delivery 06/10/24 20:00 06/10/24 20:00 06/10/24 22:00 Temperature Pulse Rate 99 104 H Pulse Rate [Bilateral Radial Palpation] Respiratory Rate Blood Pressure Pulse Oximetry Oxygen Delivery Room Air 06/10/24 23:57 06/10/24 23:58 06/10/24 23:59 Temperature 36.8 C Pulse Rate 101 H Pulse Rate [Bilateral Radial Palpation] 101 H Respiratory Rate 20 Blood Pressure 93/67 L Pulse Oximetry 95 Oxygen Delivery Room Air 06/11/24 00:00 06/11/24 02:00 06/11/24 04:00 Temperature Pulse Rate 120 H 90 Pulse Rate [Bilateral Radial Palpation] 94 Respiratory Rate Blood Pressure Pulse Oximetry Oxygen Delivery 06/11/24 04:00 06/11/24 04:00 06/11/24 04:10 Temperature 36.7 C Pulse Rate 94 103 H Pulse Rate [Bilateral Radial Palpation] Respiratory Rate 20 Blood Pressure 130/81 Pulse Oximetry 97 Oxygen Delivery Room Air 06/11/24 06:00 06/11/24 07:39 06/11/24 07:53 Temperature 36.6 C Pulse Rate 116 H 112 H 122 H Pulse Rate [Bilateral Radial Palpation] Respiratory Rate 22 H Blood Pressure 133/94 H Pulse Oximetry 97 Oxygen Delivery 06/11/24 07:54 06/11/24 08:00 06/11/24 08:00 Temperature Pulse Rate 122 H 103 H Pulse Rate [Bilateral Radial Palpation] Respiratory Rate Blood Pressure Pulse Oximetry Oxygen Delivery Room Air 06/11/24 10:00 06/11/24 11:06 06/11/24 11:36 Temperature 36.7 C Pulse Rate 105 H 118 H 110 H Pulse Rate [Bilateral Radial Palpation] Respiratory Rate 18 Blood Pressure 140/87 Pulse Oximetry 98 Oxygen Delivery 06/11/24 12:00 06/11/24 12:00 06/11/24 12:12 Temperature Pulse Rate 126 H 122 H Pulse Rate [Bilateral Radial Palpation] Respiratory Rate Blood Pressure Pulse Oximetry Oxygen Delivery Room Air 06/11/24 14:34 06/11/24 15:46 Temperature 36.7 C Pulse Rate 106 H Pulse Rate [Bilateral Radial Palpation] Respiratory Rate 14 Blood Pressure 129/94 H 101/68 Pulse Oximetry 97 Oxygen Delivery Intake/Output Intake/Output: Intake & Output 06/08/24 06/09/24 06/10/24 06/11/24 23:59 23:59 23:59 23:59 Intake Total 2130 1770 2100 2750 Output Total 2600 1400 750 Balance -279 442 2868 2750 Meds/Results Medications: Active Medications Generic Name Dose Route Start Last Admin Trade Name Freq PRN Reason Stop Dose Admin Apixaban 5 mg 06/04/24 10:00 06/11/24 07:56 Apixaban 5 Mg Tablet PO 5 mg Q12HR BARTOLO Administration Calcium Carbonate 200 mg 06/03/24 21:22 06/05/24 12:22 Calcium Carbonate (Tums) 500 Mg (200 Mg Elemental) PO 200 mg Q6H PRN Administration Indigestion Digoxin 250 mcg 06/10/24 10:10 06/11/24 07:53 Digoxin 250 Mcg Tablet PO 250 mcg QAM BARTOLO Administration Empagliflozin 10 mg 06/08/24 09:00 06/11/24 07:53 Empagliflozin 10 Mg Tablet PO 10 mg DAILY BARTOLO Administration Guaifenesin 1,200 mg 06/03/24 21:00 06/11/24 07:54 Guaifenesin 12 Hr 600 Mg Tabcr PO Not Given Q12HR [facility] Losartan Potassium 25 mg 06/07/24 09:00 06/11/24 07:53 Losartan Potassium 25 Mg Tablet PO 25 mg DAILY BARTOLO Administration Metoprolol Succinate 75 mg 06/11/24 17:00 Metoprolol Succinate Ext Rel 25 Mg Tabcr PO BID BARTOLO Ondansetron HCl 4 mg 06/04/24 18:40 06/05/24 12:15 Ondansetron Inj 4 Mg/2 Ml Vial IV PUSH 4 mg Q6H PRN Administration Nausea And Vomiting Pantoprazole Sodium 40 mg 06/04/24 09:00 06/11/24 07:53 Pantoprazole 40 Mg Tablet PO 40 mg QAM BARTOLO Administration Rosuvastatin Calcium 20 mg 06/04/24 13:40 06/05/24 09:11 Rosuvastatin 20 Mg Tablet PO 20 mg DAILY BARTOLO Administration Radiology Results: ITS Impressions Chest/Abdomen/Pelvis CTA 06/03/24 10:56 IMPRESSION: CHEST: 1. No pulmonary embolism or dissection. 2. Multiple patchy opacities and groundglass appearance suggestive of pneumonia. Underlying pulmonary edema is not excluded although this is less likely. Clinical correlation advised. 3. Mediastinal lymphadenopathy. 4. Right pleural effusion. ABDOMEN/PELVIS: 1. No evidence of appendicitis, diverticulitis or intestinal obstruction. 2. Fat stranding around the neck of the gallbladder. Differential include cholecystitis versus ascending cholangitis versus duodenitis: although no thickening in the wall of the gallbladder or the duodenum is seen. Clinical co rrelation advised. 3. Fat infiltration of the liver. Hepatomegaly. 4. Fat-containing bilateral inguinal and umbilical hernias. Chest X-Ray 06/06/24 08:11 IMPRESSION: 1. Unchanged elevation of the left hemidiaphragm. No acute cardiopulmonary disease. 2. Cardiomegaly. Renal Ultrasound 06/06/24 14:19 IMPRESSION: No definite abnormality. Abdomen Ultrasound 06/06/24 14:22 IMPRESSION: Fat infiltration of the liver. Thickened wall of the gallbladder which may indicate cholecystitis. Clinical correlation advised. Minimal free fluid in the upper abdomen. Otherwise, normal limited abdominal ultrasound. Arterial/Peripheral Duplex 06/07/24 08:36 IMPRESSION: 1. Normal directional flow but with increased pulsatility to the hepatic venous waveforms and to lesser degree the portal venous waveforms consistent with congestive heart failure. 2. Diffuse hepatic steatosis with small amount of perihepatic ascites. Labs Labs: Laboratory Results - last 24 hr 06/06/24 06/07/24 06/11/24 11:10 18:51 04:21 WBC 9.5 RBC 4.84 Hgb 14.9 Hct 47.4 MCV 97.9 MCH 30.8 MCHC 31.4 L RDW 12.8 Plt Count 280 MPV 9.8 Immature Gran % (Auto) 1.5 H Neut % (Auto) 53.0 Lymph % (Auto) 31.3 Clinch % (Auto) 8.4 Eos % (Auto) 4.9 H Baso % (Auto) 0.9 Lymph # (Auto) 2.98 Clinch # (Auto) 0.8 H Eos # (Auto) 0.5 H Baso # (Auto) 0.1 Abs Immat Gran (auto) 0.14 H Absolute Neuts (auto) 5.0 Absolute Nucleated RBC 0.000 Nucleated RBC % 0.0 PT INR Sodium 139 Potassium 4.5 Chloride 110 H Carbon Dioxide 21 L Anion Gap 8 BUN 18 Creatinine 0.90 Estim Creat Clear Calc 128 Estimated GFR > 60 Glucose 97 Calcium 8.6 Phosphorus 4.7 H Magnesium 2.4 H Total Bilirubin 1.3 AST 103 H ALT 697 H Alkaline Phosphatase 91 Total Protein 6.0 L Albumin 3.3 L Ur DARLEEN Interpret 24 hr NATALIE Screen Negative 06/11/24 04:22 WBC RBC Hgb Hct MCV MCH MCHC RDW Plt Count MPV Immature Gran % (Auto) Neut % (Auto) Lymph % (Auto) Clinch % (Auto) Eos % (Auto) Baso % (Auto) Lymph # (Auto) Clinch # (Auto) Eos # (Auto) Baso # (Auto) Abs Immat Gran (auto) Absolute Neuts (auto) Absolute Nucleated RBC Nucleated RBC % PT 16.3 H INR 1.3 Sodium Potassium Chloride Carbon Dioxide Anion Gap BUN Creatinine Estim Creat Clear Calc Estimated GFR Glucose Calcium Phosphorus Magnesium Total Bilirubin AST ALT Alkaline Phosphatase Total Protein Albumin Ur DARLEEN Interpret 24 hr NATALIE Screen
[2024-06-11] MEDS: METOPROLOL SUCCINATE EXT REL 25 MG TABCR 75 MG PO (17:17)
[2024-06-12] VITALS (20 sets, daily range): BP systolic 100–138; BP diastolic 80–98; PULSE 75–133; RESP 16–24; TEMP 36.4–36.9; O2SAT 94–98
[2024-06-12 09:28] LABS: Basophils Absolute Auto 0.1 K/mm3 (0.0-0.1); Basophils Percent Auto 0.8 % (0.2-1.2); Eosinophils Absolute Auto 0.4 K/mm3 (0-0.3); Eosinophils Percent Auto 3.8 % (0-4.4); Hematocrit 49.9 % (42.0-52.0); Immature Granulocyte Absolute 0.11 K/mm3 (0.00-0.031); Immature Granulocyte Percent A 1.2 % (0-0.5); Lymphocytes Absolute Auto 2.55 K/mm3 (0.9-3.2); Lymphocytes Percent Auto 27.6 % (18.3-44.2); Mean Corpuscular HGB Conc 32.1 g/dl (32-36); Mean Corpuscular Hemoglobin 30.9 pg (26-34); Mean Corpuscular Volume 96.5 fl (80-100); Mean Platelet Volume 9.7 fl (7.4-10.4); Monocytes Absolute Auto 0.7 K/mm3 (0.1-0.6); Monocytes Percent Auto 7.1 % (2.6-8.5); Neutrophils Absolute Auto 5.5 K/mm3 (1.3-6.7); Neutrophils Percent Auto 59.5 % (45.5-73.1); Platelet Count Result 327 k/mm3 (150-375); Red Blood Count 5.17 M/mm3 (4.6-6.20); Red Cell Distribution Width 12.9 % (11.5-14.5); White Blood Count 9.2 K/mm3 (4.5-10.0)
[2024-06-12] MEDS: LOSARTAN POTASSIUM 25 MG TABLET PO (09:34)
[2024-06-12] MEDS: PANTOPRAZOLE 40 MG TABLET PO (09:34)
[2024-06-12] MEDS: METOPROLOL SUCCINATE EXT REL 25 MG TABCR 75 MG PO (09:34)
[2024-06-12] MEDS: APIXABAN 5 MG TABLET PO ×2 (09:34→21:23)
[2024-06-12] MEDS: EMPAGLIFLOZIN 10 MG TABLET PO (09:34)
[2024-06-12] MEDS: DIGOXIN 250 MCG TABLET PO (09:34)
[2024-06-12 09:39] LABS: Alanine Aminotransferase 551 U/L (6-50); Albumin Level 3.9 g/dL (3.5-5.1); Alkaline Phosphatase 86 U/L (38-126); Anion Gap 9 mmol/L (4-12); Aspartate Amino Transferase 73 U/L (17-59); Bilirubin,Total 1.7 mg/dL (0.2-1.3); Blood Urea Nitrogen 16 mg/dL (9-20); Calcium 8.8 mg/dL (8.4-10.2); Carbon Dioxide 22 mmol/L (22-30); Chloride 110 mmol/L (98-107); Estimated CRCL calculation 136 ml/min; Estimated Glomerular Filt Rate > 60; Glucose 107 mg/dL (65-110); Magnesium 2.6 mg/dL (1.6-2.3); Potassium 4.5 mmol/L (3.4-5.0); Sodium 141 mmol/L (137-145)
[2024-06-12] MEDS: METOPROLOL SUCCINATE EXT REL 25 MG TABCR PO (11:04)
--- NOTE | 2024-06-12 12:30 | PM.PNCARD ---
Progress Note: A&P Assessment and Plan (1) Atrial flutter with rapid ventricular response: Code(s): I48.92 - Unspecified atrial flutter Status: Acute (2) Hypertension: Code(s): I10 - Essential (primary) hypertension Status: Chronic (3) Congestive heart failure: Code(s): I50.9 - Heart failure, unspecified Status: Acute (4) Hyperlipidemia: Code(s): E78.5 - Hyperlipidemia, unspecified Status: Acute (5) Daily consumption of alcohol: Code(s): Z78.9 - Other specified health status Status: Acute Assessment and Plan: Alcohol cessation recommend (6) Suspected sleep apnea: Code(s): R29.818 - Other symptoms and signs involving the nervous system Status: Acute Plan 1. Acute on chronic systolic HF NYHA IV, Stage C EF 25-30% 2. Cardiogenic Shock; Resolved 3. Atrial Flutter 4. HTN 5. Shock Liver/SAMREEN; resolved 6. ADDI Thrombus -ischemic evaluation has not been done. Most likely the etiology of his cardiomyopathy is nonischemic. Discussed with him regarding ischemic evaluation. He wants to continue on GDMT and will consider ischemic evaluation if the LV systolic function does not improve in repeat echo -LifeVest on discharge -his RVR is difficult to control. He has limited options because of left atrial appendage thrombus which limits our abilities to cardiovert him or place him on meds for rhythm control. He went into cardiogenic shock when he was placed on diltiazem initially on admission. -currently he is on metoprolol succinate 75 mg b.i.d.. Will increase it to 100 mg b.i.d.. I started him on digoxin 0.25 mcg once a day. Digoxin trough levels tomorrow -Lasix 40 mg IV b.i.d. to be started. He was in cardiogenic shock before and his diuretics were held. There is a possibility this may be playing a role in his difficult to control RVR -acceptable rate for him would be around 100-110 because of underlying cardiomyopathy. Hopefully rates will improve over time with improvement in LV systolic function - Continue losartan at current dose 25 mg p.o. daily, No ARNI becasue of high co-pay. MRA as an outpatient based on BP/renal function - Continue anticoagulation Subjective Date/time seen: 06/12/24 12:30 Interval history: No acute events overnight Heart rate still not adequately controlled, increases on ambulation Creatinine back to normal, improving liver function Review of Systems Review of Systems: All systems reviewed & are unremarkable except as noted in HPI and below Constitutional: Constitutional: Denies body ache(s) and Denies excessive sweating Eyes: Eyes: Denies blurry vision ENT: Denies Normal hearing present Cardiovascular: Cardiovascular: Denies diaphoresis Respiratory: Respiratory: Denies chest congestion Gastrointestinal: Gastrointestinal: Denies abdominal pain Genitourinary: Genitourinary: Denies hematuria Musculoskeletal: Musculoskeletal: Denies back pain Integumentary/Breasts: Skin/Breast: Denies dry skin Neurologic: Denies Normal hearing present, Denies Abnormal speech present and Denies confusion Psychiatric: Psychiatric: Denies confusion Endocrine: Endocrine: Denies excessive sweating Hematologic/Lymphatic: Hematologic/Lymphatic: Denies easy bruising Allergic/Immunologic: Allergic/Immunologic: Denies GI upset with certain foods Exam Const: General: comfortable and no acute distress; No confusion Orientation/consciousness: No confusion HENMT: Mouth: Yes moist mucous membranes Eyes: General: appearance normal, both eyes and all related structures Sclera: sclerae normal Resp: Effort & Inspection: normal respiratory effort Cardio: Rate: tachycardic Rhythm: regular rhythm Heart sounds: no murmurs Other: Tele with atrial flutter with RVR Skin: General skin exam: normal color Neuro: General: No confusion Cranial nerves: No Normal hearing present Speech: normal speech and No Abnormal speech present Psych: Mental Status: mental status grossly normal Affect: normal affect Objective Data Vital Signs Vital Signs: Vital Signs - 24 hr 06/11/24 14:00 06/11/24 14:34 06/11/24 15:46 Temperature 36.7 C Pulse Rate 115 H 106 H Pulse Rate [Bilateral Radial Palpation] Respiratory Rate 14 Blood Pressure 129/94 H 101/68 Pulse Oximetry 97 Oxygen Delivery 06/11/24 16:00 06/11/24 16:00 06/11/24 18:00 Temperature Pulse Rate 131 H 126 H Pulse Rate [Bilateral Radial Palpation] Respiratory Rate Blood Pressure Pulse Oximetry Oxygen Delivery Room Air 06/11/24 20:00 06/11/24 20:00 06/11/24 20:00 Temperature 36.7 C Pulse Rate 112 H Pulse Rate [Bilateral Radial Palpation] 104 H Respiratory Rate 14 Blood Pressure 145/91 H Pulse Oximetry 96 Oxygen Delivery Room Air 06/11/24 20:00 06/11/24 22:00 06/11/24 23:50 Temperature Pulse Rate 122 H 105 H Pulse Rate [Bilateral Radial Palpation] 101 H Respiratory Rate Blood Pressure Pulse Oximetry Oxygen Delivery 06/11/24 23:51 06/12/24 00:00 06/12/24 00:00 Temperature 36.6 C Pulse Rate 123 H 80 Pulse Rate [Bilateral Radial Palpation] Respiratory Rate 20 Blood Pressure 112/87 Pulse Oximetry 94 Oxygen Delivery Room Air 06/12/24 02:00 06/12/24 03:58 06/12/24 04:00 Temperature 36.6 C Pulse Rate 94 75 Pulse Rate [Bilateral Radial Palpation] 91 Respiratory Rate 20 Blood Pressure 100/86 Pulse Oximetry 97 Oxygen Delivery 06/12/24 04:00 06/12/24 04:00 06/12/24 05:54 Temperature Pulse Rate 88 89 Pulse Rate [Bilateral Radial Palpation] Respiratory Rate Blood Pressure Pulse Oximetry Oxygen Delivery Room Air 06/12/24 08:00 06/12/24 08:00 06/12/24 08:00 Temperature 36.8 C Pulse Rate 120 H 123 H Pulse Rate [Bilateral Radial Palpation] Respiratory Rate 20 Blood Pressure 138/86 Pulse Oximetry 98 98 Oxygen Delivery Room Air 06/12/24 09:34 06/12/24 09:34 06/12/24 10:00 Temperature Pulse Rate 133 H 133 H 76 Pulse Rate [Bilateral Radial Palpation] Respiratory Rate Blood Pressure Pulse Oximetry Oxygen Delivery 06/12/24 11:04 06/12/24 12:00 Temperature 36.4 C L Pulse Rate 127 H 130 H Pulse Rate [Bilateral Radial Palpation] Respiratory Rate 16 Blood Pressure 130/94 H Pulse Oximetry 98 Oxygen Delivery Intake/Output Intake/Output: Intake & Output 06/09/24 06/10/24 06/11/24 06/12/24 23:59 23:59 23:59 23:59 Intake Total 1770 2100 2990 840 Output Total 1400 750 Balance 370 1350 2990 840 Meds/Results Medications: Active Medications Generic Name Dose Route Start Last Admin Trade Name Freq PRN Reason Stop Dose Admin Apixaban 5 mg 06/04/24 10:00 06/12/24 09:34 Apixaban 5 Mg Tablet PO 5 mg Q12HR BARTOLO Administration Calcium Carbonate 200 mg 06/03/24 21:22 06/05/24 12:22 Calcium Carbonate (Tums) 500 Mg (200 Mg Elemental) PO 200 mg Q6H PRN Administration Indigestion Digoxin 250 mcg 06/10/24 10:10 06/12/24 09:34 Digoxin 250 Mcg Tablet PO 250 mcg QAM BARTOLO Administration Empagliflozin 10 mg 06/08/24 09:00 06/12/24 09:34 Empagliflozin 10 Mg Tablet PO 10 mg DAILY BARTOLO Administration Guaifenesin 1,200 mg 06/03/24 21:00 06/12/24 09:35 Guaifenesin 12 Hr 600 Mg Tabcr PO Not Given Q12HR [facility] Losartan Potassium 25 mg 06/07/24 09:00 06/12/24 09:34 Losartan Potassium 25 Mg Tablet PO 25 mg DAILY BARTOLO Administration Metoprolol Succinate 100 mg 06/12/24 17:00 Metoprolol Succinate Ext Rel 100 Mg Tabcr PO BID BARTOLO Ondansetron HCl 4 mg 06/04/24 18:40 06/05/24 12:15 Ondansetron Inj 4 Mg/2 Ml Vial IV PUSH 4 mg Q6H PRN Administration Nausea And Vomiting Pantoprazole Sodium 40 mg 06/04/24 09:00 06/12/24 09:34 Pantoprazole 40 Mg Tablet PO 40 mg QAM [facility] Administration Rosuvastatin Calcium 20 mg 06/04/24 13:40 06/05/24 09:11 Rosuvastatin 20 Mg Tablet PO 20 mg DAILY BARTOLO Administration Radiology Results: ITS Impressions Chest/Abdomen/Pelvis CTA 06/03/24 10:56 IMPRESSION: CHEST: 1. No pulmonary embolism or dissection. 2. Multiple patchy opacities and groundglass appearance suggestive of pneumonia. Underlying pulmonary edema is not excluded although this is less likely. Clinical correlation advised. 3. Mediastinal lymphadenopathy. 4. Right pleural effusion. ABDOMEN/PELVIS: 1. No evidence of appendicitis, diverticulitis or intestinal obstruction. 2. Fat stranding around the neck of the gallbladder. Differential include cholecystitis versus ascending cholangitis versus duodenitis: although no thickening in the wall of the gallbladder or the duodenum is seen. Clinical correlation advised. 3. Fat infiltration of the liver. Hepatomegaly. 4. Fat-containing bilateral inguinal and umbilical hernias. Chest X-Ray 06/06/24 08:11 IMPRESSION: 1. Unchanged elevation of the left hemidiaphragm. No acute cardiopulmonary disease. 2. Cardiomegaly. Renal Ultrasound 06/06/24 14:19 IMPRESSION: No definite abnormality. Abdomen Ultrasound 06/06/24 14:22 IMPRESSION: Fat infiltration of the liver. Thickened wall of the gallbladder which may indicate cholecystitis. Clinical correlation advised. Minimal free fluid in the upper abdomen. Otherwise, normal limited abdominal ultrasound. Arterial/Peripheral Duplex 06/07/24 08:36 IMPRESSION: 1. Normal directional flow but with increased pulsatility to the hepatic venous waveforms and to lesser degree the portal venous waveforms consistent with congestive heart failure. 2. Diffuse hepatic steatosis with small amount of perihepatic ascites. Labs Labs: Laboratory Results - last 24 hr 06/06/24 06/07/24 06/12/24 11:10 18:51 09:21 WBC 9.2 RBC 5.17 Hgb 16.0 Hct 49.9 MCV 96.5 MCH 30.9 MCHC 32.1 RDW 12.9 Plt Count 327 MPV 9.7 Immature Gran % (Auto) 1.2 H Neut % (Auto) 59.5 Lymph % (Auto) 27.6 [place] % (Auto) 7.1 Eos % (Auto) 3.8 Baso % (Auto) 0.8 Lymph # (Auto) 2.55 [place] # (Auto) 0.7 H Eos # (Auto) 0.4 H Baso # (Auto) 0.1 Abs Immat Gran (auto) 0.11 H Absolute Neuts (auto) 5.5 Absolute Nucleated RBC 0.000 Nucleated RBC % 0.0 Sodium 141 Potassium 4.5 Chloride 110 H Carbon Dioxide 22 Anion Gap 9 BUN 16 Creatinine 0.84 Estim Creat Clear Calc 136 Estimated GFR > 60 Glucose 107 Calcium 8.8 Magnesium 2.6 H Total Bilirubin 1.7 H AST 73 H ALT 551 H Alkaline Phosphatase 86 Total Protein 7.0 Albumin 3.9 Ur DARLEEN Interpret 24 hr NATALIE Screen Negative
[2024-06-12] MEDS: DIGOXIN INJ 250 MCG/ML 2 ML AMP (*BKC) IV PUSH (12:52)
[2024-06-12] MEDS: FUROSEMIDE INJ 40 MG/4 ML VIAL IV PUSH ×2 (12:52→17:18)
--- NOTE | 2024-06-12 14:19 | PM.IMPN ---
Progress Note: A&P Assessment and Plan (1) Congestive heart failure: Code(s): I50.9 - Heart failure, unspecified Status: Acute (2) Atrial flutter with rapid ventricular response: Code(s): I48.92 - Unspecified atrial flutter Status: Acute (3) Elevated liver transaminase level: Code(s): R74.01 - Elevation of levels of liver transaminase levels Status: Acute (4) Acute kidney injury: Code(s): N17.9 - Acute kidney failure, unspecified Status: Acute (5) Community acquired pneumonia: Code(s): J18.9 - Pneumonia, unspecified organism Status: Acute Plan Atrial flutter with rapid ventricular response: Presented with a flutter with RVR HERI shows thrombus in left atrial appendage hence patient was not cardioverted Continue apixaban Metoprolol succinate 50 mg p.o. b.i.d. Started on digoxin 25 mcg S/P digoxin drip media monitor Rate is better controlled, but not in the target range, further management per flute polisher will increase betablcoker to 75 mg bid which he tolerated well of. Heart rate is still not at goal Cardiology has increased beta-noah to 100 mg b.i.d. Elevated liver transaminase level: Patient presented with elevated liver enzymes which sharply increased between 06/04 and 06/06 Patient has history of heavy alcohol intake, was also on statin and pictures likely consistent with ischemic hepatopathy likely from a flutter and poor cardiac output Negative viral hepatitis panel LFTs and now improving Congestive heart failure: Acute on chronic systolic heart failure Left ventricular systolic function is severely reduced, estimated at 20-25%. Patient will be resumed on beta-noah. Continue Cozaar Cardiology plans to resume Entresto however prohibited due to high co-pay Hypertension: Resume beta-noah Cardiology has started Cozaar Hyperlipidemia: Statin was on hold because of elevated LFTs Acute kidney injury: secondary to poor cardiac output Monitor urine output electrolytes and creatinine Appreciate nephrology consultation Community acquired pneumonia: Patient was started on empiric treatment for community-acquired pneumonia although his presentation is likely more consistent with pulmonary edema and congestive heart failure He is now afebrile and WBC has normalized Blood and sputum cultures have been negative Completed course of Rocephin and doxycycline procal 0.7 Suspected sleep apnea: Patient has symptoms of obstructive sleep apnea. I recommended and encouraged patient to get tested as an outpatient and be compliant with CPAP if prescribed. Monitoring and supplemental oxygen at this time in the hospital Apnea link 06/04/2024 with AHI of 55 Respiratory to arrange for CPAP based on this apnea link study which is in process Tobacco dependence: Patient was encouraged and counseled to quit smoking Daily consumption of alcohol: Patient was encouraged and counseled to cut down on alcohol intake. Monitor for signs of withdrawal. Plan DVT prophylaxis -apixaban Nutrition -diet ordered Code Status - Full Code LifeVest at discharge which is already arranged Arrangement for cpap for discharge as well in process Subjective Date/time seen: 06/12/24 14:19 Interval history: No overnight events. His heart rate was better controlled overnight. This a.m. still in 130s. Review of Systems Review of Systems: All systems reviewed & are unremarkable except as noted in HPI and below (HPI) Exam Narrative: GENERAL: Well-appearing, obesity, in no acute distress. Well-nourished. - EYES: EOMI. Anicteric. - HENT: Moist mucous membranes. - LUNGS: Coarse breath sound bilateral base - CARDIOVASCULAR: Irregular irregular rhythm. Tachycardic. No murmur. No JVD. - ABDOMEN: Soft, non-tender and non-distended. No palpable masses. - EXTREMITIES: No edema. Peripheral pulses 2+. Non-tender. - NEUROLOGIC: No focal neurological deficits. CN II-XII grossly intact. - PSYCHIATRIC: Awake, Alert and oriented x 3. Appropriate mood and affect. - SKIN: No rashes or lesions. Warm. - LYMPH: No cervical lymphadenopathy. Objective Data Vital Signs Vital Signs: Vital Signs - 24 hr 06/11/24 14:34 06/11/24 15:46 06/11/24 16:00 Temperature 98.1 F Pulse Rate 106 H 131 H Pulse Rate [Bilateral Radial Palpation] Respiratory Rate 14 Blood Pressure 129/94 H 101/68 Pulse Oximetry 97 Oxygen Delivery 06/11/24 16:00 06/11/24 18:00 06/11/24 20:00 Temperature 98.1 F Pulse Rate 126 H 112 H Pulse Rate [Bilateral Radial Palpation] Respiratory Rate 14 Blood Pressure 145/91 H Pulse Oximetry 96 Oxygen Delivery Room Air 06/11/24 20:00 06/11/24 20:00 06/11/24 20:00 Temperature Pulse Rate 122 H Pulse Rate [Bilateral Radial Palpation] 104 H Respiratory Rate Blood Pressure Pulse Oximetry Oxygen Delivery Room Air 06/11/24 22:00 06/11/24 23:50 06/11/24 23:51 Temperature Pulse Rate 105 H Pulse Rate [Bilateral Radial Palpation] 101 H Respiratory Rate Blood Pressure Pulse Oximetry Oxygen Delivery Room Air 06/12/24 00:00 06/12/24 00:00 06/12/24 02:00 Temperature 97.9 F Pulse Rate 123 H 80 94 Pulse Rate [Bilateral Radial Palpation] Respiratory Rate 20 Blood Pressure 112/87 Pulse Oximetry 94 Oxygen Delivery 06/12/24 03:58 06/12/24 04:00 06/12/24 04:00 Temperature 97.8 F Pulse Rate 75 Pulse Rate [Bilateral Radial Palpation] 91 Respiratory Rate 20 Blood Pressure 100/86 Pulse Oximetry 97 Oxygen Delivery Room Air 06/12/24 04:00 06/12/24 05:54 06/12/24 08:00 Temperature 98.3 F Pulse Rate 88 89 120 H Pulse Rate [Bilateral Radial Palpation] Respiratory Rate 20 Blood Pressure 138/86 Pulse Oximetry 98 Oxygen Delivery 06/12/24 08:00 06/12/24 08:00 06/12/24 09:34 Temperature Pulse Rate 123 H 133 H Pulse Rate [Bilateral Radial Palpation] Respiratory Rate Blood Pressure Pulse Oximetry 98 Oxygen Delivery Room Air 06/12/24 09:34 06/12/24 10:00 06/12/24 11:04 Temperature Pulse Rate 133 H 76 127 H Pulse Rate [Bilateral Radial Palpation] Respiratory Rate Blood Pressure Pulse Oximetry Oxygen Delivery 06/12/24 12:00 06/12/24 12:00 06/12/24 12:00 Temperature 97.5 F L Pulse Rate 130 H 129 H Pulse Rate [Bilateral Radial Palpation] Respiratory Rate 16 Blood Pressure 130/94 H Pulse Oximetry 98 97 Oxygen Delivery Room Air 06/12/24 12:52 06/12/24 14:00 Temperature Pulse Rate 108 H 127 H Pulse Rate [Bilateral Radial Palpation] Respiratory Rate Blood Pressure Pulse Oximetry Oxygen Delivery Intake/Output Intake/Output: Intake & Output 06/09/24 06/10/24 06/11/24 06/12/24 23:59 23:59 23:59 23:59 Intake Total 1770 2100 2990 1080 Output Total 1400 750 Balance 370 1350 2990 1080 Meds/Results Medications: Active Medications Generic Name Dose Route Start Last Admin Trade Name Freq PRN Reason Stop Dose Admin Apixaban 5 mg 06/04/24 10:00 06/12/24 09:34 Apixaban 5 Mg Tablet PO 5 mg Q12HR B[facility]OLO Administration Calcium Carbonate 200 mg 06/03/24 21:22 06/05/24 12:22 Calcium Carbonate (Tums) 500 Mg (200 Mg Elemental) PO 200 mg Q6H PRN Administration Indigestion Digoxin 250 mcg 06/10/24 10:10 06/12/24 09:34 Digoxin 250 Mcg Tablet PO 250 mcg QAM B[facility]OLO Administration Empagliflozin 10 mg 06/08/24 09:00 06/12/24 09:34 Empagliflozin 10 Mg Tablet PO 10 mg DAILY BARTOLO Administration Furosemide 40 mg 06/12/24 17:00 Furosemide Inj 40 Mg/4 Ml Vial IV PUSH BID [facility] Guaifenesin 1,200 mg 06/03/24 21:00 06/12/24 09:35 Guaifenesin 12 Hr 600 Mg Tabcr PO Not Given Q12HR [facility] Losartan Potassium 25 mg 06/07/24 09:00 06/12/24 09:34 Losartan Potassium 25 Mg Tablet PO 25 mg DAILY BARTOLO Administration Metoprolol Succinate 100 mg 06/12/24 17:00 Metoprolol Succinate Ext Rel 100 Mg Tabcr PO BID [facility] Ondansetron HCl 4 mg 06/04/24 18:40 06/05/24 12:15 Ondansetron Inj 4 Mg/2 Ml Vial IV PUSH 4 mg Q6H PRN Administration Nausea And Vomiting Pantoprazole Sodium 40 mg 06/04/24 09:00 06/12/24 09:34 Pantoprazole 40 Mg Tablet PO 40 mg QAM [facility]ARTOLO Administration Rosuvastatin Calcium 20 mg 06/04/24 13:40 06/05/24 09:11 Rosuvastatin 20 Mg Tablet PO 20 mg DAILY BARTOLO Administration Radiology Results: ITS Impressions Chest/Abdomen/Pelvis CTA 06/03/24 10:56 IMPRESSION: CHEST: 1. No pulmonary embolism or dissection. 2. Multiple patchy opacities and groundglass appearance suggestive of pneumonia. Underlying pulmonary edema is not excluded although this is less likely. Clinical correlation advised. 3. Mediastinal lymphadenopathy. 4. Right pleural effusion. ABDOMEN/PELVIS: 1. No evidence of appendicitis, diverticulitis or intestinal obstruction. 2. Fat stranding around the neck of the gallbladder. Differential include cholecystitis versus ascending cholangitis versus duodenitis: although no thickening in the wall of the gallbladder or the duodenum is seen. Clinical correlation advised. 3. Fat infiltration of the liver. Hepatomegaly. 4. Fat-containing bilateral inguinal and umbilical hernias. Chest X-Ray 06/06/24 08:11 IMPRESSION: 1. Unchanged elevation of the left hemidiaphragm. No acute cardiopulmonary disease. 2. Cardiomegaly. Renal Ultrasound 06/06/24 14:19 IMPRESSION: No definite abnormality. Abdomen Ultrasound 06/06/24 14:22 IMPRESSION: Fat infiltration of the liver. Thickened wall of the gallbladder which may indicate cholecystitis. Clinical correlation advised. Minimal free fluid in the upper abdomen. Otherwise, normal limited abdominal ultrasound. Arterial/Peripheral Duplex 06/07/24 08:36 IMPRESSION: 1. Normal directional flow but with increased pulsatility to the hepatic venous waveforms and to lesser degree the portal venous waveforms consistent with congestive heart failure. 2. Diffuse hepatic steatosis with small amount of perihepatic ascites. Labs Labs: Laboratory Results - last 24 hr 06/06/24 06/07/24 06/12/24 11:10 18:51 09:21 WBC 9.2 RBC 5.17 Hgb 16.0 Hct 49.9 MCV 96.5 MCH 30.9 MCHC 32.1 RDW 12.9 Plt Count 327 MPV 9.7 Immature Gran % (Auto) 1.2 H Neut % (Auto) 59.5 Lymph % (Auto) 27.6 [place] % (Auto) 7.1 Eos % (Auto) 3.8 Baso % (Auto) 0.8 Lymph # (Auto) 2.55 [place] # (Auto) 0.7 H Eos # (Auto) 0.4 H Baso # (Auto) 0.1 Abs Immat Gran (auto) 0.11 H Absolute Neuts (auto) 5.5 Absolute Nucleated RBC 0.000 Nucleated RBC % 0.0 Sodium 141 Potassium 4.5 Chloride 110 H Carbon Dioxide 22 Anion Gap 9 BUN 16 Creatinine 0.84 Estim Creat Clear Calc 136 Estimated GFR > 60 Glucose 107 Calcium 8.8 Magnesium 2.6 H Total Bilirubin 1.7 H AST 73 H ALT 551 H Alkaline Phosphatase 86 Total Protein 7.0 Albumin 3.9 Ur DARLEEN Interpret 24 hr NATALIE Screen Negative
[2024-06-12] MEDS: METOPROLOL SUCCINATE EXT REL 100 MG TABCR PO (17:17)
[2024-06-13] VITALS (21 sets, daily range): BP systolic 102–140; BP diastolic 54–89; PULSE 83–137; RESP 14–30; TEMP 36.4–37; O2SAT 95–98
[2024-06-13 08:24] LABS: Digoxin 0.6 ng/mL (0.8-2.0)
[2024-06-13] MEDS: FUROSEMIDE INJ 40 MG/4 ML VIAL IV PUSH (08:57)
[2024-06-13] MEDS: EMPAGLIFLOZIN 10 MG TABLET PO (08:57)
[2024-06-13] MEDS: DIGOXIN 250 MCG TABLET PO (08:57)
[2024-06-13] MEDS: METOPROLOL SUCCINATE EXT REL 100 MG TABCR PO ×2 (08:57→17:27)
[2024-06-13] MEDS: APIXABAN 5 MG TABLET PO ×2 (08:57→20:14)
[2024-06-13] MEDS: LOSARTAN POTASSIUM 25 MG TABLET PO (08:57)
[2024-06-13] MEDS: PANTOPRAZOLE 40 MG TABLET PO (08:57)
[2024-06-13] MEDS: DIGOXIN INJ 250 MCG/ML 2 ML AMP (*BKC) IV PUSH (10:27)
[2024-06-13] MEDS: chlordiazePOXIDE (*CRX) 25 MG CAPSULE PO ×2 (13:03→21:23)
--- NOTE | 2024-06-13 13:21 | P.PNIM_ITS ---
Progress Note: A&P Assessment and Plan (1) Congestive heart failure: Code(s): I50.9 - Heart failure, unspecified Status: Acute (2) Atrial flutter with rapid ventricular response: Code(s): I48.92 - Unspecified atrial flutter Status: Acute (3) Elevated liver transaminase level: Code(s): R74.01 - Elevation of levels of liver transaminase levels Status: Acute (4) Acute kidney injury: Code(s): N17.9 - Acute kidney failure, unspecified Status: Acute (5) Community acquired pneumonia: Code(s): J18.9 - Pneumonia, unspecified organism Status: Acute Plan Atrial flutter with rapid ventricular response: Presented with a flutter with RVR HERI shows thrombus in left atrial appendage hence patient was not cardioverted Continue apixaban Metoprolol succinate 50 mg p.o. b.i.d. Started on digoxin 25 mcg S/P digoxin drip alarm security or surveillance monitor Rate is better controlled, but not in the target range, further management per fur vault attendant will increase betablcoker to 75 mg bid which he tolerated well of. Heart rate is still not at goal Cardiology has increased beta-noah to 100 mg b.i.d. Digoxin level low at 0.6 another dose of IV digoxin was ordered by Cardiology. Elevated liver transaminase level: Patient presented with elevated liver enzymes which sharply increased between 06/04 and 06/06 Patient has history of heavy alcohol intake, was also on statin and pictures likely consistent with ischemic hepatopathy likely from a flutter and poor cardiac output Negative viral hepatitis panel LFTs and now improving Congestive heart failure: Acute on chronic systolic heart failure Left ventricular systolic function is severely reduced, estimated at 20-25%. Patient will be resumed on beta-noah. Continue Cozaar Cardiology plans to resume Entresto however prohibited due to high co-pay Also on IV diuretics now. Hypertension: Resume beta-noah Cardiology has started Cozaar Hyperlipidemia: Statin was on hold because of elevated LFTs Acute kidney injury: secondary to poor cardiac output Monitor urine output electrolytes and creatinine Appreciate nephrology consultation Community acquired pneumonia: Patient was started on empiric treatment for community-acquired pneumonia although his presentation is likely more consistent with pulmonary edema and congestive heart failure He is now afebrile and WBC has normalized Blood and sputum cultures have been negative Completed course of Rocephin and doxycycline procal 0.7 Suspected sleep apnea: Patient has symptoms of obstructive sleep apnea. I recommended and encouraged patient to get tested as an outpatient and be compliant with CPAP if prescribed. Monitoring and supplemental oxygen at this time in the hospital Apnea link 06/04/2024 with AHI of 55 Respiratory to arrange for CPAP based on this apnea link study which is in process Tobacco dependence: Patient was encouraged and counseled to quit smoking Daily consumption of alcohol: Patient was encouraged and counseled to cut down on alcohol intake. Monitor for signs of withdrawal. Possible alcohol withdrawal/anxiety being in etiology discussed. Will place on Librium and see how he does. Plan DVT prophylaxis -apixaban Nutrition -diet ordered Code Status - Full Code LifeVest at discharge which is already arranged Arrangement for cpap for discharge as well in process Subjective Date/time seen: 06/13/24 13:21 Interval history: He started on a CPAP treatment last night. Tolerated well. Heart rate still fluctuating up to 130s this a.m.. Feels little anxious. Discussed with Cardiology. Review of Systems Review of Systems: All systems reviewed & are unremarkable except as noted in HPI and below (HPI) Exam Narrative: GENERAL: Well-appearing, obesity, in no acute distress. Well-nourished. - EYES: EOMI. Anicteric. - HENT: Moist mucous membranes. - LUNGS: Coarse breath sound bilateral base - CARDIOVASCULAR: Irregular irregular r hythm. Tachycardic. No murmur. No JVD. - ABDOMEN: Soft, non-tender and non-dist ended. No palpable masses. - EXTREMITIES: No edema. Peripheral puls es 2+. Non-tender. - NEUROLOGIC: No focal neurological defi cits. CN II-XII grossly intact. - PSYCHIATRIC: Awake, Alert and oriented x 3. Appropriate mood and affect. - SKIN: No rashes or lesions. Warm. - LYMPH: No cervical lymphadenopathy. Objective Data Vital Signs Vital Signs: Vital Signs - 24 hr 06/12/24 14:00 06/12/24 16:00 06/12/24 16:00 Temperature 98.4 F Pulse Rate 127 H 83 88 Respiratory Rate 24 H Blood Pressure 136/98 H Pulse Oximetry 97 Oxygen Delivery Fraction of Inspired Oxygen 06/12/24 16:00 06/12/24 17:17 06/12/24 18:00 Temperature Pulse Rate 127 H 131 H Respiratory Rate Blood Pressure Pulse Oximetry 98 Oxygen Delivery Room Air Fraction of Inspired Oxygen 06/12/24 20:00 06/12/24 20:00 06/12/24 21:15 Temperature 98.4 F Pulse Rate 108 H 128 H 108 H Respiratory Rate 18 18 Blood Pressure 114/80 Pulse Oximetry 97 97 Oxygen Delivery Room Air Fraction of Inspired Oxygen 06/12/24 21:31 06/12/24 21:35 06/12/24 22:00 Temperature Pulse Rate 113 H 109 H Respiratory Rate 20 Blood Pressure Pulse Oximetry 98 94 Oxygen Delivery Autopap Room Air Fraction of Inspired Oxygen 21 06/13/24 00:00 06/13/24 00:00 06/13/24 00:00 Temperature 98.2 F Pulse Rate 116 H 116 H 114 H Respiratory Rate 16 16 Blood Pressure 103/54 L Pulse Oximetry 98 98 Oxygen Delivery CPAP Fraction of Inspired Oxygen 21 06/13/24 01:56 06/13/24 02:25 06/13/24 04:00 Temperature Pulse Rate 94 83 Respiratory Rate Blood Pressure Pulse Oximetry 98 Oxygen Delivery Autopap Fraction of Inspired Oxygen 06/13/24 04:00 06/13/24 04:00 06/13/24 05:09 Temperature 98.0 F Pulse Rate 91 91 131 H Respiratory Rate 17 17 Blood Pressure 109/74 Pulse Oximetry 97 97 Oxygen Delivery CPAP Fraction of Inspired Oxygen 21 06/13/24 08:00 06/13/24 08:00 06/13/24 08:00 Temperature 98.1 F Pulse Rate 125 H 131 H Respiratory Rate 16 Blood Pressure 122/80 Pulse Oximetry 98 95 Oxygen Delivery Room Air Fraction of Inspired Oxygen 06/13/24 08:22 06/13/24 08:57 06/13/24 08:57 Temperature 98.4 F Pulse Rate 131 H 132 H 132 H Respiratory Rate 14 Blood Pressure 122/80 Pulse Oximetry 98 Oxygen Delivery Fraction of Inspired Oxygen 06/13/24 10:00 06/13/24 10:27 06/13/24 12:00 Temperature 98.4 F Pulse Rate 131 H 133 H 132 H Respiratory Rate 30 H Blood Pressure 102/70 Pulse Oximetry 97 Oxygen Delivery Fraction of Inspired Oxygen Intake/Output Intake/Output: Intake & Output 06/10/24 06/11/24 06/12/24 06/13/24 23:59 23:59 23:59 23:59 Intake Total 2100 2990 1280 490 Output Total 750 700 740 Balance 1350 2990 580 -250 Meds/Results Medications: Active Medications Generic Name Dose Route Start Last Admin Trade Name Freq PRN Reason Stop Dose Admin Apixaban 5 mg 06/04/24 10:00 06/13/24 08:57 Apixaban 5 Mg Tablet PO 5 mg Q12HR [facility] Administration Calcium Carbonate 200 mg 06/03/24 21:22 06/05/24 12:22 Calcium Carbonate (Tums) 500 Mg (200 Mg Elemental) PO 200 mg Q6H PRN Administration Indigestion Chlordiazepoxide HCl 25 mg 06/13/24 14:00 06/13/24 13:03 Chlordiazepoxide (*Crx) 25 Mg Capsule PO 25 mg Q8HR [facility] Administration Digoxin 250 mcg 06/10/24 10:10 06/13/24 08:57 Digoxin 250 Mcg Tablet PO 250 mcg QAM [facility] Administration Empagliflozin 10 mg 06/08/24 09:00 06/13/24 08:57 Empagliflozin 10 Mg Tablet PO 10 mg DAILY [facility] Administration Furosemide 40 mg 06/12/24 17:00 06/13/24 08:57 Furosemide Inj 40 Mg/4 Ml Vial IV PUSH 40 mg BID [facility] Administration Guaifenesin 1,200 mg 06/03/24 21:00 06/13/24 08:58 Guaifenesin 12 Hr 600 Mg Tabcr PO Not Given Q12HR [facility] Losartan Potassium 25 mg 06/07/24 09:00 06/13/24 08:57 Losartan Potassium 25 Mg Tablet PO 25 mg DAILY [facility] Administration Metoprolol Succinate 100 mg 06/12/24 17:00 06/13/24 08:57 Metoprolol Succinate Ext Rel 100 Mg Tabcr PO 100 mg BID [facility] Administration Ondansetron HCl 4 mg 06/04/24 18:40 06/05/24 12:15 Ondansetron Inj 4 Mg/2 Ml Vial IV PUSH 4 mg Q6H PRN Administration Nausea And Vomiting Pantoprazole Sodium 40 mg 06/04/24 09:00 06/13/24 08:57 Pantoprazole 40 Mg Tablet PO 40 mg QAM [facility] Administration Rosuvastatin Calcium 20 mg 06/04/24 13:40 06/05/24 09:11 Rosuvastatin 20 Mg Tablet PO 20 mg DAILY [facility] Administration Radiology Results: ITS Impressions Chest/Abdomen/Pelvis CTA 06/03/24 10:56 IMPRESSION: CHEST: 1. No pulmonary embolism or dissection. 2. Multiple patchy opacities and groundglass appearance suggestive of pneumonia. Underlying pulmonary edema is not excluded although this is less likely. Clinical correlation advised. 3. Mediastinal lymphadenopathy. 4. Right pleural effusion. ABDOMEN/PELVIS: 1. No evidence of appendicitis, diverticulitis or intestinal obstruction. 2. Fat stranding around the neck of the gallbladder. Differential include cholecystitis versus ascending cholangitis versus duodenitis: although no thickening in the wall of the gallbladder or the duodenum is seen. Clinical correlation advised. 3. Fat infiltration of the liver. Hepatomegaly. 4. Fat-containing bilateral inguinal and umbilical hernias. Chest X-Ray 06/06/24 08:11 IMPRESSION: 1. Unchanged elevation of the left hemidiaphragm. No acute cardiopulmonary disease. 2. Cardiomegaly. Renal Ultrasound 06/06/24 14:19 IMPRESSION: No definite abnormality. Abdomen Ultrasound 06/06/24 14:22 IMPRESSION: Fat infiltration of the liver. Thickened wall of the gallbladder which may indicate cholecystitis. Clinical correlation advised. Minimal free fluid in the upper abdomen. Otherwise, normal limited abdominal ultrasound. Arterial/Peripheral Duplex 06/07/24 08:36 IMPRESSION: 1. Normal directional flow but with increased pulsatility to the hepatic venous waveforms and to lesser degree the portal venous waveforms consistent with congestive heart failure. 2. Diffuse hepatic steatosis with small amount of perihepatic ascites. Labs Labs: Laboratory Results - last 24 hr 06/13/24 07:55 Digoxin 0.6 L
[2024-06-13 14:07] LABS: Basophils Absolute Auto 0.1 K/mm3 (0.0-0.1); Basophils Percent Auto 0.9 % (0.2-1.2); Eosinophils Absolute Auto 0.4 K/mm3 (0-0.3); Eosinophils Percent Auto 3.3 % (0-4.4); Hematocrit 55.6 % (42.0-52.0); Hemoglobin 17.2 g/dL (14.0-18.0); Immature Granulocyte Absolute 0.08 K/mm3 (0.00-0.031); Immature Granulocyte Percent A 0.7 % (0-0.5); Lymphocytes Absolute Auto 3.38 K/mm3 (0.9-3.2); Lymphocytes Percent Auto 29.9 % (18.3-44.2); Mean Corpuscular HGB Conc 30.9 g/dl (32-36); Mean Corpuscular Hemoglobin 30.8 pg (26-34); Mean Corpuscular Volume 99.6 fl (80-100); Mean Platelet Volume 10.4 fl (7.4-10.4); Monocytes Absolute Auto 0.8 K/mm3 (0.1-0.6); Monocytes Percent Auto 7.4 % (2.6-8.5); Neutrophils Absolute Auto 6.5 K/mm3 (1.3-6.7); Neutrophils Percent Auto 57.8 % (45.5-73.1); Platelet Count Result 321 k/mm3 (150-375); Red Blood Count 5.58 M/mm3 (4.6-6.20); Red Cell Distribution Width 12.9 % (11.5-14.5); White Blood Count 11.3 K/mm3 (4.5-10.0)
[2024-06-13 14:41] LABS: Alanine Aminotransferase 442 U/L (6-50); Albumin Level 4.1 g/dL (3.5-5.1); Alkaline Phosphatase 96 U/L (38-126); Anion Gap 9 mmol/L (4-12); Aspartate Amino Transferase 106 U/L (17-59); Bilirubin,Total 1.9 mg/dL (0.2-1.3); Blood Urea Nitrogen 20 mg/dL (9-20); Calcium 8.9 mg/dL (8.4-10.2); Carbon Dioxide 24 mmol/L (22-30); Chloride 108 mmol/L (98-107); Estimated CRCL calculation 113 ml/min; Estimated Glomerular Filt Rate > 60; Glucose 123 mg/dL (65-110); Magnesium 2.7 mg/dL (1.6-2.3); Potassium 4.4 mmol/L (3.4-5.0); Sodium 141 mmol/L (137-145)
--- NOTE | 2024-06-13 15:06 | P.PNCA_ITS ---
Progress Note: A&P Assessment and Plan (1) Atrial flutter with rapid ventricular response: Code(s): I48.92 - Unspecified atrial flutter Status: Acute (2) Hypertension: Code(s): I10 - Essential (primary) hypertension Status: Chronic (3) Congestive heart failure: Code(s): I50.9 - Heart failure, unspecified Status: Acute (4) Hyperlipidemia: Code(s): E78.5 - Hyperlipidemia, unspecified Status: Acute (5) Daily consumption of alcohol: Code(s): Z78.9 - Other specified health status Status: Acute Assessment and Plan: Alcohol cessation recommend (6) Suspected sleep apnea: Code(s): R29.818 - Other symptoms and signs involving the nervous system Status: Acute Plan 1. Acute on chronic systolic HF NYHA IV, Stage C EF 25-30% 2. Cardiogenic Shock; Resolved 3. Atrial Flutter 4. HTN 5. Shock Liver/SAMREEN; resolved 6. ADDI Thrombus -ischemic evaluation has not been done. Most likely the etiology of his cardiomyopathy is nonischemic. Discussed with him regarding ischemic evaluation. He wants to continue on GDMT and will consider ischemic evaluation if the LV systolic function does not improve in repeat echo -LifeVest on discharge -his RVR is difficult to control. He has limited options because of left atrial appendage thrombus which limits our abilities to cardiovert him or place him on meds for rhythm control. He went into cardiogenic shock when he was placed on diltiazem initially on admission. -currently he is on metoprolol succinate to 100 mg b.i.d. I started him on digoxin 0.25 mcg once a day. Digoxin trough levels tomorrow -Switch to oral lasix from tomorrow -acceptable rate for him would be around 100-110 because of underlying cardiomyopathy and severely impaired LV systolic function. Hopefully rates will improve over time with improvement in LV systolic function - Continue losartan at current dose 25 mg p.o. daily, No ARNI becasue of high co-pay. MRA as an outpatient based on BP/renal function - Continue anticoagulation -I am unsure butt here maybe a possibility of alcohol withdrawal. Discussed with Dr Lou and started him on librium Subjective Date/time seen: 06/13/24 15:06 Interval history: No acute events overnight Heart rate still not adequately controlled, increases on ambulation. Well controlled at night Creatinine back to normal, improving liver function Review of Systems Review of Systems: All systems reviewed & are unremarkable except as noted in HPI and below Constitutional: Constitutional: Denies body ache(s) and Denies excessive sweating Eyes: Eyes: Denies blurry vision ENT: Denies Normal hearing present Cardiovascular: Cardiovascular: Denies diaphoresis Respiratory: Respiratory: Denies chest congestion Gastrointestinal: Gastrointestinal: Denies abdominal pain Genitourinary: Genitourinary: Denies hematuria Musculoskeletal: Musculoskeletal: Denies back pain Integumentary/Breasts: Skin/Breast: Denies dry skin Neurologic: Denies Normal hearing present, Denies Abnormal speech present and Denies confusion Psychiatric: Psychiatric: Denies confusion Endocrine: Endocrine: Denies excessive sweating Hematologic/Lymphatic: Hematologic/Lymphatic: Denies easy bruising Allergic/Immunologic: Allergic/Immunologic: Denies GI upset with certain foods Exam Const: General: comfortable and no acute distress; No confusion Orientation/consciousness: No confusion HENMT: Mouth: Yes moist mucous membranes Eyes: General: appearance normal, both eyes and all related structures Sclera: sclerae normal Resp: Effort & Inspection: normal respiratory effort Cardio: Rate: tachycardic Rhythm: regular rhythm Heart sounds: no murmurs Other: Tele with atrial flutter with RVR Skin: General skin exam: normal color Neuro: General: No confusion Cranial nerves: No Normal hearing present Speech: normal speech and No Abnormal speech present Psych: Mental Status: mental status grossly normal Affect: normal affect Objective Data Vital Signs Vital Signs: Vital Signs - 24 hr 06/12/24 16:00 06/12/24 16:00 06/12/24 16:00 Temperature 36.9 C Pulse Rate 83 88 Respiratory Rate 24 H Blood Pressure 136/98 H Pulse Oximetry 97 98 Oxygen Delivery Room Air Fraction of Inspired Oxygen 06/12/24 17:17 06/12/24 18:00 06/12/24 20:00 Temperature 36.9 C Pulse Rate 127 H 131 H 108 H Respiratory Rate 18 Blood Pressure 114/80 Pulse Oximetry 97 Oxygen Delivery Fraction of Inspired Oxygen 06/12/24 20:00 06/12/24 21:15 06/12/24 21:31 Temperature Pulse Rate 128 H 108 H Respiratory Rate 18 Blood Pressure Pulse Oximetry 97 98 Oxygen Delivery Room Air Autopap Fraction of Inspired Oxygen 06/12/24 21:35 06/12/24 22:00 06/13/24 00:00 Temperature 36.8 C Pulse Rate 113 H 109 H 116 H Respiratory Rate 20 16 Blood Pressure 103/54 L Pulse Oximetry 94 98 Oxygen Delivery Room Air Fraction of Inspired Oxygen 21 06/13/24 00:00 06/13/24 00:00 06/13/24 01:56 Temperature Pulse Rate 116 H 114 H 94 Respiratory Rate 16 Blood Pressure Pulse Oximetry 98 Oxygen Delivery CPAP Fraction of Inspired Oxygen 21 06/13/24 02:25 06/13/24 04:00 06/13/24 04:00 Temperature 36.7 C Pulse Rate 83 91 Respiratory Rate 17 Blood Pressure 109/74 Pulse Oximetry 98 97 Oxygen Delivery Autopap Fraction of Inspired Oxygen 06/13/24 04:00 06/13/24 05:09 06/13/24 08:00 Temperature 36.7 C Pulse Rate 91 131 H 125 H Respiratory Rate 17 16 Blood Pressure 122/80 Pulse Oximetry 97 98 Oxygen Delivery CPAP Fraction of Inspired Oxygen 21 06/13/24 08:00 06/13/24 08:00 06/13/24 08:22 Temperature 36.9 C Pulse Rate 131 H 131 H Respiratory Rate 14 Blood Pressure 122/80 Pulse Oximetry 95 98 Oxygen Delivery Room Air Fraction of Inspired Oxygen 06/13/24 08:57 06/13/24 08:57 06/13/24 10:00 Temperature Pulse Rate 132 H 132 H 131 H Respiratory Rate Blood Pressure Pulse Oximetry Oxygen Delivery Fraction of Inspired Oxygen 06/13/24 10:27 06/13/24 12:00 06/13/24 12:00 Temperature 36.9 C Pulse Rate 133 H 132 H 128 H Respiratory Rate 30 H Blood Pressure 102/70 Pulse Oximetry 97 Oxygen Delivery Fraction of Inspired Oxygen 06/13/24 12:00 06/13/24 14:00 Temperature Pulse Rate 129 H Respiratory Rate Blood Pressure Pulse Oximetry 98 Oxygen Delivery Room Air Fraction of Inspired Oxygen Intake/Output Intake/Output: Intake & Output 06/10/24 06/11/24 06/12/24 06/13/24 23:59 23:59 23:59 23:59 Intake Total 2100 2990 1280 730 Output Total 750 700 740 Balance 1350 2990 580 -10 Meds/Results Medications: Active Medications Generic Name Dose Route Start Last Admin Trade Name Freq PRN Reason Stop Dose Admin Apixaban 5 mg 06/04/24 10:00 06/13/24 08:57 Apixaban 5 Mg Tablet PO 5 mg Q12HR [facility] Administration Calcium Carbonate 200 mg 06/03/24 21:22 06/05/24 12:22 Calcium Carbonate (Tums) 500 Mg (200 Mg Elemental) PO 200 mg Q6H PRN Administration Indigestion Chlordiazepoxide HCl 25 mg 06/13/24 14:00 06/13/24 13:03 Chlordiazepoxide (*Crx) 25 Mg Capsule PO 25 mg Q8HR [facility] Administration Digoxin 250 mcg 06/10/24 10:10 06/13/24 08:57 Digoxin 250 Mcg Tablet PO 250 mcg QAM [facility] Administration Empagliflozin 10 mg 06/08/24 09:00 06/13/24 08:57 Empagliflozin 10 Mg Tablet PO 10 mg DAILY [facility] Administration Furosemide 40 mg 06/12/24 17:00 06/13/24 08:57 Furosemide Inj 40 Mg/4 Ml Vial IV PUSH 40 mg BID [facility] Administration Guaifenesin 1,200 mg 06/03/24 21:00 06/13/24 08:58 Guaifenesin 12 Hr 600 Mg Tabcr PO Not Given Q12HR [facility] Losartan Potassium 25 mg 06/07/24 09:00 06/13/24 08:57 Losartan Potassium 25 Mg Tablet PO 25 mg DAILY [facility] Administration Metoprolol Succinate 100 mg 06/12/24 17:00 06/13/24 08:57 Metoprolol Succinate Ext Rel 100 Mg Tabcr PO 100 mg BID [facility] Administration Ondansetron HCl 4 mg 06/04/24 18:40 06/05/24 12:15 Ondansetron Inj 4 Mg/2 Ml Vial IV PUSH 4 mg Q6H PRN Administration Nausea And Vomiting Pantoprazole Sodium 40 mg 06/04/24 09:00 06/13/24 08:57 Pantoprazole 40 Mg Tablet PO 40 mg QAM [facility] Administration Rosuvastatin Calcium 20 mg 06/04/24 13:40 06/05/24 09:11 Rosuvastatin 20 Mg Tablet PO 20 mg DAILY [facility] Administration Radiology Results: ITS Impressions Chest/Abdomen/Pelvis CTA 06/03/24 10:56 IMPRESSION: CHEST: 1. No pulmonary embolism or dissection. 2. Multiple patchy opacities and groundglass appearance suggestive of pneumonia. Underlying pulmonary edema is not excluded although this is less likely. Clinical correlation advised. 3. Mediastinal lymphadenopathy. 4. Right pleural effusion. ABDOMEN/PELVIS: 1. No evidence of appendicitis, diverticulitis or intestinal obstruction. 2. Fat stranding around the neck of the gallbladder. Differential include cholecystitis versus ascending cholangitis versus duodenitis: although no thickening in the wall of the gallbladder or the duodenum is seen. Clinical correlation advised. 3. Fat infiltration of the liver. Hepatomegaly. 4. Fat-containing bilateral inguinal and umbilical hernias. Chest X-Ray 06/06/24 08:11 IMPRESSION: 1. Unchanged elevation of the left hemidiaphragm. No acute cardiopulmonary disease. 2. Cardiomegaly. Renal Ultrasound 06/06/24 14:19 IMPRESSION: No definite abnormality. Abdomen Ultrasound 06/06/24 14:22 IMPRESSION: Fat infiltration of the liver. Thickened wall of the gallbladder which may indicate cholecystitis. Clinical correlation advised. Minimal free fluid in the upper abdomen. Otherwise, normal limited abdominal ultrasound. Arterial/Peripheral Duplex 06/07/24 08:36 IMPRESSION: 1. Normal directional flow but with increased pulsatility to the hepatic venous waveforms and to lesser degree the portal venous waveforms consistent with congestive heart failure. 2. Diffuse hepatic steatosis with small amount of perihepatic ascites. Labs Labs: Laboratory Results - last 24 hr 06/13/24 06/13/24 07:53 07:55 WBC 11.3 H RBC 5.58 Hgb 17.2 Hct 55.6 H MCV 99.6 MCH 30.8 MCHC 30.9 L RDW 12.9 Plt Count 321 MPV 10.4 Immature Gran % (Auto) 0.7 H Neut % (Auto) 57.8 Lymph % (Auto) 29.9 [place] % (Auto) 7.4 Eos % (Auto) 3.3 Baso % (Auto) 0.9 Lymph # (Auto) 3.38 H [place] # (Auto) 0.8 H Eos # (Auto) 0.4 H Baso # (Auto) 0.1 Abs Immat Gran (auto) 0.08 H Absolute Neuts (auto) 6.5 Absolute Nucleated RBC 0.000 Nucleated RBC % 0.0 Sodium 141 Potassium 4.4 Chloride 108 H Carbon Dioxide 24 Anion Gap 9 BUN 20 Creatinine 1.03 Estim Creat Clear Calc 113 Estimated GFR > 60 Glucose 123 H Calcium 8.9 Magnesium 2.7 H Total Bilirubin 1.9 H AST 106 H ALT 442 H Alkaline Phosphatase 96 Total Protein 7.0 Albumin 4.1 Digoxin 0.6 L
[2024-06-13] MEDS: guaiFENesin 12 HR 600 MG TABCR 1200 MG PO (20:14)
[2024-06-13] MEDS: WATER FOR IRRIGATION, STERILE 1,000 ML BOTTLE 1000 ML (21:24)
[2024-06-14] VITALS (13 sets, daily range): BP systolic 92–127; BP diastolic 57–96; PULSE 64–133; RESP 16–20; TEMP 36.5–36.8; O2SAT 93–99
[2024-06-14 04:27] LABS: Basophils Absolute Auto 0.1 K/mm3 (0.0-0.1); Basophils Percent Auto 0.9 % (0.2-1.2); Eosinophils Absolute Auto 0.4 K/mm3 (0-0.3); Eosinophils Percent Auto 3.7 % (0-4.4); Hematocrit 49.5 % (42.0-52.0); Hemoglobin 15.9 g/dL (14.0-18.0); Immature Granulocyte Absolute 0.09 K/mm3 (0.00-0.031); Lymphocytes Absolute Auto 3.05 K/mm3 (0.9-3.2); Lymphocytes Percent Auto 32.4 % (18.3-44.2); Mean Corpuscular HGB Conc 32.1 g/dl (32-36); Mean Corpuscular Hemoglobin 31.2 pg (26-34); Mean Corpuscular Volume 97.1 fl (80-100); Mean Platelet Volume 9.9 fl (7.4-10.4); Monocytes Absolute Auto 0.7 K/mm3 (0.1-0.6); Monocytes Percent Auto 7.6 % (2.6-8.5); Neutrophils Absolute Auto 5.1 K/mm3 (1.3-6.7); Neutrophils Percent Auto 54.4 % (45.5-73.1); Platelet Count Result 255 k/mm3 (150-375); Red Cell Distribution Width 12.7 % (11.5-14.5); White Blood Count 9.4 K/mm3 (4.5-10.0)
[2024-06-14 04:39] LABS: Alanine Aminotransferase 311 U/L (6-50); Albumin Level 3.6 g/dL (3.5-5.1); Alkaline Phosphatase 102 U/L (38-126); Anion Gap 8 mmol/L (4-12); Aspartate Amino Transferase 47 U/L (17-59); Bilirubin,Total 1.5 mg/dL (0.2-1.3); Blood Urea Nitrogen 22 mg/dL (9-20); Calcium 8.4 mg/dL (8.4-10.2); Carbon Dioxide 24 mmol/L (22-30); Chloride 108 mmol/L (98-107); Estimated CRCL calculation 133 ml/min; Estimated Glomerular Filt Rate > 60; Glucose 102 mg/dL (65-110); Magnesium 2.5 mg/dL (1.6-2.3); Potassium 3.9 mmol/L (3.4-5.0); Sodium 140 mmol/L (137-145)
[2024-06-14] MEDS: chlordiazePOXIDE (*CRX) 25 MG CAPSULE PO ×2 (05:45→13:17)
[2024-06-14] MEDS: PANTOPRAZOLE 40 MG TABLET PO (09:35)
[2024-06-14] MEDS: LOSARTAN POTASSIUM 25 MG TABLET PO (09:35)
[2024-06-14] MEDS: DIGOXIN 250 MCG TABLET PO (09:35)
[2024-06-14] MEDS: APIXABAN 5 MG TABLET PO (09:36)
[2024-06-14] MEDS: EMPAGLIFLOZIN 10 MG TABLET PO (09:36)
[2024-06-14] MEDS: METOPROLOL SUCCINATE EXT REL 100 MG TABCR PO (09:36)
[2024-06-14] MEDS: FUROSEMIDE 40 MG TABLET PO (09:36)
--- NOTE | 2024-06-14 11:31 | PM.IMPN ---
Progress Note: A&P Assessment and Plan (1) Congestive heart failure: Code(s): I50.9 - Heart failure, unspecified Status: Acute (2) Atrial flutter with rapid ventricular response: Code(s): I48.92 - Unspecified atrial flutter Status: Acute (3) Elevated liver transaminase level: Code(s): R74.01 - Elevation of levels of liver transaminase levels Status: Acute (4) Acute kidney injury: Code(s): N17.9 - Acute kidney failure, unspecified Status: Acute (5) Community acquired pneumonia: Code(s): J18.9 - Pneumonia, unspecified organism Status: Acute Plan Atrial flutter with rapid ventricular response: Presented with a flutter with RVR HERI shows thrombus in left atrial appendage hence patient was not cardioverted Continue apixaban Metoprolol succinate 50 mg p.o. b.i.d. 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 Heart rate is still not at goal Cardiology has increased beta-noah to 100 mg b.i.d. Digoxin level low at 0.6 another dose of IV digoxin was ordered by Cardiology. Await Cardiac recommendation with regard to his a flutter Elevated liver transaminase level: Patient presented with elevated liver enzymes which sharply increased between 06/04 and 06/06 Patient has history of heavy alcohol intake, was also on statin and pictures likely consistent with ischemic hepatopathy likely from a flutter and poor cardiac output Negative viral hepatitis panel LFTs and now improving Congestive heart failure: Acute on chronic systolic heart failure Left ventricular systolic function is severely reduced, estimated at 20-25%. Patient will be resumed on beta-noah. Continue Cozaar Cardiology plans to resume Entresto however prohibited due to high co-pay Also on IV diuretics now along with fluid restriction Hypertension: Resume beta-noah Cardiology has started Cozaar Hyperlipidemia: Statin was on hold because of elevated LFTs Acute kidney injury: secondary to poor cardiac output Monitor urine output electrolytes and creatinine Appreciate nephrology consultation Community acquired pneumonia: Patient was started on empiric treatment for community-acquired pneumonia although his presentation is likely more consistent with pulmonary edema and congestive heart failure He is now afebrile and WBC has normalized Blood and sputum cultures have been negative Completed course of Rocephin and doxycycline procal 0.7 Suspected sleep apnea: Patient has symptoms of obstructive sleep apnea. I recommended and encouraged patient to get tested as an outpatient and be compliant with CPAP if prescribed. Monitoring and supplemental oxygen at this time in the hospital Apnea link 06/04/2024 with AHI of 55 Respiratory to arrange for CPAP based on this apnea link study which is in process Tobacco dependence: Patient was encouraged and counseled to quit smoking Daily consumption of alcohol: Patient was encouraged and counseled to cut down on alcohol intake. Monitor for signs of withdrawal. Possible alcohol withdrawal/anxiety being in etiology discussed. Will place on Librium and see how he does. Plan DVT prophylaxis -apixaban Nutrition -diet ordered Code Status - Full Code LifeVest at discharge which is already arranged Arrangement for cpap for discharge as well in process Subjective Date/time seen: 06/14/24 11:31 Interval history: No overnight events. Heart rate still up in 130s. Currently goes down to 70s to 80s. Telemetry reviewed. Review of Systems Review of Systems: All systems reviewed & are unremarkable except as noted in HPI and below (HPI) Exam Narrative: GENERAL: Well-appearing, obesity, in no acute distress. Well-nourished. - EYES: EOMI. Anicteric. - HENT: Moist mucous membranes. - LUNGS: Coarse breath sound bilateral base - CARDIOVASCULAR: Irregular irregular rhythm. Tachycardic. No murmur. No JVD. - ABDOMEN: Soft, non-tender and non-distended. No palpable masses. - EXTREMITIES: No edema. Peripheral pulses 2+. Non-tender. - NEUROLOGIC: No focal neurological deficits. CN II-XII grossly intact. - PSYCHIATRIC: Awake, Alert and oriented x 3. Appropriate mood and affect. - SKIN: No rashes or lesions. Warm. - LYMPH: No cervical lymphadenopathy. Objective Data Vital Signs Vital Signs: Vital Signs - 24 hr 06/13/24 12:00 06/13/24 12:00 06/13/24 12:00 Temperature 98.4 F Pulse Rate 132 H 128 H Respiratory Rate 30 H Blood Pressure 102/70 Pulse Oximetry 97 98 Oxygen Delivery Room Air 06/13/24 14:00 06/13/24 16:00 06/13/24 16:00 Temperature 98.6 F Pulse Rate 129 H 132 H 137 H Respiratory Rate 20 Blood Pressure 110/72 Pulse Oximetry 96 Oxygen Delivery 06/13/24 16:00 06/13/24 17:27 06/13/24 18:00 Temperature Pulse Rate 132 H 133 H Respiratory Rate Blood Pressure Pulse Oximetry 98 Oxygen Delivery Room Air 06/13/24 19:40 06/13/24 20:00 06/13/24 20:00 Temperature 97.6 F Pulse Rate 131 H 124 H 132 H Respiratory Rate 20 Blood Pressure 102/88 Pulse Oximetry 97 Oxygen Delivery Room Air 06/13/24 20:54 06/13/24 22:05 06/13/24 23:39 Temperature 97.7 F Pulse Rate 108 H 126 H Respiratory Rate 20 Blood Pressure 140/89 Pulse Oximetry 95 98 Oxygen Delivery Autopap 06/13/24 23:48 06/14/24 00:00 06/14/24 02:00 Temperature Pulse Rate 93 110 H 127 H Respiratory Rate Blood Pressure Pulse Oximetry Oxygen Delivery Room Air 06/14/24 02:02 06/14/24 04:00 06/14/24 04:00 Temperature 97.7 F Pulse Rate 100 91 Respiratory Rate 20 Blood Pressure 113/62 Pulse Oximetry 95 97 Oxygen Delivery Autopap Room Air 06/14/24 04:00 06/14/24 06:08 06/14/24 08:00 Temperature 98 F Pulse Rate 95 116 H 64 Respiratory Rate 16 Blood Pressure 127/76 Pulse Oximetry 93 Oxygen Delivery 06/14/24 08:00 06/14/24 09:35 06/14/24 09:36 Temperature Pulse Rate 132 H 133 H 133 H Respiratory Rate Blood Pressure Pulse Oximetry Oxygen Delivery 06/14/24 10:00 Temperature Pulse Rate 131 H Respiratory Rate Blood Pressure Pulse Oximetry Oxygen Delivery Intake/Output Intake/Output: Intake & Output 06/11/24 06/12/24 06/13/24 06/14/24 23:59 23:59 23:59 23:59 Intake Total 2990 1280 970 480 Output Total 700 2190 750 Balance 2990 320 -6710 -270 Meds/Results Medications: Active Medications Generic Name Dose Route Start Last Admin Trade Name Freq PRN Reason Stop Dose Admin Apixaban 5 mg 06/04/24 10:00 06/14/24 09:36 Apixaban 5 Mg Tablet PO 5 mg Q12HR [facility] Administration Calcium Carbonate 200 mg 04/24/25 21:22 06/05/24 12:22 Calcium Carbonate (Tums) 500 Mg (200 Mg Elemental) PO 200 mg Q6H PRN Administration Indigestion Chlordiazepoxide HCl 25 mg 06/13/24 14:00 06/14/24 05:45 Chlordiazepoxide (*Crx) 25 Mg Capsule PO 25 mg Q8HR [facility] Administration Digoxin 250 mcg 06/10/24 10:10 06/14/24 09:35 Digoxin 250 Mcg Tablet PO 250 mcg QAM [facility] Administration Empagliflozin 10 mg 06/08/24 09:00 06/14/24 09:36 Empagliflozin 10 Mg Tablet PO 10 mg DAILY [facility] Administration Furosemide 40 mg 06/14/24 09:00 06/14/24 09:36 Furosemide 40 Mg Tablet PO 40 mg DAILY [facility] Administration Guaifenesin 1,200 mg 06/03/24 21:00 06/14/24 09:36 Guaifenesin 12 Hr 600 Mg Tabcr PO Not Given Q12HR [facility] Losartan Potassium 25 mg 06/07/24 09:00 06/14/24 09:35 Losartan Potassium 25 Mg Tablet PO 25 mg DAILY [facility] Administration Metoprolol Succinate 100 mg 06/12/24 17:00 06/14/24 09:36 Metoprolol Succinate Ext Rel 100 Mg Tabcr PO 100 mg BID [facility] Administration Ondansetron HCl 4 mg 06/04/24 18:40 06/05/24 12:15 Ondansetron Inj 4 Mg/2 Ml Vial IV PUSH 4 mg Q6H PRN Administration Nausea And Vomiting Pantoprazole Sodium 40 mg 06/04/24 09:00 06/14/24 09:35 Pantoprazole 40 Mg Tablet PO 40 mg QAM [facility] Administration Rosuvastatin Calcium 20 mg 06/04/24 13:40 06/05/24 09:11 Rosuvastatin 20 Mg Tablet PO 20 mg DAILY [facility] Administration Radiology Results: ITS Impressions Chest/Abdomen/Pelvis CTA 06/03/24 10:56 IMPRESSION: CHEST: 1. No pulmonary embolism or dissection. 2. Multiple patchy opacities and groundglass appearance suggestive of pneumonia. Underlying pulmonary edema is not excluded although this is less likely. Clinical correlation advised. 3. Mediastinal lymphadenopathy. 4. Right pleural effusion. ABDOMEN/PELVIS: 1. No evidence of appendicitis, diverticulitis or intestinal obstruction. 2. Fat stranding around the neck of the gallbladder. Differential include cholecystitis versus ascending cholangitis versus duodenitis: although no thickening in the wall of the gallbladder or the duodenum is seen. Clinical correlation advised. 3. Fat infiltration of the liver. Hepatomegaly. 4. Fat-containing bilateral inguinal and umbilical hernias. Chest X-Ray 06/06/24 08:11 IMPRESSION: 1. Unchanged elevation of the left hemidiaphragm. No acute cardiopulmonary disease. 2. Cardiomegaly. Renal Ultrasound 06/06/24 14:19 IMPRESSION: No definite abnormality. Abdomen Ultrasound 06/06/24 14:22 IMPRESSION: Fat infiltration of the liver. Thickened wall of the gallbladder which may indicate cholecystitis. Clinical correlation advised. Minimal free fluid in the upper abdomen. Otherwise, normal limited abdominal ultrasound. Arterial/Peripheral Duplex 06/07/24 08:36 IMPRESSION: 1. Normal directional flow but with increased pulsatility to the hepatic venous waveforms and to lesser degree the portal venous waveforms consistent with congestive heart failure. 2. Diffuse hepatic steatosis with small amount of perihepatic ascites. Labs Labs: Laboratory Results - last 24 hr 06/13/24 06/14/24 07:53 04:03 WBC 11.3 H 9.4 RBC 5.58 5.10 Hgb 17.2 15.9 Hct 55.6 H 49.5 MCV 99.6 97.1 MCH 30.8 31.2 MCHC 30.9 L 32.1 RDW 12.9 12.7 Plt Count 321 255 MPV 10.4 9.9 Immature Gran % (Auto) 0.7 H 1.0 H Neut % (Auto) 57.8 54.4 Lymph % (Auto) 29.9 32.4 [place] % (Auto) 7.4 7.6 Eos % (Auto) 3.3 3.7 Baso % (Auto) 0.9 0.9 Lymph # (Auto) 3.38 H 3.05 [place] # (Auto) 0.8 H 0.7 H Eos # (Auto) 0.4 H 0.4 H Baso # (Auto) 0.1 0.1 Abs Immat Gran (auto) 0.08 H 0.09 H Absolute Neuts (auto) 6.5 5.1 Absolute Nucleated RBC 0.000 0.000 Nucleated RBC % 0.0 0.0 Sodium 141 140 Potassium 4.4 3.9 Chloride 108 H 108 H Carbon Dioxide 24 24 Anion Gap 9 8 BUN 20 22 H Creatinine 1.03 0.86 Estim Creat Clear Calc 113 133 Estimated GFR > 60 > 60 Glucose 123 H 102 Calcium 8.9 8.4 Magnesium 2.7 H 2.5 H Total Bilirubin 1.9 H 1.5 H AST 106 H 47 ALT 442 H 311 H Alkaline Phosphatase 96 102 Total Protein 7.0 7.0 Albumin 4.1 3.6
--- NOTE | 2024-06-14 14:48 | P.PNCA_ITS ---
Progress Note: A&P Assessment and Plan (1) Atrial flutter with rapid ventricular response: Code(s): I48.92 - Unspecified atrial flutter Status: Acute Plan [age]-year-old man with history of ethanol excess, untreated sleep apnea and atrial flutter with RVR. Patient is on metoprolol succinate for heart rate control and also systemic anticoagulation. Digoxin added for additional heart rate control. His telemetry still shows that he is mildly tachycardic with his atrial flutter however this will be the reality/pattern until such time that he can be cardioverted in this cannot be attempted for about 4 weeks because of pre sence of left atrial appendage thrombus. In my opinion he is stable for discharge from our perspective at this time with the current medical regimen in place. We will arrange for follow-up in the office in 2-3 weeks at which time plans can be made for attempting DC cardioversion. He was instructed to restrict himself to sedentary activity at home given his suboptimal heart rate control. Bed re st, chair rest and sedentary activity at the house should be the plan until such time that he can be cardioverted to sinus rhythm Kris Rodriguez MD [facility] Subjective Date/time seen: Date of service: 06/14/24 14:48 Interval history: 06/14/2024: Patient is asymptomatic has continuing atrial flutter with heart rates between 101 30. Hemodynamically stable otherwise. Anticoagulation is in place as well as LifeVest and CPAP. Patient would like to be discharged if po ssible for outpatient follow-up/plans for cardioversion after he has been anticoagulated for 4-6 weeks. No shortness of breath. Exam Const: General: comfortable and no acute distress Other: Obese white male comfortable cooperative no distress HENMT: Mouth: Yes moist mucous membranes Eyes: Sclera: sclerae normal Neck: Neck: supple and no JVD Resp: Effort & Inspection: normal respiratory effort Auscultation: clear to auscultation bilaterally Cardio: Rate: tachycardic Rhythm: regular rhythm Other: Atrial flutter heart rate 115 GI: GI Palp: Yes Soft to palpation Auscultation: normal bowel sounds Skin: General skin exam: normal color Neuro: Other: Alert and oriented x3 Extrem: Other: No edema, good perfusion Objective Data Vital Signs Vital Signs: Vital Signs - 24 hr 06/13/24 16:00 06/13/24 16:00 06/13/24 16:00 Temperature 37.0 C Pulse Rate 132 H 137 H Respiratory Rate 20 Blood Pressure 110/72 Pulse Oximetry 96 98 Oxygen Delivery Room Air 06/13/24 17:27 06/13/24 18:00 06/13/24 19:40 Temperature Pulse Rate 132 H 133 H 131 H Respiratory Rate Blood Pressure Pulse Oximetry Oxygen Delivery Room Air 06/13/24 20:00 06/13/24 20:00 06/13/24 20:54 Temperature 36.4 C Pulse Rate 124 H 132 H Respiratory Rate 20 Blood Pressure 102/88 Pulse Oximetry 97 95 Oxygen Delivery Autopap 06/13/24 22:05 06/13/24 23:39 06/13/24 23:48 Temperature 36.5 C Pulse Rate 108 H 126 H 93 Respiratory Rate 20 Blood Pressure 140/89 Pulse Oximetry 98 Oxygen Delivery Room Air 06/14/24 00:00 06/14/24 02:00 06/14/24 02:02 Temperature Pulse Rate 110 H 127 H Respiratory Rate Blood Pressure Pulse Oximetry 95 Oxygen Delivery Autopap 06/14/24 04:00 06/14/24 04:00 06/14/24 04:00 Temperature 36.5 C Pulse Rate 100 91 95 Respiratory Rate 20 Blood Pressure 113/62 Pulse Oximetry 97 Oxygen Delivery Room Air 06/14/24 06:08 06/14/24 08:00 06/14/24 08:00 Temperature 36.6 C Pulse Rate 116 H 64 132 H Respiratory Rate 16 Blood Pressure 127/76 Pulse Oximetry 93 Oxygen Delivery 06/14/24 09:35 06/14/24 09:36 06/14/24 10:00 Temperature Pulse Rate 133 H 133 H 131 H Respiratory Rate Blood Pressure Pulse Oximetry Oxygen Delivery 06/14/24 12:00 06/14/24 12:00 06/14/24 13:17 Temperature 36.8 C Pulse Rate 67 130 H 117 H Respiratory Rate 18 Blood Pressure 92/57 L 119/70 Pulse Oximetry 99 Oxygen Delivery 06/14/24 14:00 Temperature Pulse Rate 130 H Respiratory Rate Blood Pressure Pulse Oximetry Oxygen Delivery Intake/Output Intake/Output: Intake & Output 06/11/24 06/12/24 06/13/24 06/14/24 23:59 23:59 23:59 23:59 Intake Total 2990 1280 970 720 Output Total 700 2190 750 Balance 2990 580 -1220 -30 Meds/Results Medications: Active Medications Generic Name Dose Route Start Last Admin Trade Name Freq PRN Reason Stop Dose Admin Apixaban 5 mg 06/04/24 10:00 06/14/24 09:36 Apixaban 5 Mg Tablet PO 5 mg Q12HR [facility] Administration Calcium Carbonate 200 mg 06/03/24 21:22 06/05/24 12:22 Calcium Carbonate (Tums) 500 Mg (200 Mg Elemental) PO 200 mg Q6H PRN Administration Indigestion Chlordiazepoxide HCl 25 mg 06/13/24 14:00 06/14/24 13:17 Chlordiazepoxide (*Crx) 25 Mg Capsule PO 25 mg Q8HR [facility] Administration Digoxin 250 mcg 06/10/24 10:10 06/14/24 09:35 Digoxin 250 Mcg Tablet PO 250 mcg QAM [facility] Administration Empagliflozin 10 mg 06/08/24 09:00 06/14/24 09:36 Empagliflozin 10 Mg Tablet PO 10 mg DAILY [facility] Administration Furosemide 40 mg 06/14/24 09:00 06/14/24 09:36 Furosemide 40 Mg Tablet PO 40 mg DAILY [facility] Administration Guaifenesin 1,200 mg 06/03/24 21:00 06/14/24 09:36 Guaifenesin 12 Hr 600 Mg Tabcr PO Not Given Q12HR [facility] Losartan Potassium 25 mg 06/07/24 09:00 06/14/24 09:35 Losartan Potassium 25 Mg Tablet PO 25 mg DAILY [facility] Administration Metoprolol Succinate 100 mg 06/12/24 17:00 06/14/24 09:36 Metoprolol Succinate Ext Rel 100 Mg Tabcr PO 100 mg BID [facility] Administration Ondansetron HCl 4 mg 06/04/24 18:40 06/05/24 12:15 Ondansetron Inj 4 Mg/2 Ml Vial IV PUSH 4 mg Q6H PRN Administration Nausea And Vomiting Pantoprazole Sodium 40 mg 06/04/24 09:00 06/14/24 09:35 Pantoprazole 40 Mg Tablet PO 40 mg QAM [facility] Administration Rosuvastatin Calcium 20 mg 06/04/24 13:40 06/05/24 09:11 Rosuvastatin 20 Mg Tablet PO 20 mg DAILY [facility] Administration Radiology Results: ITS Impressions Chest/Abdomen/Pelvis CTA 06/03/24 10:56 IMPRESSION: CHEST: 1. No pulmonary embolism or dissection. 2. Multiple patchy opacities and groundglass appearance suggestive of pneumonia. Underlying pulmonary edema is not excluded although this is less likely. Clinical correlation advised. 3. Mediastinal lymphadenopathy. 4. Right pleural effusion. ABDOMEN/PELVIS: 1. No evidence of appendicitis, diverticulitis or intestinal obstruction. 2. Fat stranding around the neck of the gallbladder. Differential include cholecystitis versus ascending cholangitis versus duodenitis: although no thickening in the wall of the gallbladder or the duodenum is seen. Clinical correlation advised. 3. Fat infiltration of the liver. Hepatomegaly. 4. Fat-containing bilateral inguinal and umbilical hernias. Chest X-Ray 06/06/24 08:11 IMPRESSION: 1. Unchanged elevation of the left hemidiaphragm. No acute cardiopulmonary disease. 2. Cardiomegaly. Renal Ultrasound 06/06/24 14:19 IMPRESSION: No definite abnormality. Abdomen Ultrasound 06/06/24 14:22 IMPRESSION: Fat infiltration of the liver. Thickened wall of the gallbladder which may indicate cholecystitis. Clinical correlation advised. Minimal free fluid in the upper abdomen. Otherwise, normal limited abdominal ultrasound. Arterial/Peripheral Duplex 06/07/24 08:36 IMPRESSION: 1. Normal directional flow but with increased pulsatility to the hepatic venous waveforms and to lesser degree the portal venous waveforms consistent with congestive heart failure. 2. Diffuse hepatic steatosis with small amount of perihepatic ascites. Labs Labs: Laboratory Results - last 24 hr 06/14/24 04:03 WBC 9.4 RBC 5.10 Hgb 15.9 Hct 49.5 MCV 97.1 MCH 31.2 MCHC 32.1 RDW 12.7 Plt Count 255 MPV 9.9 Immature Gran % (Auto) 1.0 H Neut % (Auto) 54.4 Lymph % (Auto) 32.4 [place] % (Auto) 7.6 Eos % (Auto) 3.7 Baso % (Auto) 0.9 Lymph # (Auto) 3.05 [place] # (Auto) 0.7 H Eos # (Auto) 0.4 H Baso # (Auto) 0.1 Abs Immat Gran (auto) 0.09 H Absolute Neuts (auto) 5.1 Absolute Nucleated RBC 0.000 Nucleated RBC % 0.0 Sodium 140 Potassium 3.9 Chloride 108 H Carbon Dioxide 24 Anion Gap 8 BUN 22 H Creatinine 0.86 Estim Creat Clear Calc 133 Estimated GFR > 60 Glucose 102 Calcium 8.4 Magnesium 2.5 H Total Bilirubin 1.5 H AST 47 ALT 311 H Alkaline Phosphatase 102 Total Protein 7.0 Albumin 3.6
--- NOTE | 2024-06-14 16:31 | PM.DS ---
DS: Admitting Diagnosis Discharge Date 06/14/2024 Admitting Diagnosis shortness of breath DS: Discharge Diagnosis Discharge Diagnosis (1) Congestive heart failure: Code(s): I50.9 - Heart failure, unspecified Status: Acute (2) Atrial flutter with rapid ventricular response: Code(s): I48.92 - Unspecified atrial flutter Status: Acute (3) Elevated liver transaminase level: Code(s): R74.01 - Elevation of levels of liver transaminase levels Status: Acute (4) Acute kidney injury: Code(s): N17.9 - Acute kidney failure, unspecified Status: Acute (5) Community acquired pneumonia: Code(s): J18.9 - Pneumonia, unspecified organism Status: Acute DS: Summary Hospital Course Hospital Course: Atrial flutter with rapid ventricular response: Presented with a flutter with RVR HERI shows thrombus in left atrial appendage hence patient was not cardioverted Continue apixaban Metoprolol succinate 50 mg p.o. b.i.d. Started on digoxin 250 mcg S/P dobutamine drip manager monitoring Rate is better controlled, but not in the target range, further management per shape brick molder increased slowly betablcoker to 100 mg bid which he tolerated well of. Heart rate is still not at goal Digoxin level low at 0.6 another dose of IV digoxin was ordered by Cardiology. he will fu with cards for cardiovesion after 4 weeks of anticoagulation. need to limita ctivity due to elevated heart rate. Elevated liver transaminase level: Patient presented with elevated liver enzymes which sharply increased between 06/04 and 06/06 Patient has history of heavy alcohol intake, was also on statin and pictures likely consistent with ischemic hepatopathy likely from a flutter and poor cardiac output Negative viral hepatitis panel LFTs and now improving Congestive heart failure: Acute on chronic systolic heart failure Left ventricular systolic function is severely reduced, estimated at 20-25%. Patient will be resumed on beta-wendi. Continue Cozaar Cardiology plans to resume Entresto however prohibited due to high co-pay Also on IV diuretics now along with fluid restriction Hypertension: Resume beta-wendi Cardiology has started Cozaar Hyperlipidemia: Statin was on hold because of elevated LFTs Acute kidney injury: secondary to poor cardiac output Monitor urine output electrolytes and creatinine Appreciate nephrology consultation Community acquired pneumonia: Patient was started on empiric treatment for community-acquired pneumonia although his presentation is likely more consistent with pulmonary edema and congestive heart failure He is now afebrile and WBC has normalized Blood and sputum cultures have been negative Completed course of Rocephin and doxycycline procal 0.7 Suspected sleep apnea: Patient has symptoms of obstructive sleep apnea. I recommended and encouraged patient to get tested as an outpatient and be compliant with CPAP if prescribed. Monitoring and supplemental oxygen at this time in the hospital Apnea link 06/04/2024 with AHI of 55 Respiratory to arrange for CPAP based on this apnea link study which is in process Tobacco dependence: Patient was encouraged and counseled to quit smoking Daily consumption of alcohol: Patient was encouraged and counseled to cut down on alcohol intake. Monitor for signs of withdrawal. Possible alcohol withdrawal/anxiety being in etiology discussed. Will place on Librium and see how he does. Plan DVT prophylaxis -apixaban Nutrition -diet ordered Code Status - Full Code LifeVest at discharge which is already arranged Arrangement for cpap for discharge as well in process which will be arranged Time Spent with Patient Time attestation: Total time spent providing and/or coordinating discharge services: 45 mins Exam Narrative: GENERAL: Well-appearing, obesity, in no acute distress. Well-nourished. - EYES: EOMI. Anicteric. - HENT: Moist mucous membranes. - LUNGS: Coarse breath sound bilateral base - CARDIOVASCULAR: Irregular irregular rhythm. Tachycardic. No murmur. No JVD. - ABDOMEN: Soft, non-tender and non-distended. No palpable masses. - EXTREMITIES: No edema. Peripheral pulses 2+. Non-tender. - NEUROLOGIC: No focal neurological deficits. CN II-XII grossly intact. - PSYCHIATRIC: Awake, Alert and oriented x 3. Appropriate mood and affect. - SKIN: No rashes or lesions. Warm. - LYMPH: No cervical lymphadenopathy. DS: Data Data Completed and Pending Completed studies during hospitalization: Exam Type: CA echo dop color flow w con Study Info Indications - New onset CHF Complete two-dimensional, color flow and Doppler transthoracic echocardiogram is performed with contrast to opacify the left ventricle and to improve the deliniation of the left ventricle endocardial borders. Contrast/Agitated Saline Contrast/Ag. Saline: Definity Amount: 6.00 ml Summary 1. Left ventricular chamber dimension is moderately enlarged. 2. Left ventricular systolic function is severely reduced, estimated at 20-25%. 3. There is mildly increased left ventricular wall thickness. 4. The left ventricular diastolic function is indeterminate. 5. Left atrial chamber dimension is moderately enlarged. 6. Right atrial chamber dimension is mildly enlarged. 7. There is moderate mitral valve regurgitation. 8. There is mild tricuspid valve regurgitation. 9. Mild pulmonary hypertension, estimated pulmonary arterial systolic pressure is 39 mmHg. 10. The aortic root size at the sinus of Valsalva is mildly dilated. 11. Dilated inferior vena cava with <50% collapse upon inspiration consistent with elevated right atrial pressure, 15 mmHg. Left Ventricle Left ventricular chamber dimension is moderately enlarged. Left ventricular systolic function is severely reduced, estimated at 20-25%. There is mildly increased left ventricular wall thickness. The left ventricular diastolic function is indeterminate. Right Ventricle Right ventricular chamber dimension is normal. Right ventricular systolic function is normal. Left Atria Left atrial chamber dimension is moderately enlarged. Right Atria Right atrial chamber dimension is mildly enlarged. Atrial Septum Intact interatrial septum visualized by color flow imaging. Aortic Valve The aortic valve is trileaflet. There is mild aortic valve sclerosis. There is no aortic valve stenosis. There is trace aortic valve regurgitation. Pulmonic Valve The pulmonic valve is normal. There is no pulmonic valve stenosis. There is trace pulmonic regurgitation. Mitral Valve The mitral valve has thickened leaflets. There is no mitral valve stenosis. There is moderate mitral valve regurgitation. Tricuspid Valve The tricuspid valve leaflets are normal. There is no significant tricuspid valve stenosis. There is mild tricuspid valve regurgitation. Mild pulmonary hypertension, estimated pulmonary arterial systolic pressure is 39 mmHg. Pericardium/Pleural The pericardium appears normal. There is no pericardial effusion. Inferior Vena Cava Dilated inferior vena cava with <50% collapse upon inspiration consistent with elevated right atrial pressure, 15 mmHg. Aorta The aortic root size at the sinus of Valsalva is mildly dilated. Labs on day of discharge: Labs from last 24 hours 06/14/24 04:03 WBC 9.4 RBC 5.10 Hgb 15.9 Hct 49.5 MCV 97.1 MCH 31.2 MCHC 32.1 RDW 12.7 Plt Count 255 MPV 9.9 Immature Gran % (Auto) 1.0 H Neut % (Auto) 54.4 Lymph % (Auto) 32.4 [place] % (Auto) 7.6 Eos % (Auto) 3.7 Baso % (Auto) 0.9 Lymph # (Auto) 3.05 [place] # (Auto) 0.7 H Eos # (Auto) 0.4 H Baso # (Auto) 0.1 Abs Immat Gran (auto) 0.09 H Absolute Neuts (auto) 5.1 Absolute Nucleated RBC 0.000 Nucleated RBC % 0.0 Sodium 140 Potassium 3.9 Chloride 108 H Carbon Dioxide 24 Anion Gap 8 BUN 22 H Creatinine 0.86 Estim Creat Clear Calc 133 Estimated GFR > 60 Glucose 102 Calcium 8.4 Magnesium 2.5 H Total Bilirubin 1.5 H AST 47 ALT 311 H Alkaline Phosphatase 102 Total Protein 7.0 Albumin 3.6 Procedures/Treatments: HERI TransEsophageal Echocardiogram Date of procedure: 06/04/24 Procedure Type: Date Of Procedure: 06/04/2024 Brief History Of Present Illness: Patient is a 48 year old male who is referred for HERI-guided DCCV for atrial flutter with RVR. Indication: Atrial flutter with RVR Procedure In Detail: After verbal and written informed consent was obtained, the patient risks, benefits, and alternatives explained in detail. The patient agreed to proceed with the plan of care as outlined above.?See pre-sedation note for further details. The patient was then placed in the appropriate 30 to 45 degree angle supine position..?Patient was monitored throughout the study with telemetry, oxygen saturation, end-tidal CO2 monitoring, blood pressure, heart rate, and respirations.?The posterior hypopharynx was then locally anesthetized using repeated administration of Hurricaine spray as well as gargled viscous lidocaine. After local anesthetic of the posterior hypopharynx was achieved and the oral bite block placed, moderate sedation was administered.?After confirmation of adequate moderate sedation, the transesophageal echocardiogram probe was advanced through the oral bite block into the posterior hypopharynx and into the esophagus easily and without complication.?Multiple, multiplanar echocardiographic images were obtained in multiple standard re-projections.?At the conclusion of the study, the transesophageal echocardiogram probe was removed easily and without complication. The patient tolerated the procedure well without difficulty.? Moderate Sedation / Anesthesia Administration: Procedure / sedation start time: 14:05 Procedure / sedation end time: 14:24 Total procedure time: 19 minutes Total of IV Versed 6mg and Fentanyl 100mg was administered by RN. FINDINGS: LEFT ATRIAL APPENDAGE: Thrombus noted in the left atrial appendage. CONCLUSION: Thrombus noted in the left atrial appendage, therefore, cardioversion note done. Complications: None Imaging Radiologist's impression: ITS Impressions Chest/Abdomen/Pelvis CTA 06/03/24 10:56 IMPRESSION: CHEST: 1. No pulmonary embolism or dissection. 2. Multiple patchy opacities and groundglass appearance suggestive of pneumonia. Underlying pulmonary edema is not excluded although this is less likely. Clinical correlation advised. 3. Mediastinal lymphadenopathy. 4. Right pleural effusion. ABDOMEN/PELVIS: 1. No evidence of appendicitis, diverticulitis or intestinal obstruction. 2. Fat stranding around the neck of the gallbladder. Differential include cholecystitis versus ascending cholangitis versus duodenitis: although no thickening in the wall of the gallbladder or the duodenum is seen. Clinical correlation advised. 3. Fat infiltration of the liver. Hepatomegaly. 4. Fat-containing bilateral inguinal and umbilical hernias. Abdomen Ultrasound 06/04/24 08:55 IMPRESSION: Fatty infiltration of an enlarged liver. Gallbladder wall thickening, likely secondary to underdistention. Chest X-Ray 06/06/24 08:11 IMPRESSION: 1. Unchanged elevation of the left hemidiaphragm. No acute cardiopulmonary disease. 2. Cardiomegaly. Renal Ultrasound 06/06/24 14:19 IMPRESSION: No definite abnormality. Abdomen Ultrasound 06/06/24 14:22 IMPRESSION: Fat infiltration of the liver. Thickened wall of the gallbladder which may indicate cholecystitis. Clinical correlation advised. Minimal free fluid in the upper abdomen. Otherwise, normal limited abdominal ultrasound. Arterial/Peripheral Duplex 06/07/24 08:36 IMPRESSION: 1. Normal directional flow but with increased pulsatility to the hepatic venous waveforms and to lesser degree the portal venous waveforms consistent with congestive heart failure. 2. Diffuse hepatic steatosis with small amount of perihepatic ascites. Discharge Plan Discharge Attending physician on discharge: Que Lou Consulting providers: Robert Chung; Sai Gonzalez; Rene Starr Discharging Clinician: Que Lou Anticipated Discharge Date/Time: 06/14/24 16:34 Patient Disposition: Home Activity: as tolerated Diet: heart healthy Discharge Instructions: cpap (auto PAP ) at night as will be arranged nightly. fu with cardiology as opbasis. call for appointment. Bed rest, chair rest and sedentary activity at the house until cardioversion as heart rate suboptimally controlled Patient Instructions: Antibiotic Form, Apixaban (By mouth), Heart Failure (GEN), Atrial Flutter (GEN), Acute Liver Failure (GEN), Acute Kidney Injury (GEN) Patient Language: Ecuadorean Stand Alone Forms: General Discharge Information Follow-up/Referrals: Eagle Leyva MD [Primary Care Provider] - 1 Week Aries Malone MD [Physician] - Call for Appointment Discharge Medications: New Eliquis 5 mg Tablet 5 mg PO Q12HR Qty: 60 0RF losartan 25 mg Tablet 25 mg PO DAILY Qty: 30 0RF Jardiance 10 mg Tablet 10 mg PO DAILY Qty: 30 0RF metoprolol succinate [Toprol XL] 100 mg Tablet Extended Release 24 Hr 100 mg PO BID Qty: 60 0RF digoxin [Digitek] 250 mcg (0.25 mg) Tablet 250 mcg PO QAM Qty: 30 0RF furosemide 40 mg Tablet 40 mg PO DAILY Qty: 30 0RF Continued rosuvastatin 20 mg tablet 20 mg PO DAILY omeprazole 20 mg capsule,delayed release(DR/EC) 20 mg PO DAILY Discontinued diltiazem HCl [DILT-XR] 180 mg capsule,ext.rel 24h degradable 180 mg PO DAILY Other Ambulatory Orders: Complete Blood Count with Diff (Routine) Timeframe: 1 Week Location: Determined by Patient Ordered By: Que Lou Comprehensive Metabolic Panel (Routine) Timeframe: 1 Week Location: Determined by Patient Ordered By: Que Lou Date of admission: 06/05/24 13:18 Primary Care Provider: Eagle Leyva Admitting Provider: Kaiden Elam Attending physician on admission: Kaiden Elam Condition: Serious Hospitalist MIPS Heart Failure (Exclusion) Patient has history of Heart Transplant or Left Ventricular Assistive Device?: No IF YES, STOP HERE Heart Failure (Qualifier) Patient has current or prior documentation of LVEF less than or equal to 40%, or mod/servere depressed LVSF?: Yes IF NO, STOP HERE If Yes, Heart Failure (Qualifier) Patient was prescribed or already taking an Angiotensin-Converting Enzyme (VANESSA) Inhibitor, or Antiotensin Receptor Wendi (ARB): Yes Patient was prescribed or already taking bisoprolol, carvedilol, or sustained release metoprolol succinate: Yes
[2024-06-16 12:03] LABS: Albumin 100 %
== END 2024-06-14 17:57 | disposition home or self-care (01) | DRG 291 ==
LOC: ANHED 13:37 → ANHIMU 14:03 → ANHICU 06-06 15:31 → ANHIMU 06-08 00:24
PROVIDERS: Emergency Medicine; Internal Medicine; Internal Medicine Interventional Cardiology; Internal Medicine Nephrology; Physician Assistant; Admitting Provider General Practice; Emergency Provider Registered Nurse; PCP Internal Medicine; Visit Provider Internal Medicine
PROC: (CPT 93312; principal; 2024-06-04 14:00)
DX: I50.23 Acute on chronic systolic (congestive) heart failure (principal); J18.9 Pneumonia, unspecified organism; K72.00 Acute and subacute hepatic failure without coma; R57.0 Cardiogenic shock; I48.92 Unspecified atrial flutter; I47.19 Other supraventricular tachycardia; N17.9 Acute kidney failure, unspecified; I42.8 Other cardiomyopathies; I11.0 Hypertensive heart disease with heart failure; I51.3 Intracardiac thrombosis, not elsewhere classified; E78.5 Hyperlipidemia, unspecified; K21.9 Gastro-esophageal reflux disease without esophagitis; G47.30 Sleep apnea, unspecified; F10.90 Alcohol use, unspecified, uncomplicated; F17.210 Nicotine dependence, cigarettes, uncomplicated; F12.90 Cannabis use, unspecified, uncomplicated; Z20.822 Contact with and (suspected) exposure to COVID-19
CPT/HCPCS: 36415; 71045; 71275; 74177; 76705; 76775; 80053; 80074; 80162; 80307; 81001; 81003; 82550; 82570; 83520; 83605; 83690; 83735; 83880; 83883; 84100; 84145; 84155; 84156; 84165; 84166; 84300; 84443; 84484; 84540; 85025; 85027; 85610; 85652; 85730; 85999; 86036; 86038; 86039; 86160; 86162; 86225; 86334; 86335; 86738; 87040; 87070; 87205; 87449; 87636; 87641; 87651; 87899; 93005; 93306; 93312; 93320; 93325; 93976; 94002; 94640; 96361; 96365; 96367; 96375; 99285; A9270; C8929; G0378; J0456; J0696; J1160; J1250; J1650; J1938; J2060; J2250; J2405; J2919; J3010; J7030; J7040; J7120; Q9957; Q9967

== ENCOUNTER 2024-07-08 00:58 | Day surgery (SDC) | payer OTHER, SELFPAY ==
[2024-07-07 16:24] VITALS: BMI 40.0
--- NOTE | 2024-07-08 | ECHO_ITS ---
Patient Info Name: Barrett Guzman Age: 48 years : 1975 Gender: Male HR: 128 bpm Exam Date: 07/08/2024 1:42 PM Patient Status: O Admit Date: 07/08/2024 Exam Type: CA echo transesophageal Complete two-dimensional, color flow and Doppler transesophageal study is performed. Train Reservation Clerk: Nisa Apodaca Attending Provider: Robert Chung Summary 1. There is biventricular systolic dysfunction. 2. There are no significant valvular abnormalities. 3. There is a left atrial appendage thrombus. Complications There were no complication prior to, during or in recovery from the transesophageal echocardiogram. Medications Sedation provided by anesthesia team. Procedure Details The patient arrived in a fasting state after obtaining informed consent. The transesophageal probe was passed into the posterior pharynx, mid-esophagus, and distal esophagus. Imaging was performed at multiple levels. The patient tolerated the procedure well and there were no complications. The patient was transferred out of the examination area in satisfactory condition. Left Ventricle The left ventricular systolic function is severely reduced. Right Ventricle The right ventricular systolic function is reduced. Atrial Appendage The left atrial appendage has a thrombus. The pulsed velocity is estimated to be 50 centimeter/second. Aortic Valve The aortic valve is trileaflet and opens well. There is no aortic regurgitation. Pulmonic Valve The pulmonic valve is grossly normal. Mitral Valve The mitral valve leaflets are thin and pliable. There is trace mitral regurgitation. Tricuspid Valve The tricuspid valve is normal. Pericardium/Pleural Pericardium is normal in appearance with no evidence for significant pericardial effusion. Aorta There is no atherosclerotic plaque in visualized portions of ascending, descending, and aortic arch. Report Signatures
--- OUTSIDE RECORDS SUMMARY | 2024-07-08 01:02 | XMS_ITS | Clinical Summary ---
Author Organization [facility] Address [address] [place] [address] Care Team Providers Care Pharmacy Student Name Role Phone Unavailable Primary Care Provider Unavailabl e Source Comments [facility],non-owned Affiliates and Associated Physician Practices is amultiple site organization consisting of ambulatory clinics and hospital sitesin [place], [place], [place] and [place]. This disclosure is being madepursuant to the Care Everywhere program and may not contain all information available regarding this patient. Last updated 17.[employer] Allergies No known active allergies Social History Tobacco Use Types Packs/Day Years Used Date Smoking Tobacco: Never Assessed Sex and Gender Information Value Date Recorded Sex Assigned at Not on file Legal Sex Male 10:06 AM SHINGLE TRIM[employer] Gender Identity Not on file Sexual Orientation [...]
--- OUTSIDE RECORDS SUMMARY | 2024-07-08 01:02 | XMS_ITS | Clinical Summary ---
Author Organization [facility] [address] Address [address] [place] [address] Phone Care Team Providers Care Senior Materials Analyst Name Role Phone Eagle Durand MD Primary Care Provider [phone] Allergies No known active allergies Medications rosuvastatin (CRESTOR) 20 mg tabletIndications: Mixed hyperlipidemia TAKE 1 TABLET BY MOUTH DAILY 90 tablet 1 03/22/19 25 Active sildenafiL (VIAGRA) 100 mg tablet TAKE 1 TABLET BY MOUTH ONCE DAILY NEEDED FOR ERECTILE DYSFUNCTION 12 tablet 04/24/19 25 Active Eliquis 5 mg tablet Take 1 tablet (5 mg total) by mouth every 12 (twelve) hours 06/15/19 25 Active digoxin (LANOXIN) 250 mcg (0.25 mg) tablet Take 1 tablet (250 mcg total) by mouth every morning 06/15/19 25 Active Jardiance 10 mg tablet Take 1 tablet (10 mg total) by mouth daily 06/16/19 25 Active furosemide (LASIX) 40 mg tablet Take 1 tablet (40 mg total) by mouth daily 06/15/19 25 Active losartan (COZAAR) 25 mg tablet Take 1 tablet (25 mg total) by mouth daily 06/15/19 25 Active metoprolol XL (TOPROL-XL) 100 mg 24 hr tablet Take 1 tablet (100 mg total) by mouth 2 (two) times a day 06/15/19 25 Active dilTIAZem XR (DILT-XR) 180 mg 24 hr capsuleIndications :Hypertension, essential TAKE 1 CAPSULE BY MOUTH DAILY 90 capsule 1 01/19/20 24 025 Discontinu ed(No longer taking - Do not display on AVS) Active Problems Problem Noted Date Diagnosed Date Class 2 obesity with body ma ss index (BMI) of 39.0 to 39.9 in adult 06/22/2024 Assessment & Plan (06/22/2024 5:45 PM CDT): BMI 39.5 height 6 ft tall weight 291 lb comorbidities congestive heart failure with ejection fraction 25-30%, cardiac arrhythmias atrial fibrillation recent onset, sleep apnea. Sleep apnea 06/22/2024 Assessment & Plan (06/22/2024 5:44 PM CDT): Patient advised me that he had a sleep study while on hospital was positive . Advised he has get a full sleep study for his his insurance to pay for CPAP.. Patient is obese BMI 39.5 advised him Zepbound which is used who weight reductions approved for sleep PAP therapy.. Patient discussed Zepbound with his cardiology I do not see a conflict I will proceed in sending a prescription in. Paroxysmal atrial fibrillation 06/22/2024 Congestive heart failure, NYHA class 3, acute, s ystolic 06/22/2024 Need for hepatitis C screening test 11/27/2023 [...] 04/20 Assessment & Plan (04/20/2022 3:06 PM MAC DEVELOPER): Patient injured left ankle and foot pain [...] me that colonoscopy as we done at [facility].. Staff was advised well.. Chronic health problems morbid obesity and hypertension. Assessment & Plan (10/28/2022 4:56 PM CDT): Patient 47 he is advised his options for colon cancer screening/a Cologuard versus colonoscopy. Will give some consideration depending on insurance coverage Assessment & Plan (04/20/2022 3:05 PM MAC DEVELOPER): History and physical completed patient's health risk [...] visit. Assessment & Plan (04/05/2019 12:51 PM MAC DEVELOPER): History and physical complete health risk assessment addressed. 30 lb weight loss on purpose patient resume running. He had a added running in years past he discontinued this because of knee pain. This past year resume running is no knee pain he has lost 30 lb laboratory studies will include a CMP CBC FLP Assessment & Plan (04/03/2018 6:21 PM MAC DEVELOPER): 42-year-old gentleman is new patient to me. [...] therapy Assessment & Plan (04/20/2022 3:05 PM MAC DEVELOPER): Hypertension will continue present medication check BMP fasting lipid profile Assessment & Plan (10/12/2021 4:50 PM CDT): Blood pressure is 140/80 no change in therapy at this time. Encourage ifestyle change weight loss continue present therapy. Assessment & Plan (03/31/2021 1:35 PM MAC DEVELOPER): Hypertension remains well controlled patient is tolerating [...] months. Assessment & Plan (04/03/2018 6:24 PM MAC DEVELOPER): . History of hypertension dating back to 2016 at that time his weight was 275 [...] refilled. Assessment & Plan (04/03/2018 6:25 PM MAC DEVELOPER): Patient's erectile dysfunction he advised me that testosterone levels are not covered by his insurance. This time I discussed with him the medications Viagra, Cialis. Advised mother generic medication of Viagra which is more affordable Revatio /sildenafil and dosage in how to take it. Prescription called in [facility] pharmacy. Resolved Problems Problem Noted Date Diagnosed Date Resolved Date Morbid obesity with BMI of 40.0-44.9, adult 11/27/2023 06/22/2024 Assessment & Plan (11/27/2023 4:59 PM CDT): Patient not interested in GLP 1 type products weight reduction. He advised me he knew how to reduce weight he just needs to become serious about it and follow through on losing weight. Knows exactly what he takes and how to do it. Body mass index 40.0-44.9, adult ([facility]) 05/09/2023 11/27/2023 Assessment & Plan (05/09/2023 6:00 PM CDT): Weight is up 22 lb in 2 years patient is given information regarding dash diet is has hyperlipidemia borderline blood pressures also given information from a website from [employer]. Did not discuss GLP 1 therapy for [...] given information from a website from the [employer]. Did not discuss GLP 1 therapy for [...] he was 89 appy was also a [address] years ago as well. Patient's begin the walks several days a week for purpose of losing weight. Patient's ASCVD score 10 year risk 7.2 past this information on to him discussed with him the influence of cholesterol hypertension and other factors he can look up how to calculate this information in the future foreign self. Assessment & Plan (03/31/2021 1:35 PM MAC DEVELOPER): Patient weight continues to go up we [...] 35.13 height 6 ft tall 259 lb Encounters Date Type Department Care Team Description 07/01/2024 10:00 AM CDT Office Visit [facility] Medical [facility] Cardiology [address] [place] [address] Patricia Chandler NP Atrial flutter with rapid ventricular response (HCC) (Primary Dx); Dilated cardiomyopathy (HCC); Lipid screening; At risk for sleep apnea; Morbid obesity with BMI of 40.0-44.9, adult (HCC); Hospital discharge follow-up 07/01/2024 Telephone [facility] Cardiology [address] [place] [address] Patricia Chandler NP 06/22/2024 11:00 AM CDT Office Visit [facility] [address] [place] [address] Eagle Durand MD Need for hepatitis B screening test (Primary Dx); Need for hepatitis C screening test; Sleep apnea, unspecified type; Congestive heart failure, NYHA class 3, acute, systolic (HCC); Class 2 severe obesity due to excess calories with serious comorbidity and body mass index (BMI) of 39.0 to 39.9 in adult (HCC) 06/15/2024 Telephone [facility] Medical [facility] Cardiology [address] [place] [phone] Shreya Gibbs NP 06/15/2024 Orders Only [facility] Cardiology [address] [facility] [address] [place] [address] Kris Rodriguez MD 06/09/2024 Orders Only [facility] Cardiology [address] [facility] [address] [place] [address] Aries Malone MD 06/06/2024 Orders Only [facility] Health Information Management [address] [place] [address] Scanning, Provider 06/03/2024 Orders Only [facility] Health Information Management [address] [place] [address] Eagle Durand MD from Last 3 Months Immunizations Immunization Administration Dates Next Due Influenza, Unspecified 11/27/2023(Deferr ed: Patient Refused),11/10/2022(Deferred: Patient Refused) Social History Tobacco Use Types Packs/Day Years Used Date Smoking Tobacco: Former Cigarettes 1 26.7 0 1997 - 06/03/2024 Smokeless Tobacco: Never Tobacco Cessation:Counseling Given: Not Answered PHQ-2 Answer Date Recorded PHQ-2 Total Score (If total score is 3 or more points, staff should administer the PHQ-9) 0 11/27/2023 Sex and Gender Information Value Date Recorded Sex Assigned at Not on file Legal Sex Male 9:46 AM MAC DEVELOPER Gender Identity Not on file Sexual Orientation Not on file Obstetrics History Last Filed Vital Signs Vital Sign Reading Time Taken Comments Blood Pressure 106/72 07/01/2024 9:56 AM CDT Pulse 136 07/01/2024 9:56 AM CDT Temperature 36.3 C (97.3 F) 06/22/2024 11:05 AM CDT Respiratory Rate 16 06/22/2024 11:05 AM CDT Oxygen Saturation 96% 07/01/2024 9:56 AM CDT Inhaled Oxygen Concentration - - Weight 134.3 kg (296 lb) 07/01/2024 9:56 AM CDT Height 182.9 cm (6') 07/01/2024 9:56 AM CDT Body Mass Index 40.14 07/01/2024 9:56 AM CDT Plan of Treatment Health Maintenance Due Date Last Done Comments Colon Cancer Screening-Colonoscopy 1977 Hepatitis C Screening 1977 DTaP/Tdap/Td Vaccine (1 - Tdap) 1988 Hepatitis B Screening 10/09/1995 Covid-19 Vaccine ( season) 2023 03/02/2021, 06/01/2020, 05/11/2020 Influenza Vaccine (Season Ended) 2024 Depression Screening 11/26/2024 11/27/2023, 04/12/2022, 10/12/2021, Additional history exists Regular Well Visit/Exam 18-64 11/26/2024 11/27/2023, 04/12/2022, 05/29/2020, Additional history exists HPV Vaccines Aged Out No longer eligi ble based on patient's age to complete this topic Pneumococcal vaccine <65 Aged Out No longer eligible based on patient's age to complete this topic Procedures Procedure Name Priority Date/Time Associated Diagnosis Comments ECG 12-LEAD Routine 07/01/2024 10:16 AM CDT Atrial flutter with rapid ventricular response (HCC) POCT LIPID PANEL Routine 07/01/2024 10:1 5 AM CDT Lipid screening CARDIOLOGY DOCUMENT SCAN Routine 06/14/2024 2:27 PM CDT CARDIOLOGY DOCUMENT SCAN Routine 06/05/2024 9:21 AM CDT SCAN - RADIOLOGY/IMAGING 06/05/2024 CARDIOLOGY DOCUMENT SCAN Routine 06/04/2024 9:15 AM CDT CARDIOLOGY DOCUMENT SCAN Routine 06/04/2024 9:13 AM CDT SCAN - RADIOLOGY/IMAGING 06/03/2024 from Last 3 Months Results * ECG 12 lead (07/01/2024 10:16 AM CDT) 07/01/2024 10:1 6 AM CDT Patricia Chandler NP ECG ORDERABLES Edited Re sult - Final * (ABNORMAL) POCT lipid panel (07/01/2024 10:15 AM CDT) Cholesterol, POC 132 <200 MG/DL HDL, POC 23(A) >=40 mg/dL Triglycerides, POC 127 <=149 mg/dL LDL Cholesterol POC 84 <=129 mg/dL Chol/HDL Ratio, POC 3.6 NONE Non-HDL Cholesterol, POC 109 NONE mg/dL Cholesterol Total, POC 132 30 - 199 mg/dL Capillary blood 07/01/2024 1 0:15 AM CDT Result [facility] Patricia Chandler NP POINT OF CARE TEST ORDERA BLES Final Result * Cardiology Document Scan (06/14/2024 2:27 PM CDT) Anatomical Region Laterality Modality Other Kris Rodriguez MD [facility] SERVICES PROC EDURES Final Result * Cardiology Document Scan (06/05/2024 9:21 AM CDT) Anatomical Region Laterality Modality Other Ishan Purvis MD CV CARDIAC SERVICES PROCE DURES Final Result * SCAN - RADIOLOGY/IMAGING (06/05/2024) Anatomical Region Laterality Modality Other Provider Scanning Edited Result - Final * Cardiology Document Scan (06/04/2024 9:15 AM CDT) Anatomical Region Laterality Modality Other Aries Malone MD CV CARDIAC SERVICES PRO CEDURES Final Result * Cardiology Document Scan (06/04/2024 9:13 AM CDT) Anatomical Region Laterality Modality Other Aries Malone MD CV CARDIAC SERVICES PRO CEDURES Final Result * SCAN - RADIOLOGY/IMAGING (06/03/2024) Anatomical Region Laterality Modality Other Eagle Durand MD Edited Res ult - Final from Last 3 Months Insurance [facility] H[facility]/PPO Address: [address] [address] [facility] H[facility]/PPO Address: [address] [address] Care Teams Senior Materials Analyst Relationship Specialty Start Date End Date Eagle Durand MD PCP - General Internal Medicine 03/18/18
--- OUTSIDE RECORDS SUMMARY | 2024-07-08 01:02 | XMS_ITS | Data Portability ---
Author Organization [place] [facility] [employer], Main Office Address [address] [place] [address] Care Team Providers Care Financial Sales Assistant Name Role Phone RIZWANA ROSA Primary Care Provider RIZWANA ROSA Referring Provider Assessment Encounter Date Assessment Date Assessment LastModified [...] DO Not Attach Compendium, Do Not Delete/merge, [id number] 15:26:08 Surgeries None recorded. Imaging XR, ankle 2022 023 [address] [facility] [place], [address], [place], [address], 16:10:48 XR, knee, 3 view 2022 023 [address] [facility] [place], [address], [place], [address], 16:10:21 Medication Orders Kenalog 10 mg/mL suspension for injection 2022 023 sagar Carrera [facility], [address] [place] [address], [address], 15:50:42 ropivacaine (PF) 5 mg/mL (0.5 %) injection solution 2022 023 sagar Carrera [facility], [address] [place] [address], [address], 3 15:50:42 prednisone 10 mg tablets in a dose pack 2022 023 sagar Carrera [facility], [address] [place] [address], [address], 3 15:50:42 Patient TargetsNo targets recorded. Patient InstructionsNo instructions recorded. Reason for Referral None Reported. Results Created Date Observation Date Name Description Value Unit Range Abnormal Flag Note LastModifiedBy Organization Detail LastModifiedTime 05/15/19 23 XR, knee, 3 view No observ ation record ed. harmony [facility] [place] [address], [place], [address], 05/14/2022 16:10:20 05/15/19 23 XR, ankle No observ ation record ed. [email or web address] [facility] [place] [address], [place], [address], 05/14/2022 16:10:47 Result Notes None recorded. Problems Name Problem SNOMED Code Status Onset Date Resolution Date Notes Provider Name and Address Organization Details Recorded Time Pain of left knee joint 5821543956147 07 Active 2022 MILADY Tsai, [place] [employer] [facility] [email or web address] [facility] 3 14:59:31 Pain of right ankle joint 0489762216276 9106 Active 2022 NESSA Renteria, [employer] [facility] [email or web address] [facility] 3 15:24:36 Right Achilles tendinitis 2636719783572 02 Active 2022 Parker Keating MD [address], [place], [address], [employer] [facility] 3 16:05:56 Chondromala trent of left patella 8158837529046 06 Active 2022 Parker Keating MD [address], [place], [address], [employer] [facility] 3 16:06:14 Problem Notes None recorded. Procedures Surgical History Date Name Laterality Status Provider Name and Address Organization Details Recorded Time 3 Ortho - Cortisone Injection completed Parker Keating MD [address], [place], [address], [facility] 05/14/2022 16:05:24 Shoulder completed Francescanorbert Marsh [facility] 05/14/2022 14:58:44 Ankle completed Francescanorbert Marsh [facility] 05/14/2022 14:58:54 Imaging Results None recorded. Procedure Notes None recorded. Medical Equipment None [...] 2022 active Not Available Not Available Not Avai lable Kenalog 10 mg/mL suspension for injection Take 20 mg by injection route. 2022 active [facility]: 0003- 0494- 20 Not Available Not Available Not Available DILT-XR 180 mg capsule, extended release TAKE 1 CAPSULE BY MOUTH EVERY DAY active Not Available Not Available No t Available ropivacaine (PF) 5 mg/mL (0.5 %) injection solution Take 20 mg by injection route. 2022 active Not Available Not Available Not Avai lable Vitals Date Recorded Body height Body mass index (BMI) Body weight Provider Name and Address Organization Details Last Updated DateTime 05/14/2022 182.88 cm 37.3 kg/m2 129991.9 gualberto Francesca Marsh [facility] 05/14/2022 14:56:53 Date Recorded Body height Body mass index (BMI) Body weight Provider Name and Address Organization Details Last Updated DateTime 06/13/2022 182.88 cm 36.6 kg/m2 526299.94 gualberto Yayo Neumann [facility] 06/13/2022 13:53:25 Social History None recorded. Functional Status Question Answer Note LastModified by Organization D etails LastModified Time What is your level of alcohol consumption? Moderate [email or web address] Information not available 05/14/2022 Mental Status None recorded. Family History Relationship Description Onset Age of this Age Resolved Age Notes LastModified by Organization Details LastModified Time Father Heart disease Not available 2022 14:57:33 Father Hypertensive disorder [email or web address] Not available 2022 14:57:46 Medical History Condition Response HYPERTENSION Y Past Encounters Encounter ID Performer Location Encounter Start Date Encounter Closed Date Diagnosis/Indication Diagnosis SNOMED-CT Code Diagnosis ICD10 Code Diagnosis Note [id number] Parker Keating MD [facility] [place] [address] [place] [address] 05/14/2022 14:42:13 05/14/2022 15:39:29 Pain of left knee joint 5903010875 36412 M25.562 Pain of ri ght ankle joint 2639598330 8762157 M25.571 Right Achi lles tendinitis 9305976814 01761 M76.61 Chondromal acia of left patella 1491183246 01664 M22.42 [id number] Parker Keating MD [facility] [place] [address] [place] [address] 06/13/2022 13:50:59 06/13/2022 14:25:57 Pain of left knee joint 3571122406 98241 M25.562 Pain of ri ght ankle joint 4155310044 7713216 M25.571 Right Achi lles tendinitis 4133431812 96705 M76.61 Chondromal acia of left patella 4896481566 96202 M22.42 Health Concerns Section Related Observation LastModified by Organization Detai ls LastModified Time None Recorded Concern Status LastModified by Organization Details LastModified Time None Recorded Advance Directives Directive None Recorded Payers Encounter Date Sequence Insurance Name Policy Number Policy Da Silva Covered Member ID Da Silva Member ID Guarantor Name 05/14/2022 1 [employer] [id number] Kimberlyn Gama [id number] Barrett Guzman 06/13/2022 1 [id number] Kimberlyn Gama [id number] Barrett Guzman Notes Date Note Type Note Provider Name [...] Achilles. Parker Keating MD [address], [facility] [address], [place], [address], [employer] [facility] 05/14/2022 16:11:18 06/13/2022 text/html Patient returns for left knee and right ankle pain. He has had a nice response to conservative treatment he thinks the shot really helped as well as the prednisone pills. He is to the point where he thinks he can live with it for the present time. Parker Keating MD [address], [place], [address], [employer] [facility] 06/13/2022 14:01:17
--- OUTSIDE RECORDS SUMMARY | 2024-07-08 01:02 | XMS_ITS | Referral Summary ---
Author Organization [facility] [address] Address [address] [place] [address] Phone Care Team Providers Care Sandwich Board Carrier Name Role Phone Eagle Durand MD Primary Care Provider [phone] Encounters Date Type Department Care Team Description 07/01/2024 Telephone [facility] [address] [place] [phone] Patricia Chandler NP 07/01/2024 10:00 AM CDT Office Visit [facility] [address] [place] [address] Patricia Chandler NP Atrial flutter with rapid ventricular response (HCC) (Primary Dx); Dilated cardiomyopathy (HCC); Lipid screening; At risk for sleep apnea; Morbid obesity with BMI of 40.0-44.9, adult (HCC); Hospital discharge follow-up 06/22/2024 11:00 AM CDT Office Visit [facility] [address] [place] [phone] Eagle Durand MD Need for hepatitis B screening test (Primary Dx); Need for hepatitis C screening test; Sleep apnea, unspecified type; Congestive heart failure, NYHA class 3, acute, systolic (HCC); Class 2 severe obesity due to excess calories with serious comorbidity and body mass index (BMI) of 39.0 to 39.9 in adult (HCC) 06/15/2024 Telephone [facility] [address] [place] [phone] Shreya Gibbs NP 06/15/2024 Orders Only [facility] Cardiology [address] [place] [phone] Kris Rodriguez MD 06/09/2024 Orders Only [facility] Cardiology [address] [place] [phone] Aries Malone MD 06/06/2024 Orders Only [facility] [address] [place] [address] Scanning, Provider 06/03/2024 Orders Only [facility] [address] [place] [address] Eagle Durand MD from Last 3 Months Allergies No known active allergies Medications rosuvastatin [...] 04/20 Assessment & Plan (04/20/2022 3:06 PM ORTHOPEDIC PHYSICIAN ASSISTANT): Patient injured left ankle and foot pain [...] coverage Assessment & Plan (04/20/2022 3:05 PM ORTHOPEDIC PHYSICIAN ASSISTANT): History and physical completed patient's health risk [...] visit. Assessment & Plan (04/05/2019 12:51 PM ORTHOPEDIC PHYSICIAN ASSISTANT): History and physical complete health risk assessment addressed. 30 lb weight loss on purpose patient resume running. He had a added running in years past he discontinued this because of knee pain. This past year resume running is no knee pain he has lost 30 lb laboratory studies will include a CMP CBC FLP Assessment & Plan (04/03/2018 6:21 PM ORTHOPEDIC PHYSICIAN ASSISTANT): 42-year-old gentleman is new patient to me. [...] therapy Assessment & Plan (04/20/2022 3:05 PM ORTHOPEDIC PHYSICIAN ASSISTANT): Hypertension will continue present medication check BMP fasting lipid profile Assessment & Plan (10/12/2021 4:50 PM CDT): Blood pressure is 140/80 no change in therapy at this time. Encourage ifestyle change weight loss continue present therapy. Assessment & Plan (03/31/2021 1:35 PM ORTHOPEDIC PHYSICIAN ASSISTANT): Hypertension remains well controlled patient is tolerating [...] months. Assessment & Plan (04/03/2018 6:24 PM ORTHOPEDIC PHYSICIAN ASSISTANT): . History of hypertension dating back to [...] refilled. Assessment & Plan (04/03/2018 6:25 PM ORTHOPEDIC PHYSICIAN ASSISTANT): Patient's erectile dysfunction he advised me that testosterone levels are not covered by his insurance. This time I discussed with him the medications Viagra, Cialis. Advised mother generic medication of Viagra which is more affordable Revatio /sildenafil and dosage in how to take it. Prescription called in [facility] pharmacy. Resolved Problems Problem Noted Date [...] do it. Body mass index 40.0-44.9, adult ([facility]) 05/09/2023 11/27/2023 Assessment & Plan (05/09/2023 6:00 PM CDT): Weight is up 22 lb in 2 years patient is given information regarding dash diet is has hyperlipidemia borderline blood pressures also given information from a website from the [employer] Did not discuss GLP 1 therapy for [...] given information from a website from the [employer] Did not discuss GLP 1 therapy for [...] he was 89 appy was also a [address] years ago as well. Patient's begin the walks several days a week for purpose of losing weight. Patient's ASCVD score 10 year risk 7.2 past this information on to him discussed with him the influence of cholesterol hypertension and other factors he can look up how to calculate this information in the future foreign self. Assessment & Plan (03/31/2021 1:35 PM ORTHOPEDIC PHYSICIAN ASSISTANT): Patient weight continues to go up we [...] on file Legal Sex Male 9:46 AM ORTHOPEDIC PHYSICIAN ASSISTANT Gender Identity Not on file Sexual Orientation [...] 07/01/2024 9:56 AM CDT Plan of Treatment Not on file Procedures Procedure Name Priority Date/Time Associated Diagnosis [...] AM CDT) 07/01/2024 10:1 6 AM CDT us Patricia Chandler NP ECG ORDERABLES Edited Re [...] Capillary blood 07/01/2024 1 0:15 AM CDT us Patricia Chandler BICYCLE REPAIRER POINT OF CARE TEST ORDERA BLES Final Result * Cardiology Document Scan (06/14/2024 2:27 PM CDT) Anatomical Region Laterality Modality Other us Kris Rodriguez MD CV CARDIAC SERVICES PROC EDURES Final Result * Cardiology Document Scan (06/05/2024 9:21 AM CDT) Anatomical Region Laterality Modality Other us Ishan Purvis MD CV CARDIAC SERVICES PROCE DURES Final Result * SCAN - RADIOLOGY/IMAGING (06/05/2024) Anatomical Region Laterality Modality Other us Provider Scanning Edited Result - Final * Cardiology Document Scan (06/04/2024 9:15 AM CDT) Anatomical Region Laterality Modality Other us Aries Malone MD CV CARDIAC SERVICES PRO CEDURES Final Result * Cardiology Document Scan (06/04/2024 9:13 AM CDT) Anatomical Region Laterality Modality Other us Aries Malone MD CV CARDIAC SERVICES PRO CEDURES Final Result * SCAN - RADIOLOGY/IMAGING (06/03/2024) Anatomical Region Laterality Modality Other us Eagle Durand MD Edited Res ult - Final from Last 3 Months Insurance [facility] Care Teams Sandwich Board Carrier Relationship Specialty Start Date End Date Eagle Durand MD PCP - General Internal Medicine 03/18/18
[2024-07-08 12:20] VITALS: BP 113/77; PULSE 90; RESP 22; TEMP 36.3; O2SAT 98
[2024-07-08 12:41] LABS: Anion Gap 7 mmol/L (4-12); Blood Urea Nitrogen 18 mg/dL (9-20); Calcium 9.2 mg/dL (8.4-10.2); Carbon Dioxide 24 mmol/L (22-30); Chloride 110 mmol/L (98-107); Estimated CRCL calculation 146 ml/min; Estimated Glomerular Filt Rate > 60; Glucose 99 mg/dL (65-110); Potassium 4.1 mmol/L (3.4-5.0); Sodium 141 mmol/L (137-145)
--- NOTE | 2024-07-08 13:30 | ECG_ITS ---
Test Date: 2024-07-08 15:36:18 Measurements Intervals [place] Rate: 91 P: 0 MI: 0 QRS: -18 QRSD: 106 T: 120 QT: 362 QTc: 447 Interpretive Statements ATRIAL FLUTTER/TACHYCARDIA OLD INFERIOR INFARCT Compared to ECG 06/07/2024 07:49:32 NO SIGNIFICANT CHANGES Electronically Signed On 07-09-2024 11:09:21 CDT by Aries Malone M.D.
--- NOTE | 2024-07-08 13:59 | P.PNAN_ITS ---
Anes - Initial Pre Proc Eval Procedure: Operation Date: 07/08/24 13:30 Proposed Procedures p Trans Esophageal Echo - Robert Chung MD s Possible Cardioversion - Robert Chung MD Date/Time: 07/08/24 13:59 Surgeon: Robert Chung MD Pre Op Diagnosis: Atrial Flutter, Thrombuse Patient Data Age: 48 Gender: M Height: 1.83 m Weight: 134 kg Last Vital Signs Temp 97.4 F L 07/08/24 12:20 Pulse 90 07/08/24 12:20 Resp 22 H 07/08/24 12:20 BP 113/77 07/08/24 12:20 Pulse Ox 98 07/08/24 12:20 O2 Del Method Room Air 07/08/24 12:20 Allergies Allergy/AdvReac Type Severity Reaction Status Date / Time No Known Allergies Allergy Verified 07/07/24 16:40 Home Medications ?Medication ?Instructions ?Recorded ?Confirmed ?Type omeprazole 20 mg capsule,delayed 20 mg PO DAILY 05/24/24 07/07/24 History release rosuvastatin 20 mg tablet 20 mg PO DAILY 05/24/24 07/07/24 History apixaban 5 mg tablet (Eliquis) 5 mg PO Q12HR #60 tabs 06/14/24 07/07/24 Rx digoxin 250 mcg (0.25 mg) tablet 250 mcg PO QAM #30 tabs 06/14/24 07/07/24 Rx (Digitek) empagliflozin 10 mg tablet 10 mg PO DAILY #30 tabs 06/14/24 07/07/24 Rx (Jardiance) furosemide 40 mg tablet 40 mg PO DAILY #30 tabs 06/14/24 07/07/24 Rx losartan 25 mg tablet 25 mg PO DAILY #30 tabs 06/14/24 07/07/24 Rx metoprolol succinate 100 mg 100 mg PO BID #60 tabs 06/14/24 07/07/24 Rx tablet,extended release 24 hr (Toprol XL) Laboratory Tests 07/08/24 12:17 Sodium 141 mmol/L (137-145) Potassium 4.1 mmol/L (3.4-5.0) Chloride 110 H mmol/L (98-107) Carbon Dioxide 24 mmol/L (22-30) Anion Gap 7 mmol/L (4-12) BUN 18 mg/dL (9-20) Creatinine 0.78 mg/dL (0.7-1.3) Estim Creat Clear Calc 146 ml/min Estimated GFR > 60 (59 - ) Glucose 99 mg/dL (65-110) Calcium 9.2 mg/dL (8.4-10.2) Magnesium 2.0 mg/dL (1.6-2.3) Patient hx anesthesia problems: none Family hx anesthesia problems: none Results Review: All pre-operative results and documents have been reviewed as part of the pre- operative evaluation. [facility] Past Medical History Medical History Left atrial thrombus Daily consumption of alcohol Gastroesophageal reflux disease Tobacco dependence Hyperlipidemia Hypertension Surgical History Surgical History History of open reduction and internal fixation (ORIF) procedure repair of right ankle fracture and left tibia-fibula fractures History of adenoidectomy Family History Family History Father Acute myocardial infarction Mother Diabetes mellitus Social History Social History Social History: Surrogate medical decision maker: Kimberlyn Gama, spouse. Code status: Full code. Smoking packs per day: 1 Smoking cigarettes per day: 20.0 Years smoked: 25 Smoking pack-years: 25.00 Smoking status: Former smoker Tobacco type: cigarettes Alcohol intake: former Drinks per week: 35 Alcohol use details: 5 to 6 rum containing alcoholic beverages a day Substance use: former Substance use type: does not use Other substance usage details: marijuana weekly Do You Feel Safe in your Home?: Yes Lack of Transportation: No Lack of Food: Never True Current Housing: I Do Not Have Housing Concerned About Future Housing: No Difficulty Paying Gas/Electric Bills: No Difficulty Paying for Meds: No Currently Unemployed: No Education: High School Diploma/GED Difficulty w/ Childcare or Family Care: No Living arrangements: with family Spiritual care concerns: No Anes - Eval Final PreProcedure Day of Procedure 07/08/24 13:59 Patient weight: morbidly obese Lungs: normal air movement Airway: Mallampati scale class II and special considerations (Upper veneers. ) Neurological: alert and oriented Last oral intake: >/= 8 hours ASA classification: IV Emergent: no Anesthetic plan: proceed Anesthesia type and monitoring: general GIVS and standard monitoring Results Review: All pre-operative results and documents have been reviewed as part of the pre- operative evaluation. Cardiomyopathy, pt on life vest, est EF 20-25% per cardio. SIOBHAN likely, sleep study to be done soon. Smoker 1ppd, hx of liver disease. Now for HERI/CVV. Informed Consent: The patient's anesthetic plan and its attendant risks and benefits were discussed with the patient/family/POA. Questions were solicited and answers provided to the satisfaction of the patient/family/POA.
--- NOTE | 2024-07-08 14:16 | WPDHPUPDATE1 ---
History and Physical Update Update Date/Time: 07/08/24 13:56 History and Physical has been reviewed, including an updated exam of the patient. There are NO changes in the patient's condition. Risks, benefits, and alternatives have been discussed and questions answered. Patient agrees to proceed with procedure.
[2024-07-08 14:30] VITALS: BP 101/90; PULSE 85; RESP 22; O2SAT 96
[2024-07-08 14:45] VITALS: BP 115/81; PULSE 106; RESP 20; O2SAT 95
[2024-07-08 15:00] VITALS: BP 120/67; PULSE 110; RESP 17; O2SAT 94
[2024-07-08 15:15] VITALS: BP 114/89; PULSE 16; RESP 16; O2SAT 95
== END 2024-07-08 15:25 | disposition home or self-care (01) ==
PROVIDERS: PCP Internal Medicine; Visit Provider Internal Medicine
PROC: (CPT 93312; principal; 2024-07-08 13:30)
DX: I48.92 Unspecified atrial flutter (principal); I51.3 Intracardiac thrombosis, not elsewhere classified; I42.0 Dilated cardiomyopathy; I10 Essential (primary) hypertension; E78.5 Hyperlipidemia, unspecified; K21.9 Gastro-esophageal reflux disease without esophagitis; G47.30 Sleep apnea, unspecified; K76.9 Liver disease, unspecified; F12.90 Cannabis use, unspecified, uncomplicated; E66.01 Morbid (severe) obesity due to excess calories; Z68.41 Body mass index [BMI] 40.0-44.9, adult; Z98.890 Other specified postprocedural states; Z79.01 Long term (current) use of anticoagulants; Z79.84 Long term (current) use of oral hypoglycemic drugs; Z87.891 Personal history of nicotine dependence; Z86.718 Personal history of other venous thrombosis and embolism
CPT/HCPCS: 36415; 80048; 83735; 93312; 93320; 93325; J2250; J3010; J7040

== ENCOUNTER 2024-08-17 08:13 | Outpatient (CLI) | payer OTHER, SELFPAY ==
--- OUTSIDE RECORDS SUMMARY | 2024-08-17 08:18 | XMS_ITS | Clinical Summary ---
Author Organization [facility] Address [address] [place] [address] Care Team Providers Care Merchant Banker Name Role Phone Unavailable Primary Care Provider Unavailabl e Source Comments [facility],non-owned Affiliates and Associated Physician Practices is amultiple site organization consisting of ambulatory clinics and hospital sitesin [place], [place], [place] and [place]. This disclosure is being madepursuant to the Care Everywhere program and may not contain all information available regarding this patient. 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
--- OUTSIDE RECORDS SUMMARY | 2024-08-17 08:18 | XMS_ITS | Clinical Summary ---
Author Organization [facility] [address] Address [address] [place] [address] Phone Care Team Providers Care Vice President Of Human Resources Name Role Phone Eagle Durand MD Primary Care Provider [phone]- [phone] Allergies No known active allergies Medications rosuvastatin (CRESTOR) 20 mg tabletIndications :Mixed hyperlipidemia TAKE 1 TABLET BY MOUTH DAILY 90 tablet 1 025 Active sildenafiL (VIAGRA) 100 mg tablet TAKE 1 TABLET BY MOUTH ONCE DAILY NEEDED FOR ERECTILE DYSFUNCTION 12 tablet 025 Active metoprolol XL (TOPROL-XL) 100 mg 24 hr tablet Take 1 tablet (100 mg total) by mouth 2 (two) times a day 025 Active sacubitriL-valsar delatorre (ENTRESTO) 24-26 mg tabletIndications :chronic heart failure Take 1 tablet by mouth 2 (two) times a day 60 tablet 2 025 Active furosemide (LASIX) 40 mg tablet Take 1 tablet (40 mg total) by mouth daily 90 tablet 3 025 Active Eliquis 5 mg tablet Take 1 tablet (5 mg total) by mouth every 12 (twelve) hours 180 tablet 025 Active digoxin (LANOXIN) 250 mcg (0.25 mg) tablet Take 1 tablet (250 mcg total) by mouth every morning 30 tablet 3 025 Active Jardiance 10 mg tablet Take 1 tablet (10 mg total) by mouth daily 30 tablet 3 025 Active Eliquis 5 mg tablet Take 1 tablet (5 mg total) by mouth every 12 (twelve) hours 025 2024 Discontinued(R eorder) digoxin (LANOXIN) 250 mcg (0.25 mg) tablet Take 1 tablet (250 mcg total) by mouth every morning 025 2024 Discontinued(R eorder) Jardiance 10 mg tablet Take 1 tablet (10 mg total) by mouth daily 025 2024 Discontinued(R eorder) furosemide (LASIX) 40 mg tablet Take 1 tablet (40 mg total) by mouth daily 025 2024 Discontinued(R eorder) losartan (COZAAR) 25 mg tablet Take 1 tablet (25 mg total) by mouth daily 2024 Discontinued Active Problems Problem Noted Date Diagnosed Date Typical atrial flutter 07/19/2024 Dilated cardiomyopathy 07/19/2024 Class 2 obesity with body ma ss [...] 04/20 Assessment & Plan (04/20/2022 3:06 PM CIGARETTE SELLER): Patient injured left ankle and foot pain [...] me that colonoscopy as we done at [facility].. Staff was advised well.. Chronic health problems morbid obesity and hypertension. Assessment & Plan (10/28/2022 4:56 PM CDT): Patient 47 he is advised his options for colon cancer screening/a Cologuard versus colonoscopy. Will give some consideration depending on insurance coverage Assessment & Plan (04/20/2022 3:05 PM CIGARETTE SELLER): History and physical completed patient's health risk [...] visit. Assessment & Plan (04/05/2019 12:51 PM CIGARETTE SELLER): History and physical complete health risk assessment addressed. 30 lb weight loss on purpose patient resume running. He had a added running in years past he discontinued this because of knee pain. This past year resume running is no knee pain he has lost 30 lb laboratory studies will include a CMP CBC FLP Assessment & Plan (04/03/2018 6:21 PM CIGARETTE SELLER): 42-year-old gentleman is new patient to me. [...] therapy Assessment & Plan (04/20/2022 3:05 PM CIGARETTE SELLER): Hypertension will continue present medication check BMP fasting lipid profile Assessment & Plan (10/12/2021 4:50 PM CDT): Blood pressure is 140/80 no change in therapy at this time. Encourage ifestyle change weight loss continue present therapy. Assessment & Plan (03/31/2021 1:35 PM CIGARETTE SELLER): Hypertension remains well controlled patient is tolerating [...] months. Assessment & Plan (04/03/2018 6:24 PM CIGARETTE SELLER): . History of hypertension dating back to [...] refilled. Assessment & Plan (04/03/2018 6:25 PM CIGARETTE SELLER): Patient's erectile dysfunction he advised me that testosterone levels are not covered by his insurance. This time I discussed with him the medications Viagra, Cialis. Advised mother generic medication of Viagra which is more affordable Revatio /sildenafil and dosage in how to take it. Prescription called in [facility] pharmacy. Resolved Problems Problem Noted Date [...] do it. Body mass index 40.0-44.9, adult ([facility]) 05/09/2023 11/27/2023 Assessment & Plan (05/09/2023 6:00 PM CDT): Weight is up 22 lb in 2 years patient is given information regarding dash diet is has hyperlipidemia borderline blood pressures also given information from a website from the [employer]. Did not discuss GLP 1 therapy for [...] given information from a website from the [employer]. Did not discuss GLP 1 therapy for [...] he was 89 appy was also a [address] years ago as well. Patient's begin the walks several days a week for purpose of losing weight. Patient's ASCVD score 10 year risk 7.2 past this information on to him discussed with him the influence of cholesterol hypertension and other factors he can look up how to calculate this information in the future foreign self. Assessment & Plan (03/31/2021 1:35 PM CIGARETTE SELLER): Patient weight continues to go up we [...] Encounters Date Type Department Care Team Description 08/16/2024 Telephone [facility] Cardiology [address] 8th [place] [address] [place] [address] Martin Joe MD 08/10/2024 Telephone [facility] Cardiology [address] [place] [address] [place] [phone] Kris Rodriguez MD 08/06/2024 Telephone [facility] Cardiology [address] [place] [address] [place] [phone] Kris Rodriguez MD 07/19/2024 10:15 AM CDT Office Visit [facility] Cardiology [address] [place] [address] [place] [phone] Kris Rodriguez MD Typical atrial flutter (HCC) (Primary Dx); Dilated cardiomyopathy (HCC) 07/19/2024 Telephone [facility] Cardiology [address] [place] [address] [place] [phone] Kris Rodriguez MD 07/08/2024 Orders Only [facility] [address] [facility] [address] [place] [address] Scanning, Provider 07/08/2024 Orders Only [facility] Information Management [address] [place] [address] Robert Chung MD 07/01/2024 10:00 AM CDT Office Visit [facility] Cardiology [address] [place] [address] [place] [phone] Patricia Chandler NP Atrial flutter with rapid ventricular response (HCC) (Primary Dx); Dilated cardiomyopathy (HCC); Lipid screening; At risk for sleep apnea; Morbid obesity with BMI of 40.0-44.9, adult (HCC); Hospital discharge follow-up 07/01/2024 Telephone [facility] Cardiology [address] [facility] [address] [place] [phone] Patricia Chandler NP 06/22/2024 11:00 AM CDT Office Visit [facility] [address] [place] [address] Eagle Durand MD Need for hepatitis B screening test (Primary Dx); Need for hepatitis C screening test; Sleep apnea, unspecified type; Congestive heart failure, NYHA class 3, acute, systolic (HCC); Class 2 severe obesity due to excess calories with serious comorbidity and body mass index (BMI) of 39.0 to 39.9 in adult (HCC) 06/15/2024 Telephone [facility] Cardiology [address] [place] [phone] Shreya Gibbs NP 06/15/2024 Orders Only [facility] Cardiology [address] [place] [address] [address] [place] [phone] Kris Rodriguez MD 06/09/2024 Orders Only [facility] [address] [place] [address] [address] [place] [phone] Aries aMlone MD 06/06/2024 Orders Only [facility] Health Information Management [address] [place] [phone] Scanning, Provider 06/03/2024 Orders Only [facility] Management [address] [place] [phone] Eagle Durand MD from Last 3 Months [...] on file Legal Sex Male 9:46 AM CIGARETTE SELLER Gender Identity Not on file Sexual Orientation Not on file Obstetrics History Last Filed Vital Signs Vital Sign Reading Time Taken Comments Blood Pressure 112/78 07/19/2024 10:00 AM CDT Pulse 115 07/19/2024 10:00 AM CDT Temperature 36.3 C (97.3 F) 06/22/2024 11:05 AM CDT Respiratory Rate 16 06/22/2024 11:0 5 AM CDT Oxygen Saturation 97% 07/19/2024 10: 00 AM CDT Inhaled Oxygen Concentration - - Weight 134.5 kg (296 lb 9.6 oz) 025 10:00 AM CDT Height 182.9 cm (6') 07/19/2024 10:00 AM CDT Body Mass Index 40.23 07/19/2024 10:00 AM CDT Plan of Treatment Health Maintenance Due Date Last Done Comments Colon Cancer Screening-Colonoscopy 1977 Hepatitis C Screening 1977 DTaP/Tdap/Td Vaccine (1 - Tdap) 1988 Hepatitis B Screening 10/09/1995 Covid-19 Vaccine ( season) 2023 03/02/2021, 06/01/2020, 05/11/2020 Influenza Vaccine (#1) 2024 Depression Screening 11/26/2024 11/27/2023, 04/12/2022, 10/12/2021, Additional history exists Regular Well Visit/Exam 18-64 11/26/2024 11/27/2023, 04/12/2022, 05/29/2020, Additional history exists HPV Vaccines Aged Out No longer eligi ble based on patient's age to complete this topic Pneumococcal vaccine <65 Aged Out No longer eligible based on patient's age to complete this topic Procedures Procedure Name Priority Date/Time Associated Diagnosis Comments CARDIOLOGY DOCUMENT SCAN 07/08/2024 CARDIOLOGY DOCUMENT SCAN 07/08/2024 ECG 12-LEAD Routine 07/01/2024 10:16 AM CDT [...] 06/03/2024 from Last 3 Months Results * Cardiology Document Scan (07/08/2024) Anatomical Region Laterality Modality Other us Provider Scanning CV CARDIAC SERVICES PROCEDURES Final Result * Cardiology Document Scan (07/08/2024) Anatomical Region Laterality Modality Other Robert Chung MD CV CARDIAC SERVICES PROCEDURES F inal Result * ECG 12 lead (07/01/2024 10:16 AM [...] Capillary blood 07/01/2024 1 0:15 AM CDT Patricia Chandler NP POINT OF CARE TEST [...] - Final from Last 3 Months Insurance [facility] H[facility]/PPO Address: [facility] [address] [place] [address] [facility] HMO/PPO Address: [address] [address] [facility] HMO/PPO Address: [address] [address] Care Teams Vice President Of Human Resources Relationship Specialty Start Date End Date Eagle Durand MD PCP - General Internal Medicine 03/18/18
--- OUTSIDE RECORDS SUMMARY | 2024-08-17 08:18 | XMS_ITS | Data Portability ---
Author Organization [place] [employer], Main Office Address [address] [place] [address] Care Team Providers Care Derrick Barge Operator Name Role Phone RIZWANA ROSA Primary Care [...] DO Not Attach Compendium, Do Not Delete/merge, [id number] 15:26:08 Surgeries None recorded. Imaging XR, ankle 2022 023 sagar 158 [facility] [place], [address], [place], [address], 3 16:10:48 XR, knee, 3 view 2022 023 sagar 158 [facility] [place], [address], [place], [address], 3 16:10:21 Medication Orders Kenalog 10 mg/mL suspension for injection 2022 023 sagar Carrera [facility], [address] [place] [address], [address], 3 15:50:42 ropivacaine (PF) 5 mg/mL (0.5 %) injection solution 2022 023 sagar Carrera [facility], [address] [place] [address], [address], 3 15:50:42 prednisone 10 mg tablets in a dose pack 2022 023 sagar Carrera [facility], [address] [place] [address], [address], 3 15:50:42 Patient TargetsNo targets recorded. Patient InstructionsNo instructions recorded. Reason for Referral None Reported. Results Created Date Observation Date Name Description Value Unit Range Abnormal Flag Note LastModifiedBy Organization Detail LastModifiedTime 05/15/19 XR, knee, 3 view No observ ation record ed. [email or web address] [facility] [place] [address], [address], 05/14/2022 16:10:20 05/15/19 23 XR, ankle No observ ation record ed. [email or web address] [facility] [place] [address], [address], 05/14/2022 16:10:47 Result Notes None recorded. Problems Name Problem SNOMED Code Status Onset Date Resolution Date Notes Provider Name and Address Organization Details Recorded Time Pain of left knee joint 6818128957272 07 Active 2022 MILADY Tsai, [facility] [employer] [facility] 3 14:59:31 Pain of right ankle joint 7945065999866 9106 Active 2022 NESSA Renteria, [facility] [employer] [facility] 3 15:24:36 Right Achilles tendinitis 7442088237144 02 Active 2022 Parker Keating MD [address], [place], [address], [facility] [employer] [facility] 3 16:05:56 Chondromala trent of left patella 1742103720655 06 Active 2022 Parker Keating MD [address], [place], [address], [facility] [employer] [facility] 3 16:06:14 Problem Notes None recorded. Procedures Surgical History Date Name Laterality Status Provider Name and Address Organization Details Recorded Time 3 Ortho - Cortisone Injection completed Parker Keating MD [address], [place], [address], [facility] [employer] [facility] 05/14/2022 16:05:24 Shoulder completed Francescanorbert Marsh Teena [facility] 05/14/2022 14:58:44 Ankle completed Francescanorbert Marsh Teena [facility] 05/14/2022 14:58:54 Imaging Results None recorded. Procedure [...] active Not Available Not Available Not Avai labmigel Kenalog 10 mg/mL suspension for injection Take 20 mg by injection route. [address] [facility]: 0003- 0494- 20 Not Available Not Available [...] Updated DateTime 05/14/2022 182.88 cm 37.3 kg/m2 566043.9 gualberto Francesca Marsh [facility] 05/14/2022 14:56:53 Date Recorded Body height Body mass index (BMI) Body weight Provider Name and Address Organization Details Last Updated DateTime 06/13/2022 182.88 cm 36.6 kg/m2 716374.94 gualberto Yayo Neumann [facility] 06/13/2022 13:53:25 Social History None recorded. Functional Status Question Answer Note LastModified by Organization D etails LastModified Time What is your level of alcohol consumption? Moderate [email or web address] Information not available 05/14/2022 Mental Status None recorded. Family History Relationship Description Onset Age of this Age Resolved Age Notes LastModified by Organization Details LastModified Time Father Heart disease [email or web address] Not available 2022 14:57:33 Father Hypertensive disorder [email or web address] Not available 2022 14:57:46 Medical History Condition Response HYPERTENSION Y Past Encounters Encounter ID Performer Location Encounter Start Date Encounter Closed Date Diagnosis/Indication Diagnosis SNOMED-CT Code Diagnosis ICD10 Code Diagnosis Note [id number] Parker Keating MD [facility] [place] [address] [place] [address] 05/14/2022 14:42:13 05/14/2022 15:39:29 Pain of left knee joint 0198295229 39309 M25.562 Pain of ri ght ankle joint 7658039702 8067554 M25.571 Right Achi lles tendinitis 3212081055 68138 M76.61 Chondromal acia of left patella 0220690555 39032 M22.42 [id number] Parker Keating MD [facility] [place] [address] [place] [address] 06/13/2022 13:50:59 06/13/2022 14:25:57 Pain of left knee joint 8741886202 56691 M25.562 Pain of ri ght ankle joint 9583088902 0528666 M25.571 Right Achi lles tendinitis 4409997079 90479 M76.61 Chondromal acia of left patella 8302025382 63852 M22.42 Health Concerns Section Related Observation LastModified by Organization Detai ls LastModified Time None Recorded Concern Status LastModified by Organization Details LastModified Time None Recorded Advance Directives Directive None Recorded Payers Insurance Date Sequence Insurance Name Policy Number Policy Da Silva Covered Member ID Da Silva Member ID Guarantor Name 06/18/2022 1 [facility] [id number] Kimberlyn Gama [id number] Barrett Guzman Notes Date Note Type Note [...] about the Achilles. Parker Keating MD [address], [place], [address], [facility] [employer] [facility] 05/14/2022 16:11:18 06/13/2022 text/html Patient returns for left knee and right ankle pain. He has had a nice response to conservative treatment he thinks the shot really helped as well as the prednisone pills. He is to the point where he thinks he can live with it for the present time. Parker Keating MD [address], [place], [address], [employer] 06/13/2022 14:01:17
--- OUTSIDE RECORDS SUMMARY | 2024-08-17 08:18 | XMS_ITS | Encounter Summary ---
Author Organization [facility] Address [address] [place] [address] Phone Care Team Providers Care Maritime Pilot Name Role Phone Eagle Durand MD Primary Care Provider +1- [phone] Encounter Details Date Type Department Care Team (Late st Contact Info) Description 08/16/2024 Telephone [facility] Cardiology [address] 8th [place] [address] [place] [address] Martin Joe MD [address] [place] [address] Social History Tobacco Use Types Packs/Day Years Used Date Smoking Tobacco: Former Cigarettes 1 26.7 0 1997 - 06/03/2024 Smokeless Tobacco: Never PHQ-2 Answer Date Recorded PHQ-2 Total Score (If total score is 3 or more points, staff should administer the PHQ-9) 0 11/27/2023 Sex and Gender Information Value Date Recorded Sex Assigned at Not on file 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 [] [x] If 'Yes', Schedulefirst available with Cardio-Oncology If yes where were you treated? Have you ever seen a Desk Director in an office setting? [x] [] DR Kris Rodriguez Pt was last seen in the office 07/19/24. [facility] Is this a heart condition that has existed since (congenital)? [] [x] IF SCHEDULING PATIENT WITH MATERNAL Have you had a baby in the last year or are you ? (If yes send to Dr. Paredes for review) [] [] Have you had heart or blood pressure problems during a previous ? (If yes send to Dr. Paredes for review) [] [] Dr. Park Barnes Patients only: Are you a hemodialysis or peritoneal dialysis patient? (If yes then patient must be referred from another MD, DO NOT SCHEDULE) [] [] Are you a sales service executive? (If yes schedule in Sports Medicine clinic [] [] Patient History Questions Yes No Where/When/Notes Have you EVER been hospitalized for ANY cardiac issue? [x] [] [facility] 06/02/24 -06/14/24 HEART FAILURE ATRIAL FLUTTER Have you ever had any cardiac testing, imaging, or procedures? (Testing - echo, EKG, stress) (Imaging - Cardiac MRI, CT or calcium scoring) (Procedure - Ablation, Cardioversion, CABG, Cath) [x] [] [facility] CARDIOVERSION WAS GOING TO BE ATTEMPTED -CLOT WAS PRESENT Pt started on eliquis One week later the clot was still present. PT GOING AGAIN ON 08/18 FOR HERI AND POSSIBLE CARDIOVERSION Echo EKG Cardiac Imaging Have you ever had a sleep study? [] [] PT IS GOING TO [facility] FOR A STUDY TOMORROW, 08/17/24. Pt's first study. Do you have a device? If yes what type? (Pacemaker, Defibrillator, Implanted Loop Recorder) [] [x] If yes, where and when was device put in? Medical Billing Assistant? ([employer], [employer], [employer]) Appointment Date: Provider: [place] Location: [] Confirm appt date, time, provider and location. [] Advise pt to arrive 15-20 min early. [] Advise patient to bring medications/list, photo ID and insurance card [] Advise of New Patient Packet being mailed to them. documented in this encounter Plan of Treatment Not on file documented as of this encounter Visit Diagnoses Not on filedocumented in this encounter Care Teams Maritime Pilot Relationship Specialty Start Date End Date Eagle Durand MD PCP - General Internal Medicine 03/18/18 documented as of this encounter
--- OUTSIDE RECORDS SUMMARY | 2024-08-17 08:18 | XMS_ITS | Referral Summary ---
Author Organization [facility] [address] Address [address] [place] [address] Phone Care Team Providers Care Geriatric Psychiatrist Name Role Phone Eagle Durand MD Primary Care Provider +1- [phone] Encounters Date Type Department Care Team Description 08/16/2024 Telephone [facility] Cardiology [address] 8[address] [place] [address] [place] [address] Martin Joe MD 08/10/2024 Telephone [facility] Cardiology [address] [place] [address] Kris Rodriguez MD 08/06/2024 Telephone [facility] Medical [facility] Cardiology [address] [place] [address] Kris Rodriguez MD 07/19/2024 Telephone [facility] Cardiology [address] [facility] [address] [place] [address] Kris Rodriguez MD 07/19/2024 10:15 AM CDT Office Visit [facility] Cardiology [address] [facility] [address] [place] [address] Kris Rodriguez MD Typical atrial flutter (HCC) (Primary Dx); Dilated cardiomyopathy (HCC) 07/08/2024 Orders Only [facility] [address] [place] [address] Scanning, Provider 07/08/2024 Orders Only [facility] [address] [place] [address] Robert Chung MD 07/01/2024 Telephone [facility] Cardiology [address] [place] [address] [place] [address] Patricia Chandler NP 07/01/2024 10:00 AM CDT Office Visit [facility] Cardiology [address] [place] [address] [place] [address] Patricia Chandler NP Atrial flutter with rapid ventricular response (HCC) (Primary Dx); Dilated cardiomyopathy (HCC); Lipid screening; At risk for sleep apnea; Morbid obesity with BMI of 40.0-44.9, adult (HCC); Hospital discharge follow-up 06/22/2024 11:00 AM CDT Office Visit [facility] [address] [place] [address] Eagle Durand MD Need for hepatitis B screening test (Primary Dx); Need for hepatitis C screening test; Sleep apnea, unspecified type; Congestive heart failure, NYHA class 3, acute, systolic (HCC); Class 2 severe obesity due to excess calories with serious comorbidity and body mass index (BMI) of 39.0 to 39.9 in adult (HCC) 06/15/2024 Telephone [facility] Cardiology [address] [place] [address] [place] [phone] Shreya Gibbs NP 06/15/2024 Orders Only [facility] Cardiology [address] [place] [address] [address] [place] [address] Kris Rodriguez MD 06/09/2024 Orders Only [facility] Cardiology [address] [place] [address] [address] [place] [phone] Aries Malone MD 06/06/2024 Orders Only [facility] [address] [place] [address] Scanning, Provider 06/03/2024 Orders Only [facility] [address] [place] [address] Eagle Durand MD from Last 3 Months Allergies No known active allergies Medications rosuvastatin (CRESTOR) 20 mg tabletIndications :Mixed hyperlipidemia TAKE 1 TABLET BY MOUTH DAILY 90 tablet 1 025 Active sildenafiL (VIAGRA) 100 mg tablet TAKE 1 TABLET BY MOUTH ONCE DAILY NEEDED FOR ERECTILE DYSFUNCTION 12 tablet Active metoprolol XL (TOPROL-XL) 100 mg 24 hr tablet Take 1 tablet (100 mg total) by mouth 2 (two) times a day Active sacubitriL-valsar delatorre (ENTRESTO) 24-26 mg tabletIndications :chronic heart failure Take 1 tablet by mouth 2 (two) times a day 60 tablet 2 Active furosemide (LASIX) 40 mg tablet Take 1 tablet (40 mg total) by mouth daily 90 tablet 3 Active Eliquis 5 mg tablet Take 1 tablet (5 mg total) by mouth every 12 (twelve) hours 180 tablet Active digoxin (LANOXIN) 250 mcg (0.25 mg) tablet Take 1 tablet (250 mcg total) by mouth every morning 30 tablet 3 Active Jardiance 10 mg tablet Take 1 tablet (10 mg total) by mouth daily 30 tablet 3 Active Eliquis 5 mg tablet Take 1 tablet (5 mg total) by mouth every 12 (twelve) hours 2024 Discontinued(R eorder) digoxin (LANOXIN) 250 mcg (0.25 mg) tablet Take 1 tablet (250 mcg total) by mouth every morning 2024 Discontinued(R eorder) Jardiance 10 mg tablet Take 1 tablet (10 mg total) by mouth daily 2024 Discontinued(R eorder) furosemide (LASIX) 40 mg tablet Take 1 tablet (40 mg total) by mouth daily 2024 Discontinued(R eorder) losartan (COZAAR) 25 mg [...] 04/20 Assessment & Plan (04/20/2022 3:06 PM DIAMOND CLEANER): Patient injured left ankle and foot pain [...] me that colonoscopy as we done at [facility].. Staff was advised well.. Chronic health problems morbid obesity and hypertension. Assessment & Plan (10/28/2022 4:56 PM CDT): Patient 47 he is advised his options for colon cancer screening/a Cologuard versus colonoscopy. Will give some consideration depending on insurance coverage Assessment & Plan (04/20/2022 3:05 PM DIAMOND CLEANER): History and physical completed patient's health risk [...] visit. Assessment & Plan (04/05/2019 12:51 PM DIAMOND CLEANER): History and physical complete health risk assessment addressed. 30 lb weight loss on purpose patient resume running. He had a added running in years past he discontinued this because of knee pain. This past year resume running is no knee pain he has lost 30 lb laboratory studies will include a CMP CBC FLP Assessment & Plan (04/03/2018 6:21 PM DIAMOND CLEANER): 42-year-old gentleman is new patient to me. [...] therapy Assessment & Plan (04/20/2022 3:05 PM DIAMOND CLEANER): Hypertension will continue present medication check BMP fasting lipid profile Assessment & Plan (10/12/2021 4:50 PM CDT): Blood pressure is 140/80 no change in therapy at this time. Encourage ifestyle change weight loss continue present therapy. Assessment & Plan (03/31/2021 1:35 PM DIAMOND CLEANER): Hypertension remains well controlled patient is tolerating [...] months. Assessment & Plan (04/03/2018 6:24 PM DIAMOND CLEANER): . History of hypertension dating back to [...] refilled. Assessment & Plan (04/03/2018 6:25 PM DIAMOND CLEANER): Patient's erectile dysfunction he advised me that testosterone levels are not covered by his insurance. This time I discussed with him the medications Viagra, Cialis. Advised mother generic medication of Viagra which is more affordable Revatio /sildenafil and dosage in how to take it. Prescription called in [facility] pharmacy. Resolved Problems Problem Noted Date Diagnosed [...] do it. Body mass index 40.0-44.9, adult ([facility]) 05/09/2023 11/27/2023 Assessment & Plan (05/09/2023 6:00 PM CDT): Weight is up 22 lb in 2 years patient is given information regarding dash diet is has hyperlipidemia borderline blood pressures also given information from a website from the [employer] call my plate. Did not discuss GLP [...] given information from a website from the [employer] call my plate. Did not discuss GLP [...] he was 89 appy was also a [address] years ago as well. Patient's begin the walks several days a week for purpose of losing weight. Patient's ASCVD score 10 year risk 7.2 past this information on to him discussed with him the influence of cholesterol hypertension and other factors he can look up how to calculate this information in the future foreign self. Assessment & Plan (03/31/2021 1:35 PM DIAMOND CLEANER): Patient weight continues to go up we [...] on file Legal Sex Male 9:46 AM DIAMOND CLEANER Gender Identity Not on file Sexual Orientation [...] 07/19/2024 10:00 AM CDT Plan of Treatment Not on [...] 07/01/2024 10:1 6 [address] CDT Patricia [address] CONSULTANT ECG ORDERABLES Edited Re sult - Final [...] - Final from Last 3 Months Insurance [facility] Care Teams Geriatric Psychiatrist Relationship Specialty Start Date End Date Eagle Durand MD PCP - General Internal Medicine 03/18/18
--- OUTSIDE RECORDS SUMMARY | 2024-08-17 08:18 | XMS_ITS | Encounter Summary ---
Author Organization [facility] Healthcare Address [address] [place] [address] Care Team Providers Care Reference Test Clerk Name Role Phone Eagle Durand MD Primary Care Provider +1- [phone] Encounter Details Date Type Department Care Team (Late st Contact Info) Description 08/06/2024 Telephone [facility] Cardiology [address] [place] [phone] Kris Rodriguez MD [address] [place] [address] Social History Tobacco Use Types Packs/Day Years Used Date Smoking Tobacco: Former Cigarettes 1 26.7 0 1997 - 06/03/2024 Smokeless Tobacco: Never PHQ-2 Answer Date Recorded PHQ-2 Total Score (If total score is 3 or more points, staff should administer the PHQ-9) 0 11/27/2023 Sex and Gender Information Value Date Recorded Sex Assigned at Not on file 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 * Telephone Encounter - Valerie Del Valle - 08/06/2024 4:06 PM CDT Valerio w/ ANT [facility] called needing a CPT code for the pts procedure scheduled in a few weeks please advise thank you Contact: documented in this encounter Plan of Treatment Not on file documented as of this encounter Visit Diagnoses Not on filedocumented in this encounter Care Teams Reference Test Clerk Relationship Specialty Start Date End Date Eagle Durand MD PCP - General Internal Medicine 03/18/18 documented as of this encounter
--- OUTSIDE RECORDS SUMMARY | 2024-08-17 08:18 | XMS_ITS | Encounter Summary ---
Author Organization [facility] Healthcare Address [address] [place] [address] Care Team Providers Care Adjunct Mathematics Instructor Name Role Phone Eagle Durand MD Primary Care Provider +1- [phone] Encounter Details Date Type Department Care Team (Late st Contact Info) Description 07/08/2024 Orders Only [facility] [address] [place] [address] Scanning, Provider Social History Tobacco Use Types Packs/Day Years Used Date Smoking Tobacco: Former Cigarettes 1 26.7 0 1997 - 06/03/2024 Smokeless Tobacco: Never PHQ-2 Answer Date Recorded PHQ-2 Total Score (If total score is 3 or more points, staff should administer the PHQ-9) 0 11/27/2023 Sex and Gender Information Value Date Recorded Sex Assigned at Not on file 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 Gender Identity Not on file Sexual Orientation Not on file documented as of this encounter Plan of Treatment Not on file documented as of this encounter Procedures Procedure Name Priority Date/Time Associated Diagnosis Comments CARDIOLOGY DOCUMENT SCAN 07/08/2024 documented in this encounter Results * Cardiology Document Scan (07/08/2024) Anatomical Region Laterality Modality Other us Provider Scanning CV CARDIAC SERVICES PROCEDURES Final Result documented in this encounter Visit Diagnoses Not on filedocumented in this encounter Care Teams Adjunct Mathematics Instructor Relationship Specialty Start Date End Date Eagle Durand MD PCP - General Internal Medicine 03/18/18 documented as of this encounter
--- NOTE | 2024-09-07 20:44 | WPDSLEEPSTUD ---
Sleep Study Date of Study: 08/17/24 Ordering Provider: Eagle DurandMD Interpreting Physician: Janey Manzanares, Sleep Study Type: Split Polysomnogram Height: 1.83 m Weight: 136.078 kg Body Mass Index: 40.6 Neck Circumference (inches): 20 [place]: 5 Reason for Sleep Study Difficulty falling and staying asleep Sleep History The patient is a 48-year-old male who had a sleep study ordered by his primary care physician for evaluation of sleep apnea. The patient rarely awakens from sleep short of breath. He rarely awakens at night with heartburn, belching, or cough. He frequently snores, and it is occasionally loud enough that others complain. He rarely has trouble sleeping when he has a cold. He rarely wakes up gasping for air throughout the night. He rarely has breathing problems at night observed by himself or others. He occasionally sweats excessively at night. He rarely has heart palpitations or irregular heartbeats during the night. He occasionally falls asleep during the day but never while driving. He denies sleep paralysis and cataplexy. He rarely has trouble at school or work due to sleepiness. He rarely experiences vivid dreamlike scenes upon awakening or falling asleep. He denies feeling afraid of going to sleep. He rarely has nightmares. He rarely remembers his dreams. He occasionally has thoughts racing through his mind. He occasionally feels sad, depressed, and anxious. He rarely has muscular tension. He occasionally notices parts of his body jerk. He denies kicking during the night. He denies having crawling and aching feelings in his legs and denies having leg pain during the night. He occasionally grinds his teeth during sleep but never awakens with morning jaw pain. He is occasionally bothered by pain during the day and occasionally awakened by pain during the night. He occasionally wakes up feeling stiff in the morning. He occasionally wakes up with sore or achy muscles. He occasionally wakes up with pain in the neck, spine, and other joints. He goes to bed at 9:30 PM every night. It can take him 1 to 4 hours to fall asleep. He wakes up once throughout the night for unknown reasons and is able to fall back asleep within 15 minutes. He wakes up between 6 to 7 a.m. on weekdays and between 9 to 10 a.m. on the weekends. He typically gets 4 to 8 hours of sleep per night. He will stay in bed for 20 minutes after waking up in the morning. He currently lives with his and three children. He denies consuming any caffeinated beverages within two hours of bedtime. He denies engaging in physical exercise before bedtime. He will read before falling asleep. He denies watching television before falling asleep. He denies taking naps in the afternoon or the evening. He consumes two caffeinated beverages per day. He quit smoking cigarettes three years ago. He denies alcohol and recreational drug use. [facility] Past Medical History Medical History Left atrial thrombus Daily consumption of alcohol Gastroesophageal reflux disease Tobacco dependence Hyperlipidemia Hypertension Surgical History Surgical History History of open reduction and internal fixation (ORIF) procedure repair of right ankle fracture and left tibia-fibula fractures History of adenoidectomy Family History Family History Father Acute myocardial infarction Mother Diabetes mellitus Social History Social History Social History: Surrogate medical decision maker: Kimberlyn Gama, spouse. Code status: Full code. Smoking packs per day: 1 Smoking cigarettes per day: 20.0 Years smoked: 25 Smoking pack-years: 25.00 Smoking status: Former smoker Tobacco type: cigarettes Alcohol intake: unknown Drinks per week: 35 Alcohol use details: 5 to 6 rum containing alcoholic beverages a day Substance use: former Substance use type: does not use Other substance usage details: marijuana weekly Do You Feel Safe in your Home?: Yes Lack of Transportation: No Lack of Food: Never True Current Housing: I Do Not Have Housing Concerned About Future Housing: No Difficulty Paying Gas/Electric Bills: No Difficulty Paying for Meds: No Currently Unemployed: No Education: High School Diploma/GED Difficulty w/ Childcare or Family Care: No Living arrangements: with family Spiritual care concerns: No Medications Home Medications ?Medication ?Instructions ?Recorded ?Confirmed ?Type apixaban 5 mg tablet (Eliquis) 5 mg PO Q12HR #60 tabs 07/08/24 08/18/24 Rx empagliflozin 10 mg tablet 10 mg PO DAILY #30 tabs 07/08/24 08/18/24 Rx (Jardiance) furosemide 40 mg tablet 40 mg PO DAILY #30 tabs 07/08/24 08/17/24 Rx metoprolol succinate 100 mg 100 mg PO BID #60 tabs 07/08/24 08/18/24 Rx tablet,extended release 24 hr (Toprol XL) omeprazole 20 mg capsule,delayed 20 mg PO DAILY #30 caps 07/08/24 08/18/24 Rx release rosuvastatin 20 mg tablet 20 mg PO DAILY #90 tabs 07/08/24 08/18/24 Rx sacubitril 24 mg-valsartan 26 mg tablet PO BID 08/17/24 History tablet (Entresto) amiodarone 200 mg tablet 400 mg (2 x 200 mg) PO DAILY #60 08/18/24 Rx tabs Sleep Procedure A full night split study using the nivio multi-channel system recorded the standard physiologic parameters including EEG, EOG, submentalis EMG, anterior tibialis EMG, EKG, body position, nasal and oral airflow using nasal pressure sensor and thermistor.? Respiratory parameters of chest and abdominal movements were recorded with Respiratory Inductance Plethysmography belts. Oxygen saturation was recorded by pulse oximetry. Video monitoring was also performed. Sleep stages, periodic limb movements, and EEG arousals were scored in 30 second epochs according to the criteria of the AASM Scoring Manual. The Apnea-Hypopnea Index was calculated using CMS guidelines for definition of hypopnea with 4% O2 desaturations while scoring respiratory events. Sleep Architecture During the diagnostic portion of the study, the total recording time was 172.9 minutes. The total sleep time was 122.5 minutes. Sleep latency was 17.4 minutes.? REM sleep was not achieved during this portion of the study. Sleep Efficiency was 70.8%. The patient had 26 awakenings for an awakening index of 12.7. Wake after sleep onset time was 33.0 minutes. The patient spent 26.5 minutes, 21.6% of total sleep time in Stage N1. The patient spent 96.0 minutes, 78.4% in Stage N2. The patient spent 0.0 minutes, 0.0% in Stage N3. The patient spent 0.0 minutes, 0.0% in Stage REM sleep. At 12:06:04 AM the patient was placed on PAP treatment and was titrated at pressures ranging from 5 cm H20 up to 14 cm H20. During the treatment portion of the study, the total recording time was 402.0 minutes.? The total sleep time was 334.5 minutes. Sleep latency was 28.5 minutes. REM latency was 62.0 minutes. Sleep Efficiency was 83.2%. Wake after Sleep Onset time was 39.0 minutes. The patient spent 25.5 minutes, 7.6% of total sleep time in Stage N1. The patient spent 211.5 minutes, 63.2% in Stage N2. The patient spent 11.5 minutes, 3.4% in Stage N3. The patient spent 86.0 minutes, 25.7% in Stage REM. Respiratory Analysis During the diagnostic portion of the study, the patient had 10 hypopneas, 47 obstructive apneas, 39 mixed apneas, and 93 central apneas for an overall Apnea Hypopnea Index of 92.1 events per hour. The REM Apnea Hypopnea Index was 0. The NREM Apnea Hypopnea Index was 92.1. The patient had a Central Apnea Hypopnea Index of 45.6. Leonard-Lee Respirations were present during this portion of the study. Cycle length was 44 seconds and circulation time was 30.4 seconds.. During the treatment portion of the study, the patient had 35 hypopneas, 10 obstructive apneas, 25 mixed apneas, and 18 central apneas for an overall Apnea Hypopnea Index of 15.8 events per hour. The REM Apnea Hypopnea Index was 14.0. The NREM Apnea Hypopnea Index was 16.4. The patient had a Central Apnea Hypopnea Index of 3.2. Leonard-Lee Respirations were present during this portion of the study. The patient was started on CPAP 5 cm H2O and titrated to CPAP 14 cm H2O due to central/mixed apneas and hypopneas. The patient was able to fall asleep starting on CPAP 5 cm H2O. The patient was able to achieve REM sleep starting on CPAP 9 cm H2O. The patient was able to achieve a residual AHI less than 5 with both NREM and REM sleep in the supine position during the titration portion of the study. On CPAP 13 cm H2O, the patient spent 81 minutes in NREM and 11 minutes in REM with 3 central apneas, 3 mixed apneas and 1 hypopnea, resulting in an AHI of 4.6. The patient had a sleep efficiency of 81.4% on this pressure setting. Arousals During the diagnostic portion of the study, there were a total of 136 arousals for an arousal index of 66.6.? There were 102 respiratory arousals for an index of 50.0. There were 4 periodic limb movement arousals for an index of 2.0.? There were 13 isolated limb movement arousals for an index of 6.4. There were 17 spontaneous arousals for an index of 8.3. During the treatment portion of the study, there were a total of 101 arousals for an index of 18.1.? There were 24 respiratory arousals for an index of 4.3. There were 13 periodic limb movement arousals for an index of 2.3.? There were 23 isolated limb movement arousals for an index of 4.1. There were 40 spontaneous arousals for an index of 7.2. Periodic Limb Movements During the diagnostic portion of the study, the patient had 28 isolated limb movements with an index of 13.7. The patient had 20 periodic limb movements with an index of 9.8. The patient had a total of 48 limb movements with a total limb movement index of 23.5. During the treatment portion of the study, the patient had 72 isolated limb movements with an index of 12.9. The patient had 132 periodic limb movements with an index of 23.7. The patient had a total of 204 limb movements with a total limb movement index of 36.6. Oximetry Data During the diagnostic portion of the study, the patient had an average oxygen saturation of 93.9% in wake with a minimum oxygen saturation of 86% and a maximum oxygen saturation of 98%. The patient had an average oxygen saturation of 92.9% in sleep with a minimum oxygen saturation of 84.0% and a maximum oxygen saturation of 98.0%. The patient had 160 oxygen desaturations resulting in an Oxygen Desaturation Index of 78.4. The patient spent 13.7 minutes, 7.9% of total sleep time with an oxygen saturation less than 88%. During the treatment portion of the study, the patient had an average oxygen saturation of 94.7% in wake with a minimum oxygen saturation of 89.0% and a maximum oxygen saturation of 98.0%. The patient had an average oxygen saturation of 94.3% in sleep with a minimum oxygen saturation of 87.0% and a maximum oxygen saturation of 98.0%. The patient had 124 oxygen desaturations resulting in an Oxygen Desaturation Index of 22.2. The patient spent 0.4 minutes, 0.1% of total sleep time with an oxygen saturation less than 88%. Snoring Profile Moderate snoring was present during the baseline portion of the study. The snoring resolved once the patient was titrated to Cardiac Profile The EKG lead showed atrial fibrillation and intermittent 4:1 atrial flutter. During the diagnostic portion of the study, the EKG showed normal sinus rhythm. The average pulse rate was 69.7 bpm.? The minimum pulse rate was 49.0 bpm. The maximum pulse rate was 114.0 bpm. During the treatment portion of the study, the EKG showed normal sinus rhythm. The average pulse rate was 70.4 bpm.? The minimum pulse rate was 47.0 bpm. The maximum pulse rate was 124.0 bpm. EEG Profile No signs of seizure activity seen. Assessment and Plan Assessment and Plan (1) SIOBHAN (obstructive sleep apnea): Code(s): G47.33 - Obstructive sleep apnea (adult) (pediatric) Status: Acute Assessment and Plan: During the baseline portion of the study, the patient had an overall AHI of 92.1 with desaturation down to 84%. This is consistent with severe sleep apnea. The patient was started on CPAP 5 cm H2O and titrated to CPAP 14 cm H2O due to central/mixed apneas and hypopneas. We were able to find a pressure setting that resolved the patient's sleep apnea. I recommend that the patient be prescribed CPAP 13 cm H2O, size medium Resmed AirTouch F20 full face mask, CPAP filters/tubing and heated humidity. This should be used with all episodes of sleep.? Compliance should be reviewed within 31-90 days of starting therapy for usage greater than 4 hours per night greater than 70% of the nights. The patient should be asked about symptoms such as?excessive daytime sleepiness, quality of sleep, decreased nocturia, increased?mental functioning such as memory, mood, and concentration. (2) ASSET LIABILITY ANALYST (Leonard Lee respiration): Code(s): R06.3 - Periodic breathing Status: Acute Assessment and Plan: The patient had ASSET LIABILITY ANALYST present during the majority of the sleep study. The ASSET LIABILITY ANALYST mostly resolved when the patient was titrated to 13 cm H2O. Data The data obtained during this sleep study is adequate for interpretation. Certification This sleep study has been reviewed by a board certified sleep medicine physician.
[2024-09-08 17:54] VITALS: BMI 40.6
== END 2024-08-18 07:07 | disposition home or self-care (01) ==
LOC: ANHCSM 08:14
PROVIDERS: PCP Internal Medicine; Visit Provider Internal Medicine
DX: G47.30 Sleep apnea, unspecified (principal)
CPT/HCPCS: 95811

== ENCOUNTER 2024-08-18 00:02 | Day surgery (SDC) | payer OTHER, SELFPAY ==
[2024-08-17 13:32] VITALS: BMI 40.8
[2024-08-18] VITALS (7 sets, daily range): BP systolic 107–121; BP diastolic 66–83; PULSE 75–113; RESP 14–20; TEMP 36.6; O2SAT 96–98; BMI 40.8
--- OUTSIDE RECORDS SUMMARY | 2024-08-18 00:08 | XMS_ITS | Encounter Summary ---
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
--- OUTSIDE RECORDS SUMMARY | 2024-08-18 00:08 | XMS_ITS | Clinical Summary ---
Author Organization [facility] [address] [place] [address] Phone Care Team Providers Care Creative Services Producer Name Role Phone Eagle Durand MD Primary Care Provider +1- [phone] Allergies No known active allergies Medications rosuvastatin (CRESTOR) 20 mg tabletIndications: Mixed hyperlipidemia TAKE 1 TABLET BY MOUTH DAILY 90 tablet 1 03/22/19 25 Active sildenafiL (VIAGRA) 100 mg tablet TAKE 1 TABLET BY MOUTH ONCE DAILY NEEDED FOR ERECTILE DYSFUNCTION 12 tablet 04/24/19 25 Active metoprolol XL (TOPROL-XL) 100 mg 24 hr tablet Take 1 tablet (100 mg total) by mouth 2 (two) times a day 06/15/19 25 Active sacubitriL-valsart an (ENTRESTO) 24-26 mg tabletIndications: chronic heart failure Take 1 tablet by mouth 2 (two) times a day 60 tablet 2 07/20/19 25 Active furosemide (LASIX) 40 mg tablet Take 1 tablet (40 mg total) by mouth daily 90 tablet 3 08/05/19 25 Active Eliquis 5 mg tablet Take 1 tablet (5 mg total) by mouth every 12 (twelve) hours 180 tablet 08/05/19 25 Active digoxin (LANOXIN) 250 mcg (0.25 mg) tablet Take 1 tablet (250 mcg total) by mouth every morning 30 tablet 3 08/11/19 25 Active Jardiance 10 mg tablet Take 1 tablet (10 mg total) by mouth daily 30 tablet 3 08/11/19 25 Active Eliquis 5 mg tablet Take 1 tablet (5 mg total) by mouth every 12 (twelve) hours 06/15/19 025 Discontin ued(Reord er) digoxin (LANOXIN) 250 mcg (0.25 mg) tablet Take 1 tablet (250 mcg total) by mouth every morning 06/15/19 025 Discontin ued(Reord er) Jardiance 10 mg tablet Take 1 tablet (10 mg total) by mouth daily 06/16/19 25 025 Discontin ued(Reord er) furosemide (LASIX) 40 mg tablet Take 1 tablet (40 mg total) by mouth daily 06/15/19 025 Discontin ued(Reord er) Active Problems Problem Noted Date Diagnosed Date [...] 04/20 Assessment & Plan (04/20/2022 3:06 PM LEARNING AND DEVELOPMENT OFFICER): Patient injured left ankle and foot pain [...] me that colonoscopy as we done at [facility].. Staff was advised well.. Chronic health problems morbid obesity and hypertension. Assessment & Plan (10/28/2022 4:56 PM CDT): Patient 47 he is advised his options for colon cancer screening/a Cologuard versus colonoscopy. Will give some consideration depending on insurance coverage Assessment & Plan (04/20/2022 3:05 PM LEARNING AND DEVELOPMENT OFFICER): History and physical completed patient's health risk [...] visit. Assessment & Plan (04/05/2019 12:51 PM LEARNING AND DEVELOPMENT OFFICER): History and physical complete health risk assessment addressed. 30 lb weight loss on purpose patient resume running. He had a added running in years past he discontinued this because of knee pain. This past year resume running is no knee pain he has lost 30 lb laboratory studies will include a CMP CBC FLP Assessment & Plan (04/03/2018 6:21 PM LEARNING AND DEVELOPMENT OFFICER): 42-year-old gentleman is new patient to me. [...] therapy Assessment & Plan (04/20/2022 3:05 PM LEARNING AND DEVELOPMENT OFFICER): Hypertension will continue present medication check BMP fasting lipid profile Assessment & Plan (10/12/2021 4:50 PM CDT): Blood pressure is 140/80 no change in therapy at this time. Encourage ifestyle change weight loss continue present therapy. Assessment & Plan (03/31/2021 1:35 PM LEARNING AND DEVELOPMENT OFFICER): Hypertension remains well controlled patient is tolerating [...] months. Assessment & Plan (04/03/2018 6:24 PM LEARNING AND DEVELOPMENT OFFICER): . History of hypertension dating back to [...] refilled. Assessment & Plan (04/03/2018 6:25 PM LEARNING AND DEVELOPMENT OFFICER): Patient's erectile dysfunction he advised me that testosterone levels are not covered by his insurance. This time I discussed with him the medications Viagra, Cialis. Advised mother generic medication of Viagra which is more affordable Revatio /sildenafil and dosage in how to take it. Prescription called in [facility] pharmacy. Resolved Problems Problem Noted [...] do it. Body mass index 40.0-44.9, adult ([facility]) 05/09/2023 11/27/2023 Assessment & Plan (05/09/2023 6:00 PM CDT): Weight is up 22 lb in 2 years patient is given information regarding dash diet is has hyperlipidemia borderline blood pressures also given information from a website from the [employer] call [employer]. Did not discuss GLP 1 therapy for [...] given information from a website from the [employer] Did not discuss GLP 1 therapy for [...] he was 89 appy was also a [address] years ago as well. Patient's begin the walks several days a week for purpose of losing weight. Patient's ASCVD score 10 year risk 7.2 past this information on to him discussed with him the influence of cholesterol hypertension and other factors he can look up how to calculate this information in the future foreign self. Assessment & Plan (03/31/2021 1:35 PM LEARNING AND DEVELOPMENT OFFICER): Patient weight continues to go up we [...] Type Department Care Team Description 08/16/2024 Telephone [facility] Cardiology [address] [facility] 8th [place] [address] [place] [address] Martin Joe MD 08/10/2024 Telephone [facility] Cardiology [address] [place] [address] [place] [phone] Kris Rodriguez MD 08/06/2024 Telephone [facility] Cardiology [address] [place] [address] [place] [phone] Kris Rodriguez MD 07/19/2024 10:15 AM CDT Office Visit [facility] Cardiology [address] [place] [address] [place] [phone] Kris Rodriguez MD Typical atrial flutter (HCC) (Primary Dx); Dilated cardiomyopathy (HCC) 07/19/2024 Telephone [facility] Cardiology [address] [place] [address] [place] [phone] Kris Rodriguez MD 07/08/2024 Orders Only [facility] [address] [place] [address] Scanning, Provider 07/08/2024 Orders Only [facility] Information Management [address] [place] [address] Robert Chung MD 07/01/2024 10:00 AM CDT Office Visit [facility] Cardiology [address] [place] [address] [place] [phone] Patricia Chandler NP Atrial flutter with rapid ventricular response (HCC) (Primary Dx); Dilated cardiomyopathy (HCC); Lipid screening; At risk for sleep apnea; Morbid obesity with BMI of 40.0-44.9, adult (HCC); Hospital discharge follow-up 07/01/2024 Telephone [facility] Cardiology [address] [place] [address] [address] [place] [phone] Patricia Chandler NP 06/22/2024 11:00 AM CDT Office Visit [facility] [address] [place] [address] Eagle Durand MD Need for hepatitis B screening test (Primary Dx); Need for hepatitis C screening test; Sleep apnea, unspecified type; Congestive heart failure, NYHA class 3, acute, systolic (HCC); Class 2 severe obesity due to excess calories with serious comorbidity and body mass index (BMI) of 39.0 to 39.9 in adult (HCC) 06/15/2024 Telephone [facility] Cardiology [address] [facility] [address] [place] [address] Shreya Gibbs NP 06/15/2024 Orders Only [facility] Cardiology [address] [facility] [address] [place] [address] Kris Rodriguez MD 06/09/2024 Orders Only [facility] Cardiology [address] [place] [address] [address] [place] [phone] Aries Malone MD 06/06/2024 Orders Only [facility] Health Information Management [address] [place] [phone] Scanning, Provider 06/03/2024 Orders Only [facility] Information Management [address] [place] [phone] Eagle Durand MD from Last 3 Months [...] on file Legal Sex Male 9:46 AM LEARNING AND DEVELOPMENT OFFICER Gender Identity Not on file Sexual Orientation [...] Scan (07/08/2024) Anatomical Region Laterality Modality Other Provider Scanning CV CARDIAC SERVICES PROCEDURES Final [...] - Final from Last 3 Months Insurance [facility] H[facility]/PPO Address: [facility] [address] [place] [address] [facility] H[facility]/PPO Address: [address] [address] [facility] H[facility]/PPO Address: [address] [address] Care Teams Creative Services Producer Relationship Specialty Start Date End Date Eagle Durand MD PCP - General Internal Medicine 03/18/18
--- OUTSIDE RECORDS SUMMARY | 2024-08-18 00:08 | XMS_ITS | Clinical Summary ---
Author Organization [facility] Address [address] [facility] [place] [address] Care Team Providers Care Costuming Supervisor Name Role Phone Unavailable Primary Care Provider Unavailabl e Source Comments [facility],non-owned Affiliates and Associated Physician Practices is amultiple site organization consisting of ambulatory clinics and hospital sitesin [place], [place], [place] and [place]. This disclosure is being madepursuant to the Care Everywhere program and may not contain all information available regarding this patient. 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
--- OUTSIDE RECORDS SUMMARY | 2024-08-18 00:08 | XMS_ITS | Encounter Summary ---
Author Organization [facility] Address [address] [place] [address] Phone Care Team Providers Care Lien Searcher Name Role Phone Eagle Durand MD Primary Care Provider +1- [phone] Encounter Details Date Type Department Care Team (Late st Contact Info) Description 08/16/2024 Telephone [facility] Cardiology [address] [facility] 8th [place] [address] [place] [phone] Martin Joe MD [address] 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 Joe * Telephone Encounter - Fanny Gibbs - 08/17/2024 10:44 AM CDT EP SCHEDULING Patient is returning call. * Telephone Encounter - Neeta Rodas - [...] you treated? Have you ever seen a Commercial Loan Coordinator in an office setting? [x] [] DR Kris Rodriguez Pt was last seen in the office 07/19/24. 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 [x] [] [facility] [place]/24 -06/14/24 HEART FAILURE ATRIAL FLUTTER Have you ever had any cardiac testing, imaging, or procedures? (Testing - echo, EKG, stress) (Imaging - Cardiac MRI, CT or calcium scoring) (Procedure - Ablation, Cardioversion, CABG, Cath) [x] [] [facility] CARDIOVERSION WAS GOING TO BE ATTEMPTED -CLOT WAS PRESENT Pt started on eliquis One week later the clot was still present. PT GOING AGAIN ON 08/18 FOR HERI AND POSSIBLE CARDIOVERSION Echo EKG Cardiac Imaging Have you ever had a sleep study? [] [] PT IS GOING TO [facility] FOR A STUDY TOMORROW, 08/17/24. Pt's first study. Do you have a device? If yes what type? (Pacemaker, Defibrillator, Implanted Loop Recorder) [] [x] If yes, where and when was device put in? [employer]? ([employer], [employer], [employer]) Appointment Date: Provider: [...] on filedocumented in this encounter Care Teams Lien Searcher Relationship Specialty Start Date End Date Eagle Durand MD PCP - General Internal Medicine 03/18/18 documented as of this encounter
--- OUTSIDE RECORDS SUMMARY | 2024-08-18 00:08 | XMS_ITS | Encounter Summary ---
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
--- OUTSIDE RECORDS SUMMARY | 2024-08-18 00:08 | XMS_ITS | Referral Summary ---
Author Organization [facility] [address] Address [address] [place] [address] Phone Care Team Providers Care Crew Trainer Name Role Phone Eagle Durand MD Primary Care Provider +1- [phone] Encounters Date Type Department Care Team Description 08/16/2024 Telephone [facility] Cardiology [address] [facility] 8th [place] [address] [place] [address] Martin Joe MD 08/10/2024 Telephone [facility] Cardiology [address] [place] [phone] Kris Rodriguez MD 08/06/2024 Telephone [facility] Medical [facility] Cardiology [address] [place] [phone] Kris Rodriguez MD 07/19/2024 Telephone [facility] Cardiology [address] [facility] [address] [place] [phone] Kris Rodriguez MD 07/19/2024 10:15 AM CDT Office Visit [facility] Medical [facility] Cardiology [address] [facility] [address] [place] [phone] Kris Rodriguez MD Typical atrial flutter (HCC) (Primary Dx); Dilated cardiomyopathy (HCC) 07/08/2024 Orders Only [facility] Medical Group [facility] [address] [place] [address] Scanning, Provider 07/08/2024 Orders Only [facility] Information Management [address] [place] [address] Robert Chung MD 07/01/2024 Telephone [facility] Cardiology [address] [place] [address] [place] [phone] Patricia Chandler NP 07/01/2024 10:00 AM CDT Office Visit [facility] Cardiology [address] [place] [address] [place] [phone] Patricia Chandler NP Atrial flutter with rapid ventricular response (HCC) (Primary Dx); Dilated cardiomyopathy (HCC); Lipid screening; At risk for sleep apnea; Morbid obesity with BMI of 40.0-44.9, adult (HCC); Hospital discharge follow-up 06/22/2024 11:00 AM CDT Office Visit [facility] [address] [place] [phone] Eagle Durand MD Need for hepatitis B screening test (Primary Dx); Need for hepatitis C screening test; Sleep apnea, unspecified type; Congestive heart failure, NYHA class 3, acute, systolic (HCC); Class 2 severe obesity due to excess calories with serious comorbidity and body mass index (BMI) of 39.0 to 39.9 in adult (HCC) 06/15/2024 Telephone [facility] Cardiology [address] [place] [address] [place] [phone] Shreya Gibbs NP 06/15/2024 Orders Only [facility] Cardiology [address] [place] [address] [address] [place] [phone] Kris Rodriguez MD 06/09/2024 Orders Only [facility] Cardiology [address] [place] [address] [address] [place] [phone] Aries Malone MD 06/06/2024 Orders Only [facility] Health Information Management [address] [place] [phone] Scanning, Provider 06/03/2024 Orders Only [facility] Information Management [address] [place] [address] Eagle Durand MD from Last 3 Months [...] mouth every 12 (twelve) hours 06/15/19 25 025 Discontin ued(Reord er) digoxin (LANOXIN) 250 mcg (0.25 mg) tablet Take 1 tablet (250 mcg total) by mouth every morning 06/15/19 25 025 Discontin ued(Reord er) Jardiance 10 mg tablet Take 1 tablet (10 mg total) by mouth daily 06/16/19 25 025 Discontin ued(Reord er) furosemide (LASIX) 40 mg tablet Take 1 tablet (40 mg total) by mouth daily 06/15/19 25 025 Discontin ued(Reord er) Active Problems Problem [...] 04/20 Assessment & Plan (04/20/2022 3:06 PM BAG SEWER): Patient injured left ankle and foot pain [...] me that colonoscopy as we done at [facility].. Staff was advised well.. Chronic health problems morbid obesity and hypertension. Assessment & Plan (10/28/2022 4:56 PM CDT): Patient 47 he is advised his options for colon cancer screening/a Cologuard versus colonoscopy. Will give some consideration depending on insurance coverage Assessment & Plan (04/20/2022 3:05 PM BAG SEWER): History and physical completed patient's health risk [...] visit. Assessment & Plan (04/05/2019 12:51 PM BAG SEWER): History and physical complete health risk assessment addressed. 30 lb weight loss on purpose patient resume running. He had a added running in years past he discontinued this because of knee pain. This past year resume running is no knee pain he has lost 30 lb laboratory studies will include a CMP CBC FLP Assessment & Plan (04/03/2018 6:21 PM BAG SEWER): 42-year-old gentleman is new patient to me. [...] therapy Assessment & Plan (04/20/2022 3:05 PM BAG SEWER): Hypertension will continue present medication check BMP fasting lipid profile Assessment & Plan (10/12/2021 4:50 PM CDT): Blood pressure is 140/80 no change in therapy at this time. Encourage ifestyle change weight loss continue present therapy. Assessment & Plan (03/31/2021 1:35 PM BAG SEWER): Hypertension remains well controlled patient is tolerating [...] months. Assessment & Plan (04/03/2018 6:24 PM BAG SEWER): . History of hypertension dating back to [...] refilled. Assessment & Plan (04/03/2018 6:25 PM BAG SEWER): Patient's erectile dysfunction he advised me that testosterone levels are not covered by his insurance. This time I discussed with him the medications Viagra, Cialis. Advised mother generic medication of Viagra which is more affordable Revatio /sildenafil and dosage in how to take it. Prescription called in [facility] pharmacy. Resolved Problems Problem [...] do it. Body mass index 40.0-44.9, adult ([facility]) 05/09/2023 11/27/2023 Assessment & Plan (05/09/2023 6:00 PM CDT): Weight is up 22 lb in 2 years patient is given information regarding dash diet is has hyperlipidemia borderline blood pressures also given information from a website from [employer] call [employer]. Did not discuss GLP 1 therapy for [...] given information from a website from the [employer]. Did not discuss GLP 1 therapy for [...] he was 89 appy was also a [address] years ago as well. Patient's begin the walks several days a week for purpose of losing weight. Patient's ASCVD score 10 year risk 7.2 past this information on to him discussed with him the influence of cholesterol hypertension and other factors he can look up how to calculate this information in the future foreign self. 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 Gender Identity Not on file Sexual Orientation [...] (07/08/2024) Anatomical Region Laterality Modality Other us Robert Chung MD CV CARDIAC SERVICES PROCEDURES F inal Result * ECG 12 lead (07/01/2024 10:16 AM CDT) 07/01/2024 10:1 6 AM CDT Patricia Chandler CURTAIN HEMMER AUTOMATIC ECG ORDERABLES Edited Re sult - Final [...] - Final from Last 3 Months Insurance [facility] H[facility]/PPO Address: [place] [phone] [facility]/PPO Address: [place] [id number] [facility] H[facility]/PPO Address: [address] [address] Care Teams Crew Trainer Relationship Specialty Start Date End Date Eagle Durand MD PCP - General Internal Medicine 03/18/18
[2024-08-18 09:07] LABS: Anion Gap 8 mmol/L (4-12); Blood Urea Nitrogen 19 mg/dL (9-20); Calcium 9.5 mg/dL (8.4-10.2); Carbon Dioxide 26 mmol/L (22-30); Chloride 107 mmol/L (98-107); Estimated CRCL calculation 126 ml/min; Estimated Glomerular Filt Rate > 60; Glucose 104 mg/dL (65-110); Magnesium 2.2 mg/dL (1.6-2.3); Potassium 4.2 mmol/L (3.4-5.0); Sodium 141 mmol/L (137-145)
--- NOTE | 2024-08-18 10:00 | ECG_ITS ---
Test Date: 2024-08-18 08:37:44 Measurements Intervals [place] Rate: 116 P: 0 CT: 0 QRS: -8 QRSD: 101 T: 0 QT: 164 QTc: 228 Interpretive Statements ATRIAL FLUTTER/TACHYCARDIA WITH RAPID VENTRICULAR RESPONSE INFERIOR MYOCARDIAL INFARCTION , PROBABLY OLD [40+ ms Q WAVE AND/OR ST/T ABNORMALITY IN II/aVF] Compared to ECG 07/08/2024 15:36:18 No significant changes Electronically Signed On 08-18-2024 14:37:58 CDT by Robert Chung M.D.
--- NOTE | 2024-08-18 10:55 | P.PCNCC_ITS ---
Cardiac Cath Procedure Note Date of procedure:: 08/18/24 Performing physician:: Kris Rodriguez MD Indication:: Atrial flutter with tachycardia mediated cardiomyopathy Brief clinical history:: This is a 48-year-old man with a history of congestive heart failure and atrial flutter with RVR that was diagnosed earlier this year. He has been rate controlled and anticoagulated and attempt at restoring sinus rhythm has been scheduled for today. This is been delayed because previous MAX demonstrated visible left atrial appendage thrombus. Procedure Procedure performed:: Max/cardioversion Sedation/Medication given:: Sedation per the Anesthesia Service see their separately dictated note Estimated blood loss:: No blood loss Procedure note:: Patient was brought to the cardiac catheterization lab postanesthesia area where he was in the supine position in the postabsorptive state. The defibrillator patches were placed in the AP position and the defibrillator was set at 200 joule output in synchronized mode. He was then sedated by the Anesthesia Service. He received or pharyngeal benzocaine for hypo pharyngeal anesthesia. Patient following sedation had the MAX probe placed in the hypopharynx and easily advanced into the esophagus. The left atrium was inspected in its entirety including very good visualization of the appendage. There was no visible clot. The left ventricle is dilated with markedly reduced systolic function. The MAX probe was then withdrawn and the patient's defibrillator was used to deliver a 200 joule shock in synchronized fashion which restored sinus rhythm with heart rate of 80. Findings:: As above Conclusion:: Successful uncomplicated MAX/cardioversion of atrial flutter restoring sinus rhythm using 200 joules x1 shock following confirmation of no left atrial appendage thrombus. Kris Rodriguez MD [facility]
--- NOTE | 2024-08-18 11:00 | P.PNAN_ITS ---
Anes - Initial Pre Proc Eval Procedure: Operation Date: 08/18/24 10:00 Proposed Procedures p Trans Esophageal Echo - Kris Rodriguez MD s Electrical Cardioversion - Kris Rodriguez MD Date/Time: 08/18/24 1035 Surgeon: Kris Rodriguez MD Pre Op Diagnosis: A Flutter Pre Op Diagnosis: Atrial Flutter Patient Data Age: 48 Gender: M Height: 1.83 m Weight: 136.6 kg Last Vital Signs Temp 36.6 C 08/18/24 08:54 Pulse 113 H 08/18/24 08:54 Resp 20 08/18/24 08:54 BP 121/83 08/18/24 08:54 Pulse Ox 96 08/18/24 08:54 O2 Del Method Room Air 08/18/24 08:54 Allergies Allergy/AdvReac Type Severity Reaction Status Date / Time No Known Allergies Allergy Verified 08/17/24 13:28 Home Medications ?Medication ?Instructions ?Recorded ?Confirmed ?Type apixaban 5 mg tablet (Eliquis) 5 mg PO Q12HR #60 tabs 07/08/24 08/18/24 Rx digoxin 250 mcg (0.25 mg) tablet 250 mcg PO QAM #30 tabs 07/08/24 08/18/24 Rx (Digitek) empagliflozin 10 mg tablet 10 mg PO DAILY #30 tabs 07/08/24 08/18/24 Rx (Jardiance) furosemide 40 mg tablet 40 mg PO DAILY #30 tabs 07/08/24 08/17/24 Rx losartan 25 mg tablet 25 mg PO DAILY #30 tabs 07/08/24 08/17/24 Rx metoprolol succinate 100 mg 100 mg PO BID #60 tabs 07/08/24 08/18/24 Rx tablet,extended release 24 hr (Toprol XL) omeprazole 20 mg capsule,delayed 20 mg PO DAILY #30 caps 07/08/24 08/18/24 Rx release rosuvastatin 20 mg tablet 20 mg PO DAILY #90 tabs 07/08/24 08/18/24 Rx sacubitril 24 mg-valsartan 26 mg tablet PO BID 08/17/24 History tablet (Entresto) Laboratory Tests 08/18/24 08:49 Sodium 141 mmol/L (137-145) Potassium 4.2 mmol/L (3.4-5.0) Chloride 107 mmol/L (98-107) Carbon Dioxide 26 mmol/L (22-30) Anion Gap 8 mmol/L (4-12) BUN 19 mg/dL (9-20) Creatinine 0.92 mg/dL (0.7-1.3) Estim Creat Clear Calc 126 ml/min Estimated GFR > 60 (59 - ) Glucose 104 mg/dL (65-110) Calcium 9.5 mg/dL (8.4-10.2) Magnesium 2.2 mg/dL (1.6-2.3) ECG: A flutter rate 116 Patient hx anesthesia problems: none Family hx anesthesia problems: none Results Review: All pre-operative results and documents have been reviewed as part of the pre- operative evaluation. [facility] Past Medical History Medical History Left atrial thrombus Daily consumption of alcohol Gastroesophageal reflux disease Tobacco dependence Hyperlipidemia Hypertension Surgical History Surgical History History of open reduction and internal fixation (ORIF) procedure repair of right ankle fracture and left tibia-fibula fractures History of adenoidectomy Family History Family History Father Acute myocardial infarction Mother Diabetes mellitus Social History Social History Social History: Surrogate medical decision maker: Kimberlyn Gama, spouse. Code status: Full code. Smoking packs per day: 1 Smoking cigarettes per day: 20.0 Years smoked: 25 Smoking pack-years: 25.00 Smoking status: Former smoker Tobacco type: cigarettes Alcohol intake: unknown Drinks per week: 35 Alcohol use details: 5 to 6 rum containing alcoholic beverages a day Substance use: former Substance use type: does not use Other substance usage details: marijuana weekly Do You Feel Safe in your Home?: Yes Lack of Transportation: No Lack of Food: Never True Current Housing: I Do Not Have Housing Concerned About Future Housing: No Difficulty Paying Gas/Electric Bills: No Difficulty Paying for Meds: No Currently Unemployed: No Education: High School Diploma/GED Difficulty w/ Childcare or Family Care: No Living arrangements: with family Spiritual care concerns: No Anes - Eval Final PreProcedure Day of Procedure 08/18/24 11:00 Patient weight: obese Heart: irregular rhythm (A flutter) Lungs: normal air movement Airway: Mallampati scale class II Neurological: alert and oriented Last oral intake: 4 hours ASA classification: III Emergent: no Anesthetic plan: proceed Anesthesia type and monitoring: general GIVS Results Review: All pre-operative results and documents have been reviewed as part of the pre- operative evaluation. Informed Consent: The patient's anesthetic plan and its attendant risks and benefits were discussed with the patient/family/POA. Questions were solicited and answers provided to the satisfaction of the patient/family/POA.
--- NOTE | 2024-08-18 11:00 | ECG_ITS ---
Test Date: 2024-08-18 10:46:09 Measurements Intervals [place] Rate: 75 P: 50 OK: 156 QRS: -2 QRSD: 110 T: 84 QT: 376 QTc: 421 Interpretive Statements SINUS RHYTHM NONSPECIFIC T-WAVE ABNORMALITY Compared to ECG 08/18/2024 08:37:44 T-wave abnormality now present Atrial flutter no longer present Myocardial infarct finding no longer present Electronically Signed On 08-18-2024 14:41:13 CDT by Robert Chung M.D.
[2024-08-18] MEDS: AMIODARONE HCL 200 MG TABLET 400 MG PO (11:21)
== END 2024-08-18 12:03 | disposition home or self-care (01) ==
PROVIDERS: PCP Internal Medicine; Visit Provider Specialist
PROC: (CPT 93312; principal; 2024-08-18 10:00)
PROC: 5A2204Z Restoration of Cardiac Rhythm, Single (ICD-10-PCS; 2024-08-18 10:00)
DX: I48.3 Typical atrial flutter (principal); I42.0 Dilated cardiomyopathy; I51.3 Intracardiac thrombosis, not elsewhere classified; E78.5 Hyperlipidemia, unspecified; I10 Essential (primary) hypertension; K21.9 Gastro-esophageal reflux disease without esophagitis; F12.90 Cannabis use, unspecified, uncomplicated; E66.9 Obesity, unspecified; Z68.41 Body mass index [BMI] 40.0-44.9, adult; Z79.01 Long term (current) use of anticoagulants; Z79.84 Long term (current) use of oral hypoglycemic drugs; Z98.890 Other specified postprocedural states; Z87.891 Personal history of nicotine dependence; Z82.49 Family history of ischemic heart disease and other diseases of the circulatory system
CPT/HCPCS: 36415; 80048; 83735; 92960; 93312; 93320; 93325; A9270; J2003; J2704; J7040